=== PATIENT | male | born 1950 | race Caucasian/White ===

== ENCOUNTER 2019-05-31 12:58 | Inpatient (IN) | payer MEDICARE, SELFPAY ==
[2019-05-31] VITALS (12 sets, daily range): BP systolic 132–171; BP diastolic 60–116; PULSE 78–95; RESP 16–26; TEMP 36.5–36.8; O2SAT 92–100; BMI 48.8; BMI 51.1
--- NOTE | 2019-05-31 13:01 | RAD_ITS ---
STUDY: X-RAY CHEST REASON FOR EXAM: Male, 69 years old. SOB, SWOLLEN LEGS TECHNIQUE: Single AP portable view of the chest. COMPARISON: None. FINDINGS: There are hypoventilatory changes in the lung bases. No focal infiltrate is seen. The examination was obtained in lordotic position. There is no demonstrated pleural abnormality. There is borderline cardiomegaly. Normal mediastinum and savana. Normal visualized pulmonary arteries. Normal visualized aortic arch and descending thoracic aorta. Thoracic spine is obscured. Normal visualized ribs, clavicles, and shoulders. There is no demonstrated abnormality of the visualized soft tissue structures of the upper abdomen. RAD/Chest 1 View (Portable) IMPRESSION: Somewhat limited examination. No active pulmonary disease. Electronically Signed: Ezekiel Quick MD at 13:28 EDT Tel , Service support ,
--- NOTE | 2019-05-31 13:01 | EKG12_ITS ---
Test Reason : SOB Blood Pressure : / mmHG Vent. Rate : 079 BPM Atrial Rate : 079 BPM P-R Int : 172 ms QRS Dur : 080 ms QT Int : 424 ms P-R-T Axes : 092 -05 005 degrees QTc Int : 486 ms Sinus rhythm with Premature atrial complexes Low voltage QRS Prolonged QT Abnormal ECG Confirmed by BREANNA BROWN, MARCO A ([id number]), market editor LAKIA FORRESTER ([id number] on 06/01/2019 3:22:09 PM Referred By: MADAY Confirmed By:MARCO A CARLOS MD
[2019-05-31 13:31] LABS: Absolute Lymphocyte Count 1.13 X10^3/uL (0.83-4.51); Basophil# 0.01 X10^3/uL; Basophil% 0.2 % (0-1); Eosinophil# 0.15 X10^3/uL; Eosinophils% 3.1 % (0-5); Hematocrit 32.1 % (40-54); Lymphocyte # 1.13 X10^3/ul (4.0); Lymphocyte % 23.6 % (19-41); Mean Corp Hgb Conc 31.2 g/dL (32-36); Mean Corpuscular Hgb 32.2 pg (27.0-32.0); Mean Corpuscular Volume 103.2 fL (80-94); Mean Platelet Vol. 10.1 fl (6.2-12.0); Monocyte# 0.53 X10^3/uL; Monocyte% 11.1 % (0-10); NRBC Flagged by Analyzer 0 % (0-5); Neutrophil # 2.95 X10^3/uL (2.7-7.7); Neutrophil % 61.6 % (47-70); Platelet Count 173 K/mm3 (150-450); RBC Distribution Width CV 12.8 % (11.6-14.6); RBC Distribution Width SD 47.6 fl (35.1-43.9); Red Blood Count 3.11 M/mm3 (4.6-6.2); White Blood Count 4.8 K/mm3 (4.4-11.0)
[2019-05-31] MEDS: Ipratropium/Albuterol Sulfate 3 ML AMPUL.NEB INHALATION (13:43)
--- NOTE | 2019-05-31 13:46 | ED.DCSUM_ITS ---
History of Present Illness Chief Complaint: Shortness of Breath Informant: Patient Onset: Weeks Maximum Severity: Mild Narrative: Complains of diffuse whole body swelling scrotal swelling lower extremity swelling for weeks progressively worse, shortness of breath fatigue, indicates he has no past history he is not seen a physician for many years denies fever or cough no history of CO PE DVT liver kidney failure Past Medical History - Allergies and Home Meds Allergies/Adverse Reactions: Allergies Penicillins [PCN] Allergy (Verified 05/31/19 13:24) PASSED OUT Primary Care Physician: NOT,DEFINED [NON-STAFF] - Past Medical History: None Smoking Status: Current every day smoker Review of Systems General: Denies: Chills, Fever, Sweats Eyes: Denies: Visual changes - bilaterally, Diplopia ENT: Denies: Rhinorrhea, Sore throat Cardiovascular: Denies: Chest pain, Palpitations Respiratory: Reports: Dyspnea, Cough, Dyspnea on exertion Gastrointestinal: Denies: Abdominal pain, Nausea, Vomiting, Diarrhea, Melena, Hematochezia Genitourinary: Reports: - - Edema scrotal edema swelling. Denies: Dysuria, Hematuria, Frequency Musculoskeletal: Reports: Extremity Pain, -. Denies: Back pain Skin: Denies: Rash, Wounds Neurological: Denies: Headache, Weakness, Numbness Physical Exam Vital Signs/Narrative: Vital Signs Temp Pulse Resp BP Pulse Ox 05/31/19 13:43 79 18 05/31/19 13:29 88 22 H 151/76 H 92 05/31/19 13:01 98.1 F 94 26 H 153/116 H 94 General: Well nourished, Well developed, No Acute Distress Head: Normocephalic, Atraumatic Eyes: Perrl, EOMI ENT: Moist mucous membranes, No rhinorrhea Neck: Supple, Nontender Cardiovascular: Regular rate, Regular rhythm, No murmurs Respiratory: Chest nontender, Rales, Rhonchi, Wheezing Abdomen: Soft, Normal bowel sounds, - - He has a markedly distended nontender abdomen he has edema to the anterior abdominal wall the edema extends into the scrotum which is markedly swollen Back: Nontender, Normal Inspection Extremities: Tenderness, Edema, - - Chronic skin changes firm brawny edema bilaterally Skin: Rash Neurological: Alert, Oriented x3, Cranial nerves II-XII grossly intact, Normal Strength, Normal Sensation Psychological: Normal affect, Normal Mood Diagnostic/Tx/Re-eval - Medical Decision Making The patient's EKG shows a sinus rhythm 79 no acute injury, given all of the above and his history and complaints certainly differential is quite extensive screening labs Lasix The patient screening labs are generally unremarkable UA is pending the chest x- ray shows nothing acute troponin BNP negative, we are negotiate the patient the concept of straight catheter Asif catheter placement to obtain UA and to confirm no signs of urinary obstruction as he states he has been voiding normally Please note the Asif catheter was placed he has at least 400 cc and that is still slowly draining so there is an element of urinary retention draining Given all the above I have asked hospitalist team to see him for management admission Admit stable Final impression anasarca, CHF whole body edema, urinary retention, dyspnea ED Disposition - Plan for ED Patient: Diagnosis: Anasarca congestive heart failure Referrals: NOT,DEFINED [NON-STAFF] -
[2019-05-31 13:49] LABS: Anion Gap 5 (5-15); BUN 7 mg/dL (7-18); BUN/Creat Ratio 12.7 RATIO (10-20); Calcium,Total 8.6 mg/dL (8.5-10.1); Chloride 101 mmol/L (98-107); Creatinine, Serum 0.55 mg/dL (0.70-1.30); EST Glomerular Filtration Rate 157 mL/min (>60); Est Glom Filt Rate - Afr Amer 190 mL/min (>60); Estimated Creatinine Clearance 76.35 ml/min; Glucose 113 mg/dL (74-106); Potassium 4.5 mmol/L (3.5-5.1); Sodium Level 134 mmol/L (136-145)
[2019-05-31 13:57] LABS: International Normalized Ratio 1.1; Prothrombin Time (Protime)PT. 14.3 SECONDS (11.7-14.9)
[2019-05-31] MEDS: morphine 8 MG/ML Syringe 6 MG IV (13:57)
[2019-05-31] MEDS: Ondansetron ODT 4 MG Tablet PO (13:57)
[2019-05-31] MEDS: Furosemide 20 MG/2 ML VIAL IV (13:57)
[2019-05-31 14:06] LABS: AST(SGOT) 48 U/L (15-37); Alanine Aminotransfer ALT/SGPT 48 U/L (16-61); Alkaline Phosphatase 84 U/L (45-117); Bilirubin, Direct 0.28 mg/dL (0.00-0.30); Globulin 3.9 g/dL (2.2-4.2); Protein, Total 6.9 g/dL (6.4-8.2)
[2019-05-31 14:07] LABS: BNP,B-Type NATRIURETIC PEPTIDE 156.9 pg/mL (0-100)
[2019-05-31 14:39] LABS: Bacteria 0 SEEN /hpf (None Seen); Mucous, Urine 0 SEEN /hpf (<or=2+); Red Blood Cells-Urine 0 SEEN /hpf (0-5); Squamous Epithelial Cells - UA 0 SEEN /hpf (0-5)
[2019-05-31 14:50] LABS: Color, Urine Yellow (Yellow); Glucose, Dipstick Normal (Normal); Ketone-Dipstick Negative (Negative); Leukocyte Esterase-Dipstick Negative /ul (Negative); Nitrite-Dipstick Negative (Negative); Occult Blood-Urine Negative /ul (Negative); Protein-Dipstick Negative (Negative); Specific Gravity, Urine 1.015 (1.002-1.030); Urine Bilirubin Dipstick Negative (Negative); Urine Clarity Clear (Clear); Urine Urobilinogen Normal (Normal)
[2019-05-31 15:09] LABS: White Blood Cells 0-5 SEEN /hpf (0-5)
--- NOTE | 2019-05-31 15:32 | ECHOCS_ITS ---
Reason For Study: Anasarca Procedure This was a 2D Doppler, Color Flow transthoracic echocardiogram. The study was technically difficult. Contrast injection was performed. Patient scanned sitting up due to pain. Exam performed portable in patient room. Left Ventricle Normal LV size. Moderate concentric left ventricular hypertrophy. Left ventricular systolic function is normal. The estimated ejection fraction is 60 %. Stage 2 diastolic dysfunction. No regional wall motion abnormalities noted. Right Ventricle The right ventricle is not well visualized. Atria The left atrium is moderately enlarged. Mitral Valve Mitral valve not well visualized. Tricuspid Valve The tricuspid valve is not well visualized. Aortic Valve The aortic valve is not well visualized. Great Vessels Normal aortic root. The pulmonary artery is normal size. Normal inferior vena cava. Pericardium/Pleural No pericardial effusion. Medication Diluted definity 3ml given slow IV push to enhance endocardial definition. MMode/2D Measurements & Calculations LVIDd: 4.4 cm IVSd: 1.5 cm Ao root diam: 3.3 cm LVIDs: 3.0 cm LVPWd: 1.6 cm FS: 30.3 % LAV(MOD-sp4): 99.7 ml LA A4 area: 29.3 cm2 Time Measurements MV dec time: 0.20 sec Doppler Measurements & Calculations MV E max fred: 117.7 cm/sec Lat Peak E' Fred: 11.9 cm/sec Med Peak E' Fred: 8.7 cm/sec MV A max fred: 72.2 cm/sec E/E' lat: 9.9 E/E' med: 13.5 MV E/A: 1.6 MV V2 max: 124.2 cm/sec MV P1/2t max fred: 123.3 cm/sec Ao V2 max: 134.8 cm/sec MV max P.2 mmHg MV P1/2t: 114.7 msec Ao max P.3 mmHg MV V2 mean: 64.2 cm/sec MV dec slope: 314.8 cm/sec2 MV mean P.0 mmHg MVA(P1/2t): 1.9 cm2 MV V2 VTI: 39.9 cm LV V1 max: 95.3 cm/sec PA V2 max: 82.8 cm/sec TR max fred: 300.0 cm/sec LV V1 max P.6 mmHg TR max P.0 mmHg Interpretation Summary Normal LV size. Left ventricular systolic function is normal. The estimated ejection fraction is 60 %. Moderate concentric left ventricular hypertrophy. Stage 2 diastolic dysfunction. Contrast injection was performed. The study was technically limited. The study was technically difficult. Ordering Physician: Meka Elaine Referring Physician: Molly PCP Performed By: Kurt Sanz RCS
--- NOTE | 2019-05-31 15:40 | PCM.PN.HOSP ---
Vitals/I&O's: Vital Signs Temp Pulse Resp BP Pulse Ox 98.3 F 95 18 137/62 H 98 05/31/19 15:36 05/31/19 15:36 05/31/19 15:36 05/31/19 15:36 05/31/19 15:36 Oxygen Flow Rate (L/min) 2 Oxygen Delivery Method Nasal Cannula Weight: 158.757 kg Body Mass Index (BMI) 48.8 Laboratory Results 05/31/19 13:26: WBC 4.8, RBC 3.11 L, Hgb 10.0 L, Hct 32.1 L, MCV 103.2 H, MCH 32.2 H, MCHC 31.2 L, RDW Std Deviation 47.6 H, RDW Coeff of Radha 12.8, Plt Count 173, MPV 10.1, Immature Gran % (Auto) 0.400, Neut % (Auto) 61.6, Lymph % (Auto) 23.6, [place] % (Auto) 11.1 H, Eos % (Auto) 3.1, Baso % (Auto) 0.2, Absolute Neuts (auto) 3.0, Absolute Lymphs (auto) 1.13, Nucleated RBC % 0 05/31/19 13:26: Sodium 134 L, Potassium 4.5, Chloride 101, Carbon Dioxide 28.0, Anion Gap 5, BUN 7, Creatinine 0.55 L, Estim Creat Clear Calc 76.35, Est GFR (MDRD) Af Amer 190, Est GFR (MDRD) Non-Af 157, BUN/Creatinine Ratio 12.7, Glucose 113 H, Calcium 8.6, Troponin I < 0.015 05/31/19 13:26: B-Natriuretic Peptide 156.9 H 05/31/19 13:26: PT 14.3, INR 1.1 05/31/19 13:26: Total Bilirubin 0.60, Direct Bilirubin 0.28, AST 48 H, ALT 48, Alkaline Phosphatase 84, Total Protein 6.9, Albumin 3.0 L, Globulin 3.9 05/31/19 14:25: Urine Color Yellow, Urine Clarity Clear, Urine pH 6.0, Ur Specific [place] 1.015, Urine Protein Negative, Urine Glucose (UA) Normal, Urine Ketones Negative, Urine Occult Blood Negative, Urine Nitrite Negative, Urine Bilirubin Negative, Urine Urobilinogen Normal, Ur Leukocyte Esterase Negative, Urine RBC 0 SEEN, Urine WBC 0-5 SEEN, Ur Squamous Epith Cells 0 SEEN, Urine Bacteria 0 SEEN, Urine Mucus 0 SEEN Current Medications Acetaminophen (Tylenol) 650 mg PO Q6H PRN PRN PRN Reason: Pain Score 1-10/Temp > 100.7 F Aspirin (Ecotrin) 81 mg PO DAILY@0800 [facility] Dextrose (D50w Syringe) 0 gm IV X1 PRN; Protocol PRN Reason: Hypoglycemia Enoxaparin Sodium (Lovenox) 40 mg SC DAILY KANDY Glucagon () 1 mg IM .X1 PRN PRN Reason: Hypoglycemia Insulin Human Lispro (Humalog Kwikpen (Bkc)) 0 unit SC UD KANDY; Protocol Magnesium Hydroxide (Milk Of Magnesia) 30 ml PO DAILY PRN PRN PRN Reason: Constipation Melatonin (Melatonin) 3 mg PO QHS PRN PRN PRN Reason: INSOMNIA Metoprolol Tartrate (Lopressor (Beta Samantha)) 25 mg PO BID [facility] STROKE Vital Signs/Narrative: Vital Signs Temp Pulse Resp BP Pulse Ox 05/31/19 15:36 98.3 F 95 18 137/62 H 98 05/31/19 14:57 97.9 F 92 17 171/75 H 92 05/31/19 14:01 78 16 155/72 H 95 05/31/19 13:43 79 18 05/31/19 13:29 88 22 H 151/76 H 92 05/31/19 13:01 98.1 F 94 26 H 153/116 H 94 Medical Necessity - Tobacco Use Smoking Status: Current every day smoker Assessment/Plan Severe Anasarca -sCr is WNL -no protein in urine on UA -LFT only sig for slight AST elevation -coag WNL -Troponin WNL -Will check ECHO -BNP is elevated -Check TSH -Diuresis now with Lasix 40 mg BID -UO good with lasix give in the ED -may need lasix ggt -cardiac diet with 1500 cc fluid restriction -strict I&O -daily wgts -Could have Constrictive/Restrictive CM vs HFrEF vs HFpEF Acute Hypoxemic Respiratory Failure -Wean O2 as able -suspect related to volume overload -not O2 dependent at baseline Macrocytic Anemia -recheck CBC in am -check B12 and Folate Mild Hyponatremia -134 on admission -trend -suspect will get better with diuresis -if now proceed with w/u -appears volume overloaded Elevated BP -start BB 25 mg BID and titrate up as needed -Lasix 4 mg IVP BID -will trend MO -sig volume OL -recommend wgt loss -needs outpt PSG DVT Prophylaxis -Lovenox daily Code Status Full
--- NOTE | 2019-05-31 16:05 | HP.PCM_ITS ---
Problem List (1) Anasarca Status: Acute (2) Acute hypoxemic respiratory failure Status: Acute (3) Macrocytic anemia Status: Acute (4) Hyponatremia Status: Acute (5) Elevated BP without diagnosis of hypertension Status: Acute (6) Morbid (severe) obesity due to excess calories Status: Acute History of Present Illness Date of Admission: 05/31/19 Chief Complaint: Scrotal swelling Mr Levine is a 69 year old M who hasn't seen a doctor ever in his life that he can remember who presented to the ED on 05/30 with severe scrotal swelling. Pt reports that he has had swelling issues in his legs for awhile but with in the last few weeks he has had progressively worsening edema up to his mid abdomen but what really brought him in was the pain and swelling of his scrotum. He denies CP but does reports some SOB. He has been urinating without issues and denies any h/o liver disease. He admits to smoking fr abut 50 yrs and is now currently a 1 PPD smoker. He has no known PMH and take no medications at home. Past Medical History Allergies Penicillins [PCN] Allergy (Verified 05/31/19 13:24) PASSED OUT Home Medications: Ambulatory Orders Medication Instructions Recorded NK 05/31/19 Surgical History: total knee arthroplasty - L 2009 Psychiatric History: No pertinent psych hx Lives: Alone Smoking Status: Current every day smoker Tobacco Use: Cigarettes Alcohol: None Drugs: None Review of Systems Constitutional: Reports: Weight Change, Fatigue. Denies: Anorexia, Chills, Fever, Night Sweats, Malaise, Weakness Eyes: Denies: Blurred vision, Cataracts, Conjunctivae Inflammation, Double vision, Drainage, Eyelid Inflammation, Pain, Redness, Vision Change HEENT: Denies: Difficulty Hearing, Difficulty Swallowing, Dysphasia, Ear Pain, Eye Pain, Hard of Hearing, Head Aches, Hearing Changes, Nasal bleeding, Nasal Congestion, Post Nasal Drip, Sinus Congestion, Sinus Drainage, Sore Throat, Visual Changes Cardiovascular: Reports: Edema, Orthopnea, Paroxysmal Noc. Dyspnea. Denies: Chest Pain, Claudication, Chest Pressure, Chest Tightness, Heaviness, Light Head edness, Palpitations, Syncope Respiratory: Reports: Shortness of Breath, Shortness of breath at rest, Shortness of breath upon exertion. Denies: Cough, Hemoptysis, Pleuritic Pain, Sputum production, Wheezing Gastrointestinal: Denies: Abdominal Pain, Constipation, Diarrhea, Dyspepsia, Hematemesis, Hematochezia, Nausea, Melena, Vomiting Genitourinary: Denies: Dysuria, Frequency, Hematuria, Hesitancy, Incontinence, Nocturia, Retention, Urgency Musculoskeletal: Reports: Back Pain, Joint stiffness. Denies: Arm Pain Skin: Reports: Dryness, Pruritis, Skin Changes. Denies: Jaundice, Lesions, Rash, Wounds Neurological: Denies: Balance problems, Blurred vision, Double vision, Change in Speech, Slurred speech, Confusion, Difficulty swallowing, Focal weakness, Headaches, Incoordination, Numbness, Tingling, Tremor, Seizures Psychiatric: Denies: Anxiety, Depression, Homicidal Ideations, Suicidal Ideations Endocrine: Denies: Change in Body Habitus, Heat/ Cold Intolerance, Polydipsia, Polyuria Hematologic/ Lymphatic: Denies: Adenopathy, Anemia, Easy Bruising, Easy Bleeding, Petechiae, Purpura, Hx of blood clot, Hx of blood transfusion VTE Information - Inpt Only VTE Present on Admission: No VTE Mechan Device Prophylaxis: SCD's VTE Pharm Prophylaxis ordered?: Yes Patient Problems: Active and Suspected Problems Anasarca (Acute) Acute hypoxemic respiratory failure (Acute) Macrocytic anemia (Acute) Hyponatremia (Acute) Elevated BP without diagnosis of hypertension (Acute) Morbid (severe) obesity due to excess calories (Acute) - Physical Exam Vitals/I&O's: Vital Signs Temp Pulse Resp BP Pulse Ox 98.3 F 95 18 137/62 H 98 05/31/19 15:36 05/31/19 15:36 05/31/19 15:36 05/31/19 15:36 05/31/19 15:36 Oxygen Flow Rate (L/min) 2 Oxygen Delivery Method Nasal Cannula Weight: 161.7 kg Body Mass Index (BMI) 51.1 General: Alert, Oriented x3, Cooperative, No apparent distress, Well developed, Well nourished - WM lying in bed, nursing at bedside, pleasant, appears stated a ge HEENT: Atraumatic, PERRLA, EOMI, Normocephalic, EAC Clear Oral: Moist Mucosa, No Gingival or Mucosal Lesions/ Ulcerations, - - poor dentition, Mallampati 3 Neck: Supple, Negative Carotid Bruits, No Nodes, No Nuchal Rigidity, Trachea Midline, Thyroid Normal Size and Texture, JVD, Bilateral, - - +HJR Lungs: Diminished, Short of Breath - with exertion, Wheezes - scattered Cardiovascular: Regular rate, Regular Rhythm, Normal S1, Normal S2, No murmurs, No Ectopic Activity, - - distant heart tones 2/2 bdy habitius Abdomen: Bowel Sounds Present, Soft, Non Tender, Non-Distended, No Hepato- splenomegaly, Obese, No hernias noted Extremities: No clubbing, No cyanosis, Capillary Refill Less than 3 Seconds, Diminished Peripheral Pulses - 1+, Edema - severe anasarca to just above umbilicus Skin: No rashes, - - B LE skin breakdown Musculoskeletal: No Tenderness to Palpation of Joints or Extremities, No Muscle Wasting, Arthritic Changes Lymphatic: No Cervical, Supraclavicular, or Inguinal Adenopathy Neurological: Cranial nerves II-XII grossly intact, Deep Tendon Reflexes 2+/4 and Symmetrical, Neuro grossly intact, Motor Exam 5/5 strength throughout Psych/Mental Status: Normal Affect, Appropriate, Anxious, Alert and oriented to time, place, person, mood and affect Laboratory Results 05/31/19 13:26: WBC 4.8, RBC 3.11 L, Hgb 10.0 L, Hct 32.1 L, MCV 103.2 H, MCH 32.2 H, MCHC 31.2 L, RDW Std Deviation 47.6 H, RDW Coeff of Radha 12.8, Plt Count 173, MPV 10.1, Immature Gran % (Auto) 0.400, Neut % (Auto) 61.6, Lymph % (Auto) 23.6, [place] % (Auto) 11.1 H, Eos % (Auto) 3.1, Baso % (Auto) 0.2, Absolute Neuts (auto) 3.0, Absolute Lymphs (auto) 1.13, Nucleated RBC % 0 05/31/19 13:26: Sodium 134 L, Potassium 4.5, Chloride 101, Carbon Dioxide 28.0, Anion Gap 5, BUN 7, Creatinine 0.55 L, Estim Creat Clear Calc 76.35, Est GFR (MDRD) Af Amer 190, Est GFR (MDRD) Non-Af 157, BUN/Creatinine Ratio 12.7, Glucose 113 H, Calcium 8.6, Troponin I < 0.015 05/31/19 13:26: B-Natriuretic Peptide 156.9 H 05/31/19 13:26: PT 14.3, INR 1.1 05/31/19 13:26: Total Bilirubin 0.60, Direct Bilirubin 0.28, AST 48 H, ALT 48, Alkaline Phosphatase 84, Total Protein 6.9, Albumin 3.0 L, Globulin 3.9 05/31/19 14:25: Urine Color Yellow, Urine Clarity Clear, Urine pH 6.0, Ur Specific [place] 1.015, Urine Protein Negative, Urine Glucose (UA) Normal, Urine Ketones Negative, Urine Occult Blood Negative, Urine Nitrite Negative, Urine Bilirubin Negative, Urine Urobilinogen Normal, Ur Leukocyte Esterase Negative, Urine RBC 0 SEEN, Urine WBC 0-5 SEEN, Ur Squamous Epith Cells 0 SEEN, Urine Bacteria 0 SEEN, Urine Mucus 0 SEEN Current Medications Acetaminophen (Tylenol) 650 mg PO Q6H PRN PRN PRN Reason: Pain Score 1-10/Temp > 100.7 F Aspirin (Ecotrin) 81 mg PO DAILY@0800 [facility] Dextrose (D50w Syringe) 0 gm IV X1 PRN; Protocol PRN Reason: Hypoglycemia Enoxaparin Sodium (Lovenox) 40 mg SC DAILY KANDY Furosemide (Lasix) 40 mg IV BID@1000,1800 KANDY Glucagon () 1 mg IM .X1 PRN PRN Reason: Hypoglycemia Sodium Chloride () 250 mls @ 15 mls/hr IV .[id number] PRN PRN Reason: Saline Flush Sodium Chloride () 250 mls @ 15 mls/hr IV .[id number] PRN PRN Reason: Additional IVPB Infusion Insulin Human Lispro (Humalog Kwikpen (Bkc)) 0 unit SC UD KANDY; Protocol Magnesium Hydroxide (Milk Of Magnesia) 30 ml PO DAILY PRN PRN PRN Reason: Constipation Melatonin (Melatonin) 3 mg PO QHS PRN PRN PRN Reason: INSOMNIA Metoprolol Tartrate (Lopressor (Beta Samantha)) 25 mg PO BID KANDY Morphine Sulfate () 2 mg IV Q4H PRN PRN PRN Reason: Pain Score 1-5/10 Sodium Chloride () 10 - 40 ml IV UD PRN PRN Reason: SALINE FLUSH Assessment/Plan All Active Problems Anasarca (Acute) Acute hypoxemic respiratory failure (Acute) Macrocytic anemia (Acute) Hyponatremia (Acute) Elevated BP without diagnosis of hypertension (Acute) Morbid (severe) obesity due to excess calories (Acute) Severe Anasarca -sCr is WNL -no protein in urine on UA -LFT only sig for slight AST elevation -coag WNL -Troponin WNL -Will check ECHO -BNP is elevated -Check TSH -Diuresis now with Lasix 40 mg BID -UO good with lasix give in the ED -may need lasix ggt -cardiac diet with 1500 cc fluid restriction -strict I&O -daily wgts -Could have Constrictive/Restrictive CM vs HFrEF vs HFpEF Acute Hypoxemic Respiratory Failure -Wean O2 as able -suspect related to volume overload -not O2 dependent at baseline Macrocytic Anemia -recheck CBC in am -check B12 and Folate Mild Hyponatremia -134 on admission -trend -suspect will get better with diuresis -if now proceed with w/u -appears volume overloaded Elevated BP -start BB 25 mg BID and titrate up as needed -Lasix 4 mg IVP BID -will trend Tobacco abuse -defers nicotine patch at this time MO -sig volume OL -recommend wgt loss -needs outpt PSG DVT Prophylaxis -Lovenox daily Code Status Full Inpatient E&M: 17566 Init Hosp L3
[2019-05-31] MEDS: Furosemide 40 MG/4 ML Vial IV (17:24)
[2019-05-31 17:51] LABS: Bedside Glucose 114 mg/dL (70-110)
[2019-05-31] MEDS: Morphine 2 MG/ML Syringe IV ×2 (19:01→23:07)
[2019-05-31] MEDS: 0.9% Saline Lock 10 ML Syringe IV ×2 (19:01→23:07)
[2019-05-31] MEDS: Metoprolol Tartrate 25 MG Tablet PO (21:36)
[2019-05-31] MEDS: Mineral Oil/Petrolatum Cr 1.75oz Bottle 1 APPLIC TOPICAL (21:38)
[2019-05-31] MEDS: Acetaminophen 325 MG Tablet 650 MG PO (21:44)
[2019-05-31 21:45] LABS: Bedside Glucose 115 mg/dL (70-110)
[2019-06-01] VITALS (10 sets, daily range): BP systolic 119–142; BP diastolic 46–95; PULSE 63–86; RESP 18–20; TEMP 36.1–36.8; O2SAT 60–100
[2019-06-01] MEDS: Morphine 2 MG/ML Syringe IV (03:33)
[2019-06-01] MEDS: 0.9% Saline Lock 10 ML Syringe IV ×8 (03:36→22:16)
[2019-06-01] MEDS: Hydrocortisone 2.5% Crm 1 APPLIC TOPICAL (03:36)
[2019-06-01 05:49] LABS: Absolute Lymphocyte Count 1.26 X10^3/uL (0.83-4.51); Absolute Neutrophil Count 4.6 X10^3/uL (2.0-7.7); Basophil# 0.03 X10^3/uL; Basophil% 0.4 % (0-1); Eosinophil# 0.12 X10^3/uL; Eosinophils% 1.8 % (0-5); Hemoglobin 10.3 g/dL (13.0-16.5); Lymphocyte # 1.26 X10^3/ul (4.0); Lymphocyte % 18.4 % (19-41); Mean Corp Hgb Conc 31.2 g/dL (32-36); Mean Corpuscular Hgb 32.5 pg (27.0-32.0); Mean Corpuscular Volume 104.1 fL (80-94); Mean Platelet Vol. 10.3 fl (6.2-12.0); Monocyte# 0.76 X10^3/uL; Monocyte% 11.1 % (0-10); NRBC Flagged by Analyzer 0 % (0-5); Neutrophil # 4.63 X10^3/uL (2.7-7.7); Neutrophil % 67.9 % (47-70); Platelet Count 181 K/mm3 (150-450); RBC Distribution Width CV 12.6 % (11.6-14.6); RBC Distribution Width SD 48.5 fl (35.1-43.9); Red Blood Count 3.17 M/mm3 (4.6-6.2); White Blood Count 6.8 K/mm3 (4.4-11.0)
[2019-06-01 06:44] LABS: ALB/GLOB Ratio 0.8 RATIO (0.9-2.4); AST(SGOT) 38 U/L (15-37); Alanine Aminotransfer ALT/SGPT 46 U/L (16-61); Albumin, Serum 3.1 g/dL (3.2-5.0); Alkaline Phosphatase 80 U/L (45-117); Anion Gap 6 (5-15); BUN 10 mg/dL (7-18); BUN/Creat Ratio 19.5 RATIO (10-20); Calcium,Total 8.5 mg/dL (8.5-10.1); Chloride 96 mmol/L (98-107); Cholesterol 116 mg/dL (200); Creatinine, Serum 0.51 mg/dL (0.70-1.30); EST Glomerular Filtration Rate 171 mL/min (>60); Est Glom Filt Rate - Afr Amer 207 mL/min (>60); Estimated Creatinine Clearance 74.01 ml/min; Globulin 4.1 g/dL (2.2-4.2); Glucose 135 mg/dL (74-106); High Density Lipoprotein 54 mg/dL; Magnesium 2.1 mg/dL (1.6-2.6); Phosphorus 3.8 mg/dL (2.5-4.9); Potassium 4.2 mmol/L (3.5-5.1); Protein, Total 7.2 g/dL (6.4-8.2); Sodium Level 134 mmol/L (136-145); Thyroid Stim Hormone (TSH) 3.57 uIU/mL (0.358-3.74); Triglycerides 59 mg/dL; Very Low Density Lipoprotein 12 mg/dL (5-40)
[2019-06-01 07:01] LABS: Bedside Glucose 126 mg/dL (70-110)
[2019-06-01 07:18] LABS: Hemoglobin A1c 4.5 % (4.2-6.3)
--- NOTE | 2019-06-01 07:53 | CPS ---
PT PLACED ON 3 LPM FOR SATURATION OF 60% ON ROOM AIR. PT 87% ON 3LPM. O2 INCREASED TO 4 LPM. NURSE AWARE OF CHANGES.
[2019-06-01] MEDS: Morphine 4 MG/ML Syringe 3 MG IV ×3 (08:27→20:16)
[2019-06-01 08:33] LABS: Vitamin B12 514 pg/mL (211-911)
[2019-06-01] MEDS: Enoxaparin 40 MG/0.4 ML Syringe SC (08:45)
[2019-06-01] MEDS: Aspirin E.C. 81 MG Tablet PO (08:45)
[2019-06-01] MEDS: Metoprolol Tartrate 25 MG Tablet PO (08:45)
[2019-06-01] MEDS: Furosemide 40 MG/4 ML Vial IV ×3 (10:26→22:13)
[2019-06-01] MEDS: Acetaminophen 325 MG Tablet 650 MG PO ×2 (10:33→22:10)
--- NOTE | 2019-06-01 11:41 | PN_ITS ---
Patient Problems: Active and Suspected Problems Anasarca (Acute) Acute hypoxemic respiratory failure (Acute) Macrocytic anemia (Acute) Hyponatremia (Acute) Elevated BP without diagnosis of hypertension (Acute) Morbid (severe) obesity due to excess calories (Acute) Vitals/I&O's: Vital Signs Temp Pulse Resp BP Pulse Ox 97.4 F L 80 20 H 142/95 H 97 06/01/19 08:19 06/01/19 08:45 06/01/19 08:19 06/01/19 08:19 06/01/19 08:19 Oxygen Flow Rate (L/min) 4 Oxygen Delivery Method Nasal Cannula Weight: 161.7 kg Body Mass Index (BMI) 51.1 Intake and Output for Last 24 Hours 05/30/19 05/31/19 06/01/19 22:59 23:59 23:59 Intake Total 480 / 480 Output Total 2124 / 2124 Balance -1645 / -1645 Laboratory Results 05/31/19 13:26: WBC 4.8, RBC 3.11 L, Hgb 10.0 L, Hct 32.1 L, MCV 103.2 H, MCH 32.2 H, MCHC 31.2 L, RDW Std Deviation 47.6 H, RDW Coeff of Radha 12.8, Plt Count 173, MPV 10.1, Immature Gran % (Auto) 0.400, Neut % (Auto) 61.6, Lymph % (Auto) 23.6, Stanley % (Auto) 11.1 H, Eos % (Auto) 3.1, Baso % (Auto) 0.2, Absolute Neuts (auto) 3.0, Absolute Lymphs (auto) 1.13, Nucleated RBC % 0 05/31/19 13:26: Sodium 134 L, Potassium 4.5, Chloride 101, Carbon Dioxide 28.0, Anion Gap 5, BUN 7, Creatinine 0.55 L, Estim Creat Clear Calc 76.35, Est GFR (MDRD) Af Amer 190, Est GFR (MDRD) Non-Af 157, BUN/Creatinine Ratio 12.7, Glucose 113 H, Calcium 8.6, Troponin I < 0.015 05/31/19 13:26: B-Natriuretic Peptide 156.9 H 05/31/19 13:26: PT 14.3, INR 1.1 05/31/19 13:26: Total Bilirubin 0.60, Direct Bilirubin 0.28, AST 48 H, ALT 48, Alkaline Phosphatase 84, Total Protein 6.9, Albumin 3.0 L, Globulin 3.9 05/31/19 14:25: Urine Color Yellow, Urine Clarity Clear, Urine pH 6.0, Ur Specific [place] 1.015, Urine Protein Negative, Urine Glucose (UA) Normal, Urine Ketones Negative, Urine Occult Blood Negative, Urine Nitrite Negative, Urine Bilirubin Negative, Urine Urobilinogen Normal, Ur Leukocyte Esterase Negative, Urine RBC 0 SEEN, Urine WBC 0-5 SEEN, Ur Squamous Epith Cells 0 SEEN, Urine Bacteria 0 SEEN, Urine Mucus 0 SEEN 05/31/19 17:22: POC Glucose 114 H 05/31/19 21:34: POC Glucose 115 H 06/01/19 05:28: Sodium 134 L, Potassium 4.2, Chloride 96 L, Carbon Dioxide 32.0, Anion Gap 6, BUN 10, Creatinine 0.51 L, Estim Creat Clear Calc 74.01, Est GFR (MDRD) Af Amer 207, Est GFR (MDRD) Non-Af 171, BUN/Creatinine Ratio 19.5, Glucose 135 H, Calcium 8.5, Phosphorus 3.8, Magnesium 2.1, Total Bilirubin 0.90, AST 38 H, ALT 46, Alkaline Phosphatase 80, Total Protein 7.2, Albumin 3.1 L, Globulin 4.1, Albumin/Globulin Ratio 0.8 L, Triglycerides 59, Cholesterol 116, LDL Cholesterol 50, VLDL Cholesterol 12, HDL Cholesterol 54, Folate 8.30, TSH 3.57 06/01/19 05:28: WBC 6.8, RBC 3.17 L, Hgb 10.3 L, Hct 33.0 L, MCV 104.1 H, MCH 32.5 H, MCHC 31.2 L, RDW Std Deviation 48.5 H, RDW Coeff of Radha 12.6, Plt Count 181, MPV 10.3, Immature Gran % (Auto) 0.400, Neut % (Auto) 67.9, Lymph % (Auto) 18.4 L, Stanley % (Auto) 11.1 H, Eos % (Auto) 1.8, Baso % (Auto) 0.4, Absolute Neuts (auto) 4.6, Absolute Lymphs (auto) 1.26, Nucleated RBC % 0 06/01/19 05:28: Vitamin B12 514 06/01/19 05:28: Hemoglobin A1c 4.5 06/01/19 06:50: POC Glucose 126 H Current Medications Acetaminophen (Tylenol) 650 mg PO Q6H PRN PRN PRN Reason: Pain Score 1-10/Temp > 100.7 F Last Admin: 06/01/19 10:33 Dose: 650 mg Documented by: Aspirin (Ecotrin) 81 mg PO DAILY@0800 [facility] Last Admin: 06/01/19 08:45 Dose: 81 mg Documented by: Enoxaparin Sodium (Lovenox) 40 mg SC DAILY [facility] Last Admin: 06/01/19 08:45 Dose: 40 mg Documented by: Furosemide (Lasix) 40 mg IV BID@1000,1800 [facility] Last Admin: 06/01/19 10:26 Dose: 40 mg Documented by: Glucagon () 1 mg IM .X1 PRN PRN Reason: Hypoglycemia Hydrocortisone (Hytone) 1 applic TOPICAL TID PRN PRN; Protocol PRN Reason: ITCHING Last Admin: 06/01/19 03:36 Dose: 1 applicatio Documented by: Sodium Chloride () 250 mls @ 15 mls/hr IV .[id number] PRN PRN Reason: Saline Flush Sodium Chloride () 250 mls @ 15 mls/hr IV .[id number] PRN PRN Reason: Additional IVPB Infusion Dextrose (Dextrose 10%-Water) 250 mls @ 999 mls/hr IV .Q16M PRN; Protocol PRN Reason: HYPOGLYCEMIA Insulin Human Lispro (Humalog Kwikpen (Bkc)) 0 unit SC [facility]; Protocol Last Admin: 06/01/19 06:51 Dose: Not Given Documented by: Magnesium Hydroxide (Milk Of Magnesia) 30 ml PO DAILY PRN PRN PRN Reason: Constipation Melatonin (Melatonin) 3 mg PO QHS PRN PRN PRN Reason: INSOMNIA Metoprolol Tartrate (Lopressor (Beta Samantha)) 25 mg PO BID [facility] Last Admin: 06/01/19 08:45 Dose: 25 mg Documented by: Morphine Sulfate () 3 mg IV Q4H PRN PRN PRN Reason: Pain Score 1-10/10 Last Admin: 06/01/19 08:27 Dose: 3 mg Documented by: Multi-Ingredient Ointment (Aquaphor) 1 applic TOPICAL PRN PRN; Protocol PRN Reason: DRY SKIN Last Admin: 05/31/19 21:38 Dose: 1 applicatio Documented by: Sodium Chloride () 10 - 40 ml IV UD PRN PRN Reason: SALINE FLUSH Last Admin: 06/01/19 10:26 Dose: 10 ml Documented by: STROKE Vital Signs/Narrative: Vital Signs Temp Pulse Resp BP Pulse Ox 06/01/19 08:45 80 06/01/19 08:19 97.4 F L 80 20 H 142/95 H 97 Medical Necessity - Tobacco Use Smoking Status: Current every day smoker Tobacco Use: Cigarettes Assessment/Plan All Active Problems Anasarca (Acute) Acute hypoxemic respiratory failure (Acute) Macrocytic anemia (Acute) Hyponatremia (Acute) Elevated BP without diagnosis of hypertension (Acute) Morbid (severe) obesity due to excess calories (Acute)
--- NOTE | 2019-06-01 11:42 | PN_ITS ---
Patient Problems: Active and Suspected Problems Anasarca (Acute) Acute hypoxemic respiratory failure (Acute) Macrocytic anemia (Acute) Hyponatremia (Acute) Elevated BP without diagnosis of hypertension (Acute) Morbid (severe) obesity due to excess calories (Acute) Subjective: C/O continued pain, and the morphine not working. Nsg suspects that IV is bad. Daughter at bedside and gets pt to admit that he is a daily heavy drinker. Pt denies every having withdrawal but has never really quit except once when he was in rehab 30+ yrs ago. Denies any internal anxiety or tremor. Vitals/I&O's: Vital Signs Temp Pulse Resp BP Pulse Ox 97.4 F L 80 20 H 142/95 H 97 06/01/19 08:19 06/01/19 08:45 06/01/19 08:19 06/01/19 08:19 06/01/19 08:19 Oxygen Flow Rate (L/min) 4 Oxygen Delivery Method Nasal Cannula Weight: 161.7 kg Body Mass Index (BMI) 51.1 Intake and Output for Last 24 Hours 05/30/19 05/31/19 06/01/19 22:59 23:59 23:59 Intake Total 480 / 480 Output Total 2125 / 2125 Balance -1645 / -1645 General: Alert, Oriented x3, Cooperative, No apparent distress, Well developed, Well nourished, - - a bit argumentative but calms with talking to him HEENT: Atraumatic, PERRLA, EOMI, Normocephalic, EAC Clear Oral: Moist Mucosa, No Gingival or Mucosal Lesions/ Ulcerations, - - edetulous, Mallampati 4 Neck: Supple, Negative Carotid Bruits, No Nodes, No Nuchal Rigidity, Trachea Midline, Thyroid Normal Size and Texture, JVD, Bilateral, - - short thick neck, +HSR Lungs: No rhonchi, No wheeze, No rales, Diminished - diffusely Cardiovascular: Regular rate, Regular Rhythm, Normal S1, Normal S2, No murmurs, No Ectopic Activity, No rub noted, No Gallop, - - very distant heart tones 2/2 body habitus Abdomen: Bowel Sounds Present, Soft, Non Tender, Non-Distended, No Hepato- splenomegaly - difficult exam, Obese, No hernias noted Extremities: No clubbing, No cyanosis, Edema - severe pitting B LE, scrotum, abdomen to umbilicus--> abdomen is better, R UE edema almost resolved today Musculoskeletal: No Tenderness to Palpation of Joints or Extremities, No Muscle Wasting, Arthritic Changes Lymphatic: No Cervical, Supraclavicular, or Inguinal Adenopathy Neurological: Cranial nerves II-XII grossly intact, Deep Tendon Reflexes 2+/4 and Symmetrical, Neuro grossly intact, Motor Exam 5/5 strength throughout Psych/Mental Status: Agitated, - - A&O x 3 Laboratory Results 05/31/19 13:26: WBC 4.8, RBC 3.11 L, Hgb 10.0 L, Hct 32.1 L, MCV 103.2 H, MCH 32.2 H, MCHC 31.2 L, RDW Std Deviation 47.6 H, RDW Coeff of Radha 12.8, Plt Count 173, MPV 10.1, Immature Gran % (Auto) 0.400, Neut % (Auto) 61.6, Lymph % (Auto) 23.6, [place] % (Auto) 11.1 H, Eos % (Auto) 3.1, Baso % (Auto) 0.2, Absolute Neuts (auto) 3.0, Absolute Lymphs (auto) 1.13, Nucleated RBC % 0 05/31/19 13:26: Sodium 134 L, Potassium 4.5, Chloride 101, Carbon Dioxide 28.0, Anion Gap 5, BUN 7, Creatinine 0.55 L, Estim Creat Clear Calc 76.35, Est GFR (MDRD) Af Amer 190, Est GFR (MDRD) Non-Af 157, BUN/Creatinine Ratio 12.7, Glucose 113 H, Calcium 8.6, Troponin I < 0.015 05/31/19 13:26: B-Natriuretic Peptide 156.9 H 05/31/19 13:26: PT 14.3, INR 1.1 05/31/19 13:26: Total Bilirubin 0.60, Direct Bilirubin 0.28, AST 48 H, ALT 48, Alkaline Phosphatase 84, Total Protein 6.9, Albumin 3.0 L, Globulin 3.9 05/31/19 14:25: Urine Color Yellow, Urine Clarity Clear, Urine pH 6.0, Ur Specific [place] 1.015, Urine Protein Negative, Urine Glucose (UA) Normal, Urine Ketones Negative, Urine Occult Blood Negative, Urine Nitrite Negative, Urine Bilirubin Negative, Urine Urobilinogen Normal, Ur Leukocyte Esterase Negative, Urine RBC 0 SEEN, Urine WBC 0-5 SEEN, Ur Squamous Epith Cells 0 SEEN, Urine Bacteria 0 SEEN, Urine Mucus 0 SEEN 05/31/19 17:22: POC Glucose 114 H 05/31/19 21:34: POC Glucose 115 H 06/01/19 05:28: Sodium 134 L, Potassium 4.2, Chloride 96 L, Carbon Dioxide 32.0, Anion Gap 6, BUN 10, Creatinine 0.51 L, Estim Creat Clear Calc 74.01, Est GFR (MDRD) Af Amer 207, Est GFR (MDRD) Non-Af 171, BUN/Creatinine Ratio 19.5, Glucose 135 H, Calcium 8.5, Phosphorus 3.8, Magnesium 2.1, Total Bilirubin 0.90, AST 38 H, ALT 46, Alkaline Phosphatase 80, Total Protein 7.2, Albumin 3.1 L, Globulin 4.1, Albumin/Globulin Ratio 0.8 L, Triglycerides 59, Cholesterol 116, LDL Cholesterol 50, VLDL Cholesterol 12, HDL Cholesterol 54, Folate 8.30, TSH 3.57 06/01/19 05:28: WBC 6.8, RBC 3.17 L, Hgb 10.3 L, Hct 33.0 L, MCV 104.1 H, MCH 32.5 H, MCHC 31.2 L, RDW Std Deviation 48.5 H, RDW Coeff of Radha 12.6, Plt Count 181, MPV 10.3, Immature Gran % (Auto) 0.400, Neut % (Auto) 67.9, Lymph % (Auto) 18.4 L, [place] % (Auto) 11.1 H, Eos % (Auto) 1.8, Baso % (Auto) 0.4, Absolute Neuts (auto) 4.6, Absolute Lymphs (auto) 1.26, Nucleated RBC % 0 06/01/19 05:28: Vitamin B12 514 06/01/19 05:28: Hemoglobin A1c 4.5 06/01/19 06:50: POC Glucose 126 H Current Medications Acetaminophen (Tylenol) 650 mg PO Q6H PRN PRN PRN Reason: Pain Score 1-10/Temp > 100.7 F Last Admin: 06/01/19 10:33 Dose: 650 mg Documented by: Aspirin (Ecotrin) 81 mg PO DAILY@0800 [facility] Last Admin: 06/01/19 08:45 Dose: 81 mg Documented by: Enoxaparin Sodium (Lovenox) 40 mg SC DAILY [facility] Last Admin: 06/01/19 08:45 Dose: 40 mg Documented by: Furosemide (Lasix) 40 mg IV BID@1000,1800 [facility] Last Admin: 06/01/19 10:26 Dose: 40 mg Documented by: Glucagon () 1 mg IM .X1 PRN PRN Reason: Hypoglycemia Hydrocortisone (Hytone) 1 applic TOPICAL TID PRN PRN; Protocol PRN Reason: ITCHING Last Admin: 06/01/19 03:36 Dose: 1 applicatio Documented by: Sodium Chloride () 250 mls @ 15 mls/hr IV .[id number] PRN PRN Reason: Saline Flush Sodium Chloride () 250 mls @ 15 mls/hr IV .[id number] PRN PRN Reason: Additional IVPB Infusion Dextrose (Dextrose 10%-Water) 250 mls @ 999 mls/hr IV .Q16M PRN; Protocol PRN Reason: HYPOGLYCEMIA Insulin Human Lispro (Humalog Kwikpen (Bkc)) 0 unit SC [facility]; Protocol Last Admin: 06/01/19 06:51 Dose: Not Given Documented by: Magnesium Hydroxide (Milk Of Magnesia) 30 ml PO DAILY PRN PRN PRN Reason: Constipation Melatonin (Melatonin) 3 mg PO QHS PRN PRN PRN Reason: INSOMNIA Metoprolol Tartrate (Lopressor (Beta Samantha)) 25 mg PO BID [facility] Last Admin: 06/01/19 08:45 Dose: 25 mg Documented by: Morphine Sulfate () 3 mg IV Q4H PRN PRN PRN Reason: Pain Score 1-10/10 Last Admin: 06/01/19 08:27 Dose: 3 mg Documented by: Multi-Ingredient Ointment (Aquaphor) 1 applic TOPICAL PRN PRN; Protocol PRN Reason: DRY SKIN Last Admin: 05/31/19 21:38 Dose: 1 applicatio Documented by: Sodium Chloride () 10 - 40 ml IV UD PRN PRN Reason: SALINE FLUSH Last Admin: 06/01/19 10:26 Dose: 10 ml Documented by: STROKE Vital Signs/Narrative: Vital Signs Temp Pulse Resp BP Pulse Ox 06/01/19 08:45 80 06/01/19 08:19 97.4 F L 80 20 H 142/95 H 97 Medical Necessity - Tobacco Use Smoking Status: Current every day smoker Tobacco Use: Cigarettes Assessment/Plan All Active Problems Anasarca (Acute) Acute hypoxemic respiratory failure (Acute) Macrocytic anemia (Acute) Hyponatremia (Acute) Elevated BP without diagnosis of hypertension (Acute) Morbid (severe) obesity due to excess calories (Acute) Severe Anasarca -sCr is WNL -no protein in urine on UA -LFT only sig for slight AST elevation (is and has been a heavy drinker) -coag WNL -Troponin WNL -ECHO is pending -BNP is elevated -TSH WNL at 3.57 -Continue with diuresis increase Lasix to 40 mg 3x/day -has had a good response to bolus lasix thus far -may need lasix ggt if need to be more aggressive -cardiac diet with 1500 cc fluid restriction -strict I&O -daily wgts -Could have Constrictive/Restrictive CM vs HFrEF vs HFpEF -will consult cards if ECHO is abn Acute Hypoxemic Respiratory Failure -Wean O2 as able--> on 4 L at 97% -decrease to 3 L now -suspect related to volume overload -not O2 dependent at baseline -repeat am CXR EtOH Abuse -daily drinker for YEARS (47 at least) -never had withdrawal but never stopped out of a controlled setting -Start Phenobarb 60 TID -Thiamine 200 mg x 3 days -folate daily -MVI daily Macrocytic Anemia -CBC is stable -B12 and Folate are WNL -suspect related to EtOH consumption Mild Hyponatremia -134 on admission and same today -trend -suspect will get better with diuresis -still appears hypervolemic (-1645 since admission) Elevated BP -switch to Coreg 12.5 BID -Lasix 40 mg IVP TID today--> IV bad replace -will trend Tobacco abuse -defers nicotine patch at this time MO -sig volume OL -recommend wgt loss -needs outpt PSG if pt willing DVT Prophylaxis -Lovenox daily Code Status Full Inpatient E&M: 21850 Subs Hosp L3
[2019-06-01 12:55] LABS: Bedside Glucose 94 mg/dL (70-110)
--- NOTE | 2019-06-01 15:12 | CASEMGMT ---
RN CM Assessment Patient sleeping, easily aroused with verbal stimuli. Introduced role of RN CM to patient.? Patient is alert, oriented and able?to participate in RN CM Assessment. ?Care providers, pharmacy, and demographics verified. Presentation: Scrotal swelling Admit Dx: Anasarca Re-Admit: No Barriers/Issues: Does not have a PCP/see a provider. PCP: None, PCP list provided Specialists: None Preferred Pharmacy: [facility] Insurance: [facility] Rx Benefit:?No ?LNOK: Mother Brandi Levine LW/HPOA: States has both completed, aware not on file with [facility] and if brought in will place a copy on file. HPOA- brother Maximilian Levine Living Arrangements:? Lives with mother in a H, 2 steps to enter ADL?s: Independent with ambulation and ADLs Transportation: Patient drives DME: None HHC: None SNF: none Goal: Home amd does not think will have any needs. Denies any issues, concerns, needs or questions with DC planning at this time. Aware CM remains available should any emerging needs arise. DC PLAN: Home with no anticipated needs identified at this time. GRAHAM Church
--- NOTE | 2019-06-01 15:53 | CT_ITS ---
STUDY: CT ABDOMEN AND PELVIS WITHOUT CONTRAST REASON FOR EXAM: Male, 69 years old. EDEMA, BODY, SCROTUM SWELLING, SOB, FATIGUE RADIATION DOSAGE (If Supplied By Facility): CTDIvol = ( 32.52 ) mGy, DLP = ( 2617.04 ) mGycm TECHNIQUE: Transaxial images were obtained from the dome of the diaphragm to the symphysis pubis without oral contrast, and without intravenous contrast. Sagittal and coronal images were reconstructed. Individualized dose optimization techniques were used for this CT. COMPARISON: None. FINDINGS: There is lower lobe atelectasis. There is trace fluid or infiltrate tracking in the right minor fissure. There is mild cardiac enlargement or coronary calcifications. There is a visualized lymph node in the peridiaphragmatic fat measuring 1.0 cm per Liver is enlarged. Normal gallbladder and extrahepatic biliary system. The spleen measures 17.2 x 6 x 12 cm. Normal pancreas. Normal bilateral adrenal glands. Normal right kidney. Normal left kidney. Normal visualized stomach. Normal small intestine. There is a elongated decompressed appearance of the sigmoid colon. There is mild to moderate stool within the colon. The colon is likely affected by the large amount of intra-abdominal fat. There is a large amount of perinephric fat. The appendix is visualized and appears normal. There is diffuse atherosclerotic calcification of the abdominal aorta, without a demonstrated aneurysm. Is calcification of the take off of the bilateral renal arteries. Normal inferior vena cava. Normal retroperitoneum. There is a Asif catheter in the bladder which is decompressed. There are prostatic calcifications. There is visualization of bilateral hydroceles and significant scrotal edema. There is a fatty umbilical hernia that does not contain bowel. There is a small focus of gas in the left of midline superficial soft tissues suggesting recent injection. There is visualized significant bilateral lower extremity edema fairly symmetric with dense edema throughout the subcutaneous soft tissues. Postoperative changes in the right lower quadrant from probable hernia repair. There is a left-sided fatty inguinal hernia. There are multiple reactive appearing fatty filled groin lymph nodes. There is multilevel degenerative change in the thoracolumbar spine. There is loss of height at T8 of at least 50% which is chronic. CT/Abdomen/Pelvis without Cont IMPRESSION: Lower lobe atelectasis small focus of consolidation or fluid within the right minor fissure. Coronary artery disease. Hepatic enlargement. Splenomegaly. Intra-abdominal lipomatosis. Body wall edema significant lower extremity edema visualized scrotal edema bilateral hydroceles. Atherosclerotic disease of the aorta. Degenerative changes of the thoracolumbar spine. Electronically Signed: Yaz Wyatt MD at 16:50 EDT Tel , Service support ,
[2019-06-01] MEDS: Phenobarbital 32.4 MG Tablet 64.8 MG PO ×2 (17:00→22:03)
[2019-06-01 17:01] LABS: Bedside Glucose 94 mg/dL (70-110)
[2019-06-01] MEDS: Menthol/Lanolin/Calamine/Znox 113 GM Tube 1 APPLIC TOPICAL (20:19)
[2019-06-01] MEDS: Carvedilol 12.5 MG Tablet PO (22:11)
[2019-06-01 22:35] LABS: Bedside Glucose 103 mg/dL (70-110)
[2019-06-02] VITALS (12 sets, daily range): BP systolic 118–133; BP diastolic 44–66; PULSE 66–91; RESP 16–20; TEMP 36.2–37; O2SAT 94–98
[2019-06-02] MEDS: 0.9% Saline Lock 10 ML Syringe IV ×4 (00:23→11:24)
[2019-06-02] MEDS: Morphine 4 MG/ML Syringe 3 MG IV ×2 (00:24→11:24)
[2019-06-02] MEDS: MELATONIN 3 MG TABLET PO (00:27)
[2019-06-02] MEDS: Hydrocortisone 2.5% Crm 1 APPLIC TOPICAL (00:34)
--- NOTE | 2019-06-02 02:49 | NURSING ---
Patient is cursing at staff about fluid restriction, is refusing to follow the fluid restriction order, is upset that he is not given more pain medication and is refusing to wear telemetry at this time, he says they itch. He took tele leads off. Was educated about fluid restriction by this nurse and about telemetry by LINDA Emerson.
[2019-06-02] MEDS: Acetaminophen 325 MG Tablet 650 MG PO (05:14)
[2019-06-02] MEDS: Phenobarbital 32.4 MG Tablet 64.8 MG PO ×3 (05:14→22:03)
[2019-06-02] MEDS: Furosemide 40 MG/4 ML Vial IV (05:16)
--- NOTE | 2019-06-02 06:00 | RAD_ITS ---
STUDY: X-RAY CHEST REASON FOR EXAM: Male, 69 years old. sob -- edema TECHNIQUE: Every week portable chest were obtained. COMPARISON: Chest x-ray 05/31/2019. CT scan abdomen and pelvis 06/01/2019. FINDINGS: Lungs are underexpanded. There is increased density in the left lower lung field, consistent with a prominent left epicardial fat pad.. There is apparent mild thickening of the horizontal fissure, which may be due to pleural thickening or adjacent atelectasis.. There is no demonstrated focal pulmonary infiltrate. There is no demonstrated pleural effusion. Normal size heart. Normal mediastinum and savana. Normal visualized pulmonary arteries. There is atherosclerotic calcification of the aortic arch with tortuosity. There are diffuse degenerative changes of the visualized thoracic spine. Normal visualized ribs, clavicles, and shoulders. There is no demonstrated abnormality of the visualized soft tissue structures of the upper abdomen. RAD/Chest 1 View IMPRESSION: No evidence for acute cardiopulmonary pathology. Electronically Signed: Reuben Vines MD at 5:21 EDT , Service support ,
[2019-06-02 07:02] LABS: Anion Gap 3 (5-15); BUN 15 mg/dL (7-18); BUN/Creat Ratio 22.6 RATIO (10-20); Calcium,Total 8.8 mg/dL (8.5-10.1); Chloride 99 mmol/L (98-107); Creatinine, Serum 0.66 mg/dL (0.70-1.30); EST Glomerular Filtration Rate 127 mL/min (>60); Est Glom Filt Rate - Afr Amer 154 mL/min (>60); Estimated Creatinine Clearance 74.01 ml/min; Glucose 117 mg/dL (74-106); Potassium 4.1 mmol/L (3.5-5.1); Sodium Level 134 mmol/L (136-145)
--- NOTE | 2019-06-02 10:52 | PCM.PN.HOSP ---
Patient Problems: Active and Suspected Problems Anasarca (Acute) Acute hypoxemic respiratory failure (Acute) Macrocytic anemia (Acute) Hyponatremia (Acute) Elevated BP without diagnosis of hypertension (Acute) Morbid (severe) obesity due to excess calories (Acute) Subjective: Still having pain in his scrotum primarily. Breathing is stable. Denies and other issues other than pain in his scrotum. Vitals/I&O's: Vital Signs Temp Pulse Resp BP Pulse Ox 97.1 F L 66 20 H 133/47 H 98 06/02/19 05:30 06/02/19 07:40 06/02/19 05:30 06/02/19 05:30 06/02/19 07:56 Oxygen Flow Rate (L/min) 2 Oxygen Delivery Method Nasal Cannula Weight: 161.7 kg Body Mass Index (BMI) 51.1 Intake and Output for Last 24 Hours 05/31/19 06/01/19 06/02/19 23:59 23:59 23:59 Intake Total 1200 / 1540 780 / 780 Output Total 2825 / 3075 400 / 400 Balance -1625 / -1535 380 / 380 General: Alert, Oriented x3, Cooperative, No apparent distress, Well developed, Well nourished HEENT: Atraumatic, PERRLA, EOMI, Normocephalic, EAC Clear Oral: Moist Mucosa, No Gingival or Mucosal Lesions/ Ulcerations, - - edentulous Neck: Supple, No JVD, Negative Hepatojugular Reflux, No Nodes, No Nuchal Rigidity, Trachea Midline, Thyroid Normal Size and Texture Lungs: No rhonchi, No wheeze, No rales, Diminished, - - very distant 2/2 body habitus Cardiovascular: Regular rate, Regular Rhythm, Normal S1, Normal S2, No murmurs, No Ectopic Activity, No rub noted, No Gallop Abdomen: Bowel Sounds Present, Soft, Non Tender, Non-Distended, Guarding, No hernias noted, - - severe scrotal edema Extremities: No clubbing, No cyanosis, Edema - UE edema resolved, Peripheral Pulses Normal Skin: No rashes, No breakdown Musculoskeletal: No Tenderness to Palpation of Joints or Extremities, No Muscle Wasting Lymphatic: No Cervical, Supraclavicular, or Inguinal Adenopathy Neurological: Cranial nerves II-XII grossly intact, Deep Tendon Reflexes 2+/4 and Symmetrical, Neuro grossly intact, Motor Exam 5/5 strength throughout Psych/Mental Status: Normal Affect, Appropriate, Alert and oriented to time, place, person, mood and affect Laboratory Results 06/01/19 11:49: POC Glucose 94 06/01/19 16:55: POC Glucose 94 06/01/19 22:02: POC Glucose 103 06/02/19 05:54: Sodium 134 L, Potassium 4.1, Chloride 99, Carbon Dioxide 32.0, Anion Gap 3 L, BUN 15, Creatinine 0.66 L, Estim Creat Clear Calc 74.01, Est GFR (MDRD) Af Amer 154, Est GFR (MDRD) Non-Af 127, BUN/Creatinine Ratio 22.6 H, Glucose 117 H, Calcium 8.8, Magnesium 2.0 Current Medications Acetaminophen (Tylenol) 650 mg PO Q6H PRN PRN PRN Reason: Pain Score 1-10/Temp > 100.7 F Last Admin: 06/02/19 05:14 Dose: 650 mg Documented by: Aspirin (Ecotrin) 81 mg PO DAILY@0800 [facility] Last Admin: 06/01/19 08:45 Dose: 81 mg Documented by: Calamine/Phenol (Calmoseptine Ointment) 1 applic TOPICAL BID [facility]; Protocol Last Admin: 06/01/19 20:19 Dose: 1 applicatio Documented by: Carvedilol (Coreg) 12.5 mg PO BID [facility] Last Admin: 06/01/19 22:11 Dose: 12.5 mg Documented by: Enoxaparin Sodium (Lovenox) 40 mg SC DAILY [facility] Last Admin: 06/01/19 08:45 Dose: 40 mg Documented by: Folic Acid (Folic Acid) 1 mg PO DAILY@0800 [facility] Furosemide (Lasix) 40 mg IV Q8 [facility] Last Admin: 06/02/19 05:16 Dose: 40 mg Documented by: Glucagon () 1 mg IM .X1 PRN PRN Reason: Hypoglycemia Hydrocortisone (Hytone) 1 applic TOPICAL TID PRN PRN; Protocol PRN Reason: ITCHING Last Admin: 06/02/19 00:34 Dose: 1 applicatio Documented by: Sodium Chloride () 250 mls @ 15 mls/hr IV .[id number] PRN PRN Reason: Saline Flush Sodium Chloride () 250 mls @ 15 mls/hr IV .[id number] PRN PRN Reason: Additional IVPB Infusion Dextrose (Dextrose 10%-Water) 250 mls @ 999 mls/hr IV .Q16M PRN; Protocol PRN Reason: HYPOGLYCEMIA Insulin Human Lispro (Humalog Kwikpen (Bkc)) 0 unit SC ACHS [facility]; Protocol Last Admin: 06/02/19 06:10 Dose: Not Given Documented by: Magnesium Hydroxide (Milk Of Magnesia) 30 ml PO DAILY PRN PRN PRN Reason: Constipation Melatonin (Melatonin) 3 mg PO QHS PRN PRN PRN Reason: INSOMNIA Last Admin: 06/02/19 00:27 Dose: 3 mg Documented by: Morphine Sulfate () 3 mg IV Q4H PRN PRN PRN Reason: Pain Score 1-01/01 Last Admin: 06/02/19 00:24 Dose: 3 mg Documented by: Multi-Ingredient Ointment (Aquaphor) 1 applic TOPICAL PRN PRN; Protocol PRN Reason: DRY SKIN Last Admin: 05/31/19 21:38 Dose: 1 applicatio Documented by: Multivitamins/Minerals (Multivitamin With Minerals (Bkc)) [facility] Phenobarbital (Phenobarbital) 64.8 mg PO TID [facility] Last Admin: 06/02/19 05:14 Dose: 64.8 mg Documented by: Sodium Chloride () 10 - 40 ml IV UD PRN PRN Reason: SALINE FLUSH Last Admin: 06/02/19 05:22 Dose: 10 ml Documented by: Thiamine HCl (Vitamin B1) 200 mg PO DAILYCM [facility] Stop: 06/03/19 23:59 STROKE Vital Signs/Narrative: Vital Signs Pulse Pulse Ox 06/02/19 07:56 98 06/02/19 07:40 66 Medical Necessity - Tobacco Use Smoking Status: Current every day smoker Tobacco Use: Cigarettes Assessment/Plan All Active Problems Anasarca (Acute) Acute hypoxemic respiratory failure (Acute) Macrocytic anemia (Acute) Hyponatremia (Acute) Elevated BP without diagnosis of hypertension (Acute) Morbid (severe) obesity due to excess calories (Acute) Severe Anasarca -sCr is WNL -no protein in urine on UA -LFT only sig for slight AST elevation (is and has been a heavy drinker) -coag WNL -liver not cirrhotic on CT of abdomen in fact it was enlarged--> suspect this is related to passive congestion at this point with the amt of volume overload he has here -Troponin WNL -ECHO done and shows and EF of 60%, Mod concentric LVH, stage 2 diastolic dysfunction but study was limited 2/2 body habitus -TSH WNL at 3.57 -start lasix ggt today -sCr stable despite 40 TID IVP lasix -check LE dopplers and a VQ scan (edema is not acute and if there are PE causing RV failure it would be chronic disease-->WHO Group 3 and will r/o Chronic thromboembolic disease) -cardiac diet with 1500 cc fluid restriction -strict I&O -daily wgts -Consult cards--> suspect RV failure and Diastolic Failure with all other w/u neg to this point, will r/o CTD Acute Hypoxemic Respiratory Failure -Wean O2 as able--> on 2 L at 98% -may need home O2 -not O2 dependent at baseline -AM CXR as reviewed by me is clear with no changes EtOH Abuse -daily drinker for YEARS (47 at least) -never had withdrawal but never stopped out of a controlled setting -continue Phenobarb 60 TID--> wean tomorrow if doing ok -Thiamine 200 mg x 3 days -folate daily -MVI daily Macrocytic Anemia -CBC is stable -B12 and Folate are WNL -suspect related to EtOH consumption Mild Hyponatremia -134 and stable -trend -still appears hypervolemic (-2700 since admission) Elevated BP -continue Coreg 12.5 BID -trend Tobacco abuse -defers nicotine patch at this time MO -sig volume OL -recommend wgt loss -needs outpt PSG if pt willing DVT Prophylaxis -Lovenox daily Code Status Full Inpatient E&M: 83164 Subs Hosp L3
--- NOTE | 2019-06-02 11:05 | CON.PCM_ITS ---
<Pedro Parsons - Last Filed: 06/02/19 11:36> Reason for Consult Date of Consultation: 06/02/19 Reason for Consultation: anasarca History of Present Illness: The patient is a 69 year old M who presented to [facility] on 05/31/2019 for worsening SOB, edema, and right groin pain. He has not followed with a physician for some time. He is a current smoker with 2 packs/day for 50 years and recently 1 pack/day and drinks 10-12oz bottles of beer daily. He has been treated for HTN previously, but stopped after shelter. He denies any other known medical diagnosis. He states worsening symptoms for weeks. Most recently he developed worsening scrotal edema, bilateral lower extremity edema, and right groin pain. His lab work up revealed Hbg of 10.3, Cr. 0.66, Na: 134, K: 4.1, ALT: 46, AST: 38, Troponin: negative, and BNP: 156. He was admitted for further evaluation. He underwent echo that showed EF of 60%, stage II dysfunction, moderate LVH, and not well visualized RV or valves. His abdominal CT scan showed CAD/calcification, hepatic enlargement, and atherosclerotic aorta. His chest X-ray was negative for acute pathology. Cardiology was consulted for further input regarding right heart failure as contributory source of anasarca. Past Medical History Allergies/Adverse Reactions: Allergies Penicillins [PCN] Allergy (Verified 05/31/19 13:24) PASSED OUT Home Medications: Ambulatory Orders Medication Instructions Recorded NK 05/31/19 Surgical History: total knee arthroplasty - L 2009 Psychiatric History: No pertinent psych hx - *Family History Offspring History Items: Diabetes - brother, Heart Disease - mother Lives: Alone Smoking Status: Current every day smoker Tobacco Use: Cigarettes Alcohol: None Drugs: None Review of Systems - Review of Systems General: Denies: Fever, Fatigue, Malaise HEENT: Denies: Vision Change Cardiovascular: Reports: Shortness of Breath, Shortness of Breath with Exertion, Peripheral Edema. Denies: Chest Discomfort, Chest Discomfort at Rest, Chest Discomfort with Exertion, Chest Pressure, Chest Tightness, Chest Heaviness, Shortness of Breath at Rest, Orthopnea, PND, Palpitations, Lightheadedness, Dizziness, Near Syncope, Syncope Muscoloskeletal: Denies: Myalgias Neurological: Denies: Dizziness Subjectve: Patient seen and evaluated. He does not improvement in swelling since admission. He is unsure if his shortness of breath is unchanged as he has remained relatively inactive. He denies any ongoing chest pain. His main concern is his right groin discomfort. Objective: Vital Signs Temp Pulse Resp BP Pulse Ox 97.8 F 70 16 130/49 H 95 06/02/19 11:01 06/02/19 11:01 06/02/19 11:01 06/02/19 11:01 06/02/19 11:01 Oxygen Flow Rate (L/min) 2 Oxygen Delivery Method Nasal Cannula Weight: 356 lb 7.799 oz Body Mass Index (BMI) 51.1 Intake and Output for Last 24 Hours 05/31/19 06/01/19 06/02/19 23:59 23:59 23:59 Intake Total 1200 / 1540 780 / 780 Output Total 2825 / 3075 400 / 400 Balance -1625 / -1535 380 / 380 General: Healthy Appearing, Awake, Alert, Oriented x 3, Cooperative, No Acute Distress Oral: Moist Mucosa Neck: No JVD Lungs: Diminished Jonah Bases Cardiovascular: Regular Rhythm, Normal S1, Normal S2, No Murmurs Vascular: No Carotid Bruits Abdomen: Bowel Sounds Present, Soft Genitalia: Scrotal Edema Extremities: No Cyanosis, No Clubbing, - - Bilateral lower extremity hyperkeratosis Musculoskeletal: No Erythema, No Warmth, No Tenderness, No Muscle Wasting Skin: No Breakdown Lymphatic: No Lymph Node Enlargement Neurological: No Focal Motor or Sensory Deficit Psych/Mental Status: Appropriate 06/02/19 05:54: Sodium 134 L, Potassium 4.1, Chloride 99, Carbon Dioxide 32.0, Anion Gap 3 L, BUN 15, Creatinine 0.66 L, Est GFR (MDRD) Af Amer 154, Est GFR (MDRD) Non-Af 127, BUN/Creatinine Ratio 22.6 H, Glucose 117 H, Calcium 8.8, Magnesium 2.0 Rhythm: EKG: ECHO: 05/31/2019: Interpretation Summary Normal LV size. Left ventricular systolic function is normal. The estimated ejection fraction is 60 %. Moderate concentric left ventricular hypertrophy. Stage 2 diastolic dysfunction. Contrast injection was performed. The study was technically limited. The study was technically difficult. Stress Test: Cardiac Cath: PCI: CT Surgery: Holter monitor: EPS: PPM: CXR: Chest CT Scan: Assessment/Plan 1. Anasarca * Patient's echocardiogram revealed ejection of 60%, stage II diastolic dysfunction, moderate LVH, not well visualized right ventricle, mildly enlarged left atrium, and not well visualized valves. * His BNP was not overtly elevated. He will continue with diuretic therapy as outlined by primary team. This includes advancement to IV Lasix drip for continued diuresis. * His electrolytes and kidney function will need to be monitored closely. * Once medically improved, we can consider further right heart failure assessment with a right heart catheterization. 2. Right groin pain * He will undergo a right lower extremity ultrasound rule out DVT given risk factors of general inactivity and obesity. * He will undergo a VQ scan to rule out pulmonary embolism Patient's case was reviewed with Dr. Moreira, who will personally evaluate patient. Please see his dictation for further details and input. Thank you for allowing us to participate in the patients plan of care, if you have any questions please do not hesitate to call. This note was generated using a voice recognition system and there may be incorrect words, spelling or punctuation that were not noted when reviewing the office note prior to saving. <Lucio Moreira - Last Filed: 06/02/19 14:40> Reason for Consult History of Present Illness: The patient is a 69 year old M [] Objective: Vital Signs Temp Pulse Resp BP Pulse Ox 97.8 F 70 16 118/58 L 95 06/02/19 13:27 06/02/19 13:27 06/02/19 13:27 06/02/19 13:27 06/02/19 13:27 Oxygen Flow Rate (L/min) 2 Oxygen Delivery Method Nasal Cannula Weight: 356 lb 7.799 oz Body Mass Index (BMI) 51.1 Intake and Output for Last 24 Hours 05/31/19 06/01/19 06/02/19 23:59 23:59 23:59 Intake Total 1200 / 1540 1020 / 1020 Output Total 2825 / 3075 750 / 750 Balance -1625 / -1535 270 / 270 06/02/19 05:54: Sodium 134 L, Potassium 4.1, Chloride 99, Carbon Dioxide 32.0, Anion Gap 3 L, BUN 15, Creatinine 0.66 L, Est GFR (MDRD) Af Amer 154, Est GFR (MDRD) Non-Af 127, BUN/Creatinine Ratio 22.6 H, Glucose 117 H, Calcium 8.8, Magnesium 2.0 06/02/19 11:29: Sodium 135 L, Potassium 3.9, Chloride 98, Carbon Dioxide 36.0 H, Anion Gap 1 L, BUN 14, Creatinine 0.64 L, Est GFR (MDRD) Af Amer 159, Est GFR (MDRD) Non-Af 132, BUN/Creatinine Ratio 21.7 H, Glucose 110 H, Calcium 8.7 Rhythm: EKG: ECHO: Stress Test: Cardiac Cath: PCI: CT Surgery: Holter monitor: EPS: PPM: CXR: Chest CT Scan: Assessment/Plan Addendum: Date: 06-02-2019 The patient was independently evaluated and examined The patient was concerned of progressive shortness of breath/dyspnea/orthopnea as well as lower extremity peripheral pitting edema. He notes that his symptoms started maximally 3 months ago. He states he noted first edema in the lower feet/legs then gradually into the thighs then gradually into the hips and the lower abdomen. He also noted scrotal edema. He states over time he felt somewhat more short of breath and dyspneic and was having concerns of orthopnea. However he notes his main concern was right inguinal discomfort. He states that the real reason he presented to the hospital for further evaluation. He has denied any chest discomfort. There is been no history of palpitations or rapid rates. He is denied any near-syncope or syncope. He states he has not been evaluated by physician for at least 12 years. On examination he is unfortunately morbidly obese. His lungs demonstrate expiratory wheezing. His cardiovascular exam demonstrates a regular rhythm with normal S1 and S2-diminished heart tones without obvious murmurs rubs or gallops. His abdomen demonstrates findings in the lower abdomen of pitting edema. His lower extremities demonstrate pitting edema involving the thighs, legs, and pedal areas. His scrotum is also markedly edematous. His ECG demonstrated sinus rhythm with PACs with low voltage QRS and poor R wave progression. He has had a transthoracic echocardiogram performed. The results are as noted above. His overall LV systolic function was preserved. There was a comment of decreased diastolic compliance. His study was technically challenging with evaluating his anatomy/function with respect to his right ventricle. He has also had an abdominal/pelvic CT scan which commented upon coronary calcifications and atherosclerotic changes of the abdominal aorta. At the present time there is concern about his symptoms including his shortness of breath/dyspnea/orthopnea and his lower extremity peripheral pitting edema/findings compatible with anasarca. The etiology of his symptoms is unclear although there is a concern as to whether or not he has an underlying primary pulmonary disease process such as obstructive sleep apnea which could lead to pulmonary hypertension and cor pulmonale and right heart failure. At the present time he will continue to be followed. He will be monitored. He has been treated initially with pulse dose furosemide. He states it was working but then his diuresis has slowed. He will need continued medical management as deemed appropriate. This may include an attempted continuous IV infusion furosemide. The goal will be for continued diuresis. While he is being diuresed he can be evaluated for other etiologies of his symptoms and findings as deemed appropriate. Over time he may need further cardiovascular evaluation which could include diagnostic cardiac catheterization/right heart catheterization to evaluate anatomy/physiology, etc. The above was discussed and reviewed with patient and with Pedro Parsons CNP. This note was generated using a voice recognition system and there may be incorrect words, spelling or punctuation that were not noted when reviewing the office note prior to saving.
[2019-06-02] MEDS: Carvedilol 12.5 MG Tablet PO ×2 (11:06→22:03)
[2019-06-02] MEDS: Enoxaparin 40 MG/0.4 ML Syringe SC (11:06)
[2019-06-02] MEDS: Aspirin E.C. 81 MG Tablet PO (11:06)
[2019-06-02] MEDS: Multivitamins,Ther W-Minerals Tablet 1 TABLET PO (11:07)
[2019-06-02] MEDS: Menthol/Lanolin/Calamine/Znox 113 GM Tube 1 APPLIC TOPICAL (11:07)
[2019-06-02] MEDS: Folic Acid 1 MG Tablet PO (11:07)
[2019-06-02] MEDS: Thiamine Hydrochloride 100 MG Tablet 200 MG PO (11:07)
--- NOTE | 2019-06-02 11:28 | VDLE_ITS ---
Reason For Study: Swelling RIGHT LEFT CFV is compressible, spontaneous, phasic, CFV is compressible, spontaneous, phasic, competent and demonstrates normal competent, and demonstrates normal augmentation. augmentation. FV is compressible, spontaneous, phasic, FV is compressible, spontaneous, phasic, competent and demonstrates normal competent and demonstrates normal augmentation. augmentation. POP V is compressible, spontaneous, phasic, POP V is compressible, spontaneous, phasic, competent and demonstrates normal competent and demonstrates normal augmentation. augmentation. T/P Trunk is compressible. T/P Trunk is compressible. Calf veins not visualized due to pt not Calf veins not visualized due to pt not wanting wrappings taken off. wanting wrappings taken off. GSV not visualized. GSV not visualized. Procedure Exam performed portable in patient room. A preliminary report was called and/or faxed to [facility]. Interpretation Summary Deep veins of the lower extremities are bilaterally patent and compressible segmentally. There is no evidence of deep vein thrombosis on either side. Valvular competence appears intact within the proximal deep venous systems bilaterally. The deep calf veins of the lower extremities were not visualized on either side due to the presence of bandages. The great saphenous veins were not visualized on either side. Ordering Physician: Meka Elaine Performed By: Shasta Dietz RVT
--- NOTE | 2019-06-02 11:29 | NM_ITS ---
CLINICAL: 69-year-old male with reported history shortness of breath. VENTILATION-PERFUSION LUNG SCINTIGRAPHY COMPARISON: Plain film chest radiograph report 06/02/2019 FINDINGS: The patient was administered 50.0 mCi 99m Tc DTPA aerosol. The aerosol ventilation study demonstrates marked heterogeneous ventilation in the bilateral lung sibley without corresponding radiographic changes visualized on review of plain film chest x-ray dated 06/02/2019. Central clumping of the aerosol is identified in the bilateral hemithorax. Following the intravenous administration of 5.5 mCi of 99m Tc MAA, the pulmonary perfusion study reveals matching non-uniform perfusion in the right and left lungs correlating with the previously defined ventilation pattern. No moderate subsegmental or large segmental ventilation-perfusion mismatches are noted. There are regions of retained normal perfusion visualized. NM/Lung Scan Vent/Perf IMPRESSION: 1. VERY LOW PROBABILITY FOR PULMONARY EMBOLUS (<10%) 99m Tc DTPA aerosol ventilation / 99m Tc MAA pulmonary perfusion imaging examination, according to PIOPED II interpretive criteria with regard given to the presence of > 2 ventilation-perfusion matches without corresponding radiographic changes. (Sotsman et al, Radiology 246: 941, 2008 Soleón et al, J Nucl Med 49: 1741, 2008). 2. Central clumping of the aerosol may be secondary to obstructive airway mechanics and or clinical tachypnea. Electronically Signed: Maximilian Coronel DO at 13:36 EDT Tel , Service support ,
[2019-06-02 11:49] LABS: Anion Gap 1 (5-15); BUN 14 mg/dL (7-18); BUN/Creat Ratio 21.7 RATIO (10-20); Calcium,Total 8.7 mg/dL (8.5-10.1); Chloride 98 mmol/L (98-107); Creatinine, Serum 0.64 mg/dL (0.70-1.30); EST Glomerular Filtration Rate 132 mL/min (>60); Est Glom Filt Rate - Afr Amer 159 mL/min (>60); Estimated Creatinine Clearance 74.01 ml/min; Glucose 110 mg/dL (74-106); Potassium 3.9 mmol/L (3.5-5.1); Sodium Level 135 mmol/L (136-145)
--- NOTE | 2019-06-02 12:14 | CASEMGMT ---
Social Work Palliative Medicine screen completed on this date. No indication of need for Palliative services at this time. [place]
--- NOTE | 2019-06-02 13:11 | NURSING ---
Was asked to see patient for dry, edematous legs. patient c/o chronic itching. no open areas noted at this time. applied lotion to bilateral lower legs. wrapped legs with kerlix and applied CESAR wraps from the base of the toes to just below the knees. pt tolerated well. daughter present at bedside.
[2019-06-02] MEDS: Furosemide 500 MG in Empty Viaflex 50 mL 1 EACH CONT INF (13:37)
[2019-06-02] MEDS: oxyCODONE 5 MG Tablet 10 MG PO (23:24)
[2019-06-03] VITALS (13 sets, daily range): BP systolic 119–137; BP diastolic 44–77; PULSE 69–129; RESP 16–20; TEMP 36.6–36.8; O2SAT 95–98
[2019-06-03] MEDS: Acetaminophen 325 MG Tablet 650 MG PO (04:09)
[2019-06-03] MEDS: oxyCODONE 5 MG Tablet 10 MG PO ×3 (05:30→23:51)
[2019-06-03] MEDS: Phenobarbital 32.4 MG Tablet 64.8 MG PO (05:30)
[2019-06-03 06:24] LABS: Hematocrit 27.6 % (40-54); Hemoglobin 8.6 g/dL (13.0-16.5); Mean Corp Hgb Conc 31.2 g/dL (32-36); Mean Corpuscular Hgb 31.7 pg (27.0-32.0); Mean Corpuscular Volume 101.8 fL (80-94); Mean Platelet Vol. 9.9 fl (6.2-12.0); Platelet Count 138 K/mm3 (150-450); RBC Distribution Width CV 12.6 % (11.6-14.6); RBC Distribution Width SD 46.7 fl (35.1-43.9); Red Blood Count 2.71 M/mm3 (4.6-6.2); White Blood Count 4.6 K/mm3 (4.4-11.0)
[2019-06-03 06:45] LABS: Anion Gap 2 (5-15); BUN 15 mg/dL (7-18); Calcium,Total 8.3 mg/dL (8.5-10.1); Chloride 97 mmol/L (98-107); Creatinine, Serum 0.58 mg/dL (0.70-1.30); EST Glomerular Filtration Rate 149 mL/min (>60); Est Glom Filt Rate - Afr Amer 180 mL/min (>60); Estimated Creatinine Clearance 74.01 ml/min; Glucose 121 mg/dL (74-106); Magnesium 1.6 mg/dL (1.6-2.6); Potassium 3.2 mmol/L (3.5-5.1); Sodium Level 136 mmol/L (136-145)
[2019-06-03] MEDS: Furosemide 500 MG in Empty Viaflex 50 mL 1 EACH CONT INF (09:25)
--- NOTE | 2019-06-03 09:26 | PCM.PN.CARD ---
Subjectve: The patient is awake and alert. He states he may feel somewhat better. He believes his lower extremity edema may be somewhat less prominent. He believes his scrotal edema may be somewhat less prominent. Objective: Vital Signs Temp Pulse Resp BP Pulse Ox 97.8 F 86 16 133/57 H 97 06/03/19 09:24 06/03/19 09:24 06/03/19 09:24 06/03/19 09:24 06/03/19 09:24 Oxygen Flow Rate (L/min) 2 Oxygen Delivery Method Nasal Cannula Weight: 356 lb 7.799 oz Body Mass Index (BMI) 51.1 Intake and Output for Last 24 Hours 06/01/19 06/02/19 06/03/19 23:59 23:59 23:59 Intake Total 1200 / 1540 1710.37 / 1710.37 205.95 / 205.95 Output Total 2825 / 3075 2275 / 2275 725 / 725 Balance -1625 / -1535 -564.63 / -564.63 -519.05 / -519.05 General: Awake, Alert, Oriented x 3, Cooperative, Obese HEENT: Atraumatic, Normocephalic, PERRL, EOMI, Sclera Non Icteric Oral: Moist Mucosa Neck: Supple, Good ROM, No JVD Lungs: Diminished Jonah Bases Cardiovascular: Regular Rhythm, Normal S1, Normal S2 Abdomen: Bowel Sounds Present, Soft, Non Tender Genitalia: Scrotal Edema Extremities: Severe RLE Edema, Severe LLE Edema Psych/Mental Status: Appropriate 06/02/19 11:29: Sodium 135 L, Potassium 3.9, Chloride 98, Carbon Dioxide 36.0 H, Anion Gap 1 L, BUN 14, Creatinine 0.64 L, Est GFR (MDRD) Af Amer 159, Est GFR (MDRD) Non-Af 132, BUN/Creatinine Ratio 21.7 H, Glucose 110 H, Calcium 8.7 06/03/19 06:05: WBC 4.6, RBC 2.71 L, Hgb 8.6 L, Hct 27.6 L, MCV 101.8 H, MCH 31.7, MCHC 31.2 L, Plt Count 138 L, MPV 9.9 06/03/19 06:05: Sodium 136, Potassium 3.2 L, Chloride 97 L, Carbon Dioxide 37.0 H, Anion Gap 2 L, BUN 15, Creatinine 0.58 L, Est GFR (MDRD) Af Amer 180, Est GFR (MDRD) Non-Af 149, BUN/Creatinine Ratio 26.0 H, Glucose 121 H, Calcium 8.3 L, Magnesium 1.6 Rhythm: Sinus rhythm VQ scan: Reported as low probability Lower extremity noninvasive studies: Reported as negative for DVT Medical Necessity - Tobacco Use Smoking Status: Current every day smoker Tobacco Use: Cigarettes Assessment/Plan 1. Anasarca The patient is undergoing evaluation and care for potential cardiopulmonary relationship that could lead to his anasarca. There is concern he may have underlying pulmonary disease that could lead to pulmonary hypertension with cor pulmonale and right heart failure. At the present time he is undergone noninvasive evaluation. His transthoracic echocardiogram was noted. Unfortunately it could not comment on his RV or estimate his RV systolic pressure. His thromboembolic evaluation has been negative thus far. He is being treated for underlying pulmonary disease with the possibility of obstructive sleep apnea. He is also being treated for concerns of his anasarca with diuretic therapy. This includes continuous IV infusion furosemide. His dose may need to be adjusted to assist with his urinary output. 2. Anemia The patient's H&H has decreased. This will need to be followed and he will need to be watched for any obvious evidence of underlying hemorrhagic related issues warranting further evaluation care. 3. Electrolyte imbalance The patient's potassium and magnesium levels are low. This may be secondary to his diuresis. He will need electrolyte supplement as deemed appropriate. Over time, as the patient hopefully clinically improves, he may need to be considered for further evaluation in the cardiac catheterization laboratory as previously noted including a right heart catheterization to evaluate his hemodynamics, etc. This was discussed with the patient. At the present time he is not sure how he would want to proceed with any evaluation care above and beyond medical therapy and noninvasive evaluation. Comment: The patient's case has been discussed and reviewed with Dr. Elaine. This note was generated using a voice recognition system and there may be incorrect words, spelling or punctuation that were not noted when reviewing the office note prior to saving.
[2019-06-03] MEDS: Folic Acid 1 MG Tablet PO (09:33)
[2019-06-03] MEDS: Carvedilol 12.5 MG Tablet PO ×2 (09:33→21:36)
[2019-06-03] MEDS: Thiamine Hydrochloride 100 MG Tablet 200 MG PO (09:33)
[2019-06-03] MEDS: Multivitamins,Ther W-Minerals Tablet 1 TABLET PO (09:33)
[2019-06-03] MEDS: Menthol/Lanolin/Calamine/Znox 113 GM Tube 1 APPLIC TOPICAL (09:33)
[2019-06-03] MEDS: Aspirin E.C. 81 MG Tablet PO (09:33)
[2019-06-03] MEDS: Enoxaparin 40 MG/0.4 ML Syringe SC (09:34)
--- NOTE | 2019-06-03 09:42 | NURSING ---
pt refusing to be turned q 2 hours. Pt states he is able to reposition himself to where he is comfortable. This RN educated pt on the risk of developing bed sores. Pt states understanding.
--- NOTE | 2019-06-03 13:09 | EKG12_ITS ---
Test Reason : Blood Pressure : / mmHG Vent. Rate : 097 BPM Atrial Rate : 300 BPM P-R Int : 000 ms QRS Dur : 094 ms QT Int : 368 ms P-R-T Axes : 000 000 008 degrees QTc Int : 467 ms Atrial fibrillation with premature ventricular or aberrantly conducted complexes Low voltage QRS Nonspecific ST abnormality Abnormal ECG When compared with ECG of 31-MAY-2019 13:41, Atrial fibrillation has replaced Sinus rhythm Confirmed by AKHIL ADAMS ([id number]), slot editor VERO NATION ([id number]) on 06/04/2019 7:31:15 AM Referred By: CHECO Confirmed By:AKHIL ADAMS
--- NOTE | 2019-06-03 14:31 | PN_ITS ---
Patient Problems: Active and Suspected Problems Anasarca (Acute) Acute hypoxemic respiratory failure (Acute) Macrocytic anemia (Acute) Hyponatremia (Acute) Elevated BP without diagnosis of hypertension (Acute) Morbid (severe) obesity due to excess calories (Acute) Subjective: Pt states that he is noticing a difference in the swelling. Denies palpitations or fluttering in chest. Asking when he can go. Vitals/I&O's: Vital Signs Temp Pulse Resp BP Pulse Ox 98.0 F 99 18 119/71 96 06/03/19 13:07 06/03/19 13:07 06/03/19 13:07 06/03/19 13:07 06/03/19 13:07 Oxygen Flow Rate (L/min) 2 Oxygen Delivery Method Nasal Cannula Weight: 161.7 kg Body Mass Index (BMI) 51.1 Intake and Output for Last 24 Hours 06/01/19 06/02/19 06/03/19 23:59 23:59 23:59 Intake Total 1200 / 1540 1710.37 / 1710.37 720.21 / 720.21 Output Total 2825 / 3075 2275 / 2275 2225 / 2225 Balance -1625 / -1535 -564.63 / -564.63 -1504.79 / -1504.79 General: Alert, Oriented x3, Cooperative, No apparent distress, Well developed, Well nourished, - - sitting up in the chair, dozing off but awakens easily HEENT: Atraumatic, PERRLA, EOMI, Normocephalic, EAC Clear Oral: Moist Mucosa, No Gingival or Mucosal Lesions/ Ulcerations, - - poor dentition, Mallampati 4 Neck: Supple, Negative Carotid Bruits, Negative Hepatojugular Reflux, No Nodes, No Nuchal Rigidity, Trachea Midline, Thyroid Normal Size and Texture Lungs: No rhonchi, No wheeze, No rales, Diminished, - - exam limited 2/2 body habitus Cardiovascular: Regular Rhythm, Normal S1, Normal S2, No murmurs, No Ectopic Activity, No rub noted, No Gallop, - - irreg rate Abdomen: Bowel Sounds Present, Soft, Non Tender, Non-Distended, No Hepato-splenomegaly, Obese, No hernias noted Extremities: No clubbing, No cyanosis, Capillary Refill Less than 3 Seconds, Edema - slowly improving, - - B LE wrapped Skin: No rashes, No breakdown Musculoskeletal: No Tenderness to Palpation of Joints or Extremities Lymphatic: No Cervical, Supraclavicular, or Inguinal Adenopathy Neurological: Cranial nerves II-XII grossly intact, Deep Tendon Reflexes 2+/4 and Symmetrical, Neuro grossly intact, Motor Exam 5/5 strength throughout Psych/Mental Status: Normal Affect, Appropriate, Alert and oriented to time, place, person, mood and affect Laboratory Results 06/03/19 06:05: WBC 4.6, RBC 2.71 L, Hgb 8.6 L, Hct 27.6 L, MCV 101.8 H, MCH 31.7, MCHC 31.2 L, RDW Std Deviation 46.7 H, RDW Coeff of Radha 12.6, Plt Count 138 L, MPV 9.9 06/03/19 06:05: Sodium 136, Potassium 3.2 L, Chloride 97 L, Carbon Dioxide 37.0 H, Anion Gap 2 L, BUN 15, Creatinine 0.58 L, Estim Creat Clear Calc 74.01, Est GFR (MDRD) Af Amer 180, Est GFR (MDRD) Non-Af 149, BUN/Creatinine Ratio 26.0 H, Glucose 121 H, Calcium 8.3 L, Magnesium 1.6 Current Medications Acetaminophen (Tylenol) 650 mg PO Q6H PRN PRN PRN Reason: Pain Score 1-10/Temp > 100.7 F Last Admin: 06/03/19 04:09 Dose: 650 mg Documented by: Apixaban (Eliquis) 5 mg PO BID [facility] Aspirin (Ecotrin) 81 mg PO DAILY@0800 [facility] Last Admin: 06/03/19 09:33 Dose: 81 mg Documented by: Calamine/Phenol (Calmoseptine Ointment) 1 applic TOPICAL BID [facility]; Protocol Last Admin: 06/03/19 09:33 Dose: 1 applicatio Documented by: Carvedilol (Coreg) 12.5 mg PO BID [facility] Last Admin: 06/03/19 09:33 Dose: 12.5 mg Documented by: Enoxaparin Sodium (Lovenox) 40 mg SC DAILY [facility] Last Admin: 06/03/19 09:34 Dose: 40 mg Documented by: Folic Acid (Folic Acid) 1 mg PO DAILY@0800 [facility] Last Admin: 06/03/19 09:33 Dose: 1 mg Documented by: Glucagon () 1 mg IM .X1 PRN PRN Reason: Hypoglycemia Hydrocortisone (Hytone) 1 applic TOPICAL TID PRN PRN; Protocol PRN Reason: ITCHING Last Admin: 06/02/19 00:34 Dose: 1 applicatio Documented by: Sodium Chloride () 250 mls @ 15 mls/hr IV .[id number] PRN PRN Reason: Saline Flush Sodium Chloride () 250 mls @ 15 mls/hr IV .[id number] PRN PRN Reason: Additional IVPB Infusion Dextrose (Dextrose 10%-Water) 250 mls @ 999 mls/hr IV .Q16M PRN; Protocol PRN Reason: HYPOGLYCEMIA Furosemide 500 mg/ N/A 50 mls @ 2 mls/hr CONT INF .Q25H [facility] Last Infusion: 06/03/19 10:00 Dose: 20 mg/hr, 2 mls/hr Documented by: Lorazepam (Ativan) 1 mg PO Q4H PRN PRN PRN Reason: AGITATION Magnesium Hydroxide (Milk Of Magnesia) 30 ml PO DAILY PRN PRN PRN Reason: Constipation Melatonin (Melatonin) 3 mg PO QHS PRN PRN PRN Reason: INSOMNIA Last Admin: 06/02/19 00:27 Dose: 3 mg Documented by: Multi-Ingredient Ointment (Aquaphor) 1 applic TOPICAL PRN PRN; Protocol PRN Reason: DRY SKIN Last Admin: 05/31/19 21:38 Dose: 1 applicatio Documented by: Multivitamins/Minerals ([facility]ivitamin With Minerals ([facility])) [facility] Last Admin: 06/03/19 09:33 Dose: 1 tablet Documented by: Oxycodone HCl (Oxyir) 10 mg PO Q6H PRN PRN PRN Reason: Pain Score 6-10/10 Last Admin: 06/03/19 05:30 Dose: 10 mg Documented by: Sodium Chloride () 10 - 40 ml IV UD PRN PRN Reason: SALINE FLUSH Last Admin: 06/02/19 11:24 Dose: 10 ml Documented by: Sodium Chloride ([place] Nasal [place]) 2 spray NASAL TID PRN PRN PRN Reason: NASAL DRYNESS Thiamine HCl (Vitamin B1) [facility] Stop: 06/03/19 23:59 Last Admin: 06/03/19 09:33 Dose: 200 mg Documented by: STROKE Vital Signs/Narrative: Vital Signs Temp Pulse Resp BP Pulse Ox 06/03/19 13:07 98.0 F 99 18 119/71 96 Medical Necessity - Tobacco Use Smoking Status: Current every day smoker Tobacco Use: Cigarettes Assessment/Plan All Active Problems Anasarca (Acute) Acute hypoxemic respiratory failure (Acute) Macrocytic anemia (Acute) Hyponatremia (Acute) Elevated BP without diagnosis of hypertension (Acute) Morbid (severe) obesity due to excess calories (Acute) Severe Anasarca 2/2 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) -slowly improving -sCr is WNL -no protein in urine on UA -LFT only sig for slight AST elevation (is and has been a heavy drinker) -coag WNL -liver not cirrhotic on CT of abdomen in fact it was enlarged--> suspect this is related to passive congestion at this point with the amt of volume overload he has here -Troponin WNL -ECHO done and shows and EF of 60%, Mod concentric LVH, stage 2 diastolic dysfunction but study was limited 2/2 body habitus -TSH WNL at 3.57 -continue lasix ggt --> increase to 20 and -sCr stable -VQ low prob and LE dopplers are neg (edema is not acute and if there are PE causing RV failure it would be chronic disease-->WHO Group 3 and will r/o Chronic thromboembolic disease) -cardiac diet with 1500 cc fluid restriction -strict I&O -daily wgts -Cards following (possible RHC as outpt after d/c) New Onset Atrial Fibrillation -rate is controlled -start Eliquis 5 mg BID (will have to stop phenobarb 2/2 interaction) -pt asymptomatic Acute Hypoxemic Respiratory Failure -Wean O2 as able--> on 2 L at 98% -may need home O2 -not O2 dependent at baseline -AM CXR as reviewed by me is clear with no changes Hypokalemia -will give 40 mEq x 1 dose today -recheck in am -may need scheduled K if stays low on lasix ggt EtOH Abuse -daily drinker for YEARS (49 at least) -never had withdrawal but never stopped out of a controlled setting -stop phenobarb 2/2 Eliquis start and drug/drug interaction -prn Ativan -Thiamine 200 mg x 3 days -folate daily -MVI daily Macrocytic Anemia -CBC is stable -B12 and Folate are WNL -suspect related to EtOH consumption -down some without s/o bleeding--> recheck in am Mild Hyponatremia -resolved Elevated BP -continue Coreg 12.5 BID -trend Tobacco abuse -defers nicotine patch at this time MO -sig volume OL -recommend wgt loss -needs outpt PSG if pt willing DVT Prophylaxis -Lovenox daily Code Status Full Inpatient E&M: 39622 Subs Hosp L3
--- NOTE | 2019-06-03 15:30 | CASEMGMT ---
Addendum entered by Shasta Perry 06/04/19 11:03: Call to Shasta in [facility] regarding pt's insurance questions/concerns and she states that she will call pt on his room phone to try and answer questions at this time. Aruna MCKEON CM Original Note: Per RN, pt had some insurance questions and this RN CM attempted to speak with pt multiple times throughout the day but pt was either on phone or getting pt care. Will attempt again tomorrow or notify [facility]. Aruna MCKEON CM
[2019-06-03] MEDS: APIXABAN 5 MG TABLET PO (21:36)
[2019-06-04] VITALS (13 sets, daily range): BP systolic 105–136; BP diastolic 52–83; PULSE 95–115; RESP 16–20; TEMP 36.4–36.9; O2SAT 86–97
[2019-06-04] MEDS: Furosemide 500 MG in Empty Viaflex 50 mL 1 EACH CONT INF (05:34)
[2019-06-04 06:14] LABS: Hematocrit 31.1 % (40-54); Hemoglobin 9.5 g/dL (13.0-16.5); Mean Corp Hgb Conc 30.5 g/dL (32-36); Mean Corpuscular Hgb 31.1 pg (27.0-32.0); Mean Platelet Vol. 10.6 fl (6.2-12.0); Platelet Count 164 K/mm3 (150-450); RBC Distribution Width CV 12.6 % (11.6-14.6); RBC Distribution Width SD 47.6 fl (35.1-43.9); Red Blood Count 3.05 M/mm3 (4.6-6.2); White Blood Count 4.5 K/mm3 (4.4-11.0)
[2019-06-04 06:45] LABS: Anion Gap 5 (5-15); BUN 13 mg/dL (7-18); BUN/Creat Ratio 19.3 RATIO (10-20); Calcium,Total 8.4 mg/dL (8.5-10.1); Chloride 91 mmol/L (98-107); Creatinine, Serum 0.67 mg/dL (0.70-1.30); EST Glomerular Filtration Rate 125 mL/min (>60); Est Glom Filt Rate - Afr Amer 151 mL/min (>60); Estimated Creatinine Clearance 74.01 ml/min; Glucose 123 mg/dL (74-106); Magnesium 1.6 mg/dL (1.6-2.6); Potassium 2.8 mmol/L (3.5-5.1); Sodium Level 137 mmol/L (136-145)
[2019-06-04] MEDS: Carvedilol 12.5 MG Tablet PO ×2 (10:00→21:11)
[2019-06-04] MEDS: Menthol/Lanolin/Calamine/Znox 113 GM Tube 1 APPLIC TOPICAL (10:00)
[2019-06-04] MEDS: Multivitamins,Ther W-Minerals Tablet 1 TABLET PO (10:00)
[2019-06-04] MEDS: Folic Acid 1 MG Tablet PO (10:00)
[2019-06-04] MEDS: Aspirin E.C. 81 MG Tablet PO (10:00)
[2019-06-04] MEDS: APIXABAN 5 MG TABLET PO ×2 (10:01→21:12)
[2019-06-04] MEDS: oxyCODONE 5 MG Tablet 10 MG PO ×2 (10:07→19:17)
[2019-06-04] MEDS: Magnesium Hydroxide 30 ML UDC PO (11:52)
--- NOTE | 2019-06-04 14:22 | NURSING ---
In to reassess bilateral lower legs. pt states legs are feeling much better since being wrapped. less itchy per pt. tried to remove some of the calmoseptine from the legs. pt would benefit more from the aquaphor rather than calmoseptine which can be quite drying. will continue to monitor.
--- NOTE | 2019-06-04 16:16 | PCM.PROGNOTE ---
Patient Problems: Active and Suspected Problems Anasarca (Acute) Acute hypoxemic respiratory failure (Acute) Macrocytic anemia (Acute) Hyponatremia (Acute) Elevated BP without diagnosis of hypertension (Acute) Morbid (severe) obesity due to excess calories (Acute) Subjective: Patient seen and examined. Swelling improving however continues to have significant lower extremity swelling extending up to abdomen. Patient brings up financial concerns. Otherwise denies current complaints. - Physical Exam Vitals/I&O's: Vital Signs Temp Pulse Resp BP Pulse Ox 97.6 F L 96 20 H 119/52 L 96 06/04/19 15:00 06/04/19 15:00 06/04/19 15:00 06/04/19 15:00 06/04/19 15:00 Oxygen Flow Rate (L/min) 2 Oxygen Delivery Method Nasal Cannula Weight: 356 lb 7.799 oz Body Mass Index (BMI) 51.1 Intake and Output for Last 24 Hours 06/02/19 06/03/19 06/04/19 23:59 23:59 23:59 Intake Total 1710.37 / 1710.37 1500.21 / 1500.21 1149.13 / 1149.13 Output Total 2275 / 2275 4425 / 4425 2300 / 2300 Balance -564.63 / -564.63 -2924.79 / -2924.79 -1150.87 / -1150.87 General: Alert, Oriented x3, Cooperative HEENT: Atraumatic, PERRLA, EOMI, Normocephalic Neck: Supple, No JVD, Negative Carotid Bruits Lungs: Clear to auscultation, Diminished Cardiovascular: - - Atrial fibrillation, rate controlled Abdomen: Bowel Sounds Present, Soft, Non Tender, Non-Distended, Obese Extremities: No clubbing, No cyanosis, Edema - 3+ lower extremity edema extending to lower abdomen and scrotum. Skin: No rashes, No breakdown Musculoskeletal: No Tenderness to Palpation of Joints or Extremities Neurological: Cranial nerves II-XII grossly intact, Neuro grossly intact Psych/Mental Status: Normal Affect, Appropriate Laboratory Results 06/04/19 05:42: WBC 4.5, RBC 3.05 L, Hgb 9.5 L, Hct 31.1 L, MCV 102.0 H, MCH 31.1, MCHC 30.5 L, RDW Std Deviation 47.6 H, RDW Coeff of Radha 12.6, Plt Count 164, MPV 10.6 06/04/19 05:42: Sodium 137, Potassium 2.8 L, Chloride 91 L, Carbon Dioxide 41.0 H, Anion Gap 5, BUN 13, Creatinine 0.67 L, Estim Creat Clear Calc 74.01, Est GFR (MDRD) Af Amer 151, Est GFR (MDRD) Non-Af 125, BUN/Creatinine Ratio 19.3, Glucose 123 H, Calcium 8.4 L, Magnesium 1.6 Current Medications Acetaminophen (Tylenol) 650 mg PO Q6H PRN PRN PRN Reason: Pain Score 1-10/Temp > 100.7 F Last Admin: 06/03/19 04:09 Dose: 650 mg Documented by: Apixaban (Eliquis) 5 mg PO BID [facility] Last Admin: 06/04/19 10:01 Dose: 5 mg Documented by: Aspirin (Ecotrin) 81 mg PO DAILY@0800 [facility] Last Admin: 06/04/19 10:00 Dose: 81 mg Documented by: Calamine/Phenol (Calmoseptine Ointment) 1 applic TOPICAL BID [facility]; Protocol Last Admin: 06/04/19 10:00 Dose: 1 applicatio Documented by: Carvedilol (Coreg) 12.5 mg PO BID [facility] Last Admin: 06/04/19 10:00 Dose: 12.5 mg Documented by: Folic Acid (Folic Acid) 1 mg PO DAILY@0800 [facility] Last Admin: 06/04/19 10:00 Dose: 1 mg Documented by: Glucagon () 1 mg IM .X1 PRN PRN Reason: Hypoglycemia Hydrocortisone (Hytone) 1 applic TOPICAL TID PRN PRN; Protocol PRN Reason: ITCHING Last Admin: 06/02/19 00:34 Dose: 1 applicatio Documented by: Sodium Chloride () 250 mls @ 15 mls/hr IV .[id number] PRN PRN Reason: Saline Flush Sodium Chloride () 250 mls @ 15 mls/hr IV .[id number] PRN PRN Reason: Additional IVPB Infusion Dextrose (Dextrose 10%-Water) 250 mls @ 999 mls/hr IV .Q16M PRN; Protocol PRN Reason: HYPOGLYCEMIA Furosemide 500 mg/ N/A 50 mls @ 2 mls/hr CONT INF .Q25H [facility] Last Admin: 06/04/19 05:34 Dose: 20 mg/hr, 2 mls/hr Documented by: Lorazepam (Ativan) 1 mg PO Q4H PRN PRN PRN Reason: AGITATION Magnesium Hydroxide (Milk Of Magnesia) 30 ml PO DAILY PRN PRN PRN Reason: Constipation Last Admin: 06/04/19 11:52 Dose: 30 ml Documented by: Melatonin (Melatonin) 3 mg PO QHS PRN PRN PRN Reason: INSOMNIA Last Admin: 06/02/19 00:27 Dose: 3 mg Documented by: Multi-Ingredient Ointment (Aquaphor) 1 applic TOPICAL PRN PRN; Protocol PRN Reason: DRY SKIN Last Admin: 05/31/19 21:38 Dose: 1 applicatio Documented by: Multivitamins/Minerals (Multivitamin With Minerals (Bkc)) 1 tablet PO DAILYCM [facility] Last Admin: 06/04/19 10:00 Dose: 1 tablet Documented by: Oxycodone HCl (Oxyir) 10 mg PO Q6H PRN PRN PRN Reason: Pain Score 6-10/10 Last Admin: 06/04/19 10:07 Dose: 10 mg Documented by: Potassium Chloride (K-Dur) 40 meq PO BIDCM [facility] Sodium Chloride () 10 - 40 ml IV UD PRN PRN Reason: SALINE FLUSH Last Admin: 06/02/19 11:24 Dose: 10 ml Documented by: Sodium Chloride ([place] Nasal [place]) 2 spray NASAL TID PRN PRN PRN Reason: NASAL DRYNESS Medical Necessity - Tobacco Use Smoking Status: Current every day smoker Tobacco Use: Cigarettes Assessment/Plan All Active Problems Anasarca (Acute) Acute hypoxemic respiratory failure (Acute) Macrocytic anemia (Acute) Hyponatremia (Acute) Elevated BP without diagnosis of hypertension (Acute) Morbid (severe) obesity due to excess calories (Acute) 1. Anasarca-echocardiogram demonstrates EF 60%, stage II diastolic dysfunction. On Lasix drip. Slowly improving. Thromboembolic evaluation negative. Continue 1500 cc fluid restriction. Strict I&O. Daily weight. Cardiology following. Patient will need outpatient PSG for evaluation for JENNIFER. Cardiology following. 2. Acute hypoxic respiratory insufficiency-secondary to #1. Continue supplement oxygen to maintain O2 at or above 90%. Walking pulse ox prior to discharge. 3. New onset atrial fibrillation-rate controlled. Continue carvedilol, Eliquis. 4. Hypokalemia-replaced per protocol. Trend BMP. 5. Chronic alcohol dependence-reports 8-10 beers per day for the last 40+ years. CIWA protocol. Continue with thiamine, folate, multivitamin. 6. Chronic macrocytic anemia-stable. 7. Hypertension-stable, continue carvedilol. 8. Tobacco dependence-encourage cessation. Nicotine replacement patch if desired. 9. Morbid obesity-encouraged diet and lifestyle modifications. DVT prophylaxis-Lovenox subcu This patient was seen by ARIEL Moscoso under the supervision of Dr. Horn.
--- NOTE | 2019-06-04 17:43 | PCM.PN.CARD ---
Subjectve: At the present time the patient states he does feel somewhat better with respect to his concerns of lower extremity edema and scrotal edema. He is still concerned about remaining in the hospital and still not sure whether he would want to go through any other cardiovascular testing including testing such as diagnostic cardiac catheterization/right heart catheterization, etc. Objective: Vital Signs Temp Pulse Resp BP Pulse Ox 97.6 F L 96 20 H 119/52 L 96 06/04/19 15:00 06/04/19 15:00 06/04/19 15:00 06/04/19 15:00 06/04/19 15:00 Oxygen Flow Rate (L/min) 2 Oxygen Delivery Method Nasal Cannula Weight: 356 lb 7.799 oz Body Mass Index (BMI) 51.1 Intake and Output for Last 24 Hours 06/02/19 06/03/19 06/04/19 23:59 23:59 23:59 Intake Total 1710.37 / 1710.37 1500.21 / 1500.21 1149.13 / 1149.13 Output Total 2275 / 2275 4425 / 4425 2300 / 2300 Balance -564.63 / -564.63 -2924.79 / -2924.79 -1150.87 / -1150.87 General: Awake, Alert, Oriented x 3, Cooperative, Obese HEENT: Atraumatic, Normocephalic, PERRL, EOMI, Sclera Non Icteric Oral: Moist Mucosa Neck: Supple, Good ROM, No JVD Lungs: Diminished Jonah Bases Cardiovascular: Irregular Rhythm, Normal S1, Normal S2 Abdomen: Bowel Sounds Present, Soft Genitalia: Scrotal Edema Extremities: Severe RLE Edema, Severe LLE Edema Psych/Mental Status: Appropriate 06/04/19 05:42: WBC 4.5, RBC 3.05 L, Hgb 9.5 L, Hct 31.1 L, MCV 102.0 H, MCH 31.1, MCHC 30.5 L, Plt Count 164, MPV 10.6 06/04/19 05:42: Sodium 137, Potassium 2.8 L, Chloride 91 L, Carbon Dioxide 41.0 H, Anion Gap 5, BUN 13, Creatinine 0.67 L, Est GFR (MDRD) Af Amer 151, Est GFR (MDRD) Non-Af 125, BUN/Creatinine Ratio 19.3, Glucose 123 H, Calcium 8.4 L, Magnesium 1.6 Rhythm: Atrial fibrillation Medical Necessity - Tobacco Use Smoking Status: Current every day smoker Tobacco Use: Cigarettes Assessment/Plan 1. Anasarca The patient is undergoing evaluation and care for potential cardiopulmonary relationship that could lead to his anasarca. There is concern he may have underlying pulmonary disease that could lead to pulmonary hypertension with cor pulmonale and right heart failure. At the present time he is undergone noninvasive evaluation. His transthoracic echocardiogram was noted. Unfortunately it could not comment on his RV or estimate his RV systolic pressure. His thromboembolic evaluation has been negative thus far. He is being treated for underlying pulmonary disease with the possibility of obstructive sleep apnea. He is also being treated for concerns of his anasarca with diuretic therapy. This includes continuous IV infusion furosemide. His urine output has increased. Hopefully this will help with his anasarca. 2. Anemia The patient's H&H has decreased. This will need to be followed and he will need to be watched for any obvious evidence of underlying hemorrhagic related issues warranting further evaluation care. 3. Electrolyte imbalance The patient will still need to have his electrolytes followed and adjusted as needed. Over time, as the patient hopefully clinically improves, he may need to be considered for further evaluation in the cardiac catheterization laboratory as previously noted including a right heart catheterization to evaluate his hemodynamics, etc. This was discussed with the patient. At the present time he is not sure how he would want to proceed with any evaluation care above and beyond medical therapy and noninvasive evaluation. Comment: The patient's case has been discussed and reviewed with Dr. Horn. This note was generated using a voice recognition system and there may be incorrect words, spelling or punctuation that were not noted when reviewing the office note prior to saving.
--- NOTE | 2019-06-04 18:12 | NURSING ---
Fluid restriction education reinforced with patient, daughter and mother multiple times this shift. Mother gave patient oral fluids without asking nursing and currently patient's intake for today is 1775. Daughter and patient educated on fluid restriction again at this time and patient raised voice and said I will have one more gingerale before bed no matter what anyone says! Patient and daughter educated on affects of too much fluid but patient adamant he will have another gingerale. Will continue to monitor and educate.
[2019-06-04] MEDS: Docusate Sodium 100 MG Capsule 200 MG PO (21:11)
[2019-06-05] MEDS: oxyCODONE 5 MG Tablet 10 MG PO ×2 (01:43→09:32)
[2019-06-05 03:03] VITALS: PULSE 106
[2019-06-05 03:16] VITALS: BP 123/69; PULSE 97; RESP 14; TEMP 36.9; O2SAT 95
[2019-06-05 06:20] LABS: Hematocrit 31.1 % (40-54); Hemoglobin 9.7 g/dL (13.0-16.5); Mean Corp Hgb Conc 31.2 g/dL (32-36); Mean Corpuscular Hgb 31.6 pg (27.0-32.0); Mean Corpuscular Volume 101.3 fL (80-94); Mean Platelet Vol. 10.2 fl (6.2-12.0); Platelet Count 162 K/mm3 (150-450); RBC Distribution Width CV 12.6 % (11.6-14.6); RBC Distribution Width SD 46.8 fl (35.1-43.9); Red Blood Count 3.07 M/mm3 (4.6-6.2); White Blood Count 4.2 K/mm3 (4.4-11.0)
[2019-06-05] MEDS: Furosemide 500 MG in Empty Viaflex 50 mL 1 EACH CONT INF (06:21)
[2019-06-05 06:47] VITALS: PULSE 108
[2019-06-05 06:53] LABS: Anion Gap 2 (5-15); BUN 12 mg/dL (7-18); Calcium,Total 8.6 mg/dL (8.5-10.1); Chloride 91 mmol/L (98-107); Creatinine, Serum 0.67 mg/dL (0.70-1.30); EST Glomerular Filtration Rate 126 mL/min (>60); Est Glom Filt Rate - Afr Amer 153 mL/min (>60); Estimated Creatinine Clearance 74.01 ml/min; Glucose 144 mg/dL (74-106); Sodium Level 136 mmol/L (136-145)
[2019-06-05 08:05] VITALS: O2SAT 96
[2019-06-05 09:20] VITALS: BP 119/60; PULSE 94; RESP 18; TEMP 37.3; O2SAT 95
[2019-06-05] MEDS: APIXABAN 5 MG TABLET PO (09:27)
[2019-06-05] MEDS: Folic Acid 1 MG Tablet PO (09:27)
[2019-06-05] MEDS: Carvedilol 12.5 MG Tablet PO (09:27)
[2019-06-05] MEDS: Aspirin E.C. 81 MG Tablet PO (09:27)
[2019-06-05] MEDS: Multivitamins,Ther W-Minerals Tablet 1 TABLET PO (09:27)
[2019-06-05] MEDS: Menthol/Lanolin/Calamine/Znox 113 GM Tube 1 APPLIC TOPICAL (09:28)
[2019-06-05] MEDS: Docusate Sodium 100 MG Capsule 200 MG PO (09:28)
[2019-06-05] MEDS: Polyethylene Glycol 3350 17 GM PACKET PO (09:32)
--- NOTE | 2019-06-05 10:23 | PCM.PN.CARD ---
<Pedro Steele - Last Filed: 06/05/19 10:23> Subjectve: Patient seen and evaluated. His main concern this morning is fluid restriction. He denies any chest pain or shortness of breath. He is unsure, but believes that his generalized edema is improved. On physical assessment, this does appear to be improved since admission. He denies any lightness, dizziness, or presyncope. He continues to express frustrations regards to long-term hospitalization. Objective: Vital Signs Temp Pulse Resp BP Pulse Ox 99.2 F H 94 18 119/60 95 06/05/19 09:20 06/05/19 09:20 06/05/19 09:20 06/05/19 09:20 06/05/19 09:20 Oxygen Flow Rate (L/min) 1 Oxygen Delivery Method Nasal Cannula Weight: 356 lb 7.799 oz Body Mass Index (BMI) 51.1 Intake and Output for Last 24 Hours 06/03/19 06/04/19 06/05/19 23:59 23:59 23:59 Intake Total 1500.21 / 1500.21 2111.13 / 2111.13 327 / 327 Output Total 4425 / 4425 3900 / 3900 650 / 650 Balance -2924.79 / -2924.79 -1788.87 / -1788.87 -323 / -323 General: Healthy Appearing, Awake, Alert, Oriented x 3, Cooperative HEENT: Atraumatic Oral: Dry Mucosa Neck: No JVD Lungs: Diminished Jonah Bases Cardiovascular: Irregular Rhythm, Premature Ectopic Beats, Normal S1, Normal S2, No Murmurs Abdomen: Bowel Sounds Present, Soft, Non Tender Extremities: No Cyanosis, No Clubbing, Normal Capillary Refill, Bilateral Edema +3 Neurological: No Focal Motor or Sensory Deficit Psych/Mental Status: Appropriate, Normal Affect 06/05/19 05:58: WBC 4.2 L, RBC 3.07 L, Hgb 9.7 L, Hct 31.1 L, MCV 101.3 H, MCH 31.6, MCHC 31.2 L, Plt Count 162, MPV 10.2 06/05/19 05:58: Sodium 136, Potassium 3.0 L, Chloride 91 L, Carbon Dioxide 43.0 H, Anion Gap 2 L, BUN 12, Creatinine 0.67 L, Est GFR (MDRD) Af Amer 153, Est GFR (MDRD) Non-Af 126, BUN/Creatinine Ratio 18.0, Glucose 144 H, Calcium 8.6 Rhythm: EKG: ECHO: 05/31/2019 Interpretation Summary Normal LV size. Left ventricular systolic function is normal. The estimated ejection fraction is 60 %. Moderate concentric left ventricular hypertrophy. Stage 2 diastolic dysfunction. Contrast injection was performed. The study was technically limited. The study was technically difficult.Interpretation Summary Normal LV size. Left ventricular systolic function is normal. The estimated ejection fraction is 60 %. Moderate concentric left ventricular hypertrophy. Stage 2 diastolic dysfunction. Contrast injection was performed. The study was technically limited. The study was technically difficult. Stress Test: Cardiac Cath: PCI: CT Surgery: Holter monitor: EPS: PPM: CXR: Chest CT Scan: Medical Necessity - Tobacco Use Smoking Status: Current every day smoker Tobacco Use: Cigarettes Assessment/Plan 1. Anasarca The patient is undergoing evaluation and care for potential cardiopulmonary relationship that could lead to his anasarca. There is concern he may have underlying pulmonary disease that could lead to pulmonary hypertension with cor pulmonale and right heart failure. At the present time he is undergone noninvasive evaluation. His transthoracic echocardiogram was noted. Unfortunately it could not comment on his RV or estimate his RV systolic pressure. His thromboembolic evaluation has been negative thus far. He is being treated for underlying pulmonary disease with the possibility of obstructive sleep apnea. He is also being treated for concerns of his anasarca with diuretic therapy. This includes continuous IV infusion furosemide. His urine output has increased. Hopefully this will help with his anasarca. This appears slightly improved since admission. Ultimately, his IV diuretics can be transitioned to p.o. diuretics. Though metolazone may be a option on an outpatient basis, he may not be compliant with routine laboratory testing and may better benefit from least number of medications to ensure compliance. 2. Anemia His most recent hemoglobin was noted to be 9.7 and yesterday on 06/04/2019 was noted be 9.5. This will need to be followed and he will need to be watched for any obvious evidence of underlying hemorrhagic related issues warranting further evaluation care. 3. Electrolyte imbalance The patient will still need to have his electrolytes followed and adjusted as needed. He continues to have low potassium and this has been replaced IV and orally. 4. Paroxysmal atrial fibrillation Patient is currently on Aspirin and Eliquis therapy. His heart rate is well controlled with Coreg 12.5 mg p.o. twice daily. At this time, he will continue current medical therapy. In the long run, there may be an issue with compliance and financial concerns with Eliquis therapy. Over time, as the patient hopefully clinically improves, he may need to be considered for further evaluation in the cardiac catheterization laboratory as previously noted including a right heart catheterization to evaluate his hemodynamics, etc. This was discussed with the patient. At the present time he is not sure how he would want to proceed with any evaluation care above and beyond medical therapy and noninvasive evaluation. He may also benefit from social work to help assist with medication compliance and long-term follow-up. Patient's case was discussed and reviewed with Dr. Moreira, who will also personally evaluate patient. Please see his dictation for further input and details. Thank you for allowing us to participate in the patients plan of care, if you have any questions please do not hesitate to call. This note was generated using a voice recognition system and there may be incorrect words, spelling or punctuation that were not noted when reviewing the office note prior to saving. <Lucio Moreira - Last Filed: 06/05/19 17:05> Objective: Vital Signs Temp Pulse Resp BP Pulse Ox 99.2 F H 94 18 119/60 90 06/05/19 09:20 06/05/19 09:20 06/05/19 09:20 06/05/19 09:20 06/05/19 10:59 Oxygen Flow Rate (L/min) [ 0 AMBULATING on Room Air] Oxygen Flow Rate (L/min) [At 0 REST on Room Air] Oxygen Flow Rate (L/min) 1 Oxygen Delivery Method Nasal Cannula Weight: 356 lb 7.799 oz Body Mass Index (BMI) 51.1 Intake and Output for Last 24 Hours 06/03/19 06/04/19 06/05/19 23:59 23:59 23:59 Intake Total 1500.21 / 1500.21 2111.13 / 2111.13 819.47 / 819.47 Output Total 4425 / 4425 3900 / 3900 1250 / 1250 Balance -2924.79 / -2924.79 -1788.87 / -1788.87 -430.53 / -430.53 06/05/19 05:58: WBC 4.2 L, RBC 3.07 L, Hgb 9.7 L, Hct 31.1 L, MCV 101.3 H, MCH 31.6, MCHC 31.2 L, Plt Count 162, MPV 10.2 06/05/19 05:58: Sodium 136, Potassium 3.0 L, Chloride 91 L, Carbon Dioxide 43.0 H, Anion Gap 2 L, BUN 12, Creatinine 0.67 L, Est GFR (MDRD) Af Amer 153, Est GFR (MDRD) Non-Af 126, BUN/Creatinine Ratio 18.0, Glucose 144 H, Calcium 8.6 Rhythm: EKG: ECHO: Stress Test: Cardiac Cath: PCI: CT Surgery: Holter monitor: EPS: PPM: CXR: Chest CT Scan: Assessment/Plan Addendum: The patient was evaluated/examined. The patient continues with concerns of his shortness of breath and his lower extremity/scrotal edema. The patient notes he has made progress since being in the hospital with respect to his lower extremity/scrotal edema. The patient is still concerned about remaining in the hospital and did want to be discharged home for continued outpatient medical therapy and follow-up. The patient continues with evidence of diminished breath sounds. He does have an irregularly irregular rhythm with with a normal [id number] heart tones. He continues with lower extremity peripheral pitting edema/scrotal edema. At the present time the patient continues evaluation care of his underlying anasarca. He will continue diuretic therapy. He does request discharge home for continued outpatient follow-up. He should also be considered for outpatient primary care follow-up and an outpatient pulmonology consultation. Comment: The patient's case was discussed and reviewed with Dr. Horn and Pedro steele CNP. This note was generated using a voice recognition system and there may be incorrect words, spelling or punctuation that were not noted when reviewing the office note prior to saving.
[2019-06-05] MEDS: metOLazone 5 MG Tablet PO (10:39)
[2019-06-05 10:59] VITALS: O2SAT 90; O2SAT 92
--- NOTE | 2019-06-05 11:43 | DCINST_ITS ---
- Discharge Diagnoses Current Active Problems: Current Active and Chronic Problems Anasarca (Acute) Acute hypoxemic respiratory failure (Acute) Macrocytic anemia (Acute) Hyponatremia (Acute) Elevated BP without diagnosis of hypertension (Acute) Morbid (severe) obesity due to excess calories (Acute) You will use the following diet at home:: Cardiac Discharge Activity: Return to Normal Activity Call your doctor if you observe: Shortness of breath, Dizziness, Fainting spells, Chest pain Allergies/Adverse Reactions: Allergies Penicillins [PCN] Allergy (Verified 05/31/19 13:24) PASSED OUT Medications to take at Discharge Apixaban [Eliquis] 5 mg PO BID #60 tab 06/05/19 Carvedilol [Coreg (Beta Samantha)] 12.5 mg PO BID #60 tab 06/05/19 Potassium Chloride [K-Dur] 20 meq PO BID #60 tab 06/05/19 Torsemide 20 mg PO BID #60 tab 06/05/19 The following prescriptions were given: Carvedilol [Coreg (Beta Samantha)] 12.5 mg PO BID #60 tab Transmission Status: Pending to [facility] Apixaban [Eliquis] 5 mg PO BID #60 tab Transmission Status: Pending to [facility] Potassium Chloride [K-Dur] 20 meq PO BID #60 tab Transmission Status: Pending to [facility] Torsemide 20 mg PO BID #60 tab Transmission Status: Pending to [facility] Primary Care Physician: NOT,DEFINED [NON-STAFF] - Please follow up with your Primary Care Physician in: 1 week with PCP Test Results: Test results from this visit will be discussed in further detail at your follow- up appointment, if applicable. Please Follow Up With: Lucio Moreira MD When: 2 Weeks Proposed Discharge Date: 06/05/19
--- NOTE | 2019-06-05 11:47 | DS.PCM_ITS ---
Discharge Date and Diagnosis Date of Admission: 05/31/19 Date of Discharge: 06/05/19 - Primary Discharge Diagnosis Active and Suspected Problems 1. Anasarca 2. Acute hypoxic respiratory insufficiency-secondary to #1. 3. New onset atrial fibrillation 4. Hypokalemia 5. Chronic alcohol dependence 6. Chronic macrocytic anemia 7. Hypertension 8. Tobacco dependence 9. Morbid obesity Hospital Course and Treatment Imaging Results: Diagnostic Data Abdomen/Pelvis CT 06/01/19 15:53 IMPRESSION: Lower lobe atelectasis small focus of consolidation or fluid within the right minor fissure. Coronary artery disease. Hepatic enlargement. Splenomegaly. Intra-abdominal lipomatosis. Body wall edema significant lower extremity edema visualized scrotal edema bilateral hydroceles. Atherosclerotic disease of the aorta. Degenerative changes of the thoracolumbar spine. Electronically Signed: Yaz Wyatt MD at 16:50 EDT Tel , Service support , Chest X-Ray 06/02/19 06:00 IMPRESSION: No evidence for acute cardiopulmonary pathology. Electronically Signed: Reuben Vines MD at 5:21 EDT , Service support , Lung Scan-VQ NM 06/02/19 11:29 IMPRESSION: 1. VERY LOW PROBABILITY FOR PULMONARY EMBOLUS (<10%) 99m Tc DTPA aerosol ventilation / 99m Tc MAA pulmonary perfusion imaging examination, according to PIOPED II interpretive criteria with regard given to the presence of > 2 ventilation-perfusion matches without corresponding radiographic changes. (Sotsman et al, Radiology 246: 941, 2008 Soleón et al, J Nucl Med 49: 1741, 2008). 2. Central clumping of the aerosol may be secondary to obstructive airway mechanics and or clinical tachypnea. Electronically Signed: Maximilian Coronel DO at 13:36 EDT Tel , Service support , Consultations 06/01/19 11:27 Consult: Onc/Wound/pallet stone positioner Routine Comment: Reason for Consult:: ellie lower legs Comments:: dry, seeping, open, itching Dr. Moreira- Cardiology Operations: None Procedures: 2-D Echocardiogram Summary of Care Provided: The patient is a 69 year old M admitted 05/31/2019 due to scrotal swelling. 1. Anasarca-echocardiogram demonstrates EF 60%, stage II diastolic dysfunction. On Lasix drip during admission with significant diuresis. Thromboembolic evaluation negative. Continue [address] Moreira consulted during admission. Patient will need outpatient PSG for evaluation for JENNIFER. Torsemide 20 mg twice daily at discharge along with potassium s upplementation. Follow-up with cardiology in 2 weeks. Patient will need to establish with primary care and follow-up within 1 week as well. 2. Acute hypoxic respiratory insufficiency-secondary to #1. Resolved. Walking pulse ox completed prior to discharge and patient did not require further supplemental oxygen. 3. New onset atrial fibrillation-rate controlled. Continue carvedilol, Eliquis . 4. Hypokalemia-replaced per protocol. Continue potassium supplementation at discharge. 5. Chronic alcohol dependence-reports 8-10 beers per day for the last 40+ years. Encouraged cessation. No withdrawal symptoms during admission. 6. Chronic macrocytic anemia-stable. 7. Hypertension-stable, continue carvedilol. 8. Tobacco dependence-encourage cessation. 9. Morbid obesity-encouraged diet and lifestyle modifications. General: Alert, Oriented x3, Cooperative HEENT: Atraumatic, PERRLA, EOMI, Normocephalic Neck: Supple, No JVD, Negative Carotid Bruits Lungs: Clear to auscultation, Diminished Cardiovascular: - - Atrial fibrillation, rate controlled Abdomen: Bowel Sounds Present, Soft, Non Tender, Non-Distended, Obese Extremities: No clubbing, No cyanosis, Edema - 3+ lower extremity edema extending to lower abdomen and scrotum. Skin: No rashes, No breakdown Musculoskeletal: No Tenderness to Palpation of Joints or Extremities Neurological: Cranial nerves II-XII grossly intact, Neuro grossly intact Psych/Mental Status: Normal Affect, Appropriate Patient seen and examined prior to discharge. Physical assessment as noted above. Patient is stable for discharge with follow up recommendations as noted above. This patient was seen by ARIEL Moscoso under the supervision of Dr. Horn. - Physical Exam Vitals/I&O's: Vital Signs Temp Pulse Resp BP Pulse Ox 99.2 F H 94 18 119/60 90 06/05/19 09:20 06/05/19 09:20 06/05/19 09:20 06/05/19 09:20 06/05/19 10:59 Oxygen Flow Rate (L/min) [ 0 AMBULATING on Room Air] Oxygen Flow Rate (L/min) [At 0 REST on Room Air] Oxygen Flow Rate (L/min) 1 Oxygen Delivery Method Nasal Cannula Weight: 356 lb 7.799 oz Body Mass Index (BMI) 51.1 Intake and Output for Last 24 Hours 06/03/19 06/04/19 06/05/19 23:59 23:59 23:59 Intake Total 1500.21 / 1500.21 2111.13 / 2111.13 327 / 327 Output Total 4425 / 4425 3900 / 3900 650 / 650 Balance -2924.79 / -2924.79 -1788.87 / -1788.87 -323 / -323 Laboratory Results 06/05/19 05:58: WBC 4.2 L, RBC 3.07 L, Hgb 9.7 L, Hct 31.1 L, MCV 101.3 H, MCH 31.6, MCHC 31.2 L, RDW Std Deviation 46.8 H, RDW Coeff of Radha 12.6, Plt Count 162, MPV 10.2 06/05/19 05:58: Sodium 136, Potassium 3.0 L, Chloride 91 L, Carbon Dioxide 43.0 H, Anion Gap 2 L, BUN 12, Creatinine 0.67 L, Estim Creat Clear Calc 74.01, Est GFR (MDRD) Af Amer 153, Est GFR (MDRD) Non-Af 126, BUN/Creatinine Ratio 18.0, Glucose 144 H, Calcium 8.6 Current Medications Acetaminophen (Tylenol) 650 mg PO Q6H PRN PRN PRN Reason: Pain Score 1-10/Temp > 100.7 F Last Admin: 06/03/19 04:09 Dose: 650 mg Documented by: Apixaban (Eliquis) 5 mg PO BID [facility] Last Admin: 06/05/19 09:27 Dose: 5 mg Documented by: Aspirin (Ecotrin) 81 mg PO DAILY@0800 [facility] Last Admin: 06/05/19 09:27 Dose: 81 mg Documented by: Calamine/Phenol (Calmoseptine Ointment) 1 applic TOPICAL BID [facility]; Protocol Last Admin: 06/05/19 09:28 Dose: 1 applicatio Documented by: Carvedilol (Coreg) 12.5 mg PO BID [facility] Last Admin: 06/05/19 09:27 Dose: 12.5 mg Documented by: Docusate Sodium (Colace) 200 mg PO BID [facility] Last Admin: 06/05/19 09:28 Dose: 200 mg Documented by: Folic Acid (Folic Acid) 1 mg PO DAILY@0800 [facility] Last Admin: 06/05/19 09:27 Dose: 1 mg Documented by: Glucagon () 1 mg IM .X1 PRN PRN Reason: Hypoglycemia Hydrocortisone (Hytone) 1 applic TOPICAL TID PRN PRN; Protocol PRN Reason: ITCHING Last Admin: 06/02/19 00:34 Dose: 1 applicatio Documented by: Sodium Chloride () 250 mls @ 15 mls/hr IV .[id number] PRN PRN Reason: Saline Flush Sodium Chloride () 250 mls @ 15 mls/hr IV .[id number] PRN PRN Reason: Additional IVPB Infusion Dextrose (Dextrose 10%-Water) 250 mls @ 999 mls/hr IV .Q16M PRN; Protocol PRN Reason: HYPOGLYCEMIA Furosemide 500 mg/ N/A 50 mls @ 2 mls/hr CONT INF .Q25H [facility] Last Admin: 06/05/19 06:21 Dose: 20 mg/hr, 2 mls/hr Documented by: Lorazepam (Ativan) 1 mg PO Q4H PRN PRN PRN Reason: AGITATION Magnesium Hydroxide (Milk Of Magnesia) 30 ml PO DAILY PRN PRN PRN Reason: Constipation Last Admin: 06/04/19 11:52 Dose: 30 ml Documented by: Melatonin (Melatonin) 3 mg PO QHS PRN PRN PRN Reason: INSOMNIA Last Admin: 06/02/19 00:27 Dose: 3 mg Documented by: Multi-Ingredient Ointment (Aquaphor) 1 applic TOPICAL PRN PRN; Protocol PRN Reason: DRY SKIN Last Admin: 05/31/19 21:38 Dose: 1 applicatio Documented by: Multivitamins/Minerals ([facility]ivitamin With Minerals (Bkc)) [facility] Last Admin: 06/05/19 09:27 Dose: 1 tablet Documented by: Oxycodone HCl (Oxyir) 10 mg PO Q6H PRN PRN PRN Reason: Pain Score 6-10/10 Last Admin: 06/05/19 09:32 Dose: 10 mg Documented by: Polyethylene Glycol (Miralax) 17 gm PO DAILY [facility] Last Admin: 06/05/19 09:32 Dose: 17 gm Documented by: Potassium [facility] ([facility]) [facility] Last Admin: 06/05/19 09:27 Dose: 40 meq Documented by: Sodium Chloride () 10 - 40 ml IV UD PRN PRN Reason: SALINE FLUSH Last Admin: 06/02/19 11:24 Dose: 10 ml Documented by: Sodium Chloride ([place] Nasal Edel[place]) 2 spray NASAL TID PRN PRN PRN Reason: NASAL DRYNESS Discharge Diet: Low fat/ Low Cholesterol, 6 Cup Fluid Restriction, 2000 mg Sodium Diet Discharge Activity: Return to Normal Activity Call your doctor if you observe: Shortness of breath, Dizziness, Fainting spells, Chest pain Home Medications: Medications to take at Discharge Apixaban [Eliquis] 5 mg PO BID #60 tab 06/05/19 Carvedilol [Coreg (Beta Samantha)] 12.5 mg PO BID #60 tab 06/05/19 Potassium Chloride [K-Dur] 20 meq PO BID #60 tab 06/05/19 Torsemide 20 mg PO BID #60 tab 06/05/19 Following Prescrptions Were Given to Patient: Carvedilol [Coreg (Beta Samantha)] 12.5 mg PO BID #60 tab Transmission Status: Pending to [facility] Apixaban [Eliquis] 5 mg PO BID #60 tab Transmission Status: Pending to [facility] Potassium Chloride [K-Dur] 20 meq PO BID #60 tab Transmission Status: Pending to [facility] Torsemide 20 mg PO BID #60 tab [facility]: [facility] Primary Care Physician: NOT,DEFINED [NON-STAFF] - Please follow up with your Primary Care Physician in: 1 week with PCP Please Follow Up With: Lucio Moreira MD When: 2 Weeks Disposition: Home Minutes spent on discharge:: 35 Patient Condition:: Stable Medical Necessity - Tobacco Use Smoking Status: Current every day smoker Tobacco Use: Cigarettes Meaningful Use Info Meaningful Use Diagnoses (Choose all that apply): None applicable
--- NOTE | 2019-06-05 12:07 | CASEMGMT ---
Per Marybeth RN, pt does not qualify for home oxygen at this time. This RN CM to room to discuss discharge plan and pt states no concerns with going home at time of discharge. Pt states no need for any further therapy at this time. CCN referral made at this time and pt states 'we can figure that out later.' Pt voices no further questions/concerns/needs at this time. SStpalomo RN CM
--- NOTE | 2019-07-01 14:26 | CCN.REFER ---
Multiple phone calls to patient in the last two weeks with no returned calls. CCN will continue to reach out.
--- NOTE | 2019-07-15 11:48 | CCN.REFER ---
Patient declining CCN services.
--- NOTE | 2019-07-17 14:48 | ED.RN ---
Pt called related to a billing issue and proper insurance being billed. He had been encouraged by [facility] customer service to call billing company to change information. I encouraged him to do the same. He verbalized understanding.
== END 2019-06-05 12:50 | disposition home or self-care (01) | DRG 315 ==
LOC: ED 14:11 → PCU 18:26
PROVIDERS: Nurse Practitioner Family; Admitting Provider Internal Medicine; Emergency Provider Emergency Medicine; Visit Provider Internal Medicine
DX: I27.20 Pulmonary hypertension, unspecified (principal); E87.1 Hypo-osmolality and hyponatremia; Z68.43 Body mass index [BMI] 50.0-59.9, adult; R60.1 Generalized edema; I10 Essential (primary) hypertension; R09.02 Hypoxemia; R06.89 Other abnormalities of breathing; D53.9 Nutritional anemia, unspecified; E87.6 Hypokalemia; F10.20 Alcohol dependence, uncomplicated; I48.0 Paroxysmal atrial fibrillation; E66.01 Morbid (severe) obesity due to excess calories; F17.210 Nicotine dependence, cigarettes, uncomplicated
CPT/HCPCS: 36415; 51702; 71045; 74176; 78582; 80048; 80053; 80061; 80076; 81001; 82607; 82746; 82962; 83036; 83735; 83880; 84100; 84443; 84484; 85025; 85027; 85610; 93005; 93306; 93970; 94640; 97110; 97162; 97166; 97530; 97535; 97802; 99251; 99285; 99406; A9540; A9567; Q9957; A4216; C8929; G0463; J1940

== ENCOUNTER 2019-08-29 11:58 | Inpatient (IN) | payer MEDICARE, SELFPAY ==
[2019-05-31 15:36] VITALS: BMI 51.1
[2019-08-29] VITALS (27 sets, daily range): BP systolic 102–133; BP diastolic 47–104; PULSE 61–109; RESP 12–25; TEMP 35.5–36.1; O2SAT 86–100; BMI 43.6; BMI 43.4; BMI 43.7
--- NOTE | 2019-08-29 12:19 | ED.RN ---
PT STATES THAT HIS MOTHER LIVES WITH HIM, SHE IS 92YO.
--- NOTE | 2019-08-29 12:24 | EKG12_ITS ---
Test Reason : Blood Pressure : / mmHG Vent. Rate : 092 BPM Atrial Rate : 096 BPM P-R Int : 000 ms QRS Dur : 112 ms QT Int : 374 ms P-R-T Axes : 000 -08 140 degrees QTc Int : 462 ms Atrial fibrillation Low voltage QRS Cannot rule out Anterior infarct , age undetermined Abnormal ECG Confirmed by BREANNA BROWN, MARCO A ([id number]), photography editor GLADIS SUBRAMANIAN ([id number]) on 08/31/2019 1:19:04 PM Referred By: LILIANA Confirmed By:MARCO A CARLOS MD
[2019-08-29] MEDS: 0.9% Normal Saline 1,000 ML 150 ML IV (12:37)
[2019-08-29] MEDS: Ondansetron 4 MG/2 ML Vial IV (12:37)
[2019-08-29] MEDS: Morphine 4 MG/ML Syringe IV ×2 (12:37→13:47)
--- NOTE | 2019-08-29 12:43 | ED.VIS.GEN ---
History of Present Illness <Malika Mooney - Last Filed: 08/29/19 12:43> Informant: Patient, Director Regulatory Affairs Onset: Month(s) - 1 month Context: Gradual Onset Timing: Continuous - aching/burning Quality: aching and burning Location: both legs Current Severity: Severe Maximum Severity: Severe Worsened by: movement Relieved by: nothing Associated Symptoms: dyspnea on exertion Narrative: 69-year-old male presents by squad for wounds on both legs. He was admitted here in May has not followed up or seen a doctor since that time nearly 3 months and he is only been taking his torsemide and potassium, and none of his other medications. He has been sleeping in a recliner. Both Legs are weeping and oozing and foul-smelling. He has been short of breath with exertion and mostly has remained sedentary. He is not short of breath at rest. He has no fevers no cough no chest pain no vomiting or diarrhea. he has been eating and drinking only ice cream and chocolate. he does not really get up much to use the bathroom he mostly urinates on himself. Prior similar symptoms: Yes Recent Illness/Hospitalization: Yes <Eliseo Pena - Last Filed: 08/29/19 15:34> Chief Complaint: Wound Past Medical History Surgical History: total knee arthroplasty - L 2009 Smoking Status: Current every day smoker - Family History Offspring Family History: Reports: Diabetes - brother, Heart Disease - mother <Malika Mooney - Last Filed: 08/29/19 12:43> Prior records reviewed: Yes Past Medical History: - - HTN, Afib, CHF Surgical History: total knee arthroplasty Lives: With Family Alcohol: None Drugs: None <Eliseo Pena - Last Filed: 08/29/19 15:34> - Allergies and Home Meds Allergies/Adverse Reactions: Allergies Penicillins [PCN] Allergy (Verified 08/29/19 12:05) PASSED OUT Primary Care Physician: Care Physician,No Primary [NON-STAFF] - Review of Systems All systems negative except as indicated General: Reports: Malaise, Weight loss. Denies: Chills, Fever, Sweats Eyes: Denies: Visual changes - bilaterally, Diplopia ENT: Denies: Rhinorrhea, Sore throat Cardiovascular: Denies: Chest pain, Palpitations Respiratory: Reports: Dyspnea on exertion, Orthopnea, Paroxysmal nocturnal dyspnea. Denies: Dyspnea, Cough, Sputum Gastrointestinal: Denies: Abdominal pain, Nausea, Vomiting, Diarrhea, Melena, Hematochezia Genitourinary: Denies: Dysuria, Hematuria, Frequency Musculoskeletal: Reports: Swelling, Extremity Pain. Denies: Myalgias, Arthralgias, Neck pain, Back pain Skin: Reports: Wounds. Denies: Rash, Abscess, Abrasions Neurological: Denies: Headache, Weakness, Numbness <Eliseo Pena - Last Filed: 08/29/19 15:34> Physical Exam Vital Signs/Narrative: Vital Signs Temp Pulse Resp BP Pulse Ox 08/29/19 12:29 98 22 H 100 08/29/19 12:05 98 08/29/19 12:00 96 F L 91 23 H 133/74 H 86 <Malika Mooney - Last Filed: 08/29/19 12:43> Vital Signs/Narrative: Vital Signs Temp Pulse Resp BP Pulse Ox 08/29/19 12:29 98 22 H 100 08/29/19 12:05 98 08/29/19 12:00 96 F L 91 23 H 133/74 H 86 Inital Vital Signs reviewed: Yes General: Well nourished, Well developed, Obese, Unkempt, No Acute Distress Head: Normocephalic, Atraumatic Eyes: Perrl, EOMI ENT: Moist mucous membranes, No rhinorrhea Neck: Supple, Nontender Cardiovascular: Regular rate, Regular rhythm, No murmurs Respiratory: No distress, Chest nontender, Diminished, Decreased Air Movement Abdomen: Soft, Nontender, Nondistended, Normal bowel sounds Back: Nontender, Normal Inspection Extremities: - - Patient has bilateral leg swelling that is symmetrical with chronic venous stasis changes with ulcerations and wounds that are weeping and draining on both legs. Capillary refill of all 10 toes was within normal limits. DP and PT pulses were symmetrical and 2+. No lymphatic streaking above the knee on either leg. Skin: Normal color, No rash Neurological: Alert, Oriented x3, Cranial nerves II-XII grossly intact, Normal Strength, Normal Sensation Psychological: Normal affect, Normal Mood <Eliseo Pena - Last Filed: 08/29/19 15:34> Diagnostic/Tx/Re-eval - Medical Decision Making Patient seen with Eliseo agree with history and physical as above, the patient has obvious infection involving the left greater than right leg he is noncompliant with therapy he apparently does not get out of bed he has had no therapy since discharge in the hospital worsening leg wound he has no history of diabetes no history of peripheral vascular disease, on exam he is very heavyset head neck chest unremarkable the left lower leg is studded with extensive ulcerations drainage of fluid and odor there is no obvious crepitance he has edema throughout the lower extremities bilaterally his toes are symmetrically perfused there is no obvious signs of arterial insufficiency he indicates this is similar to what he had before he declines to describe ongoing home therapy that he complied with at this time he will undergo ED evaluation labs antibiotics and will asked admission service to see him for admission <Malika Mooney - Last Filed: 08/29/19 12:43> - Rhythm Strip Rhythm Strip: A-fib Rate: 91 Ectopy: None - EKG Initial EKG Interpretation: No Acute Injury Pattern, Atrial Fibrillation Prior: Unchanged - Medical Decision Making EKG shows atrial fibrillation. No acute ischemic changes are noted. Patient is stable on 2 L. Due to the extensive nature of the infections of both legs he was given vancomycin as well as Levaquin as he has a penicillin allergy. Patient has multiple significant lab abnormalities including a hemoglobin of 4.7, BUN of 100, creatinine of 5 and potassium 6.2. Lactate was negative. After multiple attempts nursing staff was unable to get a Asif catheter in place for the patient. His urethral meatus is very small, pediatric catheter was put through however would not pass all the way into his bladder and therefore we were unable to have a Asif catheter placed. A bladder scan was performed which showed less than 100 cc of urine. Patient does state that he has been urinating. Patient was given IV fluids, he was ordered blood transfusion. His blood pressure remained stable. His Hemoccult was positive for blood, however he did have brown stool on rectal exam. I spoke with the hospitalist who agreed to admit to the ICU however, requested to speak with Dr. Iverson of general surgery who I contacted. She stated she would only scope the patient if they are medically stable. - Critical Care Time Critical care time (excluding procedures): 30-74 minutes <Eliseo Pena - Last Filed: 08/29/19 15:34> ED Disposition <Malika Mooney - Last Filed: 08/29/19 12:43> <Eliseo Pena - Last Filed: 08/29/19 15:34> - Plan for ED Patient: Disposition: [facility] Diagnosis: ARF (acute renal failure), Acute anemia, GI bleed, Cellulitis of both lower extremities, Hyperkalemia, Afib Referrals: Care Physician,No Primary [NON-STAFF] -
--- NOTE | 2019-08-29 13:19 | ED.RN ---
attempted a 6 faroese mina, pt screamed when attempted to inflate balloon.
[2019-08-29] MEDS: levoFLOXacin IV 500 MG/100 ML BAG 100 MG IV (13:24)
--- NOTE | 2019-08-29 13:37 | EKG12_ITS ---
Test Reason : Blood Pressure : / mmHG Vent. Rate : 091 BPM Atrial Rate : 101 BPM P-R Int : 000 ms QRS Dur : 106 ms QT Int : 358 ms P-R-T Axes : 000 -02 147 degrees QTc Int : 440 ms Atrial fibrillation Low voltage QRS Cannot rule out Anterior infarct , age undetermined Abnormal ECG Confirmed by BREANNA BROWN, MARCO A ([id number]), editor magazine GLADIS SUBRAMANIAN ([id number]) on 08/31/2019 1:18:42 PM Referred By: LILIANA Confirmed By:MARCO A CARLOS MD
[2019-08-29 13:50] LABS: Absolute Lymphocyte Count 1.13 X10^3/uL (0.83-4.51); Basophil# 0.01 X10^3/uL; Basophil% 0.2 % (0-1); Eosinophil# 0.14 X10^3/uL; Eosinophils% 2.4 % (0-5); Hematocrit 16.9 % (40-54); Lymphocyte # 1.13 X10^3/ul (4.0); Lymphocyte % 19.2 % (19-41); Mean Corp Hgb Conc 27.8 g/dL (32-36); Mean Corpuscular Hgb 19.4 pg (27.0-32.0); Mean Corpuscular Volume 69.8 fL (80-94); Mean Platelet Vol. 10.8 fl (6.2-12.0); Monocyte# 0.55 X10^3/uL; Monocyte% 9.4 % (0-10); NRBC Flagged by Analyzer 1.7 % (0-5); Neutrophil # 3.98 X10^3/uL (2.7-7.7); Neutrophil % 67.6 % (47-70); POSITIVE COUNT YES; POSITIVE MORPHOLOGY YES; Platelet Count 194 K/mm3 (150-450); RBC Distribution Width CV 21.3 % (11.6-14.6); RBC Distribution Width SD 52.8 fl (35.1-43.9); Red Blood Count 2.42 M/mm3 (4.6-6.2); White Blood Count 5.9 K/mm3 (4.4-11.0)
--- NOTE | 2019-08-29 13:50 | ED.RN ---
unable to obtain urine sample.
[2019-08-29 14:00] LABS: Lactic Acid 1.4 mmol/L (0.4-1.9)
[2019-08-29 14:03] LABS: Differential Indicated SCAN CRITERIA MET; Hemoglobin 4.7 g/dL (13.0-16.5)
[2019-08-29 14:04] LABS: International Normalized Ratio 1.3; Prothrombin Time (Protime)PT. 15.6 SECONDS (11.7-14.9)
[2019-08-29 14:05] LABS: ALB/GLOB Ratio 0.7 RATIO (0.9-2.4); AST(SGOT) 21 U/L (15-37); Alanine Aminotransfer ALT/SGPT 25 U/L (16-61); Albumin, Serum 2.6 g/dL (3.2-5.0); Alkaline Phosphatase 109 U/L (45-117); Anion Gap 12 (5-15); BUN 95 mg/dL (7-18); Calcium,Total 8.5 mg/dL (8.5-10.1); Chloride 103 mmol/L (98-107); EST Glomerular Filtration Rate 12 mL/min (>60); Est Glom Filt Rate - Afr Amer 15 mL/min (>60); Globulin 3.9 g/dL (2.2-4.2); Glucose 111 mg/dL (74-106); Partial Thromboplast Time 42.8 Seconds (24.1-36.2); Potassium 6.2 mmol/L (3.5-5.1); Protein, Total 6.5 g/dL (6.4-8.2); Sodium Level 133 mmol/L (136-145)
--- NOTE | 2019-08-29 14:07 | ED.RN ---
pt has audible wheezes, provider aware.
[2019-08-29 14:17] LABS: Anisocytosis 2+; Differential Comment SCANNED; Hypochromasia 1+; Macrocytosis 1+; Microcytosis 1+
--- NOTE | 2019-08-29 14:43 | RAD_ITS ---
STUDY: X-RAY CHEST REASON FOR EXAM: Male, 69 years old. SOB SWELLING THE RT ARM AND HAND. BILAT OPEN WOUNDS AND PAIN X 3 WEEKS. PT STATES THAT THEY JUST OPENED UP AND STARTED OOZING TECHNIQUE: Single frontal view of the chest. COMPARISON: June 02, 2019 FINDINGS: There are low lung volumes. There is obscuration of the right cardiophrenic angle. There is persistent opacification of the right minor fissure. There is cardiomegaly. Normal mediastinum and savana. Normal visualized pulmonary arteries. There is atherosclerotic calcification of the aortic arch with tortuosity. Normal visualized thoracic spine. Normal visualized ribs, clavicles, and shoulders. There is no demonstrated abnormality of the visualized soft tissue structures of the upper abdomen. RAD/Chest 1 View (Portable) IMPRESSION: Obscuration of the right cardiophrenic angle may be secondary to pleural effusion and/or pleural thickening. Electronically Signed: Fernanad Good MD at 15:49 EDT Tel , Service support ,
[2019-08-29] MEDS: Ipratropium/Albuterol Sulfate 3 ML AMPUL.NEB INHALATION ×2 (15:19→19:08)
--- NOTE | 2019-08-29 16:57 | PCM.HP.STD ---
History of Present Illness Date of Admission: 08/29/19 The patient is a 69 year old M who presented to the ED today 2/2 B LE wounds. 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 He was started on Coreg and NOAC (which he has not been taking) and Bumex and Potassium supplementation (which he has been taking). Since his discharge on June 04 he did not ever f/u with a doctor. He has been sleeping in a recliner eating pretty much only ice cream and chocolate and drinking ira katie and iced tea. He has been urinating in the chair and gets up only when he has an occasional BM. He states that about 3 weeks after he was discharged his legs started weeping and the skin started to break down. He has been soaking 1 towel daily with the seeping from his legs. Over the weeks it has gotten progressively worse and more painful to the point that he could not stand it anymore and that is what brought him in today. He admits that his UO has decreased significantly over the last several weeks. He is no longer drinking EtOH but continues to smoke at least 2 ppd. Upon examination, his legs are markedly macerated and weeping with severe skin breakdown superficially. He is in atrial fibrillation with fluctuating rates but for the most part is < 100bpm. He is on 4 L nasal cannula with SpO2 of 100% at this time. His labs are remarkable for a Hgb of 4.7 (was 9.7 on d/c in May), his sCr is 5 with a BUN of 95 (was 0.67 and 12 in May) and his K is 6.2 (was 3.0 in May). His EKG was reviewed and c/w Atrial fibrillation but no changes c/w hyperkalemia at this timeHe states that he is in the process of changing his will and doesn't want his daughter contacted regarding his admission. Past Medical History Allergies Penicillins [PCN] Allergy (Verified 08/29/19 12:05) PASSED OUT Home Medications: Ambulatory Orders Medication Instructions Recorded Apixaban [Eliquis] 5 mg PO BID #60 tab 06/05/19 Potassium Chloride [K-Dur] 20 meq PO BID #60 tab 06/05/19 Torsemide 20 mg PO BID #60 tab 06/05/19 carvedilol 6.25 mg tablet 6.25 mg PO BID #60 tab 06/17/19 Surgical History: total knee arthroplasty Psychiatric History: No pertinent psych hx Lives: Alone Smoking Status: Current every day smoker Alcohol: None Drugs: None - *Family History Offspring History Items: Diabetes - brother, Heart Disease - mother Review of Systems Constitutional: Denies: Anorexia, Chills, Fever, Night Sweats, Malaise, Weakness, Weight Change, Fatigue Eyes: Denies: Blurred vision, Cataracts, Conjunctivae Inflammation, Double vision, Drainage, Eyelid Inflammation, Pain, Redness, Vision Change HEENT: Reports: Difficulty Hearing, Hard of Hearing. Denies: Difficulty Swallowing, Dysphasia, Ear Pain, Eye Pain, Head Aches, Hearing Changes, Nasal bleeding, Nasal Congestion, Post Nasal Drip, Sinus Congestion, Sinus Drainage, Sore Throat, Visual Changes Cardiovascular: Reports: Edema, Orthopnea. Denies: Chest Pain, Claudication, Chest Pressure, Chest Tightness, Heaviness, Light Headedness, Palpitations, Paroxysmal Noc. Dyspnea, Syncope Respiratory: Reports: Shortness of Breath, Shortness of breath at rest, Shortness of breath upon exertion, Wheezing. Denies: Cough, Hemoptysis, Pleuritic Pain, Sputum production Gastrointestinal: Denies: Abdominal Pain, Constipation, Diarrhea, Dyspepsia, Hematemesis, Hematochezia, Nausea, Melena, Vomiting Genitourinary: Reports: - - decrease UO. Denies: Dysuria, Frequency, Hematuria, Hesitancy, Incontinence, Nocturia, Retention, Urgency Musculoskeletal: Reports: Leg Pain. Denies: Arm Pain, Back Pain, Foot Pain, Hand Pain, Joint Pain, Joint stiffness, Joint swelling, Joint Tenderness, Muscle pain, Neck Pain, Shoulder Pain Skin: Reports: Lesions, Skin Changes, Wounds - B LE L>R. Denies: Dryness, Jaundice, Pruritis, Rash Neurological: Denies: Balance problems, Blurred vision, Double vision, Change in Speech, Slurred speech, Confusion, Difficulty swallowing, Focal weakness, Headaches, Incoordination, Numbness, Tingling, Tremor, Seizures Psychiatric: Denies: Anxiety, Depression Endocrine: Denies: Change in Body Habitus, Heat/ Cold Intolerance, Polydipsia, Polyuria Hematologic/ Lymphatic: Denies: Adenopathy, Anemia, Easy Bruising, Easy Bleeding, Petechiae, Purpura, Hx of blood clot, Hx of blood transfusion VTE Information - Inpt Only VTE Present on Admission: No VTE Mechan Device Prophylaxis: None VTE Pharm Prophylaxis ordered?: No Reason prophylaxis not ordered:: Treatment Not Indicated - pt with severe anemia/B LE wounds Patient Problems: Active and Suspected Problems ARF (acute renal failure) (Acute) Acute anemia (Acute) GI bleed (Acute) Cellulitis of both lower extremities (Acute) Hyperkalemia (Acute) Afib (Acute) - Physical Exam Vitals/I&O's: Vital Signs Temp Pulse Resp BP Pulse Ox 96.7 F L 101 H 16 102/80 100 08/29/19 16:05 08/29/19 16:05 08/29/19 16:05 08/29/19 16:05 08/29/19 16:05 Oxygen Flow Rate (L/min) 4 Oxygen Delivery Method Nasal Cannula Weight: 138 kg Body Mass Index (BMI) 43.6 Intake and Output for Last 24 Hours 08/27/19 08/28/19 08/29/19 23:59 23:59 23:59 Intake Total 1140 / 1140 Output Total 0 / 0 Balance 1140 / 1140 General: Alert, Oriented x3, Cooperative, Well developed, - - appears uncomfortable HEENT: Atraumatic, PERRLA, EOMI, Normocephalic, EAC Clear Oral: Moist Mucosa, No Gingival or Mucosal Lesions/ Ulcerations, - - poor dentition, mallampati 3-4 Neck: Supple, No JVD, Negative Carotid Bruits, Negative Hepatojugular Reflux, No Nodes, No Nuchal Rigidity, Trachea Midline, Thyroid Normal Size and Texture Lungs: No rhonchi, No rales, Wheezes - B and diffuse, - - no accesory mm use Cardiovascular: Normal S1, Normal S2, No murmurs, No Ectopic Activity, Irregular Rate, No rub noted, No Gallop, Tachycardic - mild and intermittent, - - irreg rhythm Abdomen: Bowel Sounds Present, Soft, Non Tender, Non-Distended, Obese Extremities: No clubbing, Capillary Refill Less than 3 Seconds, Cyanosis - B finger tips, Edema, Peripheral Pulses Normal Skin: No rashes, Ulcer/ Wound, - - B LE with severe maceration from knees to feet, toenails are markedly long, [place] on R foot Musculoskeletal: No Tenderness to Palpation of Joints or Extremities, No Muscle Wasting, Arthritic Changes Lymphatic: No Cervical, Supraclavicular, or Inguinal Adenopathy Neurological: Cranial nerves II-XII grossly intact, Deep Tendon Reflexes 2+/4 and Symmetrical, Neuro grossly intact - generalized weakness proximal > distal Psych/Mental Status: Normal Affect, Appropriate, Alert and oriented to time, place, person, mood and affect - very pleasant but appearent that pt is not feeling well Microbiology Past 72 Hours 08/29/19 14:43 Stool Stool Occult Blood (CHERYL) - Final Occult Blood Positive Laboratory Results 08/29/19 13:25: WBC 5.9, RBC 2.42 L, Hgb 4.7 L*, Hct 16.9 L, MCV 69.8 L, MCH 19.4 L, MCHC 27.8 L, RDW Std Deviation 52.8 H, RDW Coeff of Radha 21.3 H, Plt Count 194, MPV 10.8, Immature Gran % (Auto) 1.200 H, Neut % (Auto) 67.6, Lymph % (Auto) 19.2, Rock % (Auto) 9.4, Eos % (Auto) 2.4, Baso % (Auto) 0.2, Absolute Neuts (auto) 4.0, Absolute Lymphs (auto) 1.13, Nucleated RBC % 1.7, Differential Comment SCANNED, Diff Path Review May foll, Hypochromasia 1+, Anisocytosis 2+, Microcytosis 1+, Macrocytosis 1+ 08/29/19 13:25: PT 15.6 H, INR 1.3, APTT 42.8 H 08/29/19 13:25: Sodium 133 L, Potassium 6.2 H*, Chloride 103, Carbon Dioxide 18.0 L, Anion Gap 12, BUN 95 H, Creatinine 5.00 H, Estim Creat Clear Calc 14.80, Est GFR (MDRD) Af Amer 15 L, Est GFR (MDRD) Non-Af 12 L, BUN/Creatinine Ratio 19.0, Glucose 111 H, Calcium 8.5, Total Bilirubin 0.50, AST 21, ALT 25, Alkaline Phosphatase 109, Troponin I < 0.015, Total Protein 6.5, Albumin 2.6 L, Globulin 3.9, Albumin/Globulin Ratio 0.7 L 08/29/19 13:25: Lactic Acid 1.4 08/29/19 14:20: Blood Type O NEGATIVE, Antibody Screen NEGATIVE, Crossmatch See Detail Current Medications Sodium Chloride () 1,000 mls @ 150 mls/hr IV .[id number] [facility] Last Admin: 08/29/19 12:37 Dose: 150 mls/hr Documented by: Sodium Chloride () 10 - 40 ml IV UD PRN PRN Reason: SALINE FLUSH Assessment/Plan All Active Problems ARF (acute renal failure) (Acute) Acute anemia (Acute) GI bleed (Acute) Cellulitis of both lower extremities (Acute) Hyperkalemia (Acute) Afib (Acute) Anasarca (Acute) Acute hypoxemic respiratory failure (Acute) Macrocytic anemia (Acute) Hyponatremia (Acute) Elevated BP without diagnosis of hypertension (Acute) Morbid (severe) obesity due to excess calories (Acute) B LE Cellulitis/Wounds -wound and Blood cx done in ED -check PCT -start Meropenem 250 q 12 (renal dosing) -Vanc given in ED x 1 dose -check am level -will need at least 7-10 days of ABX but may be able to switch to oral -consult wound care -wet to dry dressings for now -Oxy 5-10 for pain with Dilaudid 0.5 q 2 hrs prn for breakthrough DIPTI suspect 2/2 severe over diuresis/ATN -Asif--> ED tried and unable to place -ICU to try and if unable will consult urology for placement -Check Retroperitoneal US -Check Urine Creat/Urea (pt on diuretics)/UA/Urine eosinophils -IVF--> NS at 100 cc/hr -q 6 hr BMP's -avoid nephrotoxins -check Mag and Phos in am -renal diet -no need for urgent or emergent HD -if not improving may need nephro consult Hyperkalemia -kayexalate x 1 -no EKG changes c/w hyperkalemia at this time -q 6 hr BMP--> if does not trend down may need to more aggressively treat with insulin/dextrose/aerosols/HCO3 -hold home K Severe Macrocytic Anemia -transfused 2 u in ED -Guaiac + on admission but no s/o active bleeding -q 6 hrs H&H -hold NOAC--> pt has NOT been taking at home -never had scopes -CLD for now in case of scopes -Per ED d/w Dr. Iverson will scope once medically stable -consult placed -coags relatively normal HFpEF with supected Cor Pulmonale -extensive w/u done in May re his anasarca -VQ low prob and LE dopplers are neg (edema is not acute and if there are PE causing RV failure it would be chronic disease-->WHO Group 3 and will r/o Chronic thromboembolic disease) -TSH WNL at 3.57 -ECHO done and shows and EF of 60%, Mod concentric LVH, stage 2 diastolic dysfunction but study was limited 2/2 body habitus -liver not cirrhotic on CT of abdomen -no protein in urine on UA at last admission -was d/c on Bumex 20 mg BID and K-->Hold -low Na Diet -treat JENNIFER PAF -currently in A-fib -start Coreg 6.125 BID (pt has not been taking at home) -hold NOAC(pt non-compliant) with hgb drop Acute Hypoxemic Respiratory Failure/COPD -Wean O2 as able--> on 4 L at 100% -may need home O2 -not O2 dependent at baseline -Mild blunting of R costophrenic angle but otherwise stable -prednisone 40 daily x 5 days than stop -Nebs scheduled and prn Hyperglycemia -suspect will increase with steroids -SSI AC -check A1c Hyponatremia -mild -suspect hypovolemic hyponatremia -trend R UE edema -check doppler -no noted facial edema MO -needs sig wgt reduction H/O HTN -continue Coreg for now H/O EtOH Abuse -pt state he has not drank since his last admission Tobacco Abuse -Nicotine patch 21mcg -recommend cessation Suspected JENNIFER -AutoPap Debility -will need placed at d/c and pt is aware -PT and OT to see DVT prophylaxis -hold chemical prophylaxis until hbg better--> start as soon as possible -unable to use mech 2/2 wounds Code status -Full -Pt DOES NOT want his daughter to know he is here or have any information, he states that he is currently changing his will and was to sign papers on Saturday. I did inform him that in the case of an emergency and if he is not able to make decisions regarding care that she is next of kin and legally his decision maker until other arrangements have been finalized Pt will be admitted to the ICU with an ICU consult. Inpatient E&M: 12992 Init Hosp L3
--- NOTE | 2019-08-29 16:58 | US_ITS ---
STUDY: RENAL ULTRASOUND - COMPLETE REASON FOR EXAM: Male, 69 years old. RENAL FAILURE TECHNIQUE: Ultrasound evaluation of the kidneys was performed with real-time and static alcazar-scale imaging. COMPARISON: None. FINDINGS: RIGHT KIDNEY: Normal location of the right kidney, which is normal in size. The right kidney measures 12.2 cm in length. There is a normal cortex of the right kidney. There is no right renal mass or cyst. There are no right renal calculi. There is no right hydronephrosis. DISTAL RIGHT URETER: There is no demonstrated right ureteral jet. LEFT KIDNEY: Normal location of the left kidney, which is normal in size. The left kidney measures 11.9 cm in length. There is a normal cortex of the left kidney. There is no left renal mass or cyst. There are no left renal calculi. There is no left hydronephrosis. DISTAL LEFT URETER: There is no demonstrated left ureteral jet. BLADDER: The distended urinary bladder has a volume of 183.0 ml. There is a normal wall thickness of the distended urinary bladder. There is no demonstrated mass within the urinary bladder. There are no demonstrated bladder calculi. US/Kidney and Bladder IMPRESSION: Within normal limits ultrasound of the kidneys and urinary bladder. Electronically Signed: Fernanda Good MD at 18:40 EDT Tel , Service support ,
--- NOTE | 2019-08-29 16:59 | CON.PCM_ITS ---
- Consult Date of Consult: 08/29/19 - Reason for Consult CC: leg sores, anemia HISTORY OF PRESENT ILLNESS: 69 y/o WM presents to [facility] ED with leg sores. Had previous admission to [facility] in May. He had a virtual appointment with Dr. Hernandez for follow up of his hospitalization in July, but was non compliant with recommendations - cardiac testing, blood testing, pulmonary evaluation, etc. 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 He has been sleeping in a recliner. Both Legs are weeping and oozing and foul- smelling. He has been short of breath with exertion and mostly has remained sedentary. He is not short of breath at rest. Denies fevers. Denies abdominal pain. Has had poor eating habits and poor personal grooming. PAST MEDICAL HISTORY ? Anasarca 05/31/2019 ? Atrial fibrillation (HCC) 05/31/2019 ? Chronic alcoholism ([facility]) 05/31/2019 ? Chronic anemia 05/31/2019 ? Compound fracture 1969 ? Left leg ? Essential hypertension 05/31/2019 ? Fracture of coccyx (HCC) 11/12/2003 ? Inguinal hernia 05/31/2004 ? Morbid obesity ([facility]) 05/31/2019 ? Osteomalacia 11/12/2003 ? Tobacco dependence 05/31/2019 PAST SURGICAL HISTORYExpand by Default ? LAP REPAIR INTIAL INGUINAL HERNIA Right 05/31/2004 ? PAST SURGICAL HISTORY OF Left 1969 ? Left leg compound fracture ? TONSILLECTOMY HX ? 1963 Current Outpatient Medications acetaminophen (TYLENOL) 325 mg tablet Take by mouth every 6 hours as needed. apixaban (ELIQUIS) 5 mg tab(s) Take 5 mg by mouth twice daily. aspirin, enteric coated (ASPIRIN, ENTERIC COATED) 81 mg EC tablet Take 81 mg by mouth once daily. Menthol-Zinc Oxide (CALMOSEPTINE) 0.44-20.6 % Apply 1 application to affected area. Apply 1 application topically twice daily. carvedilol (COREG) 12.5 mg tablet Take 12.5 mg by mouth twice daily with meals. docusate sodium (COLACE) 100 mg capsule Take 200 mg by mouth twice daily. folic acid 1 mg tablet Take 1 mg by mouth once daily. potassium chloride ER (K-DUR, KLOR-CON) 20 mEq tablet Take 20 mEq by mouth twice daily. torsemide (DEMADEX) 20 mg tablet Take 20 mg by mouth twice daily. ? Allergies - penicillins Review of Systems Constitutional: Positive for unexpected weight change. Negative for chills and fever. HENT: Negative for congestion and sore throat. Respiratory: Positive for shortness of breath. Negative for cough, chest tightness and wheezing. Cardiovascular: Denies abdominal pain. Positive for leg swelling. Negative for chest pain and palpitations. Gastrointestinal: Positive for abdominal distention. Negative for abdominal pain, blood in stool, nausea and vomiting. Genitourinary: Negative for difficulty urinating, penile swelling and scrotal swelling. Musculoskeletal: Positive for gait problem. Left leg fracture repair years ago, history of tailbone fracture Skin: Positive for wound. Physical examination: Vital signs Temp 96.9F HR 90 RR 22 BP 133/67 95% on 4 liters oxygen General WD/WN unkempt WM in no apparent distress, alert and oriented HEENT Normocephalic. EOM intact with sclera clear, wearing glasses and no icterus noted. Neck is supple . Trachea is midline. Poor dentition Lungs breath sounds with rhonchi and slight wheezing noted, respirations do not appear labored - patient does not seem SOB with talking Heart regular. Abdomen soft and benign and obese. Normal bowel sounds Extremities bilateral dependent swelling with numerous superficial skin ulcers c/w venous stasis ulcers. Genitourinary/Rectal deferred Skin see above, also with left index and third fingers with tobacco staining. Neurological non focal Psychological normal affect, patient is calm and appropriate IMPRESSION: severe anemia DISCUSSION/PLAN: I have discussed the above with the patient. Will plan for upper and lower endoscopy when patient is medically optimized. These procedures can be tentatively scheduled for Saturday - I will arrange this. I have explained the procedures to the patient. have counseled the patient as to the risks of the procedure, including but not limited to: infection, bleeding, injury to any blood vessels/nerves, scar tissue, injury to any intrabdominal organs, perforation of the GI tract, inability to complete the procedures, complications of anesthesia, postoperative pneumonia/cardiac problems/blood clots etc. the patient understands. He agrees to proceed I have answered all questions to the patient?s satisfaction and the patient has no further questions.
--- NOTE | 2019-08-29 17:44 | VDUE_ITS ---
Reason For Study: Swelling Right Proximal Right jugular vein is spontaneous, widely patent, phasic, with no intraluminal echogenicity noted. Right subclavian vein is spontaneous, widely patent, phasic, with no intraluminal echogenicity noted. Right Lower Arm Right radial vein is compressible. Right ulnar vein is compressible. Right Arm Right axillary vein is spontaneous, patent, phasic, competent, compressible and demonstrates augmentation. Right brachial vein is compressible. Right cephalic vein is compressible. Right basilic vein is compressible. Patient Safety Prelim to ICU. Interpretation Summary No evidence for acute deep venous thrombosis[right] upper extremity with patent and compressible cephalic and basilic veins. Ordering Physician: Meka Elaine Referring Physician: Avi Hernandez M.D. Performed By: Shasta Deitz RVT ?
[2019-08-29] MEDS: HYDROmorphone 0.5 MG/0.5 ML SYRINGE IV ×2 (18:15→21:45)
[2019-08-29 18:52] LABS: Thyroid Stim Hormone (TSH) 6.22 uIU/mL (0.358-3.74)
[2019-08-29 18:58] LABS: Hemoglobin A1c < 3.5 % (3.8-5.6)
[2019-08-29 19:05] LABS: Bacteria 0 SEEN /hpf (None Seen); Mucous, Urine 0 SEEN /hpf (<or=2+); Red Blood Cells-Urine 0 SEEN /hpf (0-5); Squamous Epithelial Cells - UA 0 SEEN /hpf (0-5)
[2019-08-29] MEDS: oxyCODONE 5 MG Tablet 10 MG PO (19:06)
[2019-08-29 19:07] LABS: Color, Urine Yellow (Yellow); Glucose, Dipstick 50 mg/dl (Normal); Ketone-Dipstick Negative (Negative); Leukocyte Esterase-Dipstick 500 /ul (Negative); Nitrite-Dipstick Negative (Negative); Occult Blood-Urine 250 /ul (Negative); Protein-Dipstick 100 mg/dl (Negative); Urine Clarity Cloudy (Clear); Urine Urobilinogen Normal (Normal)
[2019-08-29 19:08] LABS: Urine Bilirubin Dipstick 1 mg/dL (Negative)
--- NOTE | 2019-08-29 19:13 | CON.PCM_ITS ---
Problem List (1) Chronic ulcer of right leg with fat layer exposed Status: Chronic (2) Chronic ulcer of left leg with fat layer exposed Status: Chronic (3) Localized edema Status: Acute (4) Cellulitis of left lower limb Status: Acute (5) Cellulitis of right lower limb Status: Acute (6) Venous insufficiency Status: Acute (7) Peripheral vascular disease Status: Acute (8) Poor hygiene Status: Acute (9) Onychomycosis Status: Acute (10) Toe pain, right Status: Acute (11) Toe pain, left Status: Acute Reason for Consult Date of Consultation: 08/29/19 Reason for Consultation: Infected leg ulcers. Long thick toenails and calluses in which she cannot trim on his own History of Present Illness: The patient is a 69 year old M was seen bedside in the intensive care unit this evening for concern of bilateral lower extremity ulcers with infection. I was also asked to be in consultation for long and thick toenails and calluses in which she cannot trim on his own. He reports the ulcer onset was 3 to 4 weeks ago and he denies having previous history of lower extremity ulcers. He relates he was discharged from his last hospital admission and really has stayed in his chair the entire time. He denies any known trauma to the lower extremities or known increase in swelling. He does not report any home health or self-care. He was admitted for failure to care for self at home and anteriorization and is being worked up for acute kidney injury and other comorbidities at this time. He reports claudication type symptoms however it is noted he has not been ambulating on a regular basis. He does not report specific rest paresthesias to the lower extremities either. He is quite lethargic during the exam however is able to participate. Past Medical History Past Medical History (Chronic Problems): Chronic Problems Chronic ulcer of right leg with fat layer exposed (Chronic) Chronic ulcer of left leg with fat layer exposed (Chronic) Allergies Penicillins [PCN] Allergy (Verified 08/29/19 12:05) PASSED OUT Home Medications: Ambulatory Orders Medication Instructions Recorded Apixaban [Eliquis] 5 mg PO BID #60 tab 06/05/19 Potassium Chloride [K-Dur] 20 meq PO BID #60 tab 06/05/19 Torsemide 20 mg PO BID #60 tab 06/05/19 carvedilol 6.25 mg tablet 6.25 mg PO BID #60 tab 06/17/19 Surgical History: total knee arthroplasty Psychiatric History: No pertinent psych hx Lives: Alone Smoking Status: Current every day smoker Alcohol: None Drugs: None - *Family History Offspring History Items: Diabetes - brother, Heart Disease - mother Review of Systems Constitutional: Reports: Fatigue. Denies: Chills, Fever HEENT: Reports: Sore Throat Cardiovascular: Reports: Claudication, Edema, Orthopnea Respiratory: Reports: Cough, Shortness of Breath Gastrointestinal: Denies: Nausea, Vomiting Musculoskeletal: Reports: Leg Pain Skin: Reports: Skin Changes, Wounds, - - Long thick toenails and calluses Neurological: Reports: Balance problems. Denies: Headaches Hematologic/ Lymphatic: Denies: Easy Bruising Patient Problems: Active and Suspected Problems ARF (acute renal failure) (Acute) Acute anemia (Acute) GI bleed (Acute) Cellulitis of both lower extremities (Acute) Hyperkalemia (Acute) Afib (Acute) Localized edema (Acute) Cellulitis of left lower limb (Acute) Cellulitis of right lower limb (Acute) Venous insufficiency (Acute) Peripheral vascular disease (Acute) Poor hygiene (Acute) Onychomycosis (Acute) Toe pain, right (Acute) Toe pain, left (Acute) - Physical Exam Vitals/I&O's: Vital Signs Temp Pulse Resp BP Pulse Ox 96.8 F L 91 17 118/51 L 100 08/29/19 17:00 08/29/19 17:30 08/29/19 17:30 08/29/19 17:30 08/29/19 17:30 Oxygen Flow Rate (L/min) 4 Oxygen Delivery Method Nasal Cannula Weight: 138 kg Body Mass Index (BMI) 43.6 Intake and Output for Last 24 Hours 08/27/19 08/28/19 08/29/19 23:59 23:59 23:59 Intake Total 1140 / 1140 Output Total 0 / 0 Balance 1140 / 1140 General: Cooperative, Lethargic HEENT: Atraumatic Extremities: No cyanosis, Capillary Refill Less than 3 Seconds - All digits bilateral 1, 2, 3, 4, 5, No Calf Tenderness - Negative Marcella and Snyder signs bilateral. Compartments are soft to palpate bilateral lower extremities. Tenderness noted with ulcer manipulation bilateral legs, Diminished Peripheral Pulses - Nonpalpable PT and DP pulses bilateral, Edema - Bilateral lower extremities moderate with hyperpigmentation and some skin wrinkle forming noted Skin: Ulcer/ Wound - Circumferential left leg ulcer with granular and fibrous base measures approximately 25 cm x 20 cm ankle level by depth of 0.1 cm. The adjacent skin is hairless, atrophic, thin, and with hyperpigmentation, bilateral. The left leg ulcer cluster to the anterior mid leg measures 7 cm x 3 cm x 0.1 cm and is granular and some hemorrhagic tissue. There is no purulence, erythema, streaking, abscess palpation, fluctuance, bogginess, eschar, deep tissue exposure to bilateral lower extremities. There is an odor with leg maceration and poor hygiene bilateral (nursing staff reports improvement since these legs were cleaned and scrubbed), - - Toenails are elongated, thick, with subungual debris and tenderness to palpate bilateral 1, 2, 3, 4, 5. There is also callus to plantar medial hallux with no ulcer or infection noted upon debridement Musculoskeletal: Muscle Wasting, - - Active range of motion digits x10. Decreased load at first metatarsophalangeal joint range of motion bilateral consistent hallux limitus Neurological: Sensory exam intact to light touch and pain, - Psych/Mental Status: Normal Affect, Appropriate, - - Lethargic Microbiology Past 72 Hours 08/29/19 14:43 Stool Stool Occult Blood (CHERYL) - Final Occult Blood Positive Laboratory Results 08/29/19 13:25: WBC 5.9, RBC 2.42 L, Hgb 4.7 L*, Hct 16.9 L, MCV 69.8 L, MCH 19.4 L, MCHC 27.8 L, RDW Std Deviation 52.8 H, RDW Coeff of Radha 21.3 H, Plt Count 194, MPV 10.8, Immature Gran % (Auto) 1.200 H, Neut % (Auto) 67.6, Lymph % (Auto) 19.2, Mower % (Auto) 9.4, Eos % (Auto) 2.4, Baso % (Auto) 0.2, Absolute Neuts (auto) 4.0, Absolute Lymphs (auto) 1.13, Nucleated RBC % 1.7, Differential Comment SCANNED, Diff Path Review May foll, Hypochromasia 1+, Anisocytosis 2+, Microcytosis 1+, Macrocytosis 1+ 08/29/19 13:25: PT 15.6 H, INR 1.3, APTT 42.8 H 08/29/19 13:25: Sodium 133 L, Potassium 6.2 H*, Chloride 103, Carbon Dioxide 18.0 L, Anion Gap 12, BUN 95 H, Creatinine 5.00 H, Estim Creat Clear Calc 14.80, Est GFR (MDRD) Af Amer 15 L, Est GFR (MDRD) Non-Af 12 L, BUN/Creatinine Ratio 19.0, Glucose 111 H, Calcium 8.5, Total Bilirubin 0.50, AST 21, ALT 25, Alkaline Phosphatase 109, Troponin I < 0.015, Total Protein 6.5, Albumin 2.6 L, Globulin 3.9, Albumin/Globulin Ratio 0.7 L 08/29/19 13:25: Lactic Acid 1.4 08/29/19 13:25: TSH 6.22 H 08/29/19 13:25: Hemoglobin A1c < 3.5 L 08/29/19 14:20: Blood Type O NEGATIVE, Antibody Screen NEGATIVE, Crossmatch See Detail 08/29/19 18:55: Eos Smear Total Cells Pending 08/29/19 18:55: Urine Creatinine Pending 08/29/19 18:55: Urine Urea Nitrogen Pending 08/29/19 18:55: Urine Color Yellow, Urine Clarity Cloudy, Urine pH 5.0, Ur Specific [place] 1.020, Urine Protein 100 H, Urine Glucose (UA) 50 H, Urine Ketones Negative, Urine Occult Blood 250 H, Urine Nitrite Negative, Urine Bilirubin 1 H, Urine Urobilinogen Normal, Ur Leukocyte Esterase 500 H, Urine RBC Pending, Urine WBC Pending, Ur Squamous Epith Cells Pending, Urine Bacteria Pending, Urine Mucus Pending Current Medications Acetaminophen (Tylenol) 650 mg PO Q6H PRN PRN PRN Reason: Pain Score 1-10/Temp > 100.7 F Albuterol/Ipratropium (Duoneb) 3 ml INHALATION Q6H.RT KANDY Carvedilol (Coreg) 6.25 mg PO BID KANDY Dextrose (D50w Syringe) 0 gm IV X1 PRN; Protocol PRN Reason: Hypoglycemia Glucagon () 1 mg IM .X1 PRN PRN Reason: Hypoglycemia Hydromorphone HCl (Dilaudid Inj) 0.5 mg IV Q2H PRN PRN PRN Reason: Pain Score 6-10/10 Last Admin: 08/29/19 18:15 Dose: 0.5 mg Documented by: Pantoprazole Sodium 40 mg/ (Sodium Chloride) 110 mls @ 330 mls/hr IV Q12 KANDY Meropenem 250 mg/ Sodium (Chloride) 55 mls @ 100 mls/hr IV Q12 KANDY Sodium Chloride () 1,000 mls @ 100 mls/hr IV .Q10H KANDY Sodium Chloride () 250 mls @ 15 mls/hr IV .[id number] PRN PRN Reason: Saline Flush Sodium Chloride () 250 mls @ 15 mls/hr IV .[id number] PRN PRN Reason: Additional IVPB Infusion Insulin Human Lispro (Humalog Kwikpen (Bkc)) 0 unit SC TIDAC [facility]; Protocol Nicotine (Nicoderm Cq (Pbkc)) 21 mg TRANSDERM. DAILY [facility] Nystatin (Mycostatin Powder) 1 applic TOPICAL BID [facility]; Protocol Ondansetron HCl (Zofran) 4 mg IV Q8H PRN PRN PRN Reason: NAUSEA/VOMITING Oxycodone HCl (Oxyir) 5 mg PO Q6H PRN PRN PRN Reason: Pain Score 1-5/10 Oxycodone HCl (Oxyir) 10 mg PO Q6H PRN PRN PRN Reason: Pain Score 6-10/10 Last Admin: 08/29/19 19:06 Dose: 10 mg Documented by: Prednisone () 40 mg PO DAILY@0800 [facility] Stop: 09/03/19 17:41 Sodium Chloride () 10 - 40 ml IV UD PRN PRN Reason: SALINE FLUSH Assessment/Plan All Active Problems ARF (acute renal failure) (Acute) Acute anemia (Acute) GI bleed (Acute) Cellulitis of both lower extremities (Acute) Hyperkalemia (Acute) Afib (Acute) Localized edema (Acute) Cellulitis of left lower limb (Acute) Cellulitis of right lower limb (Acute) Venous insufficiency (Acute) Peripheral vascular disease (Acute) Poor hygiene (Acute) Onychomycosis (Acute) Toe pain, right (Acute) Toe pain, left (Acute) Anasarca (Acute) Acute hypoxemic respiratory failure (Acute) Macrocytic anemia (Acute) Hyponatremia (Acute) Elevated BP without diagnosis of hypertension (Acute) Morbid (severe) obesity due to excess calories (Acute) Bilateral leg ulcers with devitalized tissue Treated for lower extremity cellulitis with no deep infection suspected Poor hygiene onychomycosis Callus bilateral hallux secondary to hallux limitus foot condition Lower extremity edema Peripheral vascular disease Venous insufficiency suspected Other comorbidities: Atrial fibrillation, obesity, alcohol abuse, tobacco abuse, hypertension, anemia, likely obstructive sleep apnea, acute kidney injury, failure to care for self, non-routine ambulator I reviewed his case. His vital signs are reviewed. He is afebrile and his vital signs are stable. His white blood cell count was 5.9. His hemoglobin A1c was checked and this is less than 3.5. His blood culture results are pending. I was informed by nursing staff that he already had leg wound cultures pending and these were already obtained, therefore they were not obtained again during this consultation this evening. His legs have previously been cleaned by nursing staff and dressed with hydrogen peroxide and saline. Upon exam there is no surendra necrosis, abscess suspected, or purulence. They are very tender to touch and he is not able to undergo a sharp debridement today. It is appropriate to proceed with wet-to-dry dressing changes. I will recommend Dakin's solution during his next dressing change. Elevation of the bilateral limbs is also recommended. His pulses were nonpalpable and evidence of critical limb ischemia was not appreciated. I will recommend noninvasive vascular studies once he is stabilized and off of contact precautions. It is noted he is on IV antibiotics of meropenem and I recommend continuation. I do not recommend any lower extremity procedures or surgical interventions. A lot of his odor and devitalized tissue is likely from poor hygiene and lack of self-care. The dressings were reapplied. He also asked for help safely trimming his toenails today which he is unable to perform on his own. This was performed with a nail nipper to bilateral 1, 2, 3, 4, 5. This was performed to reduce length and thickness to reduced ulcer formation and pain. He tolerated this well. He elects proceed with palliative care only at this time and is not interested in further work-up. Bilateral hallux callus was also debrided with a 15 blade scalpel without incidence and he tolerated this well. He was reassured there are no ulcers or infections on the feet. Thank you for the consultation. His lower extremities appear stable overall at this time. I will follow him 1-2 times weekly while in house. At time of discharge, I recommend that he follows up at the wound healing center. Please not hesitate to call if you have any questions. Medical management per primary team and consultants is noted including a chart review. Gloria Green DPM, [facility] [phone]
[2019-08-29 19:18] LABS: White Blood Cells >100 SEEN /hpf (0-5)
[2019-08-29 19:27] LABS: Urea Nitrogen, Urine 314 mg/dL (NO RANGE EST.)
[2019-08-29] MEDS: Sodium Polystyrene Sulfonate 15 GM/60 ML UDC 30 GM PO (20:35)
[2019-08-29] MEDS: predniSONE 20 MG Tablet 40 MG PO (20:36)
[2019-08-29] MEDS: Lidocaine Jelly 2% 20 ML Syringe (URO-JET) 20 APPLIC TOPICAL (20:40)
[2019-08-29] MEDS: 0.9% Normal Saline 1,000 ML 100 ML IV (21:44)
--- NOTE | 2019-08-29 22:50 | CPS ---
Pt refuses to wear PAP at this time. RN notified
[2019-08-29 23:39] LABS: Hematocrit 20.7 % (40-54)
[2019-08-30] VITALS (39 sets, daily range): BP systolic 93–154; BP diastolic 43–106; PULSE 79–107; RESP 12–24; TEMP 35.7–36.3; O2SAT 90–100
[2019-08-30] MEDS: HYDROmorphone 1 MG/ML Syringe IV ×2 (00:02→09:30)
[2019-08-30 00:31] LABS: Vancomycin, Random Level 20.2 ug/mL (0.0-15.0)
[2019-08-30 00:41] LABS: Anion Gap 12 (5-15); BUN 93 mg/dL (7-18); BUN/Creat Ratio 19.3 RATIO (10-20); Calcium,Total 8.2 mg/dL (8.5-10.1); Chloride 104 mmol/L (98-107); Creatinine, Serum 4.82 mg/dL (0.70-1.30); EST Glomerular Filtration Rate 13 mL/min (>60); Est Glom Filt Rate - Afr Amer 16 mL/min (>60); Estimated Creatinine Clearance 15.36 ml/min; Glucose 115 mg/dL (74-106); Potassium 6.2 mmol/L (3.5-5.1); Sodium Level 133 mmol/L (136-145)
[2019-08-30 04:19] LABS: Absolute Lymphocyte Count 0.29 X10^3/uL (0.83-4.51); Absolute Neutrophil Count 9.2 X10^3/uL (2.0-7.7); Basophil# 0.01 X10^3/uL; Basophil% 0.1 % (0-1); Hematocrit 22.3 % (40-54); Hemoglobin 6.6 g/dL (13.0-16.5); Lymphocyte # 0.29 X10^3/ul (4.0); Lymphocyte % 2.9 % (19-41); Mean Corp Hgb Conc 29.6 g/dL (32-36); Mean Corpuscular Hgb 21.9 pg (27.0-32.0); Mean Corpuscular Volume 74.1 fL (80-94); Mean Platelet Vol. 10.6 fl (6.2-12.0); Monocyte# 0.49 X10^3/uL; Monocyte% 4.9 % (0-10); Neutrophil # 9.15 X10^3/uL (2.7-7.7); Neutrophil % 90.8 % (47-70); POSITIVE DIFFERENTIAL YES; POSITIVE MORPHOLOGY YES; Platelet Count 186 K/mm3 (150-450); RBC Distribution Width CV 21.3 % (11.6-14.6); RBC Distribution Width SD 56.4 fl (35.1-43.9); Red Blood Count 3.01 M/mm3 (4.6-6.2); White Blood Count 10.1 K/mm3 (4.4-11.0)
[2019-08-30 04:33] LABS: Differential Indicated SCAN CRITERIA MET
[2019-08-30 04:36] LABS: Anion Gap 12 (5-15); BUN 96 mg/dL (7-18); BUN/Creat Ratio 19.8 RATIO (10-20); Calcium,Total 8.2 mg/dL (8.5-10.1); Chloride 104 mmol/L (98-107); Creatinine, Serum 4.85 mg/dL (0.70-1.30); EST Glomerular Filtration Rate 13 mL/min (>60); Est Glom Filt Rate - Afr Amer 16 mL/min (>60); Estimated Creatinine Clearance 15.26 ml/min; Glucose 125 mg/dL (74-106); Potassium 6.5 mmol/L (3.5-5.1); Sodium Level 133 mmol/L (136-145); T4 Free Direct 0.83 ng/dL (0.76-1.46)
[2019-08-30 05:04] LABS: Procalcitonin 0.62 ng/mL (0.00-0.09)
[2019-08-30] MEDS: Furosemide 40 MG/4 ML Vial IV ×2 (05:11→15:59)
[2019-08-30] MEDS: Sodium Polystyrene Sulfonate 15 GM/60 ML UDC 30 GM PO ×2 (05:12→16:00)
[2019-08-30] MEDS: Dextrose 50%-Water 25 GM/50 ML DISP.SYRIN IV (05:12)
[2019-08-30] MEDS: Ipratropium/Albuterol Sulfate 3 ML AMPUL.NEB INHALATION ×3 (06:52→19:18)
[2019-08-30 06:57] LABS: Anisocytosis 2+; Hypochromasia 1+; Microcytosis 3+; Platelet Estimate ADEQUATE (ADEQ); Polychromasia RARE
[2019-08-30 08:01] LABS: Bedside Glucose 103 mg/dL (70-110)
[2019-08-30 08:27] LABS: Urine Sodium 17 mmol/L (Not Establ.)
[2019-08-30] MEDS: predniSONE 20 MG Tablet 40 MG PO (08:59)
[2019-08-30] MEDS: DAKIN'S SOL HALF STRENGTH (=0.25%) 1 APPLIC TOPICAL ×2 (09:02→21:28)
[2019-08-30] MEDS: Nystatin Powder 15gm Bottle 1 APPLIC TOPICAL ×2 (09:03→21:27)
[2019-08-30] MEDS: DiphenhydrAMINE 25 MG Capsule PO ×2 (09:13→21:34)
[2019-08-30] MEDS: 0.9% Normal Saline 1,000 ML 100 ML IV (09:14)
--- NOTE | 2019-08-30 10:39 | PN_ITS ---
Patient Problems: Active and Suspected Problems ARF (acute renal failure) (Acute) Acute anemia (Acute) GI bleed (Acute) Cellulitis of both lower extremities (Acute) Hyperkalemia (Acute) Afib (Acute) Localized edema (Acute) Cellulitis of left lower limb (Acute) Cellulitis of right lower limb (Acute) Venous insufficiency (Acute) Peripheral vascular disease (Acute) Poor hygiene (Acute) Onychomycosis (Acute) Toe pain, right (Acute) Toe pain, left (Acute) Subjective: Patient seen and examined. He was admitted with complaint of bilateral lower extremity wounds which were losing lots of fluid. Patient admitted to not taking care of himself very well for the past 3 months. He was also found to be hyperkalemic and anemic. Hemoglobin was 4.7. He has been transfused 3 units of blood. He has also received Kayexalate. Patient seen and examined. He is complaining of itching in his lower extremities. He denies any shortness of breath, cough or chest pain, palpitations, dizziness, nausea vomiting or diarrhea. Review of symptoms otherwise negative. He has remained hemodynamically stable. Potassium was 6.5 today. Creatinine is 4.85. Nephrology consulted. Hemoglobin is 6.6 this morning. Vitals/I&O's: Vital Signs Temp Pulse Resp BP Pulse Ox 96.8 F L 91 19 H 110/75 95 08/30/19 09:30 08/30/19 10:00 08/30/19 10:00 08/30/19 10:00 08/30/19 10:00 Oxygen Flow Rate (L/min) 2 Oxygen Delivery Method Room Air Weight: 306 lb 0.026 oz Body Mass Index (BMI) 43.4 Intake and Output for Last 24 Hours 08/28/19 08/29/19 08/30/19 23:59 23:59 23:59 Intake Total 2540 / 2540 1790.00 / 1790.00 Output Total 0 / 375 625 / 625 Balance 2540 / 2165 1165.00 / 1165.00 General: Alert, Oriented x3, Cooperative, No apparent distress HEENT: Atraumatic, PERRLA, EOMI, Normocephalic Oral: Dry Mucosa Neck: Supple, No JVD, Negative Carotid Bruits Lungs: Clear to auscultation, Normal air movement, No rhonchi, No wheeze Cardiovascular: Irregular Rate - Afib, rate controlled. Abdomen: Bowel Sounds Present, Soft, Non Tender, Non-Distended, No Hepato- splenomegaly Extremities: No clubbing, No cyanosis, Capillary Refill Less than 3 Seconds, Edema Skin: - - Skin on LEs severely macerated and ulcerated. oozing fluid and some pus. Musculoskeletal: No Tenderness to Palpation of Joints or Extremities Lymphatic: No Cervical, Supraclavicular, or Inguinal Adenopathy Neurological: Cranial nerves II-XII grossly intact, Neuro grossly intact, Motor Exam 5/5 strength throughout Psych/Mental Status: Normal Affect, Appropriate, Alert and oriented to time, place, person, mood and affect Microbiology Past 72 Hours 08/29/19 14:43 Stool Stool Occult Blood (CHERYL) - Final Occult Blood Positive Laboratory Results 08/29/19 13:25: WBC 5.9, RBC 2.42 L, Hgb 4.7 L*, Hct 16.9 L, MCV 69.8 L, MCH 19.4 L, MCHC 27.8 L, RDW Std Deviation 52.8 H, RDW Coeff of Radha 21.3 H, Plt Count 194, MPV 10.8, Immature Gran % (Auto) 1.200 H, Neut % (Auto) 67.6, Lymph % (Auto) 19.2, [place] % (Auto) 9.4, Eos % (Auto) 2.4, Baso % (Auto) 0.2, Absolute Neuts (auto) 4.0, Absolute Lymphs (auto) 1.13, Nucleated RBC % 1.7, Differential Comment SCANNED, Diff Path Review May foll, Hypochromasia 1+, Anisocytosis 2+, Microcytosis 1+, Macrocytosis 1+ 08/29/19 13:25: PT 15.6 H, INR 1.3, APTT 42.8 H 08/29/19 13:25: Sodium 133 L, Potassium 6.2 H*, Chloride 103, Carbon Dioxide 18.0 L, Anion Gap 12, BUN 95 H, Creatinine 5.00 H, Estim Creat Clear Calc 14.80, Est GFR (MDRD) Af Amer 15 L, Est GFR (MDRD) Non-Af 12 L, BUN/Creatinine Ratio 19.0, Glucose 111 H, Calcium 8.5, Total Bilirubin 0.50, AST 21, ALT 25, Alkaline Phosphatase 109, Troponin I < 0.015, Total Protein 6.5, Albumin 2.6 L, Globulin 3.9, Albumin/Globulin Ratio 0.7 L 08/29/19 13:25: Lactic Acid 1.4 08/29/19 13:25: TSH 6.22 H 08/29/19 13:25: Hemoglobin A1c < 3.5 L 08/29/19 14:20: Blood Type O NEGATIVE, Antibody Screen NEGATIVE, Crossmatch See Detail 08/29/19 14:20: Crossmatch See Detail 08/29/19 14:20: Crossmatch See Detail 08/29/19 18:55: Eos Smear Total Cells Pending 08/29/19 18:55: Urine Creatinine 141.00 08/29/19 18:55: Urine Urea Nitrogen 314 08/29/19 18:55: Urine Color Yellow, Urine Clarity Cloudy, Urine pH 5.0, Ur Specific [place] 1.020, Urine Protein 100 H, Urine Glucose (UA) 50 H, Urine Ketones Negative, Urine Occult Blood 250 H, Urine Nitrite Negative, Urine Bilirubin 1 H, Urine Urobilinogen Normal, Ur Leukocyte Esterase 500 H, Urine RBC 0 SEEN, Urine WBC >100 SEEN, Ur Squamous Epith Cells 0 SEEN, Urine Bacteria 0 SEEN, Urine Mucus 0 SEEN 08/29/19 18:55: Ur Random Sodium 17 08/29/19 23:25: Random Vancomycin 20.2 H 08/29/19 23:25: Hgb 6.0 L*, Hct 20.7 L 08/29/19 23:25: Sodium 133 L, Potassium 6.2 H*, Chloride 104, Carbon Dioxide 17.0 L, Anion Gap 12, BUN 93 H, Creatinine 4.82 H, Estim Creat Clear Calc 15.36, Est GFR (MDRD) Af Amer 16 L, Est GFR (MDRD) Non-Af 13 L, BUN/Creatinine Ratio 19.3, Glucose 115 H, Calcium 8.2 L 08/30/19 04:00: WBC 10.1, RBC 3.01 L, Hgb 6.6 L, Hct 22.3 L, MCV 74.1 L D, MCH 21.9 L, MCHC 29.6 L D, RDW Std Deviation 56.4 H, RDW Coeff of Radha 21.3 H, Plt Count 186, MPV 10.6, Immature Gran % (Auto) 1.300 H, Neut % (Auto) 90.8 H, Lymph % (Auto) 2.9 L, Karnes % (Auto) 4.9, Eos % (Auto) 0.0, Baso % (Auto) 0.1, Absolute Neuts (auto) 9.2 H, Absolute Lymphs (auto) 0.29 L, Nucleated RBC % 1.0, Platelet Estimate ADEQUATE, Polychromasia RARE, Hypochromasia 1+, Anisocytosis 2+, Microcytosis 3+ 08/30/19 04:00: Sodium 133 L, Potassium 6.5 H*, Chloride 104, Carbon Dioxide 17.0 L, Anion Gap 12, BUN 96 H, Creatinine 4.85 H, Estim Creat Clear Calc 15.26, Est GFR (MDRD) Af Amer 16 L, Est GFR (MDRD) Non-Af 13 L, BUN/Creatinine Ratio 19.8, Glucose 125 H, Calcium 8.2 L, Free T4 0.83 08/30/19 04:10: Procalcitonin 0.62 H 08/30/19 07:53: POC Glucose 103 Diagnostic Data Chest X-Ray 08/29/19 14:43 IMPRESSION: Obscuration of the right cardiophrenic angle may be secondary to pleural effusion and/or pleural thickening. Electronically Signed: Fernanda oGod MD at 15:49 EDT Tel , Service support , Renal Ultrasound 08/29/19 16:58 IMPRESSION: Within normal limits ultrasound of the kidneys and urinary bladder. Electronically Signed: Fernanda Good MD at 18:40 EDT Tel , Service support , Current Medications Acetaminophen (Tylenol) 650 mg PO Q6H PRN PRN PRN Reason: Pain Score 1-10/Temp > 100.7 F Albuterol/Ipratropium (Duoneb) 3 ml INHALATION Q6H.RT KANDY Last Admin: 08/30/19 06:52 Dose: 3 ml Documented by: Carvedilol (Coreg) 6.25 mg PO BID [facility] Last Admin: 08/30/19 09:01 Dose: Not Given Documented by: Dextrose (D50w Syringe) 0 gm IV X1 PRN; Protocol PRN Reason: Hypoglycemia Diphenhydramine HCl (Benadryl) 25 mg PO BID PRN PRN PRN Reason: ITCHING Last Admin: 08/30/19 09:13 Dose: 25 mg Documented by: Glucagon () 1 mg IM .X1 PRN PRN Reason: Hypoglycemia Hydromorphone HCl (Dilaudid Inj) 1 mg IV Q2H PRN PRN PRN Reason: Pain Score 6-10/10 Last Admin: 08/30/19 09:30 Dose: 1 mg Documented by: Pantoprazole Sodium 40 mg/ (Sodium Chloride) 110 mls @ 330 mls/hr IV Q12 [facility] Last Infusion: 08/30/19 10:10 Dose: Infused Documented by: Meropenem 250 mg/ Sodium (Chloride) 55 mls @ 100 mls/hr IV Q12 [facility] Last Infusion: 08/30/19 10:10 Dose: Infused Documented by: Sodium Chloride () 1,000 mls @ 100 mls/hr IV .Q10H [facility] Last Admin: 08/30/19 09:14 Dose: 100 mls/hr Documented by: Sodium Chloride () 250 mls @ 15 mls/hr IV .[id number] PRN PRN Reason: Saline Flush Sodium Chloride () 250 mls @ 15 mls/hr IV .[id number] PRN PRN Reason: Additional IVPB Infusion Insulin Human Lispro (Humalog Kwikpen (Bkc)) 0 unit SC TIDAC [facility]; Protocol Last Admin: 08/30/19 07:54 Dose: Not Given Documented by: Nicotine (Nicoderm Cq (Pbkc)) 21 mg TRANSDERM. DAILY [facility] Last Admin: 08/30/19 09:03 Dose: 21 mg Documented by: Nystatin (Mycostatin Powder) 1 applic TOPICAL BID [facility]; Protocol Last Admin: 08/30/19 09:03 Dose: 1 applicatio Documented by: Ondansetron HCl (Zofran) 4 mg IV Q8H PRN PRN PRN Reason: NAUSEA/VOMITING Oxycodone HCl (Oxyir) 5 mg PO Q6H PRN PRN PRN Reason: Pain Score 1-5/10 Oxycodone HCl (Oxyir) 10 mg PO Q6H PRN PRN PRN Reason: Pain Score 6-10/10 Last Admin: 08/29/19 19:06 Dose: 10 mg Documented by: Prednisone () 40 mg PO DAILY@0800 [facility] Stop: 09/03/19 17:41 Last Admin: 08/30/19 08:59 Dose: 40 mg Documented by: Sodium Chloride () 10 - 40 ml IV UD PRN PRN Reason: SALINE FLUSH Sodium Hypochlorite (Dakins Solution 0.25% (1/2 Strength)) 1 applic TOPICAL BID [facility]; Protocol Last Admin: 08/30/19 09:02 Dose: 1 applicatio Documented by: STROKE Vital Signs/Narrative: Vital Signs Temp Pulse Resp BP BP Pulse Ox 08/30/19 10:00 91 19 H 110/75 95 08/30/19 09:30 96.8 F L 83 20 H 93/72 96 08/30/19 09:00 88 19 H 93/72 98 08/30/19 08:00 96.8 F L 87 18 106/51 L 97 08/30/19 07:23 90 18 100 08/30/19 07:00 82 15 106/58 L 100 Medical Necessity - Tobacco Use Smoking Status: Current every day smoker Assessment/Plan All Active Problems ARF (acute renal failure) (Acute) Acute anemia (Acute) GI bleed (Acute) Cellulitis of both lower extremities (Acute) Hyperkalemia (Acute) Afib (Acute) Localized edema (Acute) Cellulitis of left lower limb (Acute) Cellulitis of right lower limb (Acute) Venous insufficiency (Acute) Peripheral vascular disease (Acute) Poor hygiene (Acute) Onychomycosis (Acute) Toe pain, right (Acute) Toe pain, left (Acute) Anasarca (Acute) Acute hypoxemic respiratory failure (Acute) Macrocytic anemia (Acute) Hyponatremia (Acute) Elevated BP without diagnosis of hypertension (Acute) Morbid (severe) obesity due to excess calories (Acute) 1. Bilateral LE cellulitis * Has severe maceration and ulceration of lower extremities. Patient has extreme self-neglect. * On IV vancomycin and meropenem. * Wound care consulted. * BBC is 10.1 today. * Duplex of LEs pending * 2. DIPTI * Creatinine is down to 4.85 today. Was around 5 on admission. * Nephrology consulted. Await recs. * Renal ultrasound showed normal kidneys and urinary bladder. * Will check urine electrolytes and check FeUrea * await nephrology rec's * continue hydration with IVF NS * 3. Hyperkalemia:. * Today is 6.5. Will give sodium kayexalate and trend Cr * patient hasnt yet had a bowel movement * Nephro discussed dialysis with him, and he refused. 4. Acute on chronic anemia. * Hemoglobin was 4.7 on admission. Baseline is around 9-10. * Has been transfused 3 units of packed red blood cells and hemoglobin today 6.6. Will transfuse 2 more units of packed red blood cells. * iron panel ordered. * For occult blood was positive on admission. * General surgery on board. 5. Heart failure with preserved ejection fraction * Not in exacerbation. Has known EF of 60% with moderate left ventricular concentric hypertrophy and stage II diastolic dysfunction. * Bumex currently on hold on account of DIPTI. * 6. Paroxysmal A. fib: * Currently rate controlled. * On Coreg 6.125 mg twice daily. * Had not been compliant with his Coreg or his Eliquis at home. * 7. Acute hypoxic respiratory insufficiency: * Was on 4 L on admission but is now down to 2 L. * Patient's lungs are clear. * titrate oxygen to maintain saturation above 90%. * Was thought to be possibly due to COPD but he does not have any wheezing and does not feel short of breath. This may likely due to severe anemia. * 8. Non-anion gap metabolic acidosis: Bicarb is down to 17. Anion gap is 12. This is likely due to DIPTI. 9. Hyperglycemia: rsolved. A1C was <3.5 10. Hypertension: Controlled. On Coreg 11. Debility due to severe anemia and LE wounds: PT/OT consult. Will need placement 12. History of alcohol abuse: States he is now been drinking since he was last admitted. Patient currently stable. Will monitor. DVT prophylaxis: * Currently not anticoagulated on account of severe anemia. * SCDs. * Inpatient E&M: [id number] [facility] L[facility]
[2019-08-30 11:08] LABS: Ferritin 23 ng/mL (26-388); Iron 329 ug/dL (65-175); Iron Binding Capacity,Total 378 ug/dL (250-450)
[2019-08-30 12:41] LABS: Bedside Glucose 137 mg/dL (70-110)
[2019-08-30 13:49] LABS: Anion Gap 11 (5-15); BUN 95 mg/dL (7-18); BUN/Creat Ratio 20.3 RATIO (10-20); Calcium,Total 8.3 mg/dL (8.5-10.1); Chloride 106 mmol/L (98-107); Creatinine, Serum 4.68 mg/dL (0.70-1.30); EST Glomerular Filtration Rate 13 mL/min (>60); Est Glom Filt Rate - Afr Amer 16 mL/min (>60); Estimated Creatinine Clearance 15.81 ml/min; Glucose 151 mg/dL (74-106); Potassium 6.5 mmol/L (3.5-5.1); Sodium Level 135 mmol/L (136-145)
[2019-08-30] MEDS: Senna/Docusate Sodium 1 Tablet 2 TABLET PO (14:01)
[2019-08-30 14:37] LABS: Hematocrit 27.3 % (40-54); Hemoglobin 8.2 g/dL (13.0-16.5)
--- NOTE | 2019-08-30 15:29 | CON.PCM_ITS ---
Consultation - Renal 08/30/19 PCP/ Referring MD: Requesting physician: Dr Curry Primary care physician: Dr. Avi Hernandez MD Reason for Consultation:: DIPTI, hyperkalemia - History of Present Illness History of Present Illness: The patient is a 69 year old obese, debilitated M presents by squad for wounds on both legs with weaping, itching for 3 weeks. He was admitted here in May for same reason and discharged on torsemide and potassium supplements. Venous US no DVT, VQ scan negative for PE in May 2019. He has been sedentary, unable to get out of his recliner since last hospitalization. He lives with his mom who has been feeding him and taking care of him. He has not followed up or seen a doctor since last hospitalization. His appointment with Dr. Hernandez was canceled due to COVID19. He is short of breath chronically then gets anxious easily when he can't breath with minimal exertion. He continues to smoke 2 ppd. He stopped his beer drinking about 2 months. ago. He denied fever, chills. Admits to nausea, poor appetite. He has no history of diabetes, hypertension, HI, stroke. Denies atrial fibrillation, DVT, PE. He has been taking motrin for general aches and pains. He noticed dark, black stools for past 2 weeks. Hgb was 6.0g on admit improved to 8.2g after 5 units prbc received. He denies abdominal pain. Potassium elevated at 6.2 to 6.5 despite kayexalate 30g x2 doses. Ordered 3rd dose of kayexalate today. Creatinine was 0.67 on 06/05/19. Creatinine on admit 5.0 to 4.85 to 4.68. Currently receiving NS at 150cc/hr. Urine sodium 17 Ucreatinine 141. BP low normal. NO recent iv contrast exposure. Renal US on 08/28 without hydronephrosis, normal size bilaterally. - Allergies Allergies: Allergies Penicillins [PCN] Allergy (Verified 08/29/19 12:05) PASSED OUT - Current Medications Current Medications: Current Medications Acetaminophen (Tylenol) 650 mg PO Q6H PRN PRN PRN Reason: Pain Score 1-10/Temp > 100.7 F Albuterol/Ipratropium (Duoneb) 3 ml INHALATION Q6H.RT KANDY Last Admin: 08/30/19 13:33 Dose: 3 ml Documented by: Bisacodyl (Dulcolax) 10 mg PO X1 ONE Stop: 08/30/19 15:24 Carvedilol (Coreg) 6.25 mg PO BID KANDY Last Admin: 08/30/19 09:01 Dose: Not Given Documented by: Dextrose (D50w Syringe) 0 gm IV X1 PRN; Protocol PRN Reason: Hypoglycemia Diphenhydramine HCl (Benadryl) 25 mg PO BID PRN PRN PRN Reason: ITCHING Last Admin: 08/30/19 09:13 Dose: 25 mg Documented by: Furosemide (Lasix) 40 mg IV X1 ONE Stop: 08/30/19 15:24 Glucagon () 1 mg IM .X1 PRN PRN Reason: Hypoglycemia Hydromorphone HCl (Dilaudid Inj) 1 mg IV Q2H PRN PRN PRN Reason: Pain Score 6-10/10 Last Admin: 08/30/19 09:30 Dose: 1 mg Documented by: Pantoprazole Sodium 40 mg/ (Sodium Chloride) 110 mls @ 330 mls/hr IV Q12 [facility] Last Infusion: 08/30/19 10:10 Dose: Infused Documented by: Meropenem 250 mg/ Sodium (Chloride) 55 mls @ 100 mls/hr IV Q12 KANDY Last Infusion: 08/30/19 10:10 Dose: Infused Documented by: Sodium Chloride () 250 mls @ 15 mls/hr IV .[id number] PRN PRN Reason: Saline Flush Sodium Chloride () 250 mls @ 15 mls/hr IV .[id number] PRN PRN Reason: Additional IVPB Infusion Sodium Bicarbonate 100 meq/ (Dextrose) 1,100 mls @ 100 mls/hr IV .Q11H [facility] Insulin Human Lispro (Humalog Kwikpen (Bkc)) 0 unit SC TIDAC KANDY; Protocol Last Admin: 08/30/19 12:47 Dose: Not Given Documented by: Nicotine (Nicoderm Cq (Pbkc)) 21 mg TRANSDERM. DAILY KANDY Last Admin: 08/30/19 09:03 Dose: 21 mg Documented by: Nystatin (Mycostatin Powder) 1 applic TOPICAL BID KANDY; Protocol Last Admin: 08/30/19 09:03 Dose: 1 applicatio Documented by: Ondansetron HCl (Zofran) 4 mg IV Q8H PRN PRN PRN Reason: NAUSEA/VOMITING Oxycodone HCl (Oxyir) 5 mg PO Q6H PRN PRN PRN Reason: Pain Score 1-5/10 Oxycodone HCl (Oxyir) 10 mg PO Q6H PRN PRN PRN Reason: Pain Score 6-10/10 Last Admin: 08/29/19 19:06 Dose: 10 mg Documented by: Prednisone () 40 mg PO DAILY@0800 [facility] Stop: 09/03/19 17:41 Last Admin: 08/30/19 08:59 Dose: 40 mg Documented by: Senna/Docusate Sodium (Senokot-S, Vanessa-Colace) 2 tablet PO DAILY PRN PRN PRN Reason: CONSTIPATION Last Admin: 08/30/19 14:01 Dose: 2 tablet Documented by: Sodium Chloride () 10 - 40 ml IV UD PRN PRN Reason: SALINE FLUSH Sodium Hypochlorite (Dakins Solution 0.25% (1/2 Strength)) 1 applic TOPICAL BID [facility]; Protocol Last Admin: 08/30/19 09:02 Dose: 1 applicatio Documented by: - Past Medical History Past Medical History (Chronic Problems): Chronic Problems Chronic ulcer of right leg with fat layer exposed (Chronic) Chronic ulcer of left leg with fat layer exposed (Chronic) - Past Surgical History Surgical History: total knee arthroplasty - Social History Smoking Status: Current every day smoker Alcohol: None Drugs: None - Family History Offspring History Items: Diabetes - brother, Heart Disease - mother Review of Systems Constitutional: Reports: Anorexia, Weakness, Fatigue. Denies: Chills, Fever HEENT: Denies: Head Aches Cardiovascular: Reports: Edema. Denies: Chest Pain, Palpitations, Syncope Respiratory: Reports: Shortness of Breath, Shortness of breath at rest, Shortness of breath upon exertion - chronic, Wheezing. Denies: Cough Gastrointestinal: Reports: Constipation, Nausea, Melena, Vomiting, - - thirsty. Denies: Abdominal Pain, Diarrhea Genitourinary: Denies: Dysuria Musculoskeletal: Reports: Leg Pain, - - leg swelling Skin: Reports: Wounds - BLE since last hospitalization in May2019 on torsemide and potassium Neurological: Reports: Balance problems, - - debilitated, in recliner all day forweeks, months Psychiatric: Reports: Anxiety Hematologic/ Lymphatic: Denies: Hx of blood clot Patient Problems: Active and Suspected Problems ARF (acute renal failure) (Acute) Acute anemia (Acute) GI bleed (Acute) Cellulitis of both lower extremities (Acute) Hyperkalemia (Acute) Afib (Acute) Localized edema (Acute) Cellulitis of left lower limb (Acute) Cellulitis of right lower limb (Acute) Venous insufficiency (Acute) Peripheral vascular disease (Acute) Poor hygiene (Acute) Onychomycosis (Acute) Toe pain, right (Acute) Toe pain, left (Acute) - Physical Exam Vitals/I&O's: Vital Signs Temp Pulse Resp BP Pulse Ox 97.0 F L 84 20 H 113/60 94 08/30/19 14:20 08/30/19 15:28 08/30/19 15:00 08/30/19 15:00 08/30/19 15:00 Oxygen Flow Rate (L/min) 2 Oxygen Delivery Method Room Air Weight: 138.8 kg Body Mass Index (BMI) 43.4 Intake and Output for Last 24 Hours 08/28/19 08/29/19 08/30/19 23:59 23:59 23:59 Intake Total 2540 / 2540 3366.67 / 3366.67 Output Total 0 / 375 875 / 875 Balance 2540 / 2165 2491.67 / 2491.67 General: Alert, Oriented x3, Cooperative, - - anxious, panic attack from dyspnea HEENT: - - dysconjugate gaze Oral: Dry Mucosa - furrowed tongue Neck: Supple, JVD, Bilateral Lungs: Diminished, Rhonchi Cardiovascular: Irregular Rate, No rub noted Abdomen: Bowel Sounds Present, Soft, Non Tender, Non-Distended, Obese Extremities: Edema - legs wrapped, tree trunk, induration of legs, - - redness of fingers Skin: Ulcer/ Wound - legs bilat Musculoskeletal: - - generalized weakness Neurological: - - tremor Psych/Mental Status: Anxious, Restless, Alert and oriented to time, place, person, mood and affect Microbiology Past 72 Hours 08/29/19 13:58 Wound - Leg Gram Stain - Final 08/29/19 13:58 Wound - Leg Wound Culture - Preliminary Mixed Gram Pos & Gram Neg Org 06/06/20 14:43 Stool Stool Occult Blood (CHERYL) - Final Occult Blood Positive Laboratory Results 08/29/19 13:25: TSH 6.22 H 08/29/19 13:25: Hemoglobin A1c < 3.5 L 08/29/19 14:20: Blood Type O NEGATIVE, Antibody Screen NEGATIVE, Crossmatch See Detail 08/29/19 14:20: Crossmatch See Detail 08/29/19 14:20: Crossmatch See Detail 08/29/19 14:20: Crossmatch See Detail 08/29/19 18:55: Eos Smear Total Cells Pending 08/29/19 18:55: Urine Creatinine 141.00 08/29/19 18:55: Urine Urea Nitrogen 314 08/29/19 18:55: Urine Color Yellow, Urine Clarity Cloudy, Urine pH 5.0, Ur Specific [place] 1.020, Urine Protein 100 H, Urine Glucose (UA) 50 H, Urine Ketones Negative, Urine Occult Blood 250 H, Urine Nitrite Negative, Urine Bilirubin 1 H, Urine Urobilinogen Normal, Ur Leukocyte Esterase 500 H, Urine RBC 0 SEEN, Urine WBC >100 SEEN, Ur Squamous Epith Cells 0 SEEN, Urine Bacteria 0 SEEN, Urine Mucus 0 SEEN 08/29/19 18:55: Ur Random Sodium 17 08/29/19 23:25: Random Vancomycin 20.2 H 08/29/19 23:25: Hgb 6.0 L*, Hct 20.7 L 08/29/19 23:25: Sodium 133 L, Potassium 6.2 H*, Chloride 104, Carbon Dioxide 17.0 L, Anion Gap 12, BUN 93 H, Creatinine 4.82 H, Estim Creat Clear Calc 15.36, Est GFR (MDRD) Af Amer 16 L, Est GFR (MDRD) Non-Af 13 L, BUN/Creatinine Ratio 19.3, Glucose 115 H, Calcium 8.2 L 08/30/19 04:00: WBC 10.1, RBC 3.01 L, Hgb 6.6 L, Hct 22.3 L, MCV 74.1 L D, MCH 21.9 L, MCHC 29.6 L D, RDW Std Deviation 56.4 H, RDW Coeff of Radha 21.3 H, Plt Count 186, MPV 10.6, Immature Gran % (Auto) 1.300 H, Neut % (Auto) 90.8 H, Lymph % (Auto) 2.9 L, Rogers % (Auto) 4.9, Eos % (Auto) 0.0, Baso % (Auto) 0.1, Absolute Neuts (auto) 9.2 H, Absolute Lymphs (auto) 0.29 L, Nucleated RBC % 1.0, Platelet Estimate ADEQUATE, Polychromasia RARE, Hypochromasia 1+, Anisocytosis 2+, Microcytosis 3+ 08/30/19 04:00: Sodium 133 L, Potassium 6.5 H*, Chloride 104, Carbon Dioxide 17.0 L, Anion Gap 12, BUN 96 H, Creatinine 4.85 H, Estim Creat Clear Calc 15.26, Est GFR (MDRD) Af Amer 16 L, Est GFR (MDRD) Non-Af 13 L, BUN/Creatinine Ratio 19.8, Glucose 125 H, Calcium 8.2 L, Free T4 0.83 08/30/19 04:10: Procalcitonin 0.62 H 08/30/19 04:10: Iron 329 H, TIBC 378, Iron Saturation 87.0 H, Ferritin 23 L 08/30/19 07:53: POC Glucose 103 08/30/19 12:15: POC Glucose 137 H 08/30/19 13:30: Sodium 135 L, Potassium 6.5 H*, Chloride 106, Carbon Dioxide 18.0 L, Anion Gap 11, BUN 95 H, Creatinine 4.68 H, Estim Creat Clear Calc 15.81, Est GFR (MDRD) Af Amer 16 L, Est GFR (MDRD) Non-Af 13 L, BUN/Creatinine Ratio 20.3 H, Glucose 151 H, Calcium 8.3 L 08/30/19 14:30: Hgb 8.2 L, Hct 27.3 L Clinical Impression(s) from Imaging Studies Chest X-Ray 08/29/19 14:43 IMPRESSION: Obscuration of the right cardiophrenic angle may be secondary to pleural effusion and/or pleural thickening. Electronically Signed: Fernanda Good MD at 15:49 EDT Tel , Service support , Renal Ultrasound 08/29/19 16:58 IMPRESSION: Within normal limits ultrasound of the kidneys and urinary bladder. Electronically Signed: Fernanda Good MD at 18:40 EDT Tel , Service support , Current Medications Acetaminophen (Tylenol) 650 mg PO Q6H PRN PRN PRN Reason: Pain Score 1-10/Temp > 100.7 F Albuterol/Ipratropium (Duoneb) 3 ml INHALATION Q6H.RT KANDY Last Admin: 08/30/19 13:33 Dose: 3 ml Documented by: Bisacodyl (Dulcolax) 10 mg PO X1 ONE Stop: 08/30/19 15:24 Carvedilol (Coreg) 6.25 mg PO BID KANDY Last Admin: 08/30/19 09:01 Dose: Not Given Documented by: Dextrose (D50w Syringe) 0 gm IV X1 PRN; Protocol PRN Reason: Hypoglycemia Diphenhydramine HCl (Benadryl) 25 mg PO BID PRN PRN PRN Reason: ITCHING Last Admin: 08/30/19 09:13 Dose: 25 mg Documented by: Furosemide (Lasix) 40 mg IV X1 ONE Stop: 08/30/19 15:24 Glucagon () 1 mg IM .X1 PRN PRN Reason: Hypoglycemia Hydromorphone HCl (Dilaudid Inj) 1 mg IV Q2H PRN PRN PRN Reason: Pain Score 6-10/10 Last Admin: 08/30/19 09:30 Dose: 1 mg Documented by: Pantoprazole Sodium 40 mg/ (Sodium Chloride) 110 mls @ 330 mls/hr IV Q12 [facility] Last Infusion: 08/30/19 10:10 Dose: Infused Documented by: Meropenem 250 mg/ Sodium (Chloride) 55 mls @ 100 mls/hr IV Q12 [facility] Last Infusion: 08/30/19 10:10 Dose: Infused Documented by: Sodium Chloride () 250 mls @ 15 mls/hr IV .[id number] PRN PRN Reason: Saline Flush Sodium Chloride () 250 mls @ 15 mls/hr IV .[id number] PRN PRN Reason: Additional IVPB Infusion Sodium Bicarbonate 100 meq/ (Dextrose) 1,100 mls @ 100 mls/hr IV .Q11H [facility] Insulin Human Lispro (Humalog Kwikpen (Bkc)) 0 unit SC TIDAC KANDY; Protocol Last Admin: 08/30/19 12:47 Dose: Not Given Documented by: Nicotine (Nicoderm Cq (Pbkc)) 21 mg TRANSDERM. DAILY [facility] Last Admin: 08/30/19 09:03 Dose: 21 mg Documented by: Nystatin (Mycostatin Powder) 1 applic TOPICAL BID KANDY; Protocol Last Admin: 08/30/19 09:03 Dose: 1 applicatio Documented by: Ondansetron HCl (Zofran) 4 mg IV Q8H PRN PRN PRN Reason: NAUSEA/VOMITING Oxycodone HCl (Oxyir) 5 mg PO Q6H PRN PRN PRN Reason: Pain Score 1-5/10 Oxycodone HCl (Oxyir) 10 mg PO Q6H PRN PRN PRN Reason: Pain Score 6-10/10 Last Admin: 08/29/19 19:06 Dose: 10 mg Documented by: Prednisone () 40 mg PO DAILY@0800 [facility] Stop: 09/03/19 17:41 Last Admin: 08/30/19 08:59 Dose: 40 mg Documented by: Senna/Docusate Sodium (Senokot-S, Vanessa-Colace) 2 tablet PO DAILY PRN PRN PRN Reason: CONSTIPATION Last Admin: 08/30/19 14:01 Dose: 2 tablet Documented by: Sodium Chloride () 10 - 40 ml IV UD PRN PRN Reason: SALINE FLUSH Sodium Hypochlorite (Dakins Solution 0.25% (1/2 Strength)) 1 applic TOPICAL BID [facility]; Protocol Last Admin: 08/30/19 09:02 Dose: 1 applicatio Documented by: Assessment/Plan All Active Problems ARF (acute renal failure) (Acute) Acute anemia (Acute) GI bleed (Acute) Cellulitis of both lower extremities (Acute) Hyperkalemia (Acute) Afib (Acute) Localized edema (Acute) Cellulitis of left lower limb (Acute) Cellulitis of right lower limb (Acute) Venous insufficiency (Acute) Peripheral vascular disease (Acute) Poor hygiene (Acute) Onychomycosis (Acute) Toe pain, right (Acute) Toe pain, left (Acute) Anasarca (Acute) Acute hypoxemic respiratory failure (Acute) Macrocytic anemia (Acute) Hyponatremia (Acute) Elevated BP without diagnosis of hypertension (Acute) Morbid (severe) obesity due to excess calories (Acute) 1. DIPTI baseline creatnine 0.67 on 06/05/19. Creatinine 5.0 on admit 08/29 improved to 4.68 with iv hydration, multiple blood transfusion. Urine sodium 17, Creatinine 141 FeNa <1% suggestive of prerenal event from diuretics, NSAIDS vs early ATN. Echo from 05/2019 showed LVEF 60% with moderate LA enlargement. Suspicious for pulmonary hypertension, JENNIFER. Check liver enzymes, hx alcohol abuse. Spoke with pt regarding hemodialysis with access placement if potassium cannot be controlled with medications and renal fxn, urine output is not improved. Patient wants to try medical management for now. He is reluctant to do dialysis. 2. GI bleed received 5u prbc hgb 6.0 to 8.2g. Hx motrin use, black stools at home 3. Hyperkalemia continue kayexalate. K 6.2 to 6.5 despite 2 doses of kayexalate due to renal failure, potassium supplements, GI bleed. 4. Metabolic acidosis, start bicarb drip 5. Acute cellulitis due to edema, renal dose iv antibx. Blood cx pending 6. Morbid obesity 7. Anasarca with BLE edema. Check for DVT. Last venous doppler negative for DVT, VQ scan negative for PE in May 2019. Check liver enzymes, urine protein, serum albumin. 8. Hx alcohol abuse 4-6 beers a day. last drink 2 months ago 9. COPD with tobacco use 2ppd up to admission. DW hospitalist and nursing staff.
[2019-08-30] MEDS: oxyCODONE 5 MG Tablet PO (15:58)
[2019-08-30] MEDS: Bisacodyl 5 MG Tablet 10 MG PO (15:59)
[2019-08-30] MEDS: 0.9% Saline Lock 10 ML Syringe IV ×2 (15:59→21:31)
[2019-08-30 17:16] LABS: Bedside Glucose 148 mg/dL (70-110)
[2019-08-30 19:05] LABS: Protein, Urine (Random) 143.9 mg/dL (<11.9)
[2019-08-30 20:07] LABS: Anion Gap 12 (5-15); BUN 95 mg/dL (7-18); BUN/Creat Ratio 21.2 RATIO (10-20); Calcium,Total 8.1 mg/dL (8.5-10.1); Chloride 103 mmol/L (98-107); Creatinine, Serum 4.49 mg/dL (0.70-1.30); EST Glomerular Filtration Rate 14 mL/min (>60); Est Glom Filt Rate - Afr Amer 17 mL/min (>60); Estimated Creatinine Clearance 16.48 ml/min; Glucose 156 mg/dL (74-106); Potassium 5.4 mmol/L (3.5-5.1); Sodium Level 133 mmol/L (136-145)
[2019-08-30] MEDS: Carvedilol 6.25 MG Tablet PO (21:27)
[2019-08-30] MEDS: Menthol/Lanolin/Calamine/Znox 113 GM Tube 1 APPLIC TOPICAL (21:28)
[2019-08-30] MEDS: oxyCODONE 5 MG Tablet 10 MG PO (22:02)
[2019-08-30 22:46] LABS: Bedside Glucose 153 mg/dL (70-110)
[2019-08-31] VITALS (16 sets, daily range): BP systolic 95–128; BP diastolic 58–79; PULSE 89–115; RESP 14–22; TEMP 35.7–36.6; O2SAT 90–100
[2019-08-31] MEDS: Ipratropium/Albuterol Sulfate 3 ML AMPUL.NEB INHALATION ×3 (01:25→19:00)
[2019-08-31 04:32] LABS: Absolute Lymphocyte Count 0.58 X10^3/uL (0.83-4.51); Absolute Neutrophil Count 7.1 X10^3/uL (2.0-7.7); Basophil# 0.01 X10^3/uL; Basophil% 0.1 % (0-1); Differential Indicated SCAN CRITERIA MET; Hematocrit 29.2 % (40-54); Hemoglobin 8.9 g/dL (13.0-16.5); Lymphocyte # 0.58 X10^3/ul (4.0); Mean Corp Hgb Conc 30.5 g/dL (32-36); Mean Corpuscular Hgb 23.3 pg (27.0-32.0); Mean Corpuscular Volume 76.4 fL (80-94); Mean Platelet Vol. 9.9 fl (6.2-12.0); Monocyte# 0.44 X10^3/uL; Monocyte% 5.3 % (0-10); Neutrophil # 7.08 X10^3/uL (2.7-7.7); Neutrophil % 85.9 % (47-70); POSITIVE DIFFERENTIAL YES; POSITIVE MORPHOLOGY YES; Platelet Count 139 K/mm3 (150-450); RBC Distribution Width CV 21.1 % (11.6-14.6); RBC Distribution Width SD 57.4 fl (35.1-43.9); Red Blood Count 3.82 M/mm3 (4.6-6.2); White Blood Count 8.3 K/mm3 (4.4-11.0)
[2019-08-31 04:50] LABS: Albumin, Serum 2.4 g/dL (3.2-5.0); BUN 94 mg/dL (7-18); BUN/Creat Ratio 21.8 RATIO (10-20); Calcium,Total 7.9 mg/dL (8.5-10.1); Chloride 101 mmol/L (98-107); Creatinine, Serum 4.32 mg/dL (0.70-1.30); EST Glomerular Filtration Rate 15 mL/min (>60); Est Glom Filt Rate - Afr Amer 18 mL/min (>60); Estimated Creatinine Clearance 17.13 ml/min; Glucose 151 mg/dL (74-106); Phosphorus 8.7 mg/dL (2.5-4.9); Potassium 5.1 mmol/L (3.5-5.1); Sodium Level 134 mmol/L (136-145)
[2019-08-31 04:55] LABS: Differential Comment SCANNED; Hypochromasia 1+
[2019-08-31] MEDS: Menthol/Lanolin/Calamine/Znox 113 GM Tube 1 APPLIC TOPICAL ×3 (05:12→22:23)
--- NOTE | 2019-08-31 07:32 | PN_ITS ---
Patient Problems: Active and Suspected Problems ARF (acute renal failure) (Acute) Acute anemia (Acute) GI bleed (Acute) Cellulitis of both lower extremities (Acute) Hyperkalemia (Acute) Afib (Acute) Localized edema (Acute) Cellulitis of left lower limb (Acute) Cellulitis of right lower limb (Acute) Venous insufficiency (Acute) Peripheral vascular disease (Acute) Poor hygiene (Acute) Onychomycosis (Acute) Toe pain, right (Acute) Toe pain, left (Acute) Reason for Visit: Follow-up on severe anemia/bilateral lower extremity cellulitis Subjective: Patient was seen and examined. Denied any new complaints. He is still has itchiness of the lower extremity. Both lower extremities have been wrapped in Harish wraps. Denied any fever or chills or shortness of breath or chest pain. Has had multiple bowel movements overnight. No overt bleeding seen. Objective: Physical exam: General: Alert, Oriented x3, Cooperative, No apparent distress HEENT: Atraumatic, PERRLA, EOMI, Normocephalic Oral: Dry Mucosa Neck: Supple, No JVD, Negative Carotid Bruits Lungs: Clear to auscultation, Normal air movement, No rhonchi, No wheeze Cardiovascular: Irregular Rate - Afib, rate controlled. Abdomen: Bowel Sounds Present, Soft, Non Tender, Non-Distended, No Hepato- splenomegaly Extremities:Edema +1-2, with evidence of wrinkling of skin Skin: - - see previous notes as lower extremities are HARISH-wrapped Musculoskeletal: No Tenderness to Palpation of Joints or Extremities Lymphatic: No Cervical, Supraclavicular, or Inguinal Adenopathy Neurological: Cranial nerves II-XII grossly intact, Neuro grossly intact, Motor Exam 5/5 strength throughout Psych/Mental Status: Normal Affect, Appropriate, Alert and oriented to time, place, person, mood and affect Vitals/I&O's: Vital Signs Temp Pulse Resp BP Pulse Ox 97.2 F L 92 15 97/72 100 08/31/19 02:00 08/31/19 03:04 08/31/19 02:00 08/31/19 02:00 08/31/19 02:00 Oxygen Flow Rate (L/min) 2 Oxygen Delivery Method Nasal Cannula Weight: 141.5 kg Body Mass Index (BMI) 43.4 Intake and Output for Last 24 Hours 0608/30/19 08/31/19 23:59 23:59 23:59 Intake Total 2540 / 2540 5879.25 / 5879.25 985 / 985 Output Total 0 / 375 1295 / 1295 225 / 225 Balance 2540 / 2165 4584.25 / 4584.25 760 / 760 Microbiology Past 72 Hours 08/30/19 17:15 Stool Stool Occult Blood (CHERYL) - Final Occult Blood Positive 08/29/19 13:58 Wound - Leg Gram Stain - Final 08/29/19 13:58 Wound - Leg Wound Culture - Preliminary Mixed Gram Pos & Gram Neg Org 08/29/19 14:43 Stool Stool Occult Blood (CHERYL) - Final Occult Blood Positive Laboratory Results 08/29/19 14:20: Crossmatch See Detail 08/29/19 14:20: Crossmatch See Detail 08/29/19 18:55: Ur Random Sodium 17 08/30/19 04:10: Iron 329 H, TIBC 378, Iron Saturation 87.0 H, Ferritin 23 L 08/30/19 07:53: POC Glucose 103 08/30/19 12:15: POC Glucose 137 H 08/30/19 13:30: Sodium 135 L, Potassium 6.5 H*, Chloride 106, Carbon Dioxide 18.0 L, Anion Gap 11, BUN 95 H, Creatinine 4.68 H, Estim Creat Clear Calc 15.81, Est GFR (MDRD) Af Amer 16 L, Est GFR (MDRD) Non-Af 13 L, BUN/Creatinine Ratio 20.3 H, Glucose 151 H, Calcium 8.3 L 08/30/19 14:30: Hgb 8.2 L, Hct 27.3 L 08/30/19 17:03: POC Glucose 148 H 08/30/19 18:15: Sodium Cancelled, Potassium Cancelled, Chloride Cancelled, Carbon Dioxide Cancelled, Anion Gap Cancelled, BUN Cancelled, Creatinine Cancelled, Estim Creat Clear Calc Cancelled, Est GFR (MDRD) Af Amer Cancelled, Est GFR (MDRD) Non-Af Cancelled, BUN/Creatinine Ratio Cancelled, Glucose Cancelled, Calcium Cancelled 08/30/19 18:55: U Random Total Protein 143.9 H 08/30/19 19:30: Sodium 133 L, Potassium 5.4 H, Chloride 103, Carbon Dioxide 18.0 L, Anion Gap 12, BUN 95 H, Creatinine 4.49 H, Estim Creat Clear Calc 16.48, Est GFR (MDRD) Af Amer 17 L, Est GFR (MDRD) Non-Af 14 L, BUN/Creatinine Ratio 21.2 H , Glucose 156 H, Calcium 8.1 L 08/30/19 21:37: POC Glucose 153 H 08/31/19 04:20: WBC 8.3, RBC 3.82 L, Hgb 8.9 L, Hct 29.2 L, MCV 76.4 L, MCH 23.3 L, MCHC 30.5 L, RDW Std Deviation 57.4 H, RDW Coeff of Radha 21.1 H, Plt Count 139 L, MPV 9.9, Immature Gran % (Auto) 1.700 H, Neut % (Auto) 85.9 H, Lymph % (Auto) 7.0 L, Y[place] % (Auto) 5.3, Eos % (Auto) 0.0, Baso % (Auto) 0.1, Absolute Neuts (auto) 7.1, Absolute Lymphs (auto) 0.58 L, Nucleated RBC % 1.0, Differential Comment SCANNED, Hypochromasia 1+ 08/31/19 04:20: Sodium 134 L, Potassium 5.1, Chloride 101, Carbon Dioxide 20.0 L , BUN 94 H, Creatinine 4.32 H, Estim Creat Clear Calc 17.13, Est GFR (MDRD) Af Amer 18 L, Est GFR (MDRD) Non-Af 15 L, BUN/Creatinine Ratio 21.8 H, Glucose 151 H, Calcium 7.9 L, Phosphorus 8.7 H, Albumin 2.4 L, Free T4 0.70 L Current Medications Acetaminophen (Tylenol) 650 mg PO Q6H PRN PRN PRN Reason: Pain Score 1-10/Temp > 100.7 F Albuterol/Ipratropium (Duoneb) 3 ml INHALATION Q6H.RT [facility] Last Admin: 08/31/19 07:07 Dose: 3 ml Documented by: Calamine/Phenol (Calmoseptine Ointment) 1 applic TOPICAL TID [facility]; Protocol Last Admin: 08/31/19 05:12 Dose: 1 applicatio Documented by: Carvedilol (Coreg) 6.25 mg PO BID [facility] Last Admin: 08/30/19 21:27 Dose: 6.25 mg Documented by: Dextrose (D50w Syringe) 0 gm IV X1 PRN; Protocol PRN Reason: Hypoglycemia Diphenhydramine HCl (Benadryl) 25 mg PO BID PRN PRN PRN Reason: ITCHING Last Admin: 08/30/19 21:34 Dose: 25 mg Documented by: Glucagon () 1 mg IM .X1 PRN PRN Reason: Hypoglycemia Hydromorphone HCl (Dilaudid Inj) 1 mg IV Q2H PRN PRN PRN Reason: Pain Score 6-10/10 Last Admin: 08/30/19 09:30 Dose: 1 mg Documented by: Pantoprazole Sodium 40 mg/ (Sodium Chloride) 110 mls @ 330 mls/hr IV Q12 [facility] Last Infusion: 08/30/19 21:42 Dose: Infused Documented by: Meropenem 250 mg/ Sodium (Chloride) 55 mls @ 100 mls/hr IV Q12 [facility] Last Infusion: 08/30/19 22:01 Dose: Infused Documented by: Sodium Chloride () 250 mls @ 15 mls/hr IV .[id number] PRN PRN Reason: Saline Flush Last Infusion: 08/30/19 22:45 Dose: 0 mls/hr Documented by: Sodium Chloride () 250 mls @ 15 mls/hr IV .[id number] PRN PRN Reason: Additional IVPB Infusion Sodium Bicarbonate 100 meq/ (Dextrose) 1,100 mls @ 100 mls/hr IV .Q11H [facility] Last Admin: 08/31/19 04:55 Dose: 100 mls/hr Documented by: Insulin Human Lispro (Humalog Kwikpen (Bkc)) 0 unit SC TIDAC [facility]; Protocol Last Admin: 08/30/19 17:09 Dose: Not Given Documented by: Nicotine (Nicoderm Cq (Pbkc)) 21 mg TRANSDERM. DAILY [facility] Last Admin: 08/30/19 09:03 Dose: 21 mg Documented by: Nystatin (Mycostatin Powder) 1 applic TOPICAL BID [facility]; Protocol Last Admin: 08/30/19 21:27 Dose: 1 applicatio Documented by: Ondansetron HCl (Zofran) 4 mg IV Q8H PRN PRN PRN Reason: NAUSEA/VOMITING Oxycodone HCl (Oxyir) 5 mg PO Q6H PRN PRN PRN Reason: Pain Score 1-5/10 Last Admin: 08/30/19 15:58 Dose: 5 mg Documented by: Oxycodone HCl (Oxyir) 10 mg PO Q6H PRN PRN PRN Reason: Pain Score 6-10/10 Last Admin: 08/30/19 22:02 Dose: 10 mg Documented by: Prednisone () 40 mg PO DAILY@0800 [facility] Stop: 09/03/19 17:41 Last Admin: 08/30/19 08:59 Dose: 40 mg Documented by: Senna/Docusate Sodium (Senokot-S, Vanessa-Colace) 2 tablet PO DAILY PRN PRN PRN Reason: CONSTIPATION Last Admin: 08/30/19 14:01 Dose: 2 tablet Documented by: Sodium Chloride () 10 - 40 ml IV UD PRN PRN Reason: SALINE FLUSH Last Admin: 08/30/19 21:31 Dose: 40 ml Documented by: Sodium Hypochlorite (Dakins Solution 0.25% (1/2 Strength)) 1 applic TOPICAL BID [facility]; Protocol Last Admin: 08/30/19 21:28 Dose: 1 applicatio Documented by: Medical Necessity - Tobacco Use Smoking Status: Current every day smoker Assessment/Plan All Active Problems ARF (acute renal failure) (Acute) Acute anemia (Acute) GI bleed (Acute) Cellulitis of both lower extremities (Acute) Hyperkalemia (Acute) Afib (Acute) Localized edema (Acute) Cellulitis of left lower limb (Acute) Cellulitis of right lower limb (Acute) Venous insufficiency (Acute) Peripheral vascular disease (Acute) Poor hygiene (Acute) Onychomycosis (Acute) Toe pain, right (Acute) Toe pain, left (Acute) Anasarca (Acute) Acute hypoxemic respiratory failure (Acute) Macrocytic anemia (Acute) Hyponatremia (Acute) Elevated BP without diagnosis of hypertension (Acute) Morbid (severe) obesity due to excess calories (Acute) 1. Acute severe anemia secondary to GI bleed, FOBT x2 is negative Admitting Hb is 4.7. Status post 7 units of packed RBC today. Hemoglobin today is 8.9 General surgery consulted, planning on EGD and colonoscopy Continue on IV PPI 2. DIPTI, prerenal, multifactorial, likely secondary to severe anemia/use of NSAIDs/Lasix Creatinine slightly improved to 4.32 from 5.0. Urine output is nonoliguric. Nephrology following On IV fluids, will repeat blood work in a.m. 3. Hyperkalemia, resolved, status post treatment with Kayexalate 4. Bilateral lower extremity cellulitis/chronic venous stasis ulcers/was seen by self-neglect No fevers, no leukocytosis. Continue on meropenem Wound RN following 5. Hypoxia likely secondary to atelectasis, now on 2L oxygen from 4L Will monitor for acute CHF with IVF, continue to wean off oxygen, breathing treatments PRN 6. Chronic diastolic CHF, EF of 60% with moderate LVH, not in acute exacerbation Will be careful with use of IV fluids for DIPTI Follow-up with daily weights 6. Paroxysmal atrial fibrillation, rate controlled, continue on Coreg Off Eliquis on account of GI bleed 7. Hypertension, controlled, continue on Coreg 8. DVT PPx- SCDs Inpatient E&M: 44795 Subs Hosp L2
[2019-08-31] MEDS: Nystatin Powder 15gm Bottle 1 APPLIC TOPICAL ×2 (10:33→22:23)
[2019-08-31] MEDS: predniSONE 20 MG Tablet 40 MG PO (10:34)
[2019-08-31] MEDS: Carvedilol 6.25 MG Tablet PO ×2 (10:34→22:33)
[2019-08-31] MEDS: oxyCODONE 5 MG Tablet PO (10:41)
[2019-08-31] MEDS: 0.9% Saline Lock 10 ML Syringe IV ×2 (10:41→22:33)
[2019-08-31] MEDS: Electrolyte Solution/Peg's 4000 ML 2000 ML PO ×2 (11:18→14:12)
--- NOTE | 2019-08-31 11:46 | DCINST_ITS ---
Weight Bearing Status: Weight bearing as tolerated Keep extremity elevated above heart level: Left Leg, Right Leg Call your doctor if your incision/area has: Continuous Slow Oozing, Sudden Increased Bleeding, Increased Pain/ Swelling, Increased Redness, Foul Smelling Discharge Call your doctor if you observe: Fever of 101 or Higher, Calf discomfort, Uncontrolled pain Cleanse incision/area with: Soap & Water, - - Do not soak Additional Dressing/Incision Instructions:: Change the dressing daily with Aquacel Ag and Adaptic if needed to avoid dressing adherence. Cover with 4x4 gauze, abdominal pads, Kerlix roll, and Harish wrap to bilateral lower extremities. Allergies/Adverse Reactions: Allergies Penicillins [PCN] Allergy (Verified 08/29/19 12:05) PASSED OUT Medications to take at Discharge Apixaban [Eliquis] 5 mg PO BID #60 tab 06/05/19 Potassium Chloride [K-Dur] 20 meq PO BID #60 tab 06/05/19 Torsemide 20 mg PO BID #60 tab 06/05/19 carvedilol 6.25 mg tablet 6.25 mg PO BID #60 tab 06/17/19 Primary Care Physician: Care Physician,No Primary [NON-STAFF] - Test Results: Test results from this visit will be discussed in further detail at your follow- up appointment, if applicable. Please Follow Up With: Clinic,Wound When: with any wound care provider w/in 1 week of discharge.
[2019-08-31 12:24] LABS: Pathologist Review Reviewed
[2019-08-31 12:26] LABS: Bedside Glucose 130 mg/dL (70-110)
--- NOTE | 2019-08-31 14:29 | PCM.PN.REN ---
Patient Problems: Active and Suspected Problems ARF (acute renal failure) (Acute) Acute anemia (Acute) GI bleed (Acute) Cellulitis of both lower extremities (Acute) Hyperkalemia (Acute) Afib (Acute) Localized edema (Acute) Cellulitis of left lower limb (Acute) Cellulitis of right lower limb (Acute) Venous insufficiency (Acute) Peripheral vascular disease (Acute) Poor hygiene (Acute) Onychomycosis (Acute) Toe pain, right (Acute) Toe pain, left (Acute) Subjective: transferred out of ICU. Hgb stable at 8.9g. Colon prep ordered. Potassium and creatinine improving. Leg wounds with pain - Physical Exam Vitals/I&O's: Vital Signs Temp Pulse Resp BP Pulse Ox 97.6 F L 110 H 18 111/59 L 98 08/31/19 10:30 08/31/19 10:30 08/31/19 10:30 08/31/19 10:30 08/31/19 10:30 Oxygen Flow Rate (L/min) 2 Oxygen Delivery Method Nasal Cannula Weight: 141.5 kg Body Mass Index (BMI) 43.4 Intake and Output for Last 24 Hours 08/29/19 08/30/19 08/31/19 23:59 23:59 23:59 Intake Total 2540 / 2540 5879.25 / 5879.25 2088.58 / 2088.58 Output Total 0 / 375 1295 / 1295 475 / 475 Balance 2540 / 2165 4584.25 / 4584.25 1613.58 / 1613.58 General: Alert, Oriented x3, Cooperative, No apparent distress Lungs: Clear to auscultation Cardiovascular: Irregular Rate Abdomen: Bowel Sounds Present, Soft, Non Tender, Obese Extremities: Edema Skin: Ulcer/ Wound - BLE Psych/Mental Status: Normal Affect, Appropriate Microbiology Past 72 Hours 08/29/19 13:58 Wound - Leg Gram Stain - Final 08/29/19 13:58 Wound - Leg Wound Culture - 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 Gram negative gila GPC Poss Enterococcus sp 08/30/19 17:15 Stool Stool Occult Blood (CHERYL) - Final Occult Blood Positive 08/29/19 14:43 Stool Stool Occult Blood (CHERYL) - Final Occult Blood Positive Laboratory Results 08/29/19 13:25: Diff Path Review Reviewed 08/29/19 14:20: Crossmatch See Detail 08/29/19 14:20: Crossmatch See Detail 08/30/19 14:30: Hgb 8.2 L, Hct 27.3 L 08/30/19 17:03: POC Glucose 148 H 08/30/19 18:15: Sodium Cancelled, Potassium Cancelled, Chloride Cancelled, Carbon Dioxide Cancelled, Anion Gap Cancelled, BUN Cancelled, Creatinine Cancelled, Estim Creat Clear Calc Cancelled, Est GFR (MDRD) Af Amer Cancelled, Est GFR (MDRD) Non-Af Cancelled, BUN/Creatinine Ratio Cancelled, Glucose Cancelled, Calcium Cancelled 08/30/19 18:55: U Random Total Protein 143.9 H 08/30/19 19:30: Sodium 133 L, Potassium 5.4 H, Chloride 103, Carbon Dioxide 18.0 L, Anion Gap 12, BUN 95 H, Creatinine 4.49 H, Estim Creat Clear Calc 16.48, Est GFR (MDRD) Af Amer 17 L, Est GFR (MDRD) Non-Af 14 L, BUN/Creatinine Ratio 21.2 H, Glucose 156 H, Calcium 8.1 L 08/30/19 21:37: POC Glucose 153 H 08/31/19 04:20: WBC 8.3, RBC 3.82 L, Hgb 8.9 L, Hct 29.2 L, MCV 76.4 L, MCH 23.3 L, MCHC 30.5 L, RDW Std Deviation 57.4 H, RDW Coeff of Radha 21.1 H, Plt Count 139 L, MPV 9.9, Immature Gran % (Auto) 1.700 H, Neut % (Auto) 85.9 H, Lymph % (Auto) 7.0 L, Merrick % (Auto) 5.3, Eos % (Auto) 0.0, Baso % (Auto) 0.1, Absolute Neuts (auto) 7.1, Absolute Lymphs (auto) 0.58 L, Nucleated RBC % 1.0, Differential Comment SCANNED, Hypochromasia 1+ 08/31/19 04:20: Sodium 134 L, Potassium 5.1, Chloride 101, Carbon Dioxide 20.0 L, BUN 94 H, Creatinine 4.32 H, Estim Creat Clear Calc 17.13, Est GFR (MDRD) Af Amer 18 L, Est GFR (MDRD) Non-Af 15 L, BUN/Creatinine Ratio 21.8 H, Glucose 151 H, Calcium 7.9 L, Phosphorus 8.7 H, Albumin 2.4 L, Free T4 0.70 L 08/31/19 11:24: POC Glucose 130 H Current Medications Acetaminophen (Tylenol) 650 mg PO Q6H PRN PRN PRN Reason: Pain Score 1-10/Temp > 100.7 F Albuterol/Ipratropium (Duoneb) 3 ml INHALATION Q6H.RT [facility] Last Admin: 08/31/19 13:15 Dose: Not Given Documented by: Calamine/Phenol (Calmoseptine Ointment) 1 applic TOPICAL TID [facility]; Protocol Last Admin: 08/31/19 14:12 Dose: 1 applicatio Documented by: Carvedilol (Coreg) 6.25 mg PO BID [facility] Last Admin: 08/31/19 10:34 Dose: 6.25 mg Documented by: Dextrose (D50w Syringe) 0 gm IV X1 PRN; Protocol PRN Reason: Hypoglycemia Diphenhydramine HCl (Benadryl) 25 mg PO BID PRN PRN PRN Reason: ITCHING Last Admin: 08/30/19 21:34 Dose: 25 mg Documented by: Glucagon () 1 mg IM .X1 PRN PRN Reason: Hypoglycemia Hydromorphone HCl (Dilaudid Inj) 1 mg IV Q2H PRN PRN PRN Reason: Pain Score 6-10/10 Last Admin: 08/30/19 09:30 Dose: 1 mg Documented by: Pantoprazole Sodium 40 mg/ (Sodium Chloride) 110 mls @ 330 mls/hr IV Q12 [facility] Last Infusion: 08/31/19 10:55 Dose: Infused Documented by: Meropenem 250 mg/ Sodium (Chloride) 55 mls @ 100 mls/hr IV Q12 [facility] Last Infusion: 08/31/19 11:49 Dose: Infused Documented by: Sodium Chloride () 250 mls @ 15 mls/hr IV .[id number] PRN PRN Reason: Saline Flush Last Infusion: 08/31/19 12:30 Dose: 0 mls/hr Documented by: Sodium Chloride () 250 mls @ 15 mls/hr IV .[id number] PRN PRN Reason: Additional IVPB Infusion Sodium Bicarbonate 100 meq/ (Dextrose) 1,100 mls @ 75 mls/hr IV .[id number] [facility] Last Infusion: 08/31/19 11:45 Dose: 75 mls/hr Documented by: Insulin Human Lispro (Humalog Kwikpen (Bkc)) 0 unit SC TIDAC [facility]; Protocol Last Admin: 08/31/19 11:24 Dose: Not Given Documented by: Nicotine (Nicoderm Cq (Pbkc)) 21 mg TRANSDERM. DAILY [facility] Last Admin: 08/31/19 10:33 Dose: 21 mg Documented by: Nutritional Formula (Artemio - Erick Flavor) [facility] Nystatin (Mycostatin Powder) 1 applic TOPICAL BID [facility]; Protocol Last Admin: 08/31/19 10:33 Dose: 1 applicatio Documented by: Ondansetron HCl (Zofran) 4 mg IV Q8H PRN PRN PRN Reason: NAUSEA/VOMITING Oxycodone HCl (Oxyir) 5 mg PO Q6H PRN PRN PRN Reason: Pain Score 1-5/10 Last Admin: 08/31/19 10:41 Dose: 5 mg Documented by: Oxycodone HCl (Oxyir) 10 mg PO Q6H PRN PRN PRN Reason: Pain Score 6-10/10 Last Admin: 08/30/19 22:02 Dose: 10 mg Documented by: Prednisone () 40 mg PO DAILY@0800 [facility] Stop: 09/03/19 17:41 Last Admin: 08/31/19 10:34 Dose: 40 mg Documented by: Senna/Docusate Sodium (Senokot-S, Vanessa-Colace) 2 tablet PO DAILY PRN PRN PRN Reason: CONSTIPATION Last Admin: 08/30/19 14:01 Dose: 2 tablet Documented by: Sodium Chloride () 10 - 40 ml IV UD PRN PRN Reason: SALINE FLUSH Last Admin: 08/31/19 10:41 Dose: 10 ml Documented by: Sodium Chloride/Electrolytes (Nulytely) 2,000 ml PO Q6H [facility] Stop: 08/31/19 15:11 Last Admin: 08/31/19 14:12 Dose: 2,000 ml Documented by: Sodium Hypochlorite (Dakins Solution 0.25% (1/2 Strength)) 1 applic TOPICAL BID [facility]; Protocol Last Admin: 08/31/19 13:46 Dose: Not Given Documented by: Medical Necessity - Tobacco Use Smoking Status: Current every day smoker Assessment/Plan All Active Problems ARF (acute renal failure) (Acute) Acute anemia (Acute) GI bleed (Acute) Cellulitis of both lower extremities (Acute) Hyperkalemia (Acute) Afib (Acute) Localized edema (Acute) Cellulitis of left lower limb (Acute) Cellulitis of right lower limb (Acute) Venous insufficiency (Acute) Peripheral vascular disease (Acute) Poor hygiene (Acute) Onychomycosis (Acute) Toe pain, right (Acute) Toe pain, left (Acute) Anasarca (Acute) Acute hypoxemic respiratory failure (Acute) Macrocytic anemia (Acute) Hyponatremia (Acute) Elevated BP without diagnosis of hypertension (Acute) Morbid (severe) obesity due to excess calories (Acute) 1. DIPTI baseline creatnine 0.67 on 06/05/19. Creatinine improved to 4.32 today. FeNa <1% Continue with iv fluids. No need for hemodialysis at this time. 2. GI bleed endoscopy by GS. hgb 8.9g. Hx motrin use, black stools at home 3. Hyperkalemia improved to 5.1 4. Metabolic acidosis, continue bicarb drip 5. Acute cellulitis due to edema, renal dose iv antibx. Blood cx no growth so far 6. Morbid obesity 7. Anasarca with BLE edema.UPCR 1g/g. serum albumin low at 2.4. 8. Hx alcohol abuse 4-6 beers a day. last drink 2 months ago 9. COPD with tobacco use 2ppd up to admission.
--- NOTE | 2019-08-31 14:46 | CASEMGMT ---
RN CM Assessment Note Diagnosis: BLE Cellulitis/Wounds, Intro role of CM to patient in room. Pt is awake, alert. Finished therapy session recently and wound care. Discussed dc needs re: pt having difficulty caring for self at home and worsening of physical condition and cellulitis. Pt agrees and willing to discuss SNF on dc as long as it is covered by [facility]. PT was updated on [facility] guidelines for 3 day medical necessity stay and 100% coverage for days 1-20. Pt is agreeable to speak with SW re: SNF placement on dc. PCP: Dr. Hernandez Specialists: Dr. Moreira, cardiology Insurance: [facility] AB Preferred Pharmacy: [facility] Prescription Benefit: yes LNOK: Mother, Brandi Levine Living Arrangements: Lives in one story home with 2-3 steps into home. Pt notes decline over last 3 months. Sleeps in high back chair. Tranportation: was driving in past DME: wheeled walker HHC:[facility] set up, but not started care. Call to [facility], they can accept pt. Updated that pt will likely need SNF on discharge SNF: none Patient DC Goals: Pt has agreed to SNF on dc. BRANDON Mcgovern updated DC Plan: SNF Tiffanie MASON RN ACM
--- NOTE | 2019-08-31 14:52 | CASEMGMT ---
It was mentioned that patient would benefit from placement in a jail facility for wound care and therapy. SW met with patient, introduced self and role at [facility]. SW gave him a list of nursing homes in [facility]. SW let him know he will pick a few places he would be willing to go to and SW will work on referrals. BRANDON told him SW will stop by tomorrow. Ashwini STUBBS
--- NOTE | 2019-08-31 15:25 | NURSING ---
wound photo: left lower leg
--- NOTE | 2019-08-31 15:27 | NURSING ---
wound photo: right lower leg
[2019-08-31] MEDS: oxyCODONE 5 MG Tablet 10 MG PO (16:43)
[2019-08-31 16:55] LABS: Bedside Glucose 143 mg/dL (70-110)
[2019-08-31 23:25] LABS: Bedside Glucose 155 mg/dL (70-110)
[2019-09-01] VITALS (19 sets, daily range): BP systolic 86–117; BP diastolic 52–80; PULSE 78–113; RESP 16–94; TEMP 36–36.7; O2SAT 95–99
[2019-09-01] MEDS: Ipratropium/Albuterol Sulfate 3 ML AMPUL.NEB INHALATION ×3 (00:47→19:10)
--- NOTE | 2019-09-01 03:57 | NURSING ---
Repeated attempts made by this RN to encourage pt to drink more bowel prep. pt states that he feels full and cannot drink anymore. pt took small sip of bowel prep at this attempt and refuses to drink more. Christopher MCKEON
[2019-09-01 05:44] LABS: Absolute Lymphocyte Count 0.52 X10^3/uL (0.83-4.51); Absolute Neutrophil Count 4.8 X10^3/uL (2.0-7.7); Basophil# 0.01 X10^3/uL; Basophil% 0.2 % (0-1); Hematocrit 28.9 % (40-54); Lymphocyte # 0.52 X10^3/ul (4.0); Lymphocyte % 9.2 % (19-41); Mean Corp Hgb Conc 31.1 g/dL (32-36); Mean Corpuscular Volume 77.1 fL (80-94); Mean Platelet Vol. 10.1 fl (6.2-12.0); Monocyte# 0.26 X10^3/uL; Monocyte% 4.6 % (0-10); NRBC Flagged by Analyzer 1.2 % (0-5); Neutrophil # 4.78 X10^3/uL (2.7-7.7); Neutrophil % 84.4 % (47-70); POSITIVE DIFFERENTIAL YES; POSITIVE MORPHOLOGY YES; Platelet Count 126 K/mm3 (150-450); RBC Distribution Width CV 21.7 % (11.6-14.6); RBC Distribution Width SD 59.4 fl (35.1-43.9); Red Blood Count 3.75 M/mm3 (4.6-6.2); White Blood Count 5.7 K/mm3 (4.4-11.0)
[2019-09-01 05:56] LABS: Differential Indicated SCAN CRITERIA MET
[2019-09-01 06:02] LABS: Albumin, Serum 2.5 g/dL (3.2-5.0); BUN 98 mg/dL (7-18); BUN/Creat Ratio 24.5 RATIO (10-20); Calcium,Total 7.8 mg/dL (8.5-10.1); Chloride 99 mmol/L (98-107); EST Glomerular Filtration Rate 16 mL/min (>60); Est Glom Filt Rate - Afr Amer 19 mL/min (>60); Glucose 146 mg/dL (74-106); Phosphorus 8.9 mg/dL (2.5-4.9); Potassium 3.8 mmol/L (3.5-5.1); Sodium Level 133 mmol/L (136-145)
[2019-09-01] MEDS: Menthol/Lanolin/Calamine/Znox 113 GM Tube 1 APPLIC TOPICAL ×3 (06:11→21:34)
[2019-09-01 06:33] LABS: Anisocytosis 2+; Hypochromasia 1+; Platelet Estimate SLT DEC (ADEQ); Polychromasia RARE
[2019-09-01 06:35] LABS: Crenated RBC 1+; Spherocyte RARE
--- NOTE | 2019-09-01 06:48 | NURSING ---
pt is refusing 0700 insulin. Christopher MCKEON
[2019-09-01 07:01] LABS: Bedside Glucose 151 mg/dL (70-110)
--- NOTE | 2019-09-01 07:41 | NURSING ---
This RN spoke with Dr Iverson regarding pt inability to drink bowel prep. Cancel scope today per Dr. Iverson. Christopher MCKEON
--- NOTE | 2019-09-01 07:44 | NURSING ---
Received call back from Dr. Iverson. We are to proceed with EGD as ordered, but cancel colonoscopy. Christopher MCKEON
--- NOTE | 2019-09-01 07:47 | ART_ITS ---
Reason For Study: ulcer Procedure A bilateral lower extremity continuous wave Doppler with analog waveform analysis,segmental pressures,and ankle brachial indexes without exercise. Left Segmental Pressures Left brachial= 86mmHg. Left posterior tibial artery = 58mmHg. Left dorsalis pedis artery = 94mmHg. Left digit = 26 mmHg. The left posterior tibial artery waveforms are monophasic. The left dorsalis pedis waveforms are biphasic. Right Segmental Pressures Right dorsalis pedis artery = 163mmHg. Right digit = 53 mmHg. The right dorsalis pedis waveforms are biphasic. The right posterior tibial artery waveforms are biphasic. AUTOMATIC PILOT MECHANIC is noncompressible. Indices The right ankle brachial index by the dorsalis pedis is 1.9. The right digital-brachial index is .62. AUTOMATIC PILOT MECHANIC is noncompressible. The left ankle brachial index by the posterior tibial artery is .67. The left ankle brachial index by the dorsalis pedis is 1.09. The left digital-brachial index is .3. Interpretation Summary Biphasic Doppler waveforms are noted at ankle level on the right. Monophasic and biphasic Doppler waveforms are noted at ankle level on the left. Pulse-volume recording waveveform amplitudes are diminished at digital level bilaterally, but satisfactory at calf and ankle levels bilaterally. The resting right ankle-brachial index is supra-normal. The resting left ankle-brachial index is normal. The right digital-brachial index is mildly diminished. The left digital-brachial index is severely diminished. There is evidence of arterial calcification at ankle level on the right. Arterial flow appears normal at ankle level bilaterally, though arterial calcification can artifactually elevate ankle- brachial indices, and the presence of occlusive disease may not be evident. In this regard, clinical correlation is advised. There appears to be mild impairment of arterial flow at digital level on the right. There appears to be severe impairment of arterial flow at digital level on the left. Ordering Physician: Juan Faith Performed By: ARABELLA, ZORAIDA RVT
--- NOTE | 2019-09-01 09:25 | CON.PCM_ITS ---
Reason for Consult Date of Consultation: 09/01/19 Reason for Consultation: venous insufficiency with painful ulcerations bilateral lower extremities. REFERRING PHYSICIAN: Dr. Perez. [employer]: Dr. Faith. History of Present Illness: The patient is a 69 year old M who was admitted for severe anemia and acute kidney injury with increased Creatinine and increased Potassium also has history of chronic venous insufficiency with painful ulcerations. He was recently transferred from the ICU. Wound cultures show Stenotrophomonas maltophilia, Enterococcus faecalis, Corynebacterium pseudodiphtheritic, and Raoultella planticola. He is on Meropenem. Adaptic dressings are being used along with compression. I was asked to evaluate these painful ulcerations bilateral lower legs for surgical options for treatment. Past Medical History Past Medical History (Chronic Problems): Chronic Problems Bilateral lower extremity edema (Chronic) Leg pain, left (Chronic) Leg pain, right (Chronic) Chronic venous insufficiency of lower extremity (Chronic) Chronic ulcer of right leg with fat layer exposed (Chronic) Chronic ulcer of left leg with fat layer exposed (Chronic) Allergies Penicillins [PCN] Allergy (Verified 08/29/19 12:05) PASSED OUT Home Medications: Ambulatory Orders Medication Instructions Recorded Apixaban [Eliquis] 5 mg PO BID #60 tab 06/05/19 Potassium Chloride [K-Dur] 20 meq PO BID #60 tab 06/05/19 Torsemide 20 mg PO BID #60 tab 06/05/19 carvedilol 6.25 mg tablet 6.25 mg PO BID #60 tab 06/17/19 Surgical History: total knee arthroplasty Psychiatric History: No pertinent psych hx Lives: Alone Smoking Status: Current every day smoker Alcohol: None Drugs: None - *Family History Offspring History Items: Diabetes - brother, Heart Disease - mother Review of Systems Comment: Constitutional: Denies: Anorexia, Chills, Fever, Night Sweats, Malaise, Weakness, Weight Change, Fatigue. Eyes: Denies: Blurred vision, Cataracts, Conjunctivae Inflammation, Double vision, Drainage, Eyelid Inflammation, Pain, Redness, Vision Change. HEENT: Reports: Difficulty Hearing, Hard of Hearing. Denies: Difficulty Swallowing, Dysphasia, Ear Pain, Eye Pain, Head Aches, Hearing Changes, Nasal bleeding, Nasal Congestion, Post Nasal Drip, Sinus Congestion, Sinus Drainage, Sore Throat, Visual Changes. Cardiovascular: Re ports: Edema, Orthopnea. Denies: Chest Pain, Claudication, Chest Pressure, Chest Tightness, Heaviness, Light Headedness, Palpitations, Paroxysmal Noc. Dyspnea, Syncope. Respiratory: Reports: Shortness of Breath, Shortness of breath at rest, Shortness of breath upon exertion, Wheezing. Denies: Cough, Hemoptysis, Pleuritic Pain, Sputum production. Gastrointestinal: Denies: Abdominal Pain, Constipation, Diarrhea, Dyspepsia, Hematemesis, Hematochezia, Nausea, Melena, Vomiting. Genitourinary: Reports: - - decrease UO. Denies: Dysuria, Frequency, Hematuria, Hesitancy, Incontinence, Nocturia, Retention, Urgency. Musculoskeletal: Reports: Leg Pain. Denies: Arm Pain, Back Pain, Foot Pain, Hand Pain, Joint Pain, Joint stiffness, Joint swelling, Joint Tenderness, Muscle pain, Neck Pain, Shoulder Pain. Skin: Reports: Lesions, Skin Changes, Wounds - B LE L>R. Denies: Dryness, Jaundice, Pruritis, Rash. Neurological: Denies: Balance problems, Blurred vision, Double vision, Change in Speech, Slurred speech, Confusion, Difficulty swallowing, Focal weakness, Headaches, Incoordination, Numbness, Tingling, Tremor, Seizures. Psychiatric: Denies: Anxiety, Depression. Endocrine: Denies: Change in Body Habitus, Heat/ Cold Intolerance, Polydipsia, Polyuria. Hematologic/ Lymphatic: Denies: Adenopathy, Anemia, Easy Bruising, Easy Bleeding, Petechiae, Purpura, Hx of blood clot, Hx of blood transfusion Patient Problems: Active and Suspected Problems ARF (acute renal failure) (Acute) Acute anemia (Acute) GI bleed (Acute) Cellulitis of both lower extremities (Acute) Hyperkalemia (Acute) Afib (Acute) Localized edema (Acute) Cellulitis of left lower limb (Acute) Cellulitis of right lower limb (Acute) Venous insufficiency (Acute) Peripheral vascular disease (Acute) Poor hygiene (Acute) Onychomycosis (Acute) Toe pain, right (Acute) Toe pain, left (Acute) - Physical Exam Vitals/I&O's: General: Alert, Oriented x3. HEENT: PERRLA, EOMI. Oral: Moist Mucosa. Neck: Supple, No cervical adenopathy. Lungs: No rhonchi, No rales. Cardiovascular: Irregular Rate, irreg rhythm. Abdomen: Soft, Non-Distended. Extremities: No clubbing, Some edema. Peripheral Pulses Normal Skin: No rashes, Ulcer/ Wound, - - B LE with severe maceration from knees to feet. Chronic venous ulcerations cluster on the right measures 30 x 12 cm ante riorly. Tender to palpation. Chronic venous ulcerations cluster on the left measures 30 x 24 cm anteriorly. christian to palpation. Lymphatic: No Cervical, Supraclavicular, or Inguinal Adenopathy Neurological: Cranial nerves II-XII grossly intact. Psych/Mental Status: Normal Affect, Appropriate. Vital Signs Temp Pulse Resp BP Pulse Ox 98.0 F 100 16 115/56 L 99 09/01/19 09:18 09/01/19 09:18 09/01/19 09:18 09/01/19 09:18 09/01/19 09:18 Oxygen Flow Rate (L/min) 2 Oxygen Delivery Method Room Air Weight: 322 lb 5.053 oz Body Mass Index (BMI) 43.4 Intake and Output for Last 24 Hours 08/30/19 08/31/19 09/01/19 23:59 23:59 23:59 Intake Total 5879.25 / 5879.25 4772.33 / 4772.33 1623.75 / 1623.75 Output Total 1295 / 1295 675 / 675 350 / 350 Balance 4584.25 / 4584.25 4097.33 / 4097.33 1273.75 / 1273.75 Microbiology Past 72 Hours 08/29/19 13:58 Wound - Leg Gram Stain - Final 08/29/19 13:58 Wound - Leg Wound Culture - Final Raoultella planticola Stenotrophomonas maltophilia Enterococcus faecalis Corynebact. pseudodiphtheritic 08/29/19 13:10 Blood Culture (Wb) - Anticubital Right Blood Culture - Preliminary No growth in 48 hours. 08/29/19 13:25 Blood Culture (Wb) - Left Forearm Blood Culture - Preliminary No growth in 48 hours. 08/30/19 17:15 Stool Stool Occult Blood (CHERYL) - Final Occult Blood Positive 08/29/19 14:43 Stool Stool Occult Blood (CHERYL) - Final Occult Blood Positive Laboratory Results 08/29/19 13:25: Diff Path Review Reviewed 08/31/19 11:24: POC Glucose 130 H 08/31/19 16:40: POC Glucose 143 H 08/31/19 21:57: POC Glucose 155 H 08/31/19 22:05: COVID-19 (LUISITO) Not Detected 09/01/19 05:25: Sodium 133 L, Potassium 3.8, Chloride 99, Carbon Dioxide 21.0, BUN 98 H, Creatinine 4.00 H, Estim Creat Clear Calc 18.50, Est GFR (MDRD) Af Amer 19 L, Est GFR (MDRD) Non-Af 16 L, BUN/Creatinine Ratio 24.5 H, Glucose 146 H, Calcium 7.8 L, Phosphorus 8.9 H, Albumin 2.5 L 09/01/19 05:25: WBC 5.7, RBC 3.75 L, Hgb 9.0 L, Hct 28.9 L, MCV 77.1 L, MCH 24.0 L, MCHC 31.1 L, RDW Std Deviation 59.4 H, RDW Coeff of Radha 21.7 H, Plt Count 126 L, MPV 10.1, Immature Gran % (Auto) 1.600 H, Neut % (Auto) 84.4 H, Lymph % (Auto) 9.2 L, Bibb % (Auto) 4.6, Eos % (Auto) 0.0, Baso % (Auto) 0.2, Absolute Neuts (auto) 4.8, Absolute Lymphs (auto) 0.52 L, Nucleated RBC % 1.2, Diff Path Review May foll, Platelet Estimate SLT DEC, Polychromasia RARE, Hypochromasia 1+, Anisocytosis 2+, Spherocytes RARE H, Crenated Cell 1+ 09/01/19 06:46: POC Glucose 151 H Current Medications Acetaminophen (Tylenol) 650 mg PO Q6H PRN PRN PRN Reason: Pain Score 1-10/Temp > 100.7 F Albuterol/Ipratropium (Duoneb) 3 ml INHALATION Q6H.RT [facility]Y Last Admin: 09/01/19 06:37 Dose: 3 ml Documented by: Calamine/Phenol (Calmoseptine Ointment) 1 applic TOPICAL TID [facility]; Protocol Last Admin: 09/01/19 06:11 Dose: 1 applicatio Documented by: Carvedilol (Coreg) 6.25 mg PO BID [facility] Last Admin: 08/31/19 22:33 Dose: 6.25 mg Documented by: Dextrose (D50w Syringe) 0 gm IV X1 PRN; Protocol PRN Reason: Hypoglycemia Diphenhydramine HCl (Benadryl) 25 mg PO BID PRN PRN PRN Reason: ITCHING Last Admin: 08/30/19 21:34 Dose: 25 mg Documented by: Glucagon () 1 mg IM .X1 PRN PRN Reason: Hypoglycemia Hydromorphone HCl (Dilaudid Inj) 1 mg IV Q2H PRN PRN PRN Reason: Pain Score 6-10/10 Last Admin: 08/30/19 09:30 Dose: 1 mg Documented by: Pantoprazole Sodium 40 mg/ (Sodium Chloride) 110 mls @ 330 mls/hr IV Q12 [facility] Last Admin: 09/01/19 09:15 Dose: 330 mls/hr Documented by: Meropenem 250 mg/ Sodium (Chloride) 55 mls @ 100 mls/hr IV Q12 [facility] Last Infusion: 08/31/19 23:00 Dose: Infused Documented by: Sodium Chloride () 250 mls @ 15 mls/hr IV .[id number] PRN PRN Reason: Saline Flush Last Infusion: 08/31/19 12:30 Dose: 0 mls/hr Documented by: Sodium Chloride () 250 mls @ 15 mls/hr IV .[id number] PRN PRN Reason: Additional IVPB Infusion Sodium Bicarbonate 100 meq/ (Dextrose) 1,100 mls @ 75 mls/hr IV .[id number] [facility] Last Admin: 09/01/19 06:43 Dose: 75 mls/hr Documented by: Insulin Human Lispro (Humalog Kwikpen (Bkc)) 0 unit SC TIDAC [facility]; Protocol Last Admin: 09/01/19 06:47 Dose: Not Given Documented by: Levothyroxine Sodium (Synthroid) 50 mcg PO DAILY@0600 [facility] Nicotine (Nicoderm Cq (Pbkc)) 21 mg TRANSDERM. DAILY [facility] Last Admin: 08/31/19 10:33 Dose: 21 mg Documented by: Nutritional Formula (Artemio - [place] Flavor) 1 packet PO BIDCM [facility] Last Admin: 08/31/19 17:00 Dose: Not Given Documented by: Nystatin (Mycostatin Powder) 1 applic TOPICAL BID [facility]; Protocol Last Admin: 08/31/19 22:23 Dose: 1 applicatio Documented by: Ondansetron HCl (Zofran) 4 mg IV Q8H PRN PRN PRN Reason: NAUSEA/VOMITING Oxycodone HCl (Oxyir) 5 mg PO Q6H PRN PRN PRN Reason: Pain Score 1-5/10 Last Admin: 08/31/19 10:41 Dose: 5 mg Documented by: Oxycodone HCl (Oxyir) 10 mg PO Q6H PRN PRN PRN Reason: Pain Score 6-10/10 Last Admin: 08/31/19 16:43 Dose: 10 mg Documented by: Prednisone () 40 mg PO DAILY@0800 [facility] Stop: 09/03/19 17:41 Last Admin: 08/31/19 10:34 Dose: 40 mg Documented by: Senna/Docusate Sodium (Senokot-S, Vanessa-Colace) 2 tablet PO DAILY PRN PRN PRN Reason: CONSTIPATION Last Admin: 08/30/19 14:01 Dose: 2 tablet Documented by: Sodium Chloride () 10 - 40 ml IV UD PRN PRN Reason: SALINE FLUSH Last Admin: 08/31/19 22:33 Dose: 20 ml Documented by: Sodium Hypochlorite (Dakins Solution 0.25% (1/2 Strength)) 1 applic TOPICAL BID [facility]; Protocol Last Admin: 08/31/19 22:11 Dose: Not Given Documented by: Assessment/Plan All Active Problems ARF (acute renal failure) (Acute) Acute anemia (Acute) GI bleed (Acute) Cellulitis of both lower extremities (Acute) Hyperkalemia (Acute) Afib (Acute) Localized edema (Acute) Cellulitis of left lower limb (Acute) Cellulitis of right lower limb (Acute) Venous insufficiency (Acute) Peripheral vascular disease (Acute) Poor hygiene (Acute) Onychomycosis (Acute) Toe pain, right (Acute) Toe pain, left (Acute) Anasarca (Acute) Acute hypoxemic respiratory failure (Acute) Macrocytic anemia (Acute) Hyponatremia (Acute) Elevated BP without diagnosis of hypertension (Acute) Morbid (severe) obesity due to excess calories (Acute) 1. Chronic venous insufficiency with ulcerations bilateral legs. 2. Cellulitis bilateral legs. 3. Bilateral leg pain. 4. Bilateral leg edema. 5. Obesity. Continue wound care with Adaptic followed by compression wrap. Continue IV Meropenem for Enterococcus faecalis, Stenotrophomonas maltophilia, Corynebacterium pseudodiphtheritic, and Raoultella planticola. These painful ulcerations are chronic and he can followup at [facility] after discharge. However it will be difficult to debride these ulcerations secondary to the pain. His best bet is to proceed with operative intervention with surgical preparation bilateral legs with incision and drainage and excisional debridement infected ulcers. Wounds will be large and postoperative care can begin with the VAC. If he develops a plateau in the healing process, can proceed with delayed closure with skin grafting. Will wait until he is more stable medically as he is currently being evaluated for his severe anemia and is being treated for his acute kidney injury. Patient was informed of the risks and complications of the procedure including a lternatives to surgery. These were discussed with the patient personally. Patient voices understanding and wishes to proceed. Inpatient E&M: 56098 Init Hosp L2 - ICD-10 - I87.2, L97.912, L97.922, L03.115, L03.116, M79.604, M79.605, R60.0, E66.01
--- NOTE | 2019-09-01 10:04 | PN.RENAL_ITS ---
Patient Problems: Active and Suspected Problems ARF (acute renal failure) (Acute) Acute anemia (Acute) GI bleed (Acute) Cellulitis of both lower extremities (Acute) Hyperkalemia (Acute) Afib (Acute) Localized edema (Acute) Cellulitis of left lower limb (Acute) Cellulitis of right lower limb (Acute) Venous insufficiency (Acute) Peripheral vascular disease (Acute) Poor hygiene (Acute) Onychomycosis (Acute) Toe pain, right (Acute) Toe pain, left (Acute) Subjective: complains of bloating, incontinent of stools. Creatinine and potassium improving - Physical Exam Vitals/I&O's: Vital Signs Temp Pulse Resp BP Pulse Ox 98.0 F 100 16 115/56 L 99 09/01/19 09:18 09/01/19 09:18 09/01/19 09:18 09/01/19 09:18 09/01/19 09:18 Oxygen Flow Rate (L/min) 2 Oxygen Delivery Method Room Air Weight: 146.2 kg Body Mass Index (BMI) 43.4 Intake and Output for Last 24 Hours 08/30/19 08/31/19 09/01/19 23:59 23:59 23:59 Intake Total 5879.25 / 5879.25 4772.33 / 4772.33 1733.75 / 1733.75 Output Total 1295 / 1295 675 / 675 350 / 350 Balance 4584.25 / 4584.25 4097.33 / 4097.33 1383.75 / 1383.75 General: Alert, Confused - disoriented to time Lungs: Clear to auscultation Cardiovascular: Regular rate Abdomen: Bowel Sounds Present, Soft, Non Tender, Distended, Obese Extremities: Edema - chronic Musculoskeletal: No Muscle Wasting, - - generalized weakness chronic Psych/Mental Status: Normal Affect Microbiology Past 72 Hours 08/29/19 13:58 Wound - Leg Gram Stain - Final 08/29/19 13:58 Wound - Leg Wound Culture - Final Raoultella planticola Stenotrophomonas maltophilia Enterococcus faecalis Corynebact. pseudodiphtheritic 08/29/19 13:10 Blood Culture (Wb) - Anticubital Right Blood Culture - Preliminary No growth in 48 hours. 08/29/19 13:25 Blood Culture (Wb) - Left Forearm Blood Culture - Preliminary No growth in 48 hours. 08/30/19 17:15 Stool Stool Occult Blood (CHERYL) - Final Occult Blood Positive 08/29/19 14:43 Stool Stool Occult Blood (CHERYL) - Final Occult Blood Positive Laboratory Results 08/29/19 13:25: Diff Path Review Reviewed 08/31/19 11:24: POC Glucose 130 H 08/31/19 16:40: POC Glucose 143 H 08/31/19 21:57: POC Glucose 155 H 08/31/19 22:05: COVID-19 (LUISITO) Not Detected 09/01/19 05:25: Sodium 133 L, Potassium 3.8, Chloride 99, Carbon Dioxide 21.0, BUN 98 H, Creatinine 4.00 H, Estim Creat Clear Calc 18.50, Est GFR (MDRD) Af Amer 19 L, Est GFR (MDRD) Non-Af 16 L, BUN/Creatinine Ratio 24.5 H, Glucose 146 H, Calcium 7.8 L, Phosphorus 8.9 H, Albumin 2.5 L 09/01/19 05:25: WBC 5.7, RBC 3.75 L, Hgb 9.0 L, Hct 28.9 L, MCV 77.1 L, MCH 24.0 L, MCHC 31.1 L, RDW Std Deviation 59.4 H, RDW Coeff of Radha 21.7 H, Plt Count 126 L, MPV 10.1, Immature Gran % (Auto) 1.600 H, Neut % (Auto) 84.4 H, Lymph % (Auto) 9.2 L, [place] % (Auto) 4.6, Eos % (Auto) 0.0, Baso % (Auto) 0.2, Absolute Neuts (auto) 4.8, Absolute Lymphs (auto) 0.52 L, Nucleated RBC % 1.2, Diff Path Review May foll, Platelet Estimate SLT DEC, Polychromasia RARE, Hypochromasia 1+, Anisocytosis 2+, Spherocytes RARE H, Crenated Cell 1+ 09/01/19 06:46: POC Glucose 151 H Current Medications Acetaminophen (Tylenol) 650 mg PO Q6H PRN PRN PRN Reason: Pain Score 1-10/Temp > 100.7 F Albuterol/Ipratropium (Duoneb) 3 ml INHALATION Q6H.RT [facility] Last Admin: 09/01/19 06:37 Dose: 3 ml Documented by: Calamine/Phenol (Calmoseptine Ointment) 1 applic TOPICAL TID [facility]; Protocol Last Admin: 09/01/19 06:11 Dose: 1 applicatio Documented by: Carvedilol (Coreg) 6.25 mg PO BID [facility] Last Admin: 08/31/19 22:33 Dose: 6.25 mg Documented by: Dextrose (D50w Syringe) 0 gm IV X1 PRN; Protocol PRN Reason: Hypoglycemia Diphenhydramine HCl (Benadryl) 25 mg PO BID PRN PRN PRN Reason: ITCHING Last Admin: 08/30/19 21:34 Dose: 25 mg Documented by: Glucagon () 1 mg IM .X1 PRN PRN Reason: Hypoglycemia Hydromorphone HCl (Dilaudid Inj) 1 mg IV Q2H PRN PRN PRN Reason: Pain Score 6-10/10 Last Admin: 08/30/19 09:30 Dose: 1 mg Documented by: Pantoprazole Sodium 40 mg/ (Sodium Chloride) 110 mls @ 330 mls/hr IV Q12 [facility] Last Infusion: 09/01/19 09:35 Dose: Infused Documented by: Meropenem 250 mg/ Sodium (Chloride) 55 mls @ 100 mls/hr IV Q12 [facility] Last Infusion: 08/31/19 23:00 Dose: Infused Documented by: Sodium Chloride () 250 mls @ 15 mls/hr IV .[id number] PRN PRN Reason: Saline Flush Last Infusion: 08/31/19 12:30 Dose: 0 mls/hr Documented by: Sodium Chloride () 250 mls @ 15 mls/hr IV .[id number] PRN PRN Reason: Additional IVPB Infusion Sodium Bicarbonate 100 meq/ (Dextrose) 1,100 mls @ 75 mls/hr IV .[id number] [facility] Last Admin: 09/01/19 06:43 Dose: 75 mls/hr Documented by: Insulin Human Lispro (Humalog Kwikpen (Bkc)) 0 unit SC TIDAC [facility]; Protocol Last Admin: 09/01/19 06:47 Dose: Not Given Documented by: Levothyroxine Sodium (Synthroid) 50 mcg PO DAILY@0600 [facility] Nicotine (Nicoderm Cq (Pbkc)) 21 mg TRANSDERM. DAILY [facility] Last Admin: 08/31/19 10:33 Dose: 21 mg Documented by: Nutritional Formula (Artemio - [place] Flavor) [facility] Last Admin: 09/01/19 10:00 Dose: Not Given Documented by: Nystatin (Mycostatin Powder) 1 applic TOPICAL BID [facility]; Protocol Last Admin: 08/31/19 22:23 Dose: 1 applicatio Documented by: Ondansetron HCl (Zofran) 4 mg IV Q8H PRN PRN PRN Reason: NAUSEA/VOMITING Oxycodone HCl (Oxyir) 5 mg PO Q6H PRN PRN PRN Reason: Pain Score 1-510 Last Admin: 08/31/19 10:41 Dose: 5 mg Documented by: Oxycodone HCl (Oxyir) 10 mg PO Q6H PRN PRN PRN Reason: Pain Score 6-10/10 Last Admin: 08/31/19 16:43 Dose: 10 mg Documented by: Prednisone () 40 mg PO DAILY@0800 [facility] Stop: 09/03/19 17:41 Last Admin: 08/31/19 10:34 Dose: 40 mg Documented by: Senna/Docusate Sodium (Senokot-S, Vanessa-Colace) 2 tablet PO DAILY PRN PRN PRN Reason: CONSTIPATION Last Admin: 08/30/19 14:01 Dose: 2 tablet Documented by: Sodium Chloride () 10 - 40 ml IV UD PRN PRN Reason: SALINE FLUSH Last Admin: 08/31/19 22:33 Dose: 20 ml Documented by: Sodium Hypochlorite (Dakins Solution 0.25% (1/2 Strength)) 1 applic TOPICAL BID [facility]; Protocol Last Admin: 08/31/19 22:11 Dose: Not Given Documented by: Medical Necessity - Tobacco Use Smoking Status: Current every day smoker Assessment/Plan All Active Problems ARF (acute renal failure) (Acute) Acute anemia (Acute) GI bleed (Acute) Cellulitis of both lower extremities (Acute) Hyperkalemia (Acute) Afib (Acute) Localized edema (Acute) Cellulitis of left lower limb (Acute) Cellulitis of right lower limb (Acute) Venous insufficiency (Acute) Peripheral vascular disease (Acute) Poor hygiene (Acute) Onychomycosis (Acute) Toe pain, right (Acute) Toe pain, left (Acute) Anasarca (Acute) Acute hypoxemic respiratory failure (Acute) Macrocytic anemia (Acute) Hyponatremia (Acute) Elevated BP without diagnosis of hypertension (Acute) Morbid (severe) obesity due to excess calories (Acute) 1. DIPTI baseline creatnine 0.67 on 06/05/19. Creatinine improved to 4.0 today. FeNa <1% Continue with iv fluids. No need for hemodialysis at this time. 2. GI bleed endoscopy by GS. hgb 9g. Hx motrin use, black stools at home 3. Hyperkalemia improved 4. Metabolic acidosis, continue bicarb drip 5. Acute cellulitis due to edema, renal dose iv antibx. Blood cx no growth so far 6. Morbid obesity 7. Anasarca with BLE edema.UPCR 1g/g. serum albumin low at 2.4. 8. Hx alcohol abuse 4-6 beers a day. last drink 2 months ago 9. COPD with tobacco use 2ppd up to admission.
--- NOTE | 2019-09-01 10:45 | PCM.PN.HOSP ---
Patient Problems: Active and Suspected Problems ARF (acute renal failure) (Acute) Acute anemia (Acute) GI bleed (Acute) Cellulitis of both lower extremities (Acute) Hyperkalemia (Acute) Afib (Acute) Localized edema (Acute) Cellulitis of left lower limb (Acute) Cellulitis of right lower limb (Acute) Venous insufficiency (Acute) Peripheral vascular disease (Acute) Poor hygiene (Acute) Onychomycosis (Acute) Toe pain, right (Acute) Toe pain, left (Acute) Reason for Visit: Follow-up on severe anemia/bilateral lower extremity cellulitis Subjective: Patient was seen and examined. Denied any new complaints. He was unable to successfully complete a bowel preparation for colonoscopy. Will be going for EGD today. Objective: Physical exam: General: Alert, Oriented x3, Cooperative, No apparent distress HEENT: Atraumatic, PERRLA, EOMI, Normocephalic Oral: Dry Mucosa Neck: Supple, No JVD, Negative Carotid Bruits Lungs: Clear to auscultation, Normal air movement, No rhonchi, No wheeze Cardiovascular: Irregular Rate - Afib, rate controlled. Abdomen: Bowel Sounds Present, Soft, Non Tender, Non-Distended, No Hepato-splenomegaly Extremities:Edema +1-2, with evidence of wrinkling of skin Skin: - - see previous notes as lower extremities are CESAR-wrapped Musculoskeletal: No Tenderness to Palpation of Joints or Extremities Lymphatic: No Cervical, Supraclavicular, or Inguinal Adenopathy Neurological: Cranial nerves II-XII grossly intact, Neuro grossly intact, Motor Exam 5/5 strength throughout Psych/Mental Status: Normal Affect, Appropriate, Alert and oriented to time, place, person, mood and affect Vitals/I&O's: Vital Signs Temp Pulse Resp BP Pulse Ox 98.0 F 100 16 115/56 L 99 09/01/19 09:18 09/01/19 09:18 09/01/19 09:18 09/01/19 09:18 09/01/19 09:18 Oxygen Flow Rate (L/min) 2 Oxygen Delivery Method Nasal Cannula Weight: 146.2 kg Body Mass Index (BMI) 43.4 Intake and Output for Last 24 Hours 08/30/19 08/31/19 09/01/19 23:59 23:59 23:59 Intake Total 5879.25 / 5879.25 4772.33 / 4772.33 1733.75 / 1733.75 Output Total 1295 / 1295 675 / 675 350 / 350 Balance 4584.25 / 4584.25 4097.33 / 4097.33 1383.75 / 1383.75 Microbiology Past 72 Hours 08/29/19 13:58 Wound - Leg Gram Stain - Final 08/29/19 13:58 Wound - Leg Wound Culture - Final Raoultella planticola Stenotrophomonas maltophilia Enterococcus faecalis Corynebact. pseudodiphtheritic 08/29/19 13:10 Blood Culture (Wb) - Anticubital Right Blood Culture - Preliminary No growth in 48 hours. 08/29/19 13:25 Blood Culture (Wb) - Left Forearm Blood Culture - Preliminary No growth in 48 hours. 08/30/19 17:15 Stool Stool Occult Blood (CHERYL) - Final Occult Blood Positive 08/29/19 14:43 Stool Stool Occult Blood (CHERYL) - Final Occult Blood Positive Laboratory Results 08/29/19 13:25: Diff Path Review Reviewed 08/31/19 11:24: POC Glucose 130 H 08/31/19 16:40: POC Glucose 143 H 08/31/19 21:57: POC Glucose 155 H 08/31/19 22:05: COVID-19 (LUISITO) Not Detected 09/01/19 05:25: Sodium 133 L, Potassium 3.8, Chloride 99, Carbon Dioxide 21.0, BUN 98 H, Creatinine 4.00 H, Estim Creat Clear Calc 18.50, Est GFR (MDRD) Af Amer 19 L, Est GFR (MDRD) Non-Af 16 L, BUN/Creatinine Ratio 24.5 H, Glucose 146 H, Calcium 7.8 L, Phosphorus 8.9 H, Albumin 2.5 L 09/01/19 05:25: WBC 5.7, RBC 3.75 L, Hgb 9.0 L, Hct 28.9 L, MCV 77.1 L, MCH 24.0 L, MCHC 31.1 L, RDW Std Deviation 59.4 H, RDW Coeff of Radha 21.7 H, Plt Count 126 L, MPV 10.1, Immature Gran % (Auto) 1.600 H, Neut % (Auto) 84.4 H, Lymph % (Auto) 9.2 L, Ritchie % (Auto) 4.6, Eos % (Auto) 0.0, Baso % (Auto) 0.2, Absolute Neuts (auto) 4.8, Absolute Lymphs (auto) 0.52 L, Nucleated RBC % 1.2, Diff Path Review May foll, Platelet Estimate SLT DEC, Polychromasia RARE, Hypochromasia 1+, Anisocytosis 2+, Spherocytes RARE H, Crenated Cell 1+ 09/01/19 06:46: POC Glucose 151 H Current Medications Acetaminophen (Tylenol) 650 mg PO Q6H PRN PRN PRN Reason: Pain Score 1-10/Temp > 100.7 F Albuterol/Ipratropium (Duoneb) 3 ml INHALATION Q6H.RT [facility] Last Admin: 09/01/19 06:37 Dose: 3 ml Documented by: Calamine/Phenol (Calmoseptine Ointment) 1 applic TOPICAL TID [facility]; Protocol Last Admin: 09/01/19 06:11 Dose: 1 applicatio Documented by: Carvedilol (Coreg) 6.25 mg PO BID [facility] Last Admin: 08/31/19 22:33 Dose: 6.25 mg Documented by: Dextrose (D50w Syringe) 0 gm IV X1 PRN; Protocol PRN Reason: Hypoglycemia Diphenhydramine HCl (Benadryl) 25 mg PO BID PRN PRN PRN Reason: ITCHING Last Admin: 08/30/19 21:34 Dose: 25 mg Documented by: Glucagon () 1 mg IM .X1 PRN PRN Reason: Hypoglycemia Hydromorphone HCl (Dilaudid Inj) 1 mg IV Q2H PRN PRN PRN Reason: Pain Score 6-10/10 Last Admin: 08/30/19 09:30 Dose: 1 mg Documented by: Pantoprazole Sodium 40 mg/ (Sodium Chloride) 110 mls @ 330 mls/hr IV Q12 [facility] Last Infusion: 09/01/19 09:35 Dose: Infused Documented by: Meropenem 250 mg/ Sodium (Chloride) 55 mls @ 100 mls/hr IV Q12 [facility] Last Admin: 09/01/19 10:10 Dose: 100 mls/hr Documented by: Sodium Chloride () 250 mls @ 15 mls/hr IV .[id number] PRN PRN Reason: Saline Flush Last Infusion: 08/31/19 12:30 Dose: 0 mls/hr Documented by: Sodium Chloride () 250 mls @ 15 mls/hr IV .[id number] PRN PRN Reason: Additional IVPB Infusion Sodium Bicarbonate 100 meq/ (Dextrose) 1,100 mls @ 75 mls/hr IV .[id number] [facility] Last Admin: 09/01/19 06:43 Dose: 75 mls/hr Documented by: Insulin Human Lispro (Humalog Kwikpen (Bkc)) 0 unit SC TIDAC [facility]; Protocol Last Admin: 09/01/19 06:47 Dose: Not Given Documented by: Levothyroxine Sodium (Synthroid) 50 mcg PO DAILY@0600 [facility] Nicotine (Nicoderm Cq (Pbkc)) 21 mg TRANSDERM. DAILY [facility] Last Admin: 09/01/19 10:09 Dose: 21 mg Documented by: Nutritional Formula (Artemio - [place] Flavor) [facility] Last Admin: 09/01/19 10:00 Dose: Not Given Documented by: Nystatin (Mycostatin Powder) 1 applic TOPICAL BID [facility]; Protocol Last Admin: 08/31/19 22:23 Dose: 1 applicatio Documented by: Ondansetron HCl (Zofran) 4 mg IV Q8H PRN PRN PRN Reason: NAUSEA/VOMITING Oxycodone HCl (Oxyir) 5 mg PO Q6H PRN PRN PRN Reason: Pain Score 1-5/10 Last Admin: 08/31/19 10:41 Dose: 5 mg Documented by: Oxycodone HCl (Oxyir) 10 mg PO Q6H PRN PRN PRN Reason: Pain Score 6-10/10 Last Admin: 08/31/19 16:43 Dose: 10 mg Documented by: Prednisone () 40 mg PO DAILY@0800 [facility] Stop: 09/03/19 17:41 Last Admin: 08/31/19 10:34 Dose: 40 mg Documented by: Senna/Docusate Sodium (Senokot-S, Vanessa-Colace) 2 tablet PO DAILY PRN PRN PRN Reason: CONSTIPATION Last Admin: 08/30/19 14:01 Dose: 2 tablet Documented by: Sodium Chloride () 10 - 40 ml IV UD PRN PRN Reason: SALINE FLUSH Last Admin: 06/08/20 22:33 Dose: 20 ml Documented by: Sodium Hypochlorite (Dakins Solution 0.25% (1/2 Strength)) 1 applic TOPICAL BID [facility]; Protocol Last Admin: 08/31/19 22:11 Dose: Not Given Documented by: STROKE Vital Signs/Narrative: Vital Signs Temp Pulse Resp BP Pulse Ox 09/01/19 09:18 98.0 F 100 16 115/56 L 99 09/01/19 07:26 108 H Medical Necessity - Tobacco Use Smoking Status: Current every day smoker Assessment/Plan All Active Problems ARF (acute renal failure) (Acute) Acute anemia (Acute) GI bleed (Acute) Cellulitis of both lower extremities (Acute) Hyperkalemia (Acute) Afib (Acute) Localized edema (Acute) Cellulitis of left lower limb (Acute) Cellulitis of right lower limb (Acute) Venous insufficiency (Acute) Peripheral vascular disease (Acute) Poor hygiene (Acute) Onychomycosis (Acute) Toe pain, right (Acute) Toe pain, left (Acute) Anasarca (Acute) Acute hypoxemic respiratory failure (Acute) Macrocytic anemia (Acute) Hyponatremia (Acute) Elevated BP without diagnosis of hypertension (Acute) Morbid (severe) obesity due to excess calories (Acute) 1. Acute severe anemia secondary to Acute GI bleed, FOBT x2 is negative Admitting Hb is 4.7. Status post 7 units of packed RBC today. Hemoglobin today is 9.0 General surgery consulted, planning on EGD today. Patient did not complete bowel prep for colonoscopy Will plan on colonoscopy on . Will keep on liquid diet. Continue on IV PPI 2. DIPTI, prerenal, multifactorial, likely secondary to severe anemia/use of NSAIDs/Lasix Creatinine slightly improved from 4.32 to 4.00 Urine output is nonoliguric. Nephrology following On IV fluids, will repeat blood work in a.m. 3. Hyperkalemia, resolved, status post treatment with Kayexalate 4. Hypothyroidism, will start on levothyroxine 50mg po daily 5. Bilateral lower extremity cellulitis/chronic venous stasis ulcers/worsened by self-neglect No fevers, no leukocytosis. Continue on meropenem Wound RN following 6. Hypoxia likely secondary to atelectasis, now on 2L oxygen from 4L Will monitor for acute CHF with IVF, continue to wean off oxygen, breathing treatments PRN 7. Chronic diastolic CHF, EF of 60% with moderate LVH, not in acute exacerbation Will be careful with use of IV fluids for DIPTI Follow-up with daily weights 8. Paroxysmal atrial fibrillation, rate controlled, continue on Coreg Off Eliquis on account of GI bleed 9. Hypertension, controlled, continue on Coreg 10. DVT PPx- SCDs Inpatient E&M: 11163 Subs Hosp L2
[2019-09-01] MEDS: Nystatin Powder 15gm Bottle 1 APPLIC TOPICAL ×2 (11:05→21:35)
[2019-09-01] MEDS: HYDROmorphone 1 MG/ML Syringe IV (11:11)
[2019-09-01] MEDS: 0.9% Saline Lock 10 ML Syringe IV (11:12)
[2019-09-01 11:25] LABS: Bedside Glucose 126 mg/dL (70-110)
[2019-09-01 11:26] LABS: Pathologist Review Reviewed
--- NOTE | 2019-09-01 11:48 | NURSING ---
pt being transported to EGD procedure by MAI Martínez
[2019-09-01] MEDS: Lactated Ringers 1,000 ML 75 ML IV (12:03)
--- NOTE | 2019-09-01 12:30 | IMM_PTH ---
PATIENT: ANGELA WHITE LOC: ICU U#:[id number] AGE/SX: 69/M ROOM: ICU07 RE08/29/[address]: Dr. Glenny Vidal MD : 1950 BED: 1 DIS: 09/04/2019 SPEC #: [id number] RECD: 09/02/19 09:39 STATUS: NGUYEN REQ #: [id number] CHICHI: 09/01/19 12:[address]: Jazmin Iverson DEPT: IMMUNOHISTOCHEMISTRY RECD BY: Stephanie Clay ENTERED: 09/02/19 09:39 SP TYPE: IMMUNO OTHR DR: MD Dr. Nancy Vergara DO Dr. Jeanna Fascione, DPM Dr. James A Slaby, MD Dr. Kathryn Lee, DO Dr. Victor Velasquez, MD Tissues: Stomach, NOS Procedures: H Pylori (initial) PHYSICIAN & INSTITUTION [facility] [id number] SPECIMEN INFORMATION: Tissue Source: Antrum biopsy Clinical Info: Anemia, GI bleed Specimen Number: [id number] CPT code: 91861 METHODOLOGY: Deparaffinized sections of prefer/formalin-fixed tissue or PAP/DQ stained slides are incubated with monoclonal/polyclonal antibodies/oligonucleotide probes. Localization is made via biotin free immunoperoxidase method. Appropriate controls are performed and reacted as expected. Results on target cell population are indicated in the following table: RESULTS: ANTIBODY / CLONE RESULT H Pylori (polyclonal) negative These tests were developed and their performance characteristics determined by [facility]. They may not have been cleared or approved by the U.S. Food and Drug Administration. The FDA has determined that such clearance or approval is not necessary. INTERPRETATION: Antrum, biopsy: Negative for Helicobacter pylori organisms. SJ:marylin 09/03/19
--- NOTE | 2019-09-01 12:30 | EGD_PTH ---
PATIENT: ANGELA WHITE LOC: [facility] U#:[id number] AGE/SX: 69/M ROOM: ICU07 RE08/29/[address]: Dr. Glenny Vidal MD : 1950 BED: 1 DIS: 09/04/2019 SPEC #: [id number] RECD: 09/01/19 13:48 STATUS: NGUYEN REQ #: [id number] CHICHI: 09/01/19 12:[address]: Jazmin Iverson DEPT: SURGICAL PATHOLOGY RECD BY: Saida Casanova ENTERED: 09/01/19 14:04 SP TYPE: EGD BIOPSY OT DR: MD Dr. Nancy Vergraa DO Dr. Jeanna Fascione, DPM MD Dr. Meka Kohli DO Dr. Victor Velasquez, MD Tissues: Gastric mucous membrane Procedures: Surgery Specimen Level IV HEADER OPERATION: EGD (MAC) PRE-OP DIAGNOSIS: Anemia, GI bleed TISSUE SUBMITTED: Antrum biopsy for histo and H. pylori MICROSCOPIC DIAGNOSIS Antrum, biopsy: Mild gastritis. See microscopic description and comment. MADAY:marylin 09/03/19 COMMENT The results of immunohistochemistry for Helicobacter pylori will be reported separately ([id number]). MICROSCOPIC DESCRIPTION Slides are reviewed. The specimen shows fragments of gastric mucosa with chronic inflammatory cell infiltrates in the lamina propria consisting of lymphocytes and plasma cells, consistent with mild chronic gastritis. GROSS DESCRIPTION Received in fixative is one container labeled with the patient's name and designated antrum biopsy. The specimen consists of multiple irregular fragments of light gtz soft tissue that in aggregate measure 1 x 0.3 x 0.1 cm. The specimen is totally submitted in one cassette. / MADAY:marylin 09/02/19 TC:3 CPT: 12723
--- NOTE | 2019-09-01 12:33 | OP.EGD_ITS ---
Patient Name: Agustin Levine Procedure Date: 09/01/2019 12:08 PM Date of : 1950 Age: 69 Procedure: Upper GI endoscopy Indications: Iron deficiency anemia secondary to chronic blood loss Providers: Jazmin Iverson MD Medicines: See the Anesthesia note for documentation of the administered medications Patient Profile: Refer to note in patient chart for documentation of history and physical. Complications: No immediate complications. Procedure: Pre-Anesthesia Assessment: - see anesthesia note After obtaining informed consent, the endoscope was passed under direct vision. Throughout the procedure, the patient's blood pressure, pulse, and oxygen saturations were monitored continuously. The gastroscope was introduced through the mouth, and advanced to the second part of duodenum. The upper GI endoscopy was accomplished without difficulty. The patient tolerated the procedure well. Scope In: 12:16:53 PM Scope Out: 12:24:24 PM Total Procedure Duration Time 0 hours 7 minutes 31 seconds Findings: The first portion of the duodenum and second portion of the duodenum were normal. One non-bleeding cratered gastric ulcer with no stigmata of bleeding was found in the gastric antrum. The lesion was 1 mm in largest dimension. Biopsies were taken with a cold forceps for histology. Estimated blood loss was minimal. Diffuse mildly erythematous mucosa without bleeding was found in the entire examined stomach. A small hiatal hernia was present. Impression: - Normal first portion of the duodenum and second portion of the duodenum. - Non-bleeding gastric ulcer with no stigmata of bleeding. Biopsied. - Erythematous mucosa in the stomach. - Small hiatal hernia. Recommendation: - [facility] to [facility] for [facility] care. - Resume regular diet. - Continue present medications. - Await pathology results. - My office will telephone with pathology results in 1-2 weeks Procedure Code(s): --- Professional --- 26108, Esophagogastroduodenoscopy, flexible, transoral; with biopsy, single or multiple Diagnosis Code(s): --- Professional --- K25.9, Gastric ulcer, unspecified as acute or chronic, without hemorrhage or perforation K31.89, Other diseases of stomach and duodenum K44.9, Diaphragmatic hernia without obstruction or gangrene D50.0, Iron deficiency anemia secondary to blood loss (chronic) CPT copyright 2017 [employer]. All rights reserved. The codes documented in this report are preliminary and upon metal reed tuner review may be revised to meet current compliance requirements. MD Jazmin Juárez MD 09/01/2019 12:32:36 PM This report has been signed electronically. Number of Addenda: 0 Note Initiated On: 09/01/2019 12:08 PM
--- NOTE | 2019-09-01 12:33 | OP.CCLET_ITS ---
09/01/2019 Avi Hernandez [address] [place] [address] Re : Upper GI endoscopy procedure for Agustin Levine Dear Dr. Hernandez This procedure was performed on Sunday, September 01, 2019. My impressions and recommendations are as follows: Impressions : - Normal first portion of the duodenum and second portion of the duodenum. - Non-bleeding gastric ulcer with no stigmata of bleeding. Biopsied. - Erythematous mucosa in the stomach. - Small hiatal hernia. Recommendations : - Return patient to [facility] for ongoing care. - Resume regular diet. - Continue present medications. - Await pathology results. - My office will telephone with pathology results in 1-2 weeks My findings are described in the full procedure note, which is enclosed. If I can be of further assistance, please feel free to contact me at Doctor phone number(s): , Work: . Sincerely, MD Jazmin Juárez MD 09/01/2019 12:32:36 PM This report has been signed electronically.
--- NOTE | 2019-09-01 12:33 | PCM.PN.BLA ---
Progress Note upper endoscopy findings - healed gastric ulcer - no bleeding noted, biopsies taken Patient is non compliant with colon cleansing preparation If hospitalist wish to pursue colonoscopy, can reschedule for , and keep on clear liquid diet Otherwise, if does not want to pursue colonoscopy, can be on regular diet and discharge as per internal medicine STROKE Vital Signs/Narrative: Vital Signs Temp Pulse Resp BP Pulse Ox 09/01/19 10:51 98 09/01/19 09:18 98.0 F 100 16 115/56 L 99
[2019-09-01] MEDS: Carvedilol 6.25 MG Tablet PO ×2 (13:26→21:35)
[2019-09-01] MEDS: predniSONE 20 MG Tablet 40 MG PO (13:28)
--- NOTE | 2019-09-01 13:29 | CASEMGMT ---
Addendum entered by Ashwini Watson 09/01/19 14:44: Received call from [facility] and TCU can accept patient. Ashwini STUBBS Original Note: BRANDON met with patient, introduced self and role at [facility]. SW reminded him SW spoke with him briefly yesterday about nursing homes. RN spoke up and said she spoke with patient earlier and his mom and they would like TCU. Patient confirmed this is where he wants to go. SW told him BRANDON will work on this. BRANDON called [facility] in TCU and left her a voice mail with referral. Ashwini STUBBS
--- NOTE | 2019-09-01 15:28 | NURSING ---
pt's mother updated on POC
[2019-09-01 16:16] LABS: Bedside Glucose 184 mg/dL (70-110)
[2019-09-01] MEDS: Insulin Lispro 100 UNIT/ML INSULN.PEN SC (16:30)
[2019-09-01] MEDS: Levothyroxine 50 MCG Tablet PO (16:31)
[2019-09-01 23:15] LABS: Bedside Glucose 171 mg/dL (70-110)
[2019-09-02] VITALS (12 sets, daily range): BP systolic 95–110; BP diastolic 53–69; PULSE 77–114; RESP 18–20; TEMP 36.1–36.4; O2SAT 96–98
[2019-09-02] MEDS: Ipratropium/Albuterol Sulfate 3 ML AMPUL.NEB INHALATION ×2 (01:17→07:15)
[2019-09-02] MEDS: Menthol/Lanolin/Calamine/Znox 113 GM Tube 1 APPLIC TOPICAL ×3 (05:29→21:44)
[2019-09-02] MEDS: Levothyroxine 50 MCG Tablet PO (05:29)
[2019-09-02 05:33] LABS: Eosinophil Ct. Urine No Eosinophils Seen % (.)
[2019-09-02 05:35] LABS: Absolute Lymphocyte Count 0.43 X10^3/uL (0.83-4.51); Absolute Neutrophil Count 3.9 X10^3/uL (2.0-7.7); Basophil# 0.01 X10^3/uL; Basophil% 0.2 % (0-1); Eosinophil# 0.01 X10^3/uL; Eosinophils% 0.2 % (0-5); Hematocrit 29.8 % (40-54); Hemoglobin 8.9 g/dL (13.0-16.5); Lymphocyte # 0.43 X10^3/ul (4.0); Lymphocyte % 9.2 % (19-41); Mean Corp Hgb Conc 29.9 g/dL (32-36); Mean Corpuscular Hgb 22.9 pg (27.0-32.0); Mean Corpuscular Volume 76.6 fL (80-94); Mean Platelet Vol. 10.4 fl (6.2-12.0); Monocyte# 0.17 X10^3/uL; Monocyte% 3.6 % (0-10); NRBC Flagged by Analyzer 1.9 % (0-5); Neutrophil # 3.88 X10^3/uL (2.7-7.7); Neutrophil % 83.4 % (47-70); POSITIVE DIFFERENTIAL YES; POSITIVE MORPHOLOGY YES; Platelet Count 110 K/mm3 (150-450); RBC Distribution Width CV 22.3 % (11.6-14.6); RBC Distribution Width SD 59.7 fl (35.1-43.9); Red Blood Count 3.89 M/mm3 (4.6-6.2); White Blood Count 4.7 K/mm3 (4.4-11.0)
[2019-09-02 05:36] LABS: Differential Indicated SCAN CRITERIA MET
[2019-09-02 05:40] LABS: Albumin, Serum 2.5 g/dL (3.2-5.0); BUN 99 mg/dL (7-18); BUN/Creat Ratio 24.8 RATIO (10-20); Calcium,Total 7.9 mg/dL (8.5-10.1); Chloride 96 mmol/L (98-107); Creatinine, Serum 3.99 mg/dL (0.70-1.30); EST Glomerular Filtration Rate 16 mL/min (>60); Est Glom Filt Rate - Afr Amer 19 mL/min (>60); Estimated Creatinine Clearance 18.55 ml/min; Glucose 154 mg/dL (74-106); Phosphorus 8.9 mg/dL (2.5-4.9); Potassium 3.5 mmol/L (3.5-5.1); Sodium Level 133 mmol/L (136-145)
[2019-09-02 05:52] LABS: Differential Comment SCANNED; Hypochromasia 1+
[2019-09-02 06:55] LABS: Bedside Glucose 154 mg/dL (70-110)
--- NOTE | 2019-09-02 08:57 | PCM.PN.REN ---
Patient Problems: Active and Suspected Problems ARF (acute renal failure) (Acute) Acute anemia (Acute) GI bleed (Acute) Cellulitis of both lower extremities (Acute) Hyperkalemia (Acute) Afib (Acute) Localized edema (Acute) Cellulitis of left lower limb (Acute) Cellulitis of right lower limb (Acute) Venous insufficiency (Acute) Peripheral vascular disease (Acute) Poor hygiene (Acute) Onychomycosis (Acute) Toe pain, right (Acute) Toe pain, left (Acute) Subjective: somnolent but arrousable, didnt sleep well last night due to all the interruptions with pt care. - Physical Exam Vitals/I&O's: Vital Signs Temp Pulse Resp BP Pulse Ox 96.9 F L 81 18 99/53 L 96 09/02/19 03:55 09/02/19 07:10 09/02/19 07:10 09/02/19 03:55 09/02/19 08:15 Oxygen Flow Rate (L/min) 2 Oxygen Delivery Method Nasal Cannula Weight: 148.6 kg Body Mass Index (BMI) 43.4 Intake and Output for Last 24 Hours 08/31/19 09/01/19 09/02/19 23:59 23:59 23:59 Intake Total 4772.33 / 4772.33 4029.75 / 4029.75 Output Total 675 / 675 1300 / 1300 100 / 100 Balance 4097.33 / 4097.33 2729.75 / 2729.75 -100 / -100 General: Lethargic Lungs: Clear to auscultation Cardiovascular: Irregular Rate Abdomen: Bowel Sounds Present, Soft, Non Tender, Non-Distended, Obese Extremities: - - legs wrapped Skin: Ulcer/ Wound - BLE Musculoskeletal: - - gen weakness Microbiology Past 72 Hours 08/29/19 13:58 Wound - Leg Gram Stain - Final 08/29/19 13:58 Wound - Leg Wound Culture - Final Raoultella planticola Stenotrophomonas maltophilia Enterococcus faecalis Corynebact. pseudodiphtheritic 08/29/19 13:10 Blood Culture (Wb) - Anticubital Right Blood Culture - Preliminary No growth in 48 hours. 08/29/19 13:25 Blood Culture (Wb) - Left Forearm Blood Culture - Preliminary No growth in 48 hours. 08/30/19 17:15 Stool Stool Occult Blood (CHERYL) - Final Occult Blood Positive Laboratory Results 08/29/19 18:55: Eos Smear Total Cells No Eosinophils Seen 09/01/19 05:25: Diff Path Review Reviewed 09/01/19 11:20: POC Glucose 126 H 09/01/19 16:11: POC Glucose 184 H 09/01/19 21:47: POC Glucose 171 H 09/02/19 05:00: Sodium 133 L, Potassium 3.5, Chloride 96 L, Carbon Dioxide 23.0, BUN 99 H, Creatinine 3.99 H, Estim Creat Clear Calc 18.55, Est GFR (MDRD) Af Amer 19 L, Est GFR (MDRD) Non-Af 16 L, BUN/Creatinine Ratio 24.8 H, Glucose 154 H, Calcium 7.9 L, Phosphorus 8.9 H, Albumin 2.5 L 09/02/19 05:00: WBC 4.7, RBC 3.89 L, Hgb 8.9 L, Hct 29.8 L, MCV 76.6 L, MCH 22.9 L, MCHC 29.9 L, RDW Std Deviation 59.7 H, RDW Coeff of Radha 22.3 H, Plt Count 110 L, MPV 10.4, Immature Gran % (Auto) 3.400 H, Neut % (Auto) 83.4 H, Lymph % (Auto) 9.2 L, [place] % (Auto) 3.6, Eos % (Auto) 0.2, Baso % (Auto) 0.2, Absolute Neuts (auto) 3.9, Absolute Lymphs (auto) 0.43 L, Nucleated RBC % 1.9, Differential Comment SCANNED, Hypochromasia 1+ 09/02/19 06:44: POC Glucose 154 H Current Medications Acetaminophen (Tylenol) 650 mg PO Q6H PRN PRN PRN Reason: Pain Score 1-10/Temp > 100.7 F Albuterol/Ipratropium (Duoneb) 3 ml INHALATION Q6H.RT [facility] Last Admin: 09/02/19 07:15 Dose: 3 ml Documented by: Calamine/Phenol (Calmoseptine Ointment) 1 applic TOPICAL TID [facility]; Protocol Last Admin: 09/02/19 05:29 Dose: 1 applicatio Documented by: Carvedilol (Coreg) 6.25 mg PO BID [facility] Last Admin: 09/01/19 21:35 Dose: 6.25 mg Documented by: Dextrose (D50w Syringe) 0 gm IV X1 PRN; Protocol PRN Reason: Hypoglycemia Diphenhydramine HCl (Benadryl) 25 mg PO BID PRN PRN PRN Reason: ITCHING Last Admin: 08/30/19 21:34 Dose: 25 mg Documented by: Glucagon () 1 mg IM .X1 PRN PRN Reason: Hypoglycemia Pantoprazole Sodium 40 mg/ (Sodium Chloride) 110 mls @ 330 mls/hr IV Q12 [facility] Last Infusion: 09/01/19 21:58 Dose: Infused Documented by: Meropenem 250 mg/ Sodium (Chloride) 55 mls @ 100 mls/hr IV Q12 [facility] Last Infusion: 09/01/19 22:48 Dose: Infused Documented by: Sodium Chloride () 250 mls @ 15 mls/hr IV .[id number] PRN PRN Reason: Saline Flush Last Infusion: 09/01/19 23:37 Dose: 0 mls/hr Documented by: Sodium Chloride () 250 mls @ 15 mls/hr IV .[id number] PRN PRN Reason: Additional IVPB Infusion Sodium Bicarbonate 100 meq/ (Dextrose) 1,100 mls @ 75 mls/hr IV .[id number] [facility] Last Admin: 09/01/19 23:38 Dose: 75 mls/hr Documented by: Lactated Ringer's () 1,000 mls @ 75 mls/hr IV .[id number] [facility] Last Admin: 09/02/19 00:44 Dose: Not Given Documented by: Insulin Human Lispro (Humalog Kwikpen (Bkc)) 0 unit SC TIDAC [facility]; Protocol Last Admin: 09/02/19 06:47 Dose: Not Given Documented by: Levothyroxine Sodium (Synthroid) 50 mcg PO DAILY@0600 [facility] Last Admin: 09/02/19 05:29 Dose: 50 mcg Documented by: Nicotine (Nicoderm Cq (Pbkc)) 21 mg TRANSDERM. DAILY [facility] Last Admin: 09/01/19 10:09 Dose: 21 mg Documented by: Nutritional Formula (Artemio - Fajardo Flavor) 1 packet PO BIDCM [facility] Last Admin: 09/01/19 16:24 Dose: Not Given Documented by: Nystatin (Mycostatin Powder) 1 applic TOPICAL BID [facility]; Protocol Last Admin: 09/01/19 21:35 Dose: 1 applicatio Documented by: Ondansetron HCl (Zofran) 4 mg IV Q8H PRN PRN PRN Reason: NAUSEA/VOMITING Oxycodone HCl (Oxyir) 5 mg PO Q6H PRN PRN PRN Reason: Pain Score 1-5/10 Last Admin: 08/31/19 10:41 Dose: 5 mg Documented by: Oxycodone HCl (Oxyir) 10 mg PO Q6H PRN PRN PRN Reason: Pain Score 6-10/10 Last Admin: 08/31/19 16:43 Dose: 10 mg Documented by: Prednisone () 40 mg PO DAILY@0800 [facility] Stop: 09/03/19 17:41 Last Admin: 09/01/19 13:28 Dose: 40 mg Documented by: Senna/Docusate Sodium (Senokot-S, Vanessa-Colace) 2 tablet PO DAILY PRN PRN PRN Reason: CONSTIPATION Last Admin: 08/30/19 14:01 Dose: 2 tablet Documented by: Sodium Chloride () 10 - 40 ml IV UD PRN PRN Reason: SALINE FLUSH Last Admin: 09/01/19 11:12 Dose: 10 ml Documented by: Medical Necessity - Tobacco Use Smoking Status: Current every day smoker Assessment/Plan All Active Problems ARF (acute renal failure) (Acute) Acute anemia (Acute) GI bleed (Acute) Cellulitis of both lower extremities (Acute) Hyperkalemia (Acute) Afib (Acute) Localized edema (Acute) Cellulitis of left lower limb (Acute) Cellulitis of right lower limb (Acute) Venous insufficiency (Acute) Peripheral vascular disease (Acute) Poor hygiene (Acute) Onychomycosis (Acute) Toe pain, right (Acute) Toe pain, left (Acute) Anasarca (Acute) Acute hypoxemic respiratory failure (Acute) Macrocytic anemia (Acute) Hyponatremia (Acute) Elevated BP without diagnosis of hypertension (Acute) Morbid (severe) obesity due to excess calories (Acute) 1. IDPTI baseline creatinine 0.67 on 06/05/19. Creatinine 4.0 today. FeNa <1% Continue with iv fluids. 2. GI bleed s/p EGD yesterday. 3. Hyperkalemia improved 4. Metabolic acidosis, continue bicarb drip 5. Acute cellulitis due to edema, renal dose iv antibx. Blood cx no growth so far 6. Morbid obesity
[2019-09-02] MEDS: Magnesium Citrate 300 ML PO (10:17)
[2019-09-02] MEDS: Nystatin Powder 15gm Bottle 1 APPLIC TOPICAL ×2 (10:18→21:44)
[2019-09-02] MEDS: Carvedilol 6.25 MG Tablet PO ×2 (10:26→21:44)
[2019-09-02] MEDS: predniSONE 20 MG Tablet 40 MG PO (10:26)
[2019-09-02] MEDS: Insulin Lispro 100 UNIT/ML INSULN.PEN SC ×2 (11:30→16:26)
[2019-09-02 11:41] LABS: Bedside Glucose 161 mg/dL (70-110)
--- NOTE | 2019-09-02 11:58 | NURSING ---
Updated ptaient's mother, Brandi, on POC
[2019-09-02] MEDS: oxyCODONE 5 MG Tablet 10 MG PO (12:57)
[2019-09-02 17:00] LABS: Bedside Glucose 228 mg/dL (70-110)
--- NOTE | 2019-09-02 17:23 | NURSING ---
Spoke with Jo Ann, of pt brother, on POC
[2019-09-02] MEDS: 0.9% Normal Saline 1,000 ML 125 ML IV (17:59)
--- NOTE | 2019-09-02 18:25 | PN_ITS ---
Patient Problems: Active and Suspected Problems ARF (acute renal failure) (Acute) Acute anemia (Acute) GI bleed (Acute) Cellulitis of both lower extremities (Acute) Hyperkalemia (Acute) Afib (Acute) Localized edema (Acute) Cellulitis of left lower limb (Acute) Cellulitis of right lower limb (Acute) Venous insufficiency (Acute) Peripheral vascular disease (Acute) Poor hygiene (Acute) Onychomycosis (Acute) Toe pain, right (Acute) Toe pain, left (Acute) Reason for Visit: Follow-up on severe anemia/bilateral lower extremity cellulitis Subjective: Patient was seen and examined. He has diarrhea with bowel preparation. Waiting for colonoscopy tomorrow morning. Objective: Physical exam: General: Alert, Oriented x3, Cooperative, No apparent distress HEENT: Atraumatic, PERRLA, EOMI, Normocephalic Oral: Dry Mucosa Neck: Supple, No JVD, Negative Carotid Bruits Lungs: Clear to auscultation, Normal air movement, No rhonchi, No wheeze Cardiovascular: Irregular Rate - Afib, rate controlled. Abdomen: Bowel Sounds Present, Soft, Non Tender, Non-Distended, No Hepato- splenomegaly Extremities:Edema +1-2, with evidence of wrinkling of skin Skin: - - see previous notes as lower extremities are CESAR-wrapped Musculoskeletal: No Tenderness to Palpation of Joints or Extremities Lymphatic: No Cervical, Supraclavicular, or Inguinal Adenopathy Neurological: Cranial nerves II-XII grossly intact, Neuro grossly intact, Motor Exam 5/5 strength throughout Psych/Mental Status: Normal Affect, Appropriate, Alert and oriented to time, place, person, mood and affect Vitals/I&O's: Vital Signs Temp Pulse Resp BP Pulse Ox 96.9 F L 87 18 100/56 L 96 09/02/19 15:55 09/02/19 15:55 09/02/19 15:55 09/02/19 15:55 09/02/19 15:55 Oxygen Flow Rate (L/min) 2 Oxygen Delivery Method Nasal Cannula Weight: 148.6 kg Body Mass Index (BMI) 43.4 Intake and Output for Last 24 Hours 08/31/19 09/01/19 09/02/19 23:59 23:59 23:59 Intake Total 4772.33 / 4772.33 4029.75 / 4029.75 2092.50 / 2092.50 Output Total 675 / 675 1300 / 1300 200 / 200 Balance 4097.33 / 4097.33 2729.75 / 2729.75 1892.50 / 1892.50 Microbiology Past 72 Hours 08/29/19 13:58 Wound - Leg Gram Stain - Final 08/29/19 13:58 Wound - Leg Wound Culture - Final Raoultella planticola Stenotrophomonas maltophilia Enterococcus faecalis Corynebact. pseudodiphtheritic 08/29/19 13:10 Blood Culture (Wb) - Anticubital Right Blood Culture - Preliminary No growth in 48 hours. 08/29/19 13:25 Blood Culture (Wb) - Left Forearm Blood Culture - Preliminary No growth in 48 hours. 08/30/19 17:15 Stool Stool Occult Blood (CHERYL) - Final Occult Blood Positive Laboratory Results 08/29/19 18:55: Eos Smear Total Cells No Eosinophils Seen 09/01/19 21:47: POC Glucose 171 H 09/02/19 05:00: Sodium 133 L, Potassium 3.5, Chloride 96 L, Carbon Dioxide 23.0, BUN 99 H, Creatinine 3.99 H, Estim Creat Clear Calc 18.55, Est GFR (MDRD) Af Amer 19 L, Est GFR (MDRD) Non-Af 16 L, BUN/Creatinine Ratio 24.8 H, Glucose 154 H, Calcium 7.9 L, Phosphorus 8.9 H, Albumin 2.5 L 09/02/19 05:00: WBC 4.7, RBC 3.89 L, Hgb 8.9 L, Hct 29.8 L, MCV 76.6 L, MCH 22.9 L, MCHC 29.9 L, RDW Std Deviation 59.7 H, RDW Coeff of Radha 22.3 H, Plt Count 110 L, MPV 10.4, Immature Gran % (Auto) 3.400 H, Neut % (Auto) 83.4 H, Lymph % (Auto) 9.2 L, [place] % (Auto) 3.6, Eos % (Auto) 0.2, Baso % (Auto) 0.2, Absolute Neuts (auto) 3.9, Absolute Lymphs (auto) 0.43 L, Nucleated RBC % 1.9, Differential Comment SCANNED, Hypochromasia 1+ 09/02/19 06:44: POC Glucose 154 H 06/10/20 11:28: POC Glucose 161 H 09/02/19 16:25: POC Glucose 228 H Current Medications Acetaminophen (Tylenol) 650 mg PO Q6H PRN PRN PRN Reason: Pain Score 1-10/Temp > 100.7 F Albuterol/Ipratropium (Duoneb) 3 ml INHALATION Q6H.RT [facility] Last Admin: 09/02/19 13:10 Dose: Not Given Documented by: Calamine/Phenol (Calmoseptine Ointment) 1 applic TOPICAL TID [facility]; Protocol Last Admin: 09/02/19 14:02 Dose: 1 applicatio Documented by: Carvedilol (Coreg) 6.25 mg PO BID [facility] Last Admin: 09/02/19 10:26 Dose: 6.25 mg Documented by: Dextrose (D50w Syringe) 0 gm IV X1 PRN; Protocol PRN Reason: Hypoglycemia Diphenhydramine HCl (Benadryl) 25 mg PO BID PRN PRN PRN Reason: ITCHING Last Admin: 08/30/19 21:34 Dose: 25 mg Documented by: Glucagon () 1 mg IM .X1 PRN PRN Reason: Hypoglycemia Pantoprazole Sodium 40 mg/ (Sodium Chloride) 110 mls @ 330 mls/hr IV Q12 [facility] Last Infusion: 09/02/19 11:56 Dose: Infused Documented by: Meropenem 250 mg/ Sodium (Chloride) 55 mls @ 100 mls/hr IV Q12 [facility] Last Infusion: 09/02/19 11:23 Dose: Infused Documented by: Sodium Chloride () 250 mls @ 15 mls/hr IV .[id number] PRN PRN Reason: Saline Flush Last Infusion: 09/01/19 23:37 Dose: 0 mls/hr Documented by: Sodium Chloride () 250 mls @ 15 mls/hr IV .[id number] PRN PRN Reason: Additional IVPB Infusion Sodium Chloride () 1,000 mls @ 125 mls/hr IV .Q8H [facility] Last Admin: 09/02/19 17:59 Dose: 125 mls/hr Documented by: Insulin Human Lispro (Humalog Kwikpen (Bkc)) 0 unit SC TIDAC [facility]; Protocol Last Admin: 09/02/19 16:26 Dose: 2 units Documented by: Levothyroxine Sodium (Synthroid) 50 mcg PO DAILY@0600 [facility] Last Admin: 09/02/19 05:29 Dose: 50 mcg Documented by: Nicotine (Nicoderm Cq (Pbkc)) 21 mg TRANSDERM. DAILY [facility] Last Admin: 09/02/19 10:18 Dose: 21 mg Documented by: Nutritional Formula (Artemio - Desha Flavor) [facility] Last Admin: 09/02/19 16:24 Dose: Not Given Documented by: Nystatin (Mycostatin Powder) 1 applic TOPICAL BID [facility]; Protocol Last Admin: 09/02/19 10:18 Dose: 1 applicatio Documented by: Ondansetron HCl (Zofran) 4 mg IV Q8H PRN PRN PRN Reason: NAUSEA/VOMITING Oxycodone HCl (Oxyir) 5 mg PO Q6H PRN PRN PRN Reason: Pain Score 1-5/10 Last Admin: 08/31/19 10:41 Dose: 5 mg Documented by: Oxycodone HCl (Oxyir) 10 mg PO Q6H PRN PRN PRN Reason: Pain Score 6-10/10 Last Admin: 09/02/19 12:57 Dose: 10 mg Documented by: Prednisone () 40 mg PO DAILY@0800 [facility] Stop: 09/03/19 17:41 Last Admin: 09/02/19 10:26 Dose: 40 mg Documented by: Senna/Docusate Sodium (Senokot-S, Vanessa-Colace) 2 tablet PO DAILY PRN PRN PRN Reason: CONSTIPATION Last Admin: 08/30/19 14:01 Dose: 2 tablet Documented by: Sodium Chloride () 10 - 40 ml IV UD PRN PRN Reason: SALINE FLUSH Last Admin: 09/01/19 11:12 Dose: 10 ml Documented by: STROKE Vital Signs/Narrative: Vital Signs Temp Pulse Resp BP Pulse Ox 09/02/19 15:55 96.9 F L 87 18 100/56 L 96 09/02/19 15:05 89 Medical Necessity - Tobacco Use Smoking Status: Current every day smoker Assessment/Plan All Active Problems ARF (acute renal failure) (Acute) Acute anemia (Acute) GI bleed (Acute) Cellulitis of both lower extremities (Acute) Hyperkalemia (Acute) Afib (Acute) Localized edema (Acute) Cellulitis of left lower limb (Acute) Cellulitis of right lower limb (Acute) Venous insufficiency (Acute) Peripheral vascular disease (Acute) Poor hygiene (Acute) Onychomycosis (Acute) Toe pain, right (Acute) Toe pain, left (Acute) Anasarca (Acute) Acute hypoxemic respiratory failure (Acute) Macrocytic anemia (Acute) Hyponatremia (Acute) Elevated BP without diagnosis of hypertension (Acute) Morbid (severe) obesity due to excess calories (Acute) 1. Acute severe anemia secondary to Acute GI bleed, FOBT x2 is negative Admitting Hb is 4.7. Status post 7 units of packed RBC today. Hemoglobin today is 8.9 General surgery consulted, planning on EGD today. Patient did not complete bowel prep for colonoscopy Will plan on colonoscopy on . Will keep on liquid diet. Continue on IV PPI 2. DIPTI, prerenal, multifactorial, likely secondary to severe anemia/use of NSAIDs/Lasix Creatinine slightly improved from 4.32 to 3.99 Urine output is nonoliguric. Nephrology following On IV fluids, will repeat blood work in a.m. 3. Hyperkalemia, resolved, status post treatment with Kayexalate 4. Hypothyroidism, on levothyroxine 50mg po daily 5. Bilateral lower extremity cellulitis/chronic venous stasis ulcers/worsened by self-neglect No fevers, no leukocytosis. Continue on meropenem Wound RN following 6. Hypoxia likely secondary to atelectasis, now on 2L oxygen from 4L Will monitor for acute CHF with IVF, continue to wean off oxygen, breathing treatments PRN 7. Chronic diastolic CHF, EF of 60% with moderate LVH, not in acute exacerbation Will be careful with use of IV fluids for DIPTI Follow-up with daily weights 8. Paroxysmal atrial fibrillation, rate controlled, continue on Coreg Off Eliquis on account of GI bleed 9. Hypertension, controlled, continue on Coreg 10. DVT PPx- SCDs Inpatient E&M: 90068 Subs Hosp L2
--- NOTE | 2019-09-02 23:47 | RAD_ITS ---
STUDY: X-RAY CHEST REASON FOR EXAM: Male, 69 years old. SOB TECHNIQUE: PA and lateral COMPARISON: August 29, 2019 FINDINGS: Heart is enlarged. There are bilateral perihilar and lower lobe infiltrates which have increased since prior study. There are increased bilateral pleural effusions. There is NO pneumothorax. Normal visualized thoracic spine. Normal visualized ribs, clavicles, and shoulders. There is no demonstrated abnormality of the visualized soft tissue structures of the upper abdomen. RAD/Chest 1 View (Portable) IMPRESSION: Heart is enlarged. There are bilateral perihilar and lower lobe infiltrates which have increased since prior study. There are increased bilateral pleural effusions. There is NO pneumothorax. Electronically Signed: Lucas Zamora MD at 0:21 EDT , Service support ,
[2019-09-03] VITALS (37 sets, daily range): BP systolic 67–123; BP diastolic 28–102; PULSE 78–114; RESP 13–24; TEMP 31.9–35.8; O2SAT 91–100
--- NOTE | 2019-09-03 00:35 | PCM.PN.BLA ---
Progress Note Nurse reports patient with increasing shortness of breath. Chest x-ray showed worsening bilateral infiltrates and pleural effusion. Stop normal saline at this time. Give Lasix 40 mg IVP x1. STROKE Vital Signs/Narrative: Vital Signs Temp Pulse Resp BP Pulse Ox 09/02/19 21:44 97.6 F L 82 18 95/69 96
[2019-09-03] MEDS: Furosemide 40 MG/4 ML Vial IV (00:56)
[2019-09-03] MEDS: Levothyroxine 50 MCG Tablet PO (05:27)
[2019-09-03] MEDS: Menthol/Lanolin/Calamine/Znox 113 GM Tube 1 APPLIC TOPICAL ×3 (05:28→21:42)
--- NOTE | 2019-09-03 06:44 | PCM.PN.BLA ---
Progress Note Noted that patient is hypothermic and warm blanketing has been placed on patient. Blood culture ordered. Later notified that SBP is within 60s to 70s. Will give normal saline 1000ml bolus. Will examine patient at bed side STROKE Vital Signs/Narrative: Vital Signs Temp Pulse Resp BP BP Pulse Ox 09/03/19 06:24 86 20 H 77/36 L 95 09/03/19 05:45 90.1 F L 83 22 H 92/51 L 100
[2019-09-03 06:56] LABS: Absolute Lymphocyte Count 0.48 X10^3/uL (0.83-4.51); Absolute Neutrophil Count 3.8 X10^3/uL (2.0-7.7); Albumin, Serum 2.4 g/dL (3.2-5.0); BUN 99 mg/dL (7-18); BUN/Creat Ratio 23.7 RATIO (10-20); Basophil# 0.01 X10^3/uL; Basophil% 0.2 % (0-1); Calcium,Total 7.7 mg/dL (8.5-10.1); Chloride 96 mmol/L (98-107); Creatinine, Serum 4.17 mg/dL (0.70-1.30); EST Glomerular Filtration Rate 15 mL/min (>60); Est Glom Filt Rate - Afr Amer 18 mL/min (>60); Estimated Creatinine Clearance 17.75 ml/min; Glucose 138 mg/dL (74-106); Hematocrit 31.4 % (40-54); Hemoglobin 9.4 g/dL (13.0-16.5); Lymphocyte # 0.48 X10^3/ul (4.0); Lymphocyte % 10.3 % (19-41); Mean Corp Hgb Conc 29.9 g/dL (32-36); Mean Corpuscular Hgb 23.2 pg (27.0-32.0); Mean Corpuscular Volume 77.3 fL (80-94); Mean Platelet Vol. 11.1 fl (6.2-12.0); Monocyte# 0.17 X10^3/uL; Monocyte% 3.7 % (0-10); NRBC Flagged by Analyzer 2.2 % (0-5); Neutrophil # 3.76 X10^3/uL (2.7-7.7); Neutrophil % 80.9 % (47-70); POSITIVE COUNT YES; POSITIVE DIFFERENTIAL YES; POSITIVE MORPHOLOGY YES; Phosphorus 8.5 mg/dL (2.5-4.9); Platelet Count 85 K/mm3 (150-450); Potassium 4.3 mmol/L (3.5-5.1); RBC Distribution Width CV 22.6 % (11.6-14.6); RBC Distribution Width SD 60.5 fl (35.1-43.9); Red Blood Count 4.06 M/mm3 (4.6-6.2); Sodium Level 132 mmol/L (136-145); White Blood Count 4.7 K/mm3 (4.4-11.0)
[2019-09-03 06:58] LABS: Differential Indicated SCAN CRITERIA MET
[2019-09-03] MEDS: 0.9% Normal Saline 1,000 ML 999 ML IV (07:00)
[2019-09-03 07:16] LABS: Differential Comment SCANNED; Hypochromasia RARE; Microcytosis RARE; Target Cells RARE
--- NOTE | 2019-09-03 07:24 | PCM.PN.BLA ---
Progress Note Notified that patient systolic blood pressure remains in 70s. Patient was assessed at the bedside. Overall an axillary temperature unable to register. Rectal temperature less than 92 Fahrenheit. Patient is alert and oriented and with baseline mental retardation. Lung sounds wheezing. Heart sounds S1-S2 present. Generalized anasarca with weeping of fluids from the body. Bilateral legs wrapped. Impression: Severe sepsis On meropenem. We will add vancomycin. Lactated Ringer ordered. CBC in a.m. resulted. Discussed with oncoming physician. STROKE Vital Signs/Narrative: Vital Signs Temp Pulse Resp BP BP Pulse Ox 09/03/19 07:01 78/58 L 09/03/19 06:41 99 84/42 L 94 09/03/19 06:37 78 67/28 L 95 09/03/19 06:24 86 20 H 77/36 L 95 09/03/19 05:45 90.1 F L 83 22 H 92/51 L 100
--- NOTE | 2019-09-03 07:42 | NURSING ---
AFTER SEVERAL ATTEMPTS W/MULTIPLE TEMPERATURES, THIS RN TOOK A RECTAL TEMP @ 0545. TEMP WAS 90.17. DR TRONCOSO INITIALLY ADVISED OF PT'S LOW TEMP AND ALL OTHER VS WERE STABLE. BLOOD CULTURES X2 ORDERED. AT 0624 PT'S BP STARTED TO DROP AND DR TRONCOSO WAS AGAIN NOTIFIED. ORDERS PLACED FOR 1L NS. AT 0700 DR TRONCOSO WAS IN TO SEE PT AND ORDERED LACTIC ACID AND STATED HE WOULD DIXCUSS THE PT'S CASE W/DR BUCIO.
[2019-09-03] MEDS: Ipratropium/Albuterol Sulfate 3 ML AMPUL.NEB INHALATION ×3 (07:49→19:10)
[2019-09-03 07:51] LABS: Bedside Glucose 140 mg/dL (70-110)
--- NOTE | 2019-09-03 08:00 | NURSING ---
notified dr lundy of patient's VS after fluid bolus, orders to transfer patient to ICU. Dr lundy in room to evaluate and assess patient.
[2019-09-03 08:12] LABS: Lactic Acid 0.9 mmol/L (0.4-1.9)
--- NOTE | 2019-09-03 08:37 | PN_ITS ---
Patient Problems: Active and Suspected Problems ARF (acute renal failure) (Acute) Acute anemia (Acute) GI bleed (Acute) Cellulitis of both lower extremities (Acute) Hyperkalemia (Acute) Afib (Acute) Localized edema (Acute) Cellulitis of left lower limb (Acute) Cellulitis of right lower limb (Acute) Venous insufficiency (Acute) Peripheral vascular disease (Acute) Poor hygiene (Acute) Onychomycosis (Acute) Toe pain, right (Acute) Toe pain, left (Acute) Reason for Visit: Follow-up on severe anemia/bilateral lower extremity cellulitis Subjective: Patient was seen and examined. He had uneventful night with increased shortness of breath. Chest x-ray was consistent with fluid overload. Patient received Lasix 40 mg IV x1. He subsequently became hypothermic and hypotensive. He got 1 L fluid bolus. Blood pressure check in the PCU showed systolic of 75. Patient was transferred to ICU. Blood pressure was 114/89. He still remained hypothermic. A core temperature Asif was going to be inserted. Infectious disease consulted. Objective: Physical exam: General: Alert, Oriented x3, Cooperative, No apparent distress, slightly lethargic HEENT: Atraumatic, PERRLA, EOMI, Normocephalic Oral: Dry Mucosa Neck: Supple, No JVD, Negative Carotid Bruits Lungs: Clear to auscultation, Normal air movement, No rhonchi, No wheeze Cardiovascular: Irregular Rate - Afib, rate controlled. Abdomen: Bowel Sounds Present, Soft, Non Tender, Non-Distended, No Hepato- splenomegaly Extremities:Edema +1-2, with evidence of wrinkling of skin Skin: - - see previous notes as lower extremities are CESAR-wrapped, serous fluid oozing from skin Musculoskeletal: No Tenderness to Palpation of Joints or Extremities Lymphatic: No Cervical, Supraclavicular, or Inguinal Adenopathy Neurological: Cranial nerves II-XII grossly intact, Neuro grossly intact, Motor Exam 5/5 strength throughout Psych/Mental Status: Normal Affect, Appropriate, Alert and oriented to time, place, person, mood and affect Vitals/I&O's: Vital Signs Temp Pulse Resp BP Pulse Ox 91.7 F L 87 24 H 74/40 L 94 09/03/19 08:00 09/03/19 08:00 09/03/19 08:00 09/03/19 08:00 09/03/19 08:00 Oxygen Flow Rate (L/min) 2 Oxygen Delivery Method Nasal Cannula Weight: 148.6 kg Body Mass Index (BMI) 43.4 Intake and Output for Last 24 Hours 09/01/19 09/02/19 09/03/19 23:59 23:59 23:59 Intake Total 4029.75 / 4029.75 2257.50 / 2257.50 1925 / 1925 Output Total 1300 / 1300 200 / 250 100 / 100 Balance 2729.75 / 2729.75 2057.50 / 2007.50 1825 / 1825 Microbiology Past 72 Hours 08/29/19 13:58 Wound - Leg Gram Stain - Final 08/29/19 13:58 Wound - Leg Wound Culture - Final Raoultella planticola Stenotrophomonas maltophilia Enterococcus faecalis Corynebact. pseudodiphtheritic 08/29/19 13:10 Blood Culture (Wb) - Anticubital Right Blood Culture - Preliminary No growth in 48 hours. 08/29/19 13:25 Blood Culture (Wb) - Left Forearm Blood Culture - Preliminary No growth in 48 hours. Laboratory Results 09/02/19 11:28: POC Glucose 161 H 09/02/19 16:25: POC Glucose 228 H 09/03/19 05:42: Sodium 132 L, Potassium 4.3, Chloride 96 L, Carbon Dioxide 23.0, BUN 99 H, Creatinine 4.17 H, Estim Creat Clear Calc 17.75, Est GFR (MDRD) Af Amer 18 L, Est GFR (MDRD) Non-Af 15 L, BUN/Creatinine Ratio 23.7 H, Glucose 138 H, Calcium 7.7 L, Phosphorus 8.5 H, Albumin 2.4 L 09/03/19 05:42: WBC 4.7, RBC 4.06 L, Hgb 9.4 L, Hct 31.4 L, MCV 77.3 L, MCH 23.2 L, MCHC 29.9 L, RDW Std Deviation 60.5 H, RDW Coeff of Radha 22.6 H, Plt Count 85 L, MPV 11.1, Immature Gran % (Auto) 4.900 H, Neut % (Auto) 80.9 H, Lymph % (Auto) 10.3 L, [place] % (Auto) 3.7, Eos % (Auto) 0.0, Baso % (Auto) 0.2, Absolute Neuts (auto) 3.8, Absolute Lymphs (auto) 0.48 L, Nucleated RBC % 2.2, Diffe rential Comment SCANNED, Hypochromasia RARE, Microcytosis RARE, Target Cells RARE 09/03/19 06:43: POC Glucose 140 H 09/03/19 07:20: Lactic Acid 0.9 09/03/19 08:28: Troponin I Pending 09/03/19 08:28: Ammonia Pending Current Medications Acetaminophen (Tylenol) 650 mg PO Q6H PRN PRN PRN Reason: Pain Score 1-10/Temp > 100.7 F Albuterol/Ipratropium (Duoneb) 3 ml INHALATION Q6H.RT [facility] Last Admin: 09/03/19 07:49 Dose: 3 ml Documented by: Calamine/Phenol (Calmoseptine Ointment) 1 applic TOPICAL TID [facility]; Protocol Last Admin: 09/03/19 05:28 Dose: 1 applicatio Documented by: Dextrose (D50w Syringe) 0 gm IV X1 PRN; Protocol PRN Reason: Hypoglycemia Diphenhydramine HCl (Benadryl) 25 mg PO BID PRN PRN PRN Reason: ITCHING Last Admin: 08/30/19 21:34 Dose: 25 mg Documented by: Glucagon () 1 mg IM .X1 PRN PRN Reason: Hypoglycemia Pantoprazole Sodium 40 mg/ (Sodium Chloride) 110 mls @ 330 mls/hr IV Q12 [facility] Last Infusion: 09/02/19 22:04 Dose: Infused Documented by: Meropenem 250 mg/ Sodium (Chloride) 55 mls @ 100 mls/hr IV Q12 [facility] Last Infusion: 09/02/19 22:30 Dose: Infused Documented by: Sodium Chloride () 250 mls @ 15 mls/hr IV .[id number] PRN PRN Reason: Saline Flush Last Infusion: 09/01/19 23:37 Dose: 0 mls/hr Documented by: Sodium Chloride () 250 mls @ 15 mls/hr IV .[id number] PRN PRN Reason: Additional IVPB Infusion Insulin Human Lispro (Humalog Kwikpen (Bkc)) 0 unit SC TIDAC [facility]; Protocol Last Admin: 09/03/19 07:48 Dose: Not Given Documented by: Levothyroxine Sodium (Synthroid) 50 mcg PO DAILY@0600 [facility] Last Admin: 09/03/19 05:27 Dose: 50 mcg Documented by: Nicotine (Nicoderm Cq (Pbkc)) 21 mg TRANSDERM. DAILY [facility] Last Admin: 09/02/19 10:18 Dose: 21 mg Documented by: Nutritional Formula (Artemio - [place] Flavor) [facility] Last Admin: 09/02/19 16:24 Dose: Not Given Documented by: Nystatin (Mycostatin Powder) 1 applic TOPICAL BID [facility]; Protocol Last Admin: 09/02/19 21:44 Dose: 1 applicatio Documented by: Ondansetron HCl (Zofran) 4 mg IV Q8H PRN PRN PRN Reason: NAUSEA/VOMITING Oxycodone HCl (Oxyir) 5 mg PO Q6H PRN PRN PRN Reason: Pain Score 1-510 Last Admin: 08/31/19 10:41 Dose: 5 mg Documented by: Oxycodone HCl (Oxyir) 10 mg PO Q6H PRN PRN PRN Reason: Pain Score 6-10/10 Last Admin: 09/02/19 12:57 Dose: 10 mg Documented by: Prednisone () 40 mg PO DAILY@0800 [facility] Stop: 09/03/19 17:41 Last Admin: 09/02/19 10:26 Dose: 40 mg Documented by: Senna/Docusate Sodium (Senokot-S, Vanessa-Colace) 2 tablet PO DAILY PRN PRN PRN Reason: CONSTIPATION Last Admin: 08/30/19 14:01 Dose: 2 tablet Documented by: Sodium Chloride () 10 - 40 ml IV UD PRN PRN Reason: SALINE FLUSH Last Admin: 09/01/19 11:12 Dose: 10 ml Documented by: STROKE Vital Signs/Narrative: Vital Signs Temp Pulse Resp BP BP Pulse Ox 09/03/19 08:00 91.7 F L 87 24 H 74/40 L 94 09/03/19 07:49 87 16 96 09/03/19 07:05 90.4 F L 09/03/19 07:01 78/58 L 09/03/19 06:41 99 84/42 L 94 09/03/19 06:37 78 67/28 L 95 09/03/19 06:24 86 20 H 77/36 L 95 09/03/19 05:45 90.1 F L 83 22 H 92/51 L 100 Medical Necessity - Tobacco Use Smoking Status: Current every day smoker Assessment/Plan All Active Problems ARF (acute renal failure) (Acute) Acute anemia (Acute) GI bleed (Acute) Cellulitis of both lower extremities (Acute) Hyperkalemia (Acute) Afib (Acute) Localized edema (Acute) Cellulitis of left lower limb (Acute) Cellulitis of right lower limb (Acute) Venous insufficiency (Acute) Peripheral vascular disease (Acute) Poor hygiene (Acute) Onychomycosis (Acute) Toe pain, right (Acute) Toe pain, left (Acute) Anasarca (Acute) Acute hypoxemic respiratory failure (Acute) Macrocytic anemia (Acute) Hyponatremia (Acute) Elevated BP without diagnosis of hypertension (Acute) Morbid (severe) obesity due to excess calories (Acute) 1. Severe sepsis secondary to pneumonia Patient is on IV meropenem, IV vancomycin added Remains hypothermic Infectious disease consulted 2. Acute severe anemia secondary to Acute GI bleed, stable FOBT x2 is negative. Admitting Hb is 4.7. Status post 7 units of packed RBC t rufina. Hemoglobin today is 8.9 Colonoscopy canceled, continue on IV PPI 3. DIPTI, prerenal, multifactorial, worsening Likely secondary to severe anemia/use of NSAIDs/Lasix Creatinine worsening, now 4.17 Urine output is oliguric. Nephrology following 4. Hyperkalemia, resolved, status post treatment with Kayexalate 5. Hypothyroidism, on levothyroxine 50mg po daily 6. Bilateral lower extremity cellulitis/chronic venous stasis ulcers/worsened by self-neglect No fevers, no leukocytosis. Continue on meropenem and vancomycin Wound RN following 7. Hypoxia likely secondary to atelectasis, now on 2L oxygen from 4L Will monitor for acute CHF with IVF, continue to wean off oxygen, breathing treatments PRN 8. Chronic diastolic CHF, EF of 60% with moderate LVH, not in acute exacerbation Will repeat 2D-ECHO, follow-up with daily weights 9. Paroxysmal atrial fibrillation, rate controlled, continue on Coreg Off Eliquis on account of GI bleed 10. Hypertension, controlled, continue on Coreg 11. DVT PPx- SCDs Inpatient E&M: [id number] [facility] L3
--- NOTE | 2019-09-03 08:39 | PN_ITS ---
Patient Problems: Active and Suspected Problems ARF (acute renal failure) (Acute) Acute anemia (Acute) GI bleed (Acute) Cellulitis of both lower extremities (Acute) Hyperkalemia (Acute) Afib (Acute) Localized edema (Acute) Cellulitis of left lower limb (Acute) Cellulitis of right lower limb (Acute) Venous insufficiency (Acute) Peripheral vascular disease (Acute) Poor hygiene (Acute) Onychomycosis (Acute) Toe pain, right (Acute) Toe pain, left (Acute) - Physical Exam Vitals/I&O's: Vital Signs Temp Pulse Resp BP Pulse Ox 91.7 F L 87 24 H 74/40 L 94 09/03/19 08:00 09/03/19 08:00 09/03/19 08:00 09/03/19 08:00 09/03/19 08:00 Oxygen Flow Rate (L/min) 2 Oxygen Delivery Method Nasal Cannula Weight: 148.6 kg Body Mass Index (BMI) 43.4 Intake and Output for Last 24 Hours 09/01/19 09/02/19 09/03/19 23:59 23:59 23:59 Intake Total 4029.75 / 4029.75 2257.50 / 2257.50 1925 / 1925 Output Total 1300 / 1300 200 / 250 100 / 100 Balance 2729.75 / 2729.75 2056.50 / 2006.50 1825 / 1825 Microbiology Past 72 Hours 08/29/19 13:58 Wound - Leg Gram Stain - Final 08/29/19 13:58 Wound - Leg Wound Culture - Final Raoultella planticola Stenotrophomonas maltophilia Enterococcus faecalis Corynebact. pseudodiphtheritic 08/29/19 13:10 Blood Culture (Wb) - Anticubital Right Blood Culture - Preliminary No growth in 48 hours. 08/29/19 13:25 Blood Culture (Wb) - Left Forearm Blood Culture - Preliminary No growth in 48 hours. Laboratory Results 09/02/19 11:28: POC Glucose 161 H 09/02/19 16:25: POC Glucose 228 H 09/03/19 05:42: Sodium 132 L, Potassium 4.3, Chloride 96 L, Carbon Dioxide 23.0, BUN 99 H, Creatinine 4.17 H, Estim Creat Clear Calc 17.75, Est GFR (MDRD) Af Amer 18 L, Est GFR (MDRD) Non-Af 15 L, BUN/Creatinine Ratio 23.7 H, Glucose 138 H, Calcium 7.7 L, Phosphorus 8.5 H, Albumin 2.4 L 09/03/19 05:42: WBC 4.7, RBC 4.06 L, Hgb 9.4 L, Hct 31.4 L, MCV 77.3 L, MCH 23.2 L, MCHC 29.9 L, RDW Std Deviation 60.5 H, RDW Coeff of Radha 22.6 H, Plt Count 85 L, MPV 11.1, Immature Gran % (Auto) 4.900 H, Neut % (Auto) 80.9 H, Lymph % (Auto) 10.3 L, [place] % (Auto) 3.7, Eos % (Auto) 0.0, Baso % (Auto) 0.2, Absolute Neuts (auto) 3.8, Absolute Lymphs (auto) 0.48 L, Nucleated RBC % 2.2, Differential Comment SCANNED, Hypochromasia RARE, Microcytosis RARE, Target C ells RARE 09/03/19 06:43: POC Glucose 140 H 09/03/19 07:20: Lactic Acid 0.9 09/03/19 08:28: Troponin I Pending 09/03/19 08:28: Ammonia Pending Current Medications Acetaminophen (Tylenol) 650 mg PO Q6H PRN PRN PRN Reason: Pain Score 1-10/Temp > 100.7 F Albuterol/Ipratropium (Duoneb) 3 ml INHALATION Q6H.RT [facility] Last Admin: 09/03/19 07:49 Dose: 3 ml Documented by: Calamine/Phenol (Calmoseptine Ointment) 1 applic TOPICAL TID [facility]; Protocol Last Admin: 09/03/19 05:28 Dose: 1 applicatio Documented by: Dextrose (D50w Syringe) 0 gm IV X1 PRN; Protocol PRN Reason: Hypoglycemia Diphenhydramine HCl (Benadryl) 25 mg PO BID PRN PRN PRN Reason: ITCHING Last Admin: 08/30/19 21:34 Dose: 25 mg Documented by: Glucagon () 1 mg IM .X1 PRN PRN Reason: Hypoglycemia Pantoprazole Sodium 40 mg/ (Sodium Chloride) 110 mls @ 330 mls/hr IV Q12 [facility] Last Infusion: 09/02/19 22:04 Dose: Infused Documented by: Meropenem 250 mg/ Sodium (Chloride) 55 mls @ 100 mls/hr IV Q12 [facility] Last Infusion: 09/02/19 22:30 Dose: Infused Documented by: Sodium Chloride () 250 mls @ 15 mls/hr IV .[id number] PRN PRN Reason: Saline Flush Last Infusion: 09/01/19 23:37 Dose: 0 mls/hr Documented by: Sodium Chloride () 250 mls @ 15 mls/hr IV .[id number] PRN PRN Reason: Additional IVPB Infusion Insulin Human Lispro (Humalog Kwikpen (Bkc)) 0 unit SC TIDAC [facility]; Protocol Last Admin: 09/03/19 07:48 Dose: Not Given Documented by: Levothyroxine Sodium (Synthroid) 50 mcg PO DAILY@0600 [facility] Last Admin: 09/03/19 05:27 Dose: 50 mcg Documented by: Nicotine (Nicoderm Cq (Pbkc)) 21 mg TRANSDERM. DAILY [facility] Last Admin: 09/02/19 10:18 Dose: 21 mg Documented by: Nutritional Formula (Artemio - [place] Flavor) 1 packet PO BIDCM [facility] Last Admin: 09/02/19 16:24 Dose: Not Given Documented by: Nystatin (Mycostatin Powder) 1 applic TOPICAL BID [facility]; Protocol Last Admin: 09/02/19 21:44 Dose: 1 applicatio Documented by: Ondansetron HCl (Zofran) 4 mg IV Q8H PRN PRN PRN Reason: NAUSEA/VOMITING Oxycodone HCl (Oxyir) 5 mg PO Q6H PRN PRN PRN Reason: Pain Score 1-5/10 Last Admin: 08/31/19 10:41 Dose: 5 mg Documented by: Oxycodone HCl (Oxyir) 10 mg PO Q6H PRN PRN PRN Reason: Pain Score 6-10/10 Last Admin: 09/02/19 12:57 Dose: 10 mg Documented by: Prednisone () 40 mg PO DAILY@0800 [facility] Stop: 09/03/19 17:41 Last Admin: 09/02/19 10:26 Dose: 40 mg Documented by: Senna/Docusate Sodium (Senokot-S, Vanessa-Colace) 2 tablet PO DAILY PRN PRN PRN Reason: CONSTIPATION Last Admin: 08/30/19 14:01 Dose: 2 tablet Documented by: Sodium Chloride () 10 - 40 ml IV UD PRN PRN Reason: SALINE FLUSH Last Admin: 09/01/19 11:12 Dose: 10 ml Documented by: Medical Necessity - Tobacco Use Smoking Status: Current every day smoker Assessment/Plan All Active Problems ARF (acute renal failure) (Acute) Acute anemia (Acute) GI bleed (Acute) Cellulitis of both lower extremities (Acute) Hyperkalemia (Acute) Afib (Acute) Localized edema (Acute) Cellulitis of left lower limb (Acute) Cellulitis of right lower limb (Acute) Venous insufficiency (Acute) Peripheral vascular disease (Acute) Poor hygiene (Acute) Onychomycosis (Acute) Toe pain, right (Acute) Toe pain, left (Acute) Anasarca (Acute) Acute hypoxemic respiratory failure (Acute) Macrocytic anemia (Acute) Hyponatremia (Acute) Elevated BP without diagnosis of hypertension (Acute) Morbid (severe) obesity due to excess calories (Acute) Bilateral leg ulcers with devitalized tissue Treated for lower extremity cellulitis with no deep infection suspected Poor hygiene onychomycosis Callus bilateral hallux secondary to hallux limitus foot condition Lower extremity edema Peripheral vascular disease Venous insufficiency suspected Other comorbidities: Atrial fibrillation, obesity, alcohol abuse, tobacco abuse, hypertension, anemia, likely obstructive sleep apnea, acute kidney injury, failure to care for self, non-routine ambulator This is to clarify that regarding leg ulcerations it is noted Dr. Faith has been consulted and following at this time, which was confirmed. Since Dr. Faith is following and considering surgical debridement, podiatry will sign off at this time. Please reconsult podiatry as needed. Thank you for allowing us to participate in patient's care.
--- NOTE | 2019-09-03 08:53 | PN.RENAL_ITS ---
Patient Problems: Active and Suspected Problems ARF (acute renal failure) (Acute) Acute anemia (Acute) GI bleed (Acute) Cellulitis of both lower extremities (Acute) Hyperkalemia (Acute) Afib (Acute) Localized edema (Acute) Cellulitis of left lower limb (Acute) Cellulitis of right lower limb (Acute) Venous insufficiency (Acute) Peripheral vascular disease (Acute) Poor hygiene (Acute) Onychomycosis (Acute) Toe pain, right (Acute) Toe pain, left (Acute) Subjective: transfer to ICU for hypotension, hypothermia. Urine output poor with iv lasix given for shortness of breath. IV fluids discontinued, then given fluid bolus for hypotension. Pt oxygenation stable at 100% on 2L NC. No respiratory depression. Awake, responsive, oriented to place, disoriented to year, same as yesterday. - Physical Exam Vitals/I&O's: Vital Signs Temp Pulse Resp BP Pulse Ox 91.7 F L 87 24 H 74/40 L 94 09/03/19 08:00 09/03/19 08:00 09/03/19 08:00 09/03/19 08:00 09/03/19 08:00 Oxygen Flow Rate (L/min) 2 Oxygen Delivery Method Nasal Cannula Weight: 148.6 kg Body Mass Index (BMI) 43.4 Intake and Output for Last 24 Hours 09/01/19 09/02/19 09/03/19 23:59 23:59 23:59 Intake Total 4029.75 / 4029.75 2257.50 / 2257.50 1925 / 1925 Output Total 1300 / 1300 200 / 250 100 / 100 Balance 2729.75 / 2729.75 2056.50 / 2006.50 1825 / 1825 General: Alert, Cooperative, No apparent distress Oral: Dry Mucosa Neck: Supple Lungs: Clear to auscultation Cardiovascular: Irregular Rate Abdomen: Bowel Sounds Present, Soft, Non Tender, Obese Extremities: Edema - mild, chronic Musculoskeletal: No Muscle Wasting, - - gen weakness, chronic, debilitated Neurological: Cranial nerves II-XII grossly intact Psych/Mental Status: Normal Affect, Appropriate Microbiology Past 72 Hours 08/29/19 13:58 Wound - Leg Gram Stain - Final 08/29/19 13:58 Wound - Leg Wound Culture - Final Raoultella planticola Stenotrophomonas maltophilia Enterococcus faecalis Corynebact. pseudodiphtheritic 08/29/19 13:10 Blood Culture (Wb) - Anticubital Right Blood Culture - Preliminary No growth in 48 hours. 08/29/19 13:25 Blood Culture (Wb) - Left Forearm Blood Culture - Preliminary No growth in 48 hours. Laboratory Results 09/02/19 11:28: POC Glucose 161 H 09/02/19 16:25: POC Glucose 228 H 09/03/19 05:42: Sodium 132 L, Potassium 4.3, Chloride 96 L, Carbon Dioxide 23.0, BUN 99 H, Creatinine 4.17 H, Estim Creat Clear Calc 17.75, Est GFR (MDRD) Af Amer 18 L, Est GFR (MDRD) Non-Af 15 L, BUN/Creatinine Ratio 23.7 H, Glucose 138 H, Calcium 7.7 L, Phosphorus 8.5 H, Albumin 2.4 L 09/03/19 05:42: WBC 4.7, RBC 4.06 L, Hgb 9.4 L, Hct 31.4 L, MCV 77.3 L, MCH 23.2 L, MCHC 29.9 L, RDW Std Deviation 60.5 H, RDW Coeff of Radha 22.6 H, Plt Count 85 L, MPV 11.1, Immature Gran % (Auto) 4.900 H, Neut % (Auto) 80.9 H, Lymph % (Auto) 10.3 L, [place] % (Auto) 3.7, Eos % (Auto) 0.0, Baso % (Auto) 0.2, Absolute Neuts (auto) 3.8, Absolute Lymphs (auto) 0.48 L, Nucleated RBC % 2.2, Differential Comment SCANNED, Hypochromasia RARE, Microcytosis RARE, Target Cells RARE 09/03/19 06:43: POC Glucose 140 H 09/03/19 07:20: Lactic Acid 0.9 09/03/19 08:28: Troponin I Pending 09/03/19 08:28: Ammonia Pending Current Medications Acetaminophen (Tylenol) 650 mg PO Q6H PRN PRN PRN Reason: Pain Score 1-10/Temp > 100.7 F Albuterol/Ipratropium (Duoneb) 3 ml INHALATION Q6H.RT [facility] Last Admin: 09/03/19 07:49 Dose: 3 ml Documented by: Calamine/Phenol (Calmoseptine Ointment) 1 applic TOPICAL TID [facility]; Protocol Last Admin: 09/03/19 05:28 Dose: 1 applicatio Documented by: Dextrose (D50w Syringe) 0 gm IV X1 PRN; Protocol PRN Reason: Hypoglycemia Diphenhydramine HCl (Benadryl) 25 mg PO BID PRN PRN PRN Reason: ITCHING Last Admin: 08/30/19 21:34 Dose: 25 mg Documented by: Glucagon () 1 mg IM .X1 PRN PRN Reason: Hypoglycemia Pantoprazole Sodium 40 mg/ (Sodium Chloride) 110 mls @ 330 mls/hr IV Q12 [facility] Last Infusion: 09/02/19 22:04 Dose: Infused Documented by: Meropenem 250 mg/ Sodium (Chloride) 55 mls @ 100 mls/hr IV Q12 [facility] Last Infusion: 09/02/19 22:30 Dose: Infused Documented by: Sodium Chloride () 250 mls @ 15 mls/hr IV .[id number] PRN PRN Reason: Saline Flush Last Infusion: 09/01/19 23:37 Dose: 0 mls/hr Documented by: Sodium Chloride () 250 mls @ 15 mls/hr IV .[id number] PRN PRN Reason: Additional IVPB Infusion Insulin Human Lispro (Humalog Kwikpen (Bkc)) 0 unit SC TIDAC [facility]; Protocol Last Admin: 09/03/19 07:48 Dose: Not Given Documented by: Levothyroxine Sodium (Synthroid) 50 mcg PO DAILY@0600 [facility] Last Admin: 09/03/19 05:27 Dose: 50 mcg Documented by: Nicotine (Nicoderm Cq (Pbkc)) 21 mg TRANSDERM. DAILY [facility] Last Admin: 09/02/19 10:18 Dose: 21 mg Documented by: Nutritional Formula (Artemio - [place] Flavor) 1 packet PO BIDCM [facility] Last Admin: 09/02/19 16:24 Dose: Not Given Documented by: Nystatin (Mycostatin Powder) 1 applic TOPICAL BID [facility]; Protocol Last Admin: 09/02/19 21:44 Dose: 1 applicatio Documented by: Ondansetron HCl (Zofran) 4 mg IV Q8H PRN PRN PRN Reason: NAUSEA/VOMITING Oxycodone HCl (Oxyir) 5 mg PO Q6H PRN PRN PRN Reason: Pain Score 1-5/10 Last Admin: 08/31/19 10:41 Dose: 5 mg Documented by: Oxycodone HCl (Oxyir) 10 mg PO Q6H PRN PRN PRN Reason: Pain Score 6-10/10 Last Admin: 09/02/19 12:57 Dose: 10 mg Documented by: Prednisone () 40 mg PO DAILY@0800 [facility] Stop: 09/03/19 17:41 Last Admin: 09/02/19 10:26 Dose: 40 mg Documented by: Senna/Docusate Sodium (Senokot-S, Vanessa-Colace) 2 tablet PO DAILY PRN PRN PRN Reason: CONSTIPATION Last Admin: 08/30/19 14:01 Dose: 2 tablet Documented by: Sodium Chloride () 10 - 40 ml IV UD PRN PRN Reason: SALINE FLUSH Last Admin: 09/01/19 11:12 Dose: 10 ml Documented by: Medical Necessity - Tobacco Use Smoking Status: Current every day smoker Assessment/Plan All Active Problems ARF (acute renal failure) (Acute) Acute anemia (Acute) GI bleed (Acute) Cellulitis of both lower extremities (Acute) Hyperkalemia (Acute) Afib (Acute) Localized edema (Acute) Cellulitis of left lower limb (Acute) Cellulitis of right lower limb (Acute) Venous insufficiency (Acute) Peripheral vascular disease (Acute) Poor hygiene (Acute) Onychomycosis (Acute) Toe pain, right (Acute) Toe pain, left (Acute) Anasarca (Acute) Acute hypoxemic respiratory failure (Acute) Macrocytic anemia (Acute) Hyponatremia (Acute) Elevated BP without diagnosis of hypertension (Acute) Morbid (severe) obesity due to excess calories (Acute) 1. DIPTI baseline creatinine 0.67 on 06/05/19. Creatinine 4.2 today. FeNa <1% Continue with iv fluids. Poor urine output. Recheck urine sodium 2. GI bleed s/p EGD hgb stable 3. Hyperkalemia resolved, hyperphosphatemia start binders 4. Metabolic acidosis resolved 5. Acute cellulitis due to edema, renal dose iv antibx. Blood cx no growth so far 6. Morbid obesity 7. Hypotension, hypothermia. no leukocytosis. Transfer to ICU. LActic acid normal 8. Chronic debilitation. DW nursing staff, hospitalist
--- NOTE | 2019-09-03 09:15 | NURSING ---
Jena frazier placed on pt for low temperature.
--- NOTE | 2019-09-03 09:57 | CASEMGMT ---
Social Work Note Pt transferred to ICU from PCU. Ashwini NICHOLE updated this worker that plan is TCU once medically cleared. Plan: TCU once medically cleared Shasta Busch [employer], [employer]
[2019-09-03] MEDS: Nystatin Powder 15gm Bottle 1 APPLIC TOPICAL ×2 (10:19→21:42)
[2019-09-03] MEDS: predniSONE 20 MG Tablet 40 MG PO (10:22)
--- NOTE | 2019-09-03 11:06 | RAD_ITS ---
STUDY: X-RAY - LEFT TIBIA AND FIBULA REASON FOR EXAM: Male, 69 years old. SWELLING AND INFECTION TECHNIQUE: AP and lateral view(s) of the tibia and fibula were obtained. COMPARISON: None. FINDINGS: Deformity of the proximal tibial metaphysis in keeping with old injury. Healed proximal fibular fracture. The patient is status post total knee replacement. Soft tissue swelling. RAD/Tibia & Fibula 2 Views IMPRESSION: Deformity of the proximal fibula and tibia in keeping with old fracture. No acute abnormality is seen. Diffuse soft tissue swelling Electronically Signed: Kj Padilla, at 14:07 EDT , Service support ,
--- NOTE | 2019-09-03 11:08 | CON.PCM_ITS ---
Problem List (1) Cellulitis of both lower extremities Status: Acute Reason for Consult: hypotension Consulted by: Dr. Vidal History of Present Illness: The patient is a 69 year old M with h/o CHF, presented to ED with several weeks of worsening BLE edema, weakness, not feeling well. Reports dark tarry stool. Found to have DIPTI, hgb less than 5, BLE inflammation and edema. Admitted on meropenem after single dose of vanc. Seen by neph, gen surg, podiatry, plastic surgery. EGD done. Cr not improving. This AM, hypothermic to 91F, hypotensive to 74/40, transferred to icu. Vanc being restarted. Had some dyspnea, now improved. No headache, no muscle aches, no cough. Reports loss of sense of taste past few days. Lives with his mother, has not been leaving the house at all, no sick contacts. Covid neg here. Full ROS performed and neg except as noted above. - Medical History Past Medical History (Chronic Problems): Chronic Problems Bilateral lower extremity edema (Chronic) Leg pain, left (Chronic) Leg pain, right (Chronic) Chronic venous insufficiency of lower extremity (Chronic) Chronic ulcer of right leg with fat layer exposed (Chronic) Chronic ulcer of left leg with fat layer exposed (Chronic) Allergies/Adverse Reactions: Allergies Penicillins [PCN] Allergy (Verified 08/29/19 12:05) PASSED OUT Home Medications: Ambulatory Orders Medication Instructions Recorded Apixaban [Eliquis] 5 mg PO BID #60 tab 06/05/19 Potassium Chloride [K-Dur] 20 meq PO BID #60 tab 06/05/19 Torsemide 20 mg PO BID #60 tab 06/05/19 carvedilol 6.25 mg tablet 6.25 mg PO BID #60 tab 06/17/19 - Social History Tobacco Use: cigarettes Vital Signs Temp Pulse Resp BP Pulse Ox 91.7 F L 92 24 H 74/40 L 94 09/03/19 08:00 09/03/19 09:20 09/03/19 08:00 09/03/19 08:00 09/03/19 08:00 Oxygen Flow Rate (L/min) 2 Oxygen Delivery Method Nasal Cannula Weight: 152.2 kg Body Mass Index (BMI) 43.4 Microbiology Past 72 Hours 08/29/19 13:58 Gram Stain - Final Wound - Leg Wound Culture - Final Raoultella planticola Stenotrophomonas maltophilia Enterococcus faecalis Corynebact. pseudodiphtheritic 08/29/19 13:10 Blood Culture - Preliminary Blood Culture (Wb) - Anticubital Right No growth in 48 hours. 08/29/19 13:25 Blood Culture - Preliminary Blood Culture (Wb) - Left Forearm No growth in 48 hours. Laboratory Tests Past 24 Hrs 09/03/19 09/03/19 09/03/19 05:42 05:42 07:20 WBC 4.7 RBC 4.06 L Hgb 9.4 L Hct 31.4 L MCV 77.3 L MCH 23.2 L MCHC 29.9 L RDW Std Deviation 60.5 H RDW Coeff of Radha 22.6 H Plt Count 85 L MPV 11.1 Immature Gran % (Auto) 4.900 H Neut % (Auto) 80.9 H Lymph % (Auto) 10.3 L Rosebud % (Auto) 3.7 Eos % (Auto) 0.0 Baso % (Auto) 0.2 Absolute Neuts (auto) 3.8 Absolute Lymphs (auto) 0.48 L Nucleated RBC % 2.2 Differential Comment SCANNED Hypochromasia RARE Microcytosis RARE Target Cells RARE Sodium 132 L Potassium 4.3 Chloride 96 L Carbon Dioxide 23.0 BUN 99 H Creatinine 4.17 H Estim Creat Clear Calc 17.75 Est GFR (MDRD) Af Amer 18 L Est GFR (MDRD) Non-Af 15 L BUN/Creatinine Ratio 23.7 H Glucose 138 H Lactic Acid 0.9 Calcium 7.7 L Phosphorus 8.5 H Ammonia Troponin I Albumin 2.4 L 09/03/19 09/03/19 08:28 08:28 WBC RBC Hgb Hct MCV MCH MCHC RDW Std Deviation RDW Coeff of Radha Plt Count MPV Immature Gran % (Auto) Neut % (Auto) Lymph % (Auto) Rosebud % (Auto) Eos % (Auto) Baso % (Auto) Absolute Neuts (auto) Absolute Lymphs (auto) Nucleated RBC % Differential Comment Hypochromasia Microcytosis Target Cells Sodium Potassium Chloride Carbon Dioxide BUN Creatinine Estim Creat Clear Calc Est GFR (MDRD) Af Amer Est GFR (MDRD) Non-Af BUN/Creatinine Ratio Glucose Lactic Acid Calcium Phosphorus Ammonia 45.0 H Troponin I < 0.015 Albumin - Other Studies Radiology: [] reviewed Other Studies: [] Route of nutrition/ use of supplements: [] Nutritional Intake: [] IV Site: [] Asif Catheter: [] - Physical Exam General: Alert, Cooperative, No apparent distress HEENT: Atraumatic, PERRLA, EOMI Neck: Supple, No Nodes Lungs: Clear to auscultation, Normal air movement Cardiovascular: Tachycardic Abdomen: Soft, Non Tender, Non-Distended, Obese Extremities: Edema Skin: - - LLE worse than R with edema, cool, shallow purulent ulcers IV Site: Peripheral, without redness Musculoskeletal: - - L ankle moderate tenderness, diffuse swelling Neurological: Cranial nerves II-XII grossly intact - Assessment/Plan Antibiotics: [] Assessment/Plan: [] Active and Suspected Problems ARF (acute renal failure) (Acute) Acute anemia (Acute) GI bleed (Acute) Cellulitis of both lower extremities (Acute) Hyperkalemia (Acute) Afib (Acute) Localized edema (Acute) Cellulitis of left lower limb (Acute) Cellulitis of right lower limb (Acute) Venous insufficiency (Acute) Peripheral vascular disease (Acute) Poor hygiene (Acute) Onychomycosis (Acute) Toe pain, right (Acute) Toe pain, left (Acute) severe sepsis with DIPTI, GI bleed, and afib - suspect source is infected LLE wounds with concern for deeper infection given amount of ankle pain and severity of illness. Now with hypothermia and hypotension, moved to icu. Has been on meropenem. Wound cx with raoultella, corynebacteria, enterococcus, and stenotrophomonas. Agree with restarting vanc, would check random level now. Will add levaquin to cover the steno. Bcx repeated. Echo ordered. Will order xrays of LLE, but after that I think he will need CT or MRI. Does have some loss of taste, but covid neg and has been isolating at home. Overall low suspic ion for covid at this time. Will follow, thank you, d/w pharmacy and Dr. Vidal.
[2019-09-03] MEDS: Insulin Lispro 100 UNIT/ML INSULN.PEN SC ×2 (11:15→16:01)
[2019-09-03 11:26] LABS: Bedside Glucose 151 mg/dL (70-110)
--- NOTE | 2019-09-03 12:05 | RAD_ITS ---
STUDY: X-RAY - LEFT ANKLE REASON FOR EXAM: Male, 69 years old. SWELLING AND INFECTION TECHNIQUE: AP and lateral view(s) of the ankle. COMPARISON: None. FINDINGS: Normal visualized distal tibia and fibula. Normal medial and lateral malleoli. Degenerative changes of the tibiotalar joint. Normal visualized talus and calcaneus. The visualized subtalar, talonavicular, calcaneocuboid and tarsal articulations are normal. Soft tissue swelling. RAD/Ankle 2 Views IMPRESSION: Degenerative changes of the distal tibial talar joint with diffuse soft tissue swelling. Electronically Signed: Kj Padilla, at 14:06 EDT , Service support ,
[2019-09-03 12:12] LABS: Vancomycin, Random Level 9.9 ug/mL (0.0-15.0)
--- NOTE | 2019-09-03 12:17 | NURSING ---
wound photo: right lower leg
--- NOTE | 2019-09-03 12:17 | NURSING ---
wound photo: right lateral lower leg
--- NOTE | 2019-09-03 12:18 | NURSING ---
wound photo: left lower leg
--- NOTE | 2019-09-03 12:19 | NURSING ---
wound photo: left medial lower leg
[2019-09-03] MEDS: levoFLOXacin IV 750 MG/150 ML BAG 100 MG IV (12:26)
[2019-09-03] MEDS: SEVELAMER CARBONATE 800 MG TABLET 2400 MG PO (12:26)
[2019-09-03 13:03] LABS: Urine Sodium 10 mmol/L (Not Establ.)
--- NOTE | 2019-09-03 14:12 | CHAPLAIN ---
Type of Pastoral Visit _x__ Initial Visit ___ Follow-up Visit ___ On-call Visit ___ General Patient Visit ___ Spiritual Assessment ___ Family Conference ___ Bereavement ___ Rapid Response ___ Code Blue ___ Other (describe below) Pastoral Care Referral From ___ Patient ___ Family _x__ Nurse ___ Physician ___ M[employer] ___ Chemical Librarian ___ Other (describe below) Sacrament/Intervention _x__ Active listening ___ Anointing ___ Latter-Day ___ Bereavement ___ Communion ___ Rosa Isela exploration ___ ___ Life review _x__ Prayer ___ Reconciliation ___ Sacrament of Sick _x__ Supportive presence ___ Wedding ___ Other (describe below) Pastoral Comments
--- NOTE | 2019-09-03 14:22 | PCM.CON.CC ---
Problem List (1) Bilateral lower extremity edema Status: Chronic (2) Leg pain, left Status: Chronic (3) Leg pain, right Status: Chronic (4) Chronic venous insufficiency of lower extremity Status: Chronic (5) ARF (acute renal failure) Status: Acute (6) Acute anemia Status: Acute (7) GI bleed Status: Acute (8) Cellulitis of both lower extremities Status: Acute (9) Hyperkalemia Status: Acute (10) Afib Status: Acute (11) Chronic ulcer of right leg with fat layer exposed Status: Chronic (12) Chronic ulcer of left leg with fat layer exposed Status: Chronic (13) Localized edema Status: Acute (14) Cellulitis of left lower limb Status: Acute (15) Cellulitis of right lower limb Status: Acute (16) Venous insufficiency Status: Acute (17) Peripheral vascular disease Status: Acute (18) Poor hygiene Status: Acute (19) Onychomycosis Status: Acute (20) Toe pain, right Status: Acute (21) Toe pain, left Status: Acute (22) Anasarca Status: Acute (23) Macrocytic anemia Status: Acute (24) Hyponatremia Status: Acute (25) Elevated BP without diagnosis of hypertension Status: Acute (26) Morbid (severe) obesity due to excess calories Status: Acute Reason for Consult Date of Consultation: 09/03/19 Reason for Consultation: Hypotension and hypothermia History of Present Illness: The patient is a 69 year old M, with past medical history listed below, who presented to [facility] on 08/29/2019 secondary to gradual onset of bilateral leg pain. Patient was admitted at [facility] in May, but is not followed up with a doctor since that time. Patient reportedly had only been taken his torsemide and potassium. Patient reportedly had oozing of foul-smelling liquid and weeping from bilateral lower extremities. Patient has been short of breath, but admitted that he did not have to move very far. Patient not reported any fevers, cough, chest pain, vomiting or diarrhea at that time. Patient reportedly only eats ice cream and chocolate at baseline. Patient does tend to be incontinent frequently. In the ER, patient was suspected in having bilateral lower extremity edema with associated cellulitis. Extensive ulcerations and drainage were noted bilateral lower extremities without crepitus. Patient's labs showed a hemoglobin of 4.7 with a BUN of 100 and a creatinine of 5. Potassium was elevated at 6.2. Patient was given IV fluids, transfused with blood and admitted to the hospital. Patient was in the ICU. During hospital course, patient was seen by Dr. Iverson and had an EGD. This was suggestive of healing gastric ulcers. Patient continued to receive aggressive fluid resuscitation for renal failure. Patient reportedly had significant weeping throughout from his skin, but was on meropenem. Overnight, patient was noted to become hypothermic and hypotensive. Patient was receiving fluid boluses and Lasix therapy intermittently. Patient failed to respond to fluid bolus, so was transferred to the intensive care unit and I was asked to see the patient. Repeat laboratory work-up did not show any significant drop in hemoglobin. Renal function was relatively unremarkable. Patient has been on steroids for several days as a burst. Patient is not able to provide much additional history at this time. Patient states he is very nervous and needs to talk with my mom. Patient reportedly does have a learning disability at baseline and has been hollering out while on the floors. Patient is able to say that his dyspnea has improved since coming to the intensive care unit. Patient did have a negative COVID test previous to his transfer to the intensive care unit. Past Medical History Past Medical History (Chronic Problems): Chronic Problems Bilateral lower extremity edema (Chronic) Leg pain, left (Chronic) Leg pain, right (Chronic) Chronic venous insufficiency of lower extremity (Chronic) Chronic ulcer of right leg with fat layer exposed (Chronic) Chronic ulcer of left leg with fat layer exposed (Chronic) Allergies Penicillins [PCN] Allergy (Verified 08/29/19 12:05) PASSED OUT Home Medications: Ambulatory Orders Medication Instructions Recorded Apixaban [Eliquis] 5 mg PO BID #60 tab 06/05/19 Potassium Chloride [K-Dur] 20 meq PO BID #60 tab 06/05/19 Torsemide 20 mg PO BID #60 tab 06/05/19 carvedilol 6.25 mg tablet 6.25 mg PO BID #60 tab 06/17/19 Surgical History: total knee arthroplasty Psychiatric History: No pertinent psych hx Lives: Alone Smoking Status: Current every day smoker Alcohol: None Drugs: None - *Family History Offspring History Items: Diabetes - brother, Heart Disease - mother Review of Systems Unable to obtain accurate/complete ROS d/t: Mental status. See HPI Patient Problems: Active and Suspected Problems ARF (acute renal failure) (Acute) Acute anemia (Acute) GI bleed (Acute) Cellulitis of both lower extremities (Acute) Hyperkalemia (Acute) Afib (Acute) Localized edema (Acute) Cellulitis of left lower limb (Acute) Cellulitis of right lower limb (Acute) Venous insufficiency (Acute) Peripheral vascular disease (Acute) Poor hygiene (Acute) Onychomycosis (Acute) Toe pain, right (Acute) Toe pain, left (Acute) Objective: All imaging was personally reviewed. Chest x-ray overnight shows CHF with fluid in the fissure noted. Biopsies from the stomach show mild gastritis and H. pylori is negative. Multiple extremity x-rays show significant subcutaneous edema. - Physical Exam Vitals/I&O's: Vital Signs Temp Pulse Resp BP Pulse Ox 35.3 C L 90 14 101/74 94 09/03/19 14:00 09/03/19 14:00 09/03/19 14:00 09/03/19 14:00 09/03/19 14:00 Oxygen Flow Rate (L/min) 2 Oxygen Delivery Method Nasal Cannula Weight: 152.2 kg Body Mass Index (BMI) 43.4 Intake and Output for Last 24 Hours 09/01/19 09/02/19 09/03/19 23:59 23:59 23:59 Intake Total 4029.75 / 4029.75 2257.50 / 2257.50 2210 / 2210 Output Total 1300 / 1300 200 / 250 145 / 145 Balance 2729.75 / 2729.75 7.50 / 2006.50 2064 / 2064 General: Alert, Cooperative, Confused, Disoriented, - - Ruminating on mother during my evaluation. Morbidly obese. Weeping from most areas of skin HEENT: Atraumatic, PERRLA, EOMI, Normocephalic, - - Scleral injection without icterus Oral: Moist Mucosa, No Gingival or Mucosal Lesions/ Ulcerations Neck: Supple, No Nodes, Trachea Midline Lungs: No rhonchi, No wheeze, No rales, Diminished Cardiovascular: Normal S1, Normal S2, No murmurs, Irregular Rate, No rub noted, No Gallop Abdomen: Bowel Sounds Present, Soft, Non Tender, Non-Distended, Obese Extremities: No clubbing, Cyanosis - Toes, Edema - 3-4+ lower extremities with weeping Skin: - - Significant ulcerations noted bilateral lower extremities. The straps currently in place. Musculoskeletal: Tenderness - Palpation of lower extremities Lymphatic: No Cervical, Supraclavicular, or Inguinal Adenopathy Neurological: Cranial nerves II-XII grossly intact, Neuro grossly intact - Nonfocal exam, but patient is not very cooperative Psych/Mental Status: Impulsive, Restless Microbiology Past 72 Hours 08/29/19 13:58 Wound - Leg Gram Stain - Final 08/29/19 13:58 Wound - Leg Wound Culture - Final Raoultella planticola Stenotrophomonas maltophilia Enterococcus faecalis Corynebact. pseudodiphtheritic 08/29/19 13:10 Blood Culture (Wb) - Anticubital Right Blood Culture - Preliminary No growth in 48 hours. 08/29/19 13:25 Blood Culture (Wb) - Left Forearm Blood Culture - Preliminary No growth in 48 hours. Laboratory Results 09/02/19 16:25: POC Glucose 228 H 09/03/19 05:42: Sodium 132 L, Potassium 4.3, Chloride 96 L, Carbon Dioxide 23.0, BUN 99 H, Creatinine 4.17 H, Estim Creat Clear Calc 17.75, Est GFR (MDRD) Af Amer 18 L, Est GFR (MDRD) Non-Af 15 L, BUN/Creatinine Ratio 23.7 H, Glucose 138 H, Calcium 7.7 L, Phosphorus 8.5 H, Albumin 2.4 L 09/03/19 05:42: WBC 4.7, RBC 4.06 L, Hgb 9.4 L, Hct 31.4 L, MCV 77.3 L, MCH 23.2 L, MCHC 29.9 L, RDW Std Deviation 60.5 H, RDW Coeff of Radha 22.6 H, Plt Count 85 L, MPV 11.1, Immature Gran % (Auto) 4.900 H, Neut % (Auto) 80.9 H, Lymph % (Auto) 10.3 L, Pine % (Auto) 3.7, Eos % (Auto) 0.0, Baso % (Auto) 0.2, Absolute Neuts (auto) 3.8, Absolute Lymphs (auto) 0.48 L, Nucleated RBC % 2.2, Differential Comment SCANNED, Hypochromasia RARE, Microcytosis RARE, Target Cells RARE 09/03/19 06:43: POC Glucose 140 H 09/03/19 07:20: Lactic Acid 0.9 09/03/19 08:28: Troponin I < 0.015 09/03/19 08:28: Ammonia 45.0 H 09/03/19 11:13: POC Glucose 151 H 09/03/19 11:30: Troponin I < 0.015 09/03/19 11:30: Random Vancomycin 9.9 09/03/19 12:40: Ur Random Sodium 10 09/03/19 12:40: Urine Creatinine 159.00 Current Medications Acetaminophen (Tylenol) 650 mg PO Q6H PRN PRN PRN Reason: Pain Score 1-10/Temp > 100.7 F Albuterol/Ipratropium (Duoneb) 3 ml INHALATION Q6H.RT KANDY Last Admin: 09/03/19 13:29 Dose: 3 ml Documented by: Calamine/Phenol (Calmoseptine Ointment) 1 applic TOPICAL TID KANDY; Protocol Last Admin: 09/03/19 14:05 Dose: 1 applicatio Documented by: Dextrose (D50w Syringe) 0 gm IV X1 PRN; Protocol PRN Reason: Hypoglycemia Glucagon () 1 mg IM .X1 PRN PRN Reason: Hypoglycemia Pantoprazole Sodium 40 mg/ (Sodium Chloride) 110 mls @ 330 mls/hr IV Q12 KANDY Last Infusion: 09/03/19 10:56 Dose: Infused Documented by: Meropenem 250 mg/ Sodium (Chloride) 55 mls @ 100 mls/hr IV Q12 KANDY Last Infusion: 09/03/19 11:29 Dose: Infused Documented by: Sodium Chloride () 250 mls @ 15 mls/hr IV .[id number] PRN PRN Reason: Saline Flush Last Infusion: 09/01/19 23:37 Dose: 0 mls/hr Documented by: Sodium Chloride () 250 mls @ 15 mls/hr IV .[id number] PRN PRN Reason: Additional IVPB Infusion Vancomycin IV Pharmacy to Dose (1 ea/ Sodium Chloride) 500 mls @ 250 mls/hr IV X1 PRN; Protocol PRN Reason: Rx to Dose Vancomycin HCl 1,250 mg/ (Sodium Chloride) 275 mls @ 167 mls/hr IV X1 ONE Stop: 09/03/19 15:38 Last Admin: 09/03/19 14:05 Dose: 167 mls/hr Documented by: Sodium Chloride () 500 mls @ 50 mls/hr IV .Q10H [facility] Insulin Human Lispro (Humalog Kwikpen (Bkc)) 0 unit SC TIDAC [facility]; Protocol Last Admin: 09/03/19 11:15 Dose: 1 units Documented by: Levofloxacin (Levaquin Tablet) 500 mg PO Q48@0600 [facility] Levothyroxine Sodium (Synthroid) 50 mcg PO DAILY@0600 [facility] Last Admin: 09/03/19 05:27 Dose: 50 mcg Documented by: Nicotine (Nicoderm Cq (Pbkc)) 21 mg TRANSDERM. DAILY [facility] Last Admin: 09/03/19 10:18 Dose: 21 mg Documented by: Nutritional Formula (Artemio - [place] Flavor) [facility] Last Admin: 09/03/19 10:22 Dose: 1 packet Documented by: Nystatin (Mycostatin Powder) 1 applic TOPICAL BID [facility]; Protocol Last Admin: 09/03/19 10:19 Dose: 1 applicatio Documented by: Ondansetron HCl (Zofran) 4 mg IV Q8H PRN PRN PRN Reason: NAUSEA/VOMITING Oxycodone HCl (Oxyir) 5 mg PO Q6H PRN PRN PRN Reason: Pain Score 1-5/10 Last Admin: 08/31/19 10:41 Dose: 5 mg Documented by: Prednisone () 40 mg PO DAILY@0800 [facility] Stop: 09/03/19 17:41 Last Admin: 09/03/19 10:22 Dose: 40 mg Documented by: Senna/Docusate Sodium (Senokot-S, Vanessa-Colace) 2 tablet PO DAILY PRN PRN PRN Reason: CONSTIPATION Last Admin: 08/30/19 14:01 Dose: 2 tablet Documented by: Sevelamer Carbonate (Renvela) 2,400 mg PO TIDCM [facility] Last Admin: 09/03/19 12:26 Dose: 2,400 mg Documented by: Sodium Chloride () 10 - 40 ml IV UD PRN PRN Reason: SALINE FLUSH Last Admin: 09/01/19 11:12 Dose: 10 ml Documented by: Clinical Impression(s) from Imaging Studies Chest X-Ray 09/02/19 23:47 IMPRESSION: Heart is enlarged. There are bilateral perihilar and lower lobe infiltrates which have increased since prior study. There are increased bilateral pleural effusions. There is NO pneumothorax. Electronically Signed: Lucas Zamora MD at 0:21 EDT , Service support , Tibia/Fibula X-Ray 09/03/19 11:06 IMPRESSION: Deformity of the proximal fibula and tibia in keeping with old fracture. No acute abnormality is seen. Diffuse soft tissue swelling Electronically Signed: Kj Padilla, at 14:07 EDT , Service support , Ankle X-Ray 09/03/19 12:05 IMPRESSION: Degenerative changes of the distal tibial talar joint with diffuse soft tissue swelling. Electronically Signed: Kj Padilla, at 14:06 EDT , Service support , Assessment/Plan Active and Suspected Problems ARF (acute renal failure) (Acute) Acute anemia (Acute) GI bleed (Acute) Cellulitis of both lower extremities (Acute) Hyperkalemia (Acute) Afib (Acute) Localized edema (Acute) Cellulitis of left lower limb (Acute) Cellulitis of right lower limb (Acute) Venous insufficiency (Acute) Peripheral vascular disease (Acute) Poor hygiene (Acute) Onychomycosis (Acute) Toe pain, right (Acute) Toe pain, left (Acute) RECOMMENDATIONS: 1. Passive warming 2. Agree with infectious disease recommendations 3. Agree with echocardiogram 4. Obtain endocrine work-up 5. Initiate pressors if necessary IMPRESSIONS: 1. Hypotension/hypothermia Unclear etiology. Sepsis would be a concern given hypothermia, but this would be unlikely given patient has been on meropenem for several days for lower extremities. Agree with infectious disease recommendations. Patient does not have focal neurologic findings. Patient has been receiving significant fluid resuscitation in the setting of low oncotic pressure, but this would not account for acute onset of hypothermia and hypotension. Patient has been getting prednisone therapy, so cortisol levels will be falsely elevated. Some concern for possible hypoadrenalism versus hypopituitary versus hypothyroidism. Will obtain endocrine work-up. Can initiate pressor therapy if necessary. Glucose levels have been appropriate. Discontinue antihypertensives. Another possible etiology for hypothermia would be conductive losses secondary to weeping of the skin and loss of appropriate barrier of lower extremities. 2. Severe sepsis secondary to lower extremity cellulitis Patient is being seen by infectious disease. Patient was on meropenem when initial hypotension and hypothermia was noted. Agree with infectious disease. Can initiate patient on low-dose peripheral pressors for now if necessary. 3. Acute kidney injury Patient is receiving aggressive fluid resuscitation with little improvement in renal function. Clinical suspicion for prerenal etiology secondary to low oncotic pressure with delivery to the kidneys. Nephrology is following. Patient would likely be a poor candidate for long-term hemodialysis given history of noncompliance, current debility and cognitive functioning. 4. Acute hypoxic respiratory insufficiency secondary to probable acute on chronic diastolic CHF/paroxysmal A. fib Chest x-ray is suggestive of congestive heart failure with fluid in the fissure and developing infiltrates with pleural effusions. Patient likely requires hemodialysis from a respiratory standpoint. Caution with additional fluids. Repeat echo has been ordered. 5. Recent acute blood loss anemia/thrombocytopenia Patient with healing gastric ulcers that may have been the etiology of low hemoglobin on presentation. H. pylori has not been noted. Unclear etiology of thrombocytopenia. Patient may have a consumptive process. 6. History of noncompliance/morbid obesity/learning disability Complicates care, management, recovery and prognosis. Hospitalist to have a meeting with family to discuss CODE STATUS. Inpatient E&M: 73790 Init Hosp L3
[2019-09-03] MEDS: 0.9% Normal Saline 1,000 ML 150 ML IV ×2 (16:01→22:00)
[2019-09-03 16:10] LABS: Bedside Glucose 159 mg/dL (70-110)
--- NOTE | 2019-09-03 18:00 | CASEMGMT ---
Social Work ICU Reason for intervention: Health care decision making questions. Order of Decision making (without advanced directives on file) 1. Adult children - Daughter Yamilex Zhu, is the only child whose whereabouts are known. [phone]; [address] [facility]. 2. Parent - Brandi Levine, 3. Sibling - Maximilian Levine, (alternate number, ) Summary of interventions: Collaboration with WINDOWS VMWARE ADMINISTRATOR Shasta Busch regarding update on the family meeting today that occurred today, patient's current status in treatment, and new knowledge after meeting that patient has a daughter who is not listed on patient's demographic data. Conferred with Petrona MCKEON on update from the meeting that occurred with patient. Patient's mother Brandi and brother Maximilian were also present. Decision made for patient to become DNRCC-A, and patient reportedly deferred decision making to family. Patient reportedly alert and oriented but at times does not answer questions. RN reports the [id number] conveyed that patient does have a daughter Yamilex. RN also reports the daughter is allegedly bringing a Health Care power of contracts attorney to the hospital. Called number listed for patient's mother. No answer and message indicated this number was for patient himself. Called patient's brother Maximilian at [phone]. Patient's [id number] Jo Ann answered. Confirmed that patient does have a daughter Yamilex Zhu and provided number. Reports there is a son Aaron, who is reportedly estranged from the family. Jo Ann voiced not sure why Charitee was not mentioned earlier in the stay, as Yamilex would likely appreciate being able to see or have contact with patient. Inquired whether Jo Ann is aware of any medical power of contracts attorney paperwork. Jo Ann reports belief there is but deferred to Maximilian, who is at work this evening, as [phone]. Called Maximilian at [phone], but voicemail is full. Unable to leave a message. Called Yamilex, who confirms who her father is and date of fo patient, as well as being notified by family fo patient's hospitalizations. Daughter reports there is a son Aaron who has reportedly been estranged for 15 years. Yamilex is unsure how to reach Aaron. Yamilex described dynamics in relationship with patient and patient's 91 year old mother, whom the patient has always lived with. Dinora reports patient does have a long history of alcohol dependence issues, but reportedly quiet drinking in May after being hospitalized at [facility]. Yamilex reports was the one to pick patient up and take patient home. Yamilex reports she may be the executor of patient's will. Educated Yamilex the hospital is looking for health care advanced directives and to get said documents on file, if they exist. Yomairagerosiris portillo will call the contracts attorney's office ([facility]) to find out. Yamilex asks who is the decision maker if there is not power of contracts attorney. Educated that [place]'s decision making algorithm would go to the adult children first. Met with patient in room and introduced to social work role. Patient alert, but would not answer questions about orientation. Patient intermittently looked directly at this medical writer and at other times stared ahead moaning and repeating too many people. When asked if there were a lot of people in today to talk, the patient stated yes. Patient stated yes to having a power of contracts attorney, but when asked if patient could tell this medical writer where the documents are the patient started to groan again and say hold me, hold me as well as too many people. Patient voiced that just trying to catch my breath. Patient able to say yes to having a daughter Yamilex, and looked this medical writer in the eye when answering this question. Educated patient that without any advanced directive documentation, the staff would be calling Yomairavirginie for help with decision making, should help with decision making be needed. Patient reported okay. Let patient know that social work remains available to assist. Updated nursing staff. Plan: Social work to follow. Will try the brother Maximilian again tomorrow to see if Maximilian happens to have the medical power of contracts attorney paperwork as this medical writer noted in a prior hospital visit that Maximilian was identified as the power of contracts attorney for health care. -YANIRA Santillan, WINDOWS VMWARE ADMINISTRATOR
[2019-09-03 22:00] LABS: Bedside Glucose 146 mg/dL (70-110)
--- NOTE | 2019-09-03 22:56 | NURSING ---
patient is refusing to wear the warming blanket, he keeps ripping the blanket off and throwing it on the floor, despite this nurses best efforts to keep the patient informed as to why the blanket was important he was still refusing to wear it and told me this is not what he wants.
[2019-09-04] VITALS (20 sets, daily range): BP systolic 89–128; BP diastolic 52–107; PULSE 81–106; RESP 12–23; TEMP 33.3–35.9; O2SAT 92–100
[2019-09-04] MEDS: Ipratropium/Albuterol Sulfate 3 ML AMPUL.NEB INHALATION ×2 (00:15→06:37)
[2019-09-04] MEDS: 0.9% Normal Saline 1,000 ML 150 ML IV ×2 (04:37→12:54)
[2019-09-04] MEDS: Menthol/Lanolin/Calamine/Znox 113 GM Tube 1 APPLIC TOPICAL ×2 (05:33→12:56)
[2019-09-04 06:22] LABS: Vancomycin, Random Level 17.9 ug/mL (0.0-15.0)
--- NOTE | 2019-09-04 07:05 | PN_ITS ---
Patient Problems: Active and Suspected Problems ARF (acute renal failure) (Acute) Acute anemia (Acute) GI bleed (Acute) Cellulitis of both lower extremities (Acute) Hyperkalemia (Acute) Afib (Acute) Localized edema (Acute) Cellulitis of left lower limb (Acute) Cellulitis of right lower limb (Acute) Venous insufficiency (Acute) Peripheral vascular disease (Acute) Poor hygiene (Acute) Onychomycosis (Acute) Toe pain, right (Acute) Toe pain, left (Acute) Reason for Visit: Follow-up on severe anemia/bilateral lower extremity cellulitis/Acute CHF Subjective: Patient was seen and examined. Remains hypothermic. Says he feels scared. Oliguric. IVF running at 150cc/hr. Family to decide on Hospice. Objective: Physical exam: General: Alert, Oriented x3, Cooperative, No apparent distress, slightly lethargic HEENT: Atraumatic, PERRLA, EOMI, Normocephalic Oral: Dry Mucosa Neck: Supple, No JVD, Negative Carotid Bruits Lungs: Clear to auscultation, Normal air movement, No rhonchi, No wheeze Cardiovascular: Irregular Rate - Afib, rate controlled. Abdomen: Bowel Sounds Present, Soft, Non Tender, Non-Distended, No Hepato-splenomegaly Extremities:Edema +1-2, with evidence of wrinkling of skin Skin: - - see previous notes as lower extremities are CESAR-wrapped, serous fluid oozing from skin Musculoskeletal: No Tenderness to Palpation of Joints or Extremities Lymphatic: No Cervical, Supraclavicular, or Inguinal Adenopathy Neurological: Cranial nerves II-XII grossly intact, Neuro grossly intact, Motor Exam 5/5 strength throughout Psych/Mental Status: Normal Affect, Appropriate, Alert and oriented to time, place, person, mood and affect Vitals/I&O's: Vital Signs Temp Pulse Resp BP Pulse Ox 95.9 F L 102 H 18 100/61 95 09/04/19 04:00 09/04/19 06:00 09/04/19 06:00 09/04/19 06:09/04/19 06:00 Oxygen Flow Rate (L/min) 4 Oxygen Delivery Method Nasal Cannula Weight: 153.1 kg Body Mass Index (BMI) 43.4 Intake and Output for Last 24 Hours 09/02/19 09/03/19 09/04/19 23:59 23:59 23:59 Intake Total 2257.50 / 2257.50 3935.5 / 3935.5 1425.5 / 1425.5 Output Total 200 / 250 305 / 305 100 / 100 Balance 2056.50 / 2006.50 3630.5 / 3630.5 1325.5 / 1325.5 Lungs: Clear to auscultation, Normal air movement Cardiovascular: Regular rate, No murmurs Abdomen: Bowel Sounds Present, Soft, Non Tender Extremities: No edema, Capillary Refill Less than 3 Seconds Skin: No rashes, No breakdown Musculoskeletal: No Tenderness to Palpation of Joints or Extremities Neurological: Cranial nerves II-XII grossly intact Psych/Mental Status: Normal Affect, Appropriate Microbiology Past 72 Hours 08/29/19 13:10 Blood Culture (Wb) - Anticubital Right Blood Culture - Final No growth in 5 days. 08/29/19 13:25 Blood Culture (Wb) - Left Forearm Blood Culture - Final No growth in 5 days. 08/29/19 13:58 Wound - Leg Gram Stain - Final 08/29/19 13:58 Wound - Leg Wound Culture - Final Raoultella planticola Stenotrophomonas maltophilia Enterococcus faecalis Corynebact. pseudodiphtheritic Laboratory Results 09/03/19 05:42: Differential Comment SCANNED, Hypochromasia RARE, Microcytosis RARE, Target Cells RARE 09/03/19 06:43: POC Glucose 140 H 09/03/19 07:20: Lactic Acid 0.9 09/03/19 08:28: Troponin I < 0.015 09/03/19 08:28: Ammonia 45.0 H 09/03/19 11:13: POC Glucose 151 H 09/03/19 11:30: Troponin I < 0.015 09/03/19 11:30: Random Vancomycin 9.9 09/03/19 12:40: Ur Random Sodium 10 09/03/19 12:40: Urine Creatinine 159.00 09/03/19 16:00: POC Glucose 159 H 09/03/19 21:58: POC Glucose 146 H 09/04/19 05:20: Random Vancomycin 17.9 H 09/04/19 05:40: Sodium Pending, Potassium Pending, Chloride Pending, Carbon Dioxide Pending, BUN Pending, Creatinine Pending, Est GFR (MDRD) Af Amer Pending, Est GFR (MDRD) Non-Af Pending, BUN/Creatinine Ratio Pending, Glucose Pending, Calcium Pending, Phosphorus Pending, Albumin Pending, TSH Pending, Free T4 Pending, FSH Pending, Luteinizing Hormone Pending Current Medications Acetaminophen (Tylenol) 650 mg PO Q6H PRN PRN PRN Reason: Pain Score 1-10/Temp > 100.7 F Albuterol/Ipratropium (Duoneb) 3 ml INHALATION Q6H.RT [facility] Last Admin: 09/04/19 06:37 Dose: 3 ml Documented by: Calamine/Phenol (Calmoseptine Ointment) 1 applic TOPICAL TID [facility]; Protocol Last Admin: 09/04/19 05:33 Dose: 1 applicatio Documented by: Dextrose (D50w Syringe) 0 gm IV X1 PRN; Protocol PRN Reason: Hypoglycemia Glucagon () 1 mg IM .X1 PRN PRN Reason: Hypoglycemia Pantoprazole Sodium 40 mg/ (Sodium Chloride) 110 mls @ 330 mls/hr IV Q12 [facility] Last Infusion: 09/03/19 21:28 Dose: Infused Documented by: Meropenem 250 mg/ Sodium (Chloride) 55 mls @ 100 mls/hr IV Q12 [facility] Last Infusion: 09/03/19 22:09 Dose: Infused Documented by: Sodium Chloride () 250 mls @ 15 mls/hr IV .[id number] PRN PRN Reason: Saline Flush Last Infusion: 09/04/19 03:31 Dose: Infused Documented by: Sodium Chloride () 250 mls @ 15 mls/hr IV .[id number] PRN PRN Reason: Additional IVPB Infusion Vancomycin IV Pharmacy to Dose (1 ea/ Sodium Chloride) 500 mls @ 250 mls/hr IV X1 PRN; Protocol PRN Reason: Rx to Dose Sodium Chloride () 1,000 mls @ 150 mls/hr IV .Q6H40M [facility] Last Infusion: 09/04/19 05:48 Dose: 150 mls/hr Documented by: Vancomycin HCl 2,000 mg/ (Sodium Chloride) 540 mls @ 250 mls/hr IV X1 ONE Stop: 09/04/19 16:09 Insulin Human Lispro (Humalog Kwsalome (Bkc)) 0 unit SC TIDAC [facility]; Protocol Last Admin: 09/03/19 16:01 Dose: 1 units Documented by: Levofloxacin (Levaquin Tablet) 500 mg PO Q48@0600 [facility] Levothyroxine Sodium (Synthroid) 50 mcg PO DAILY@0600 [facility] Last Admin: 09/04/19 05:48 Dose: Not Given Documented by: Nicotine (Nicoderm Cq (Pbkc)) 21 mg TRANSDERM. DAILY [facility] Last Admin: 09/03/19 10:18 Dose: 21 mg Documented by: Nutritional Formula (Artemio - [place] Flavor) 1 packet PO BIDCM [facility] Last Admin: 09/03/19 17:10 Dose: Not Given Documented by: Nystatin (Mycostatin Powder) 1 applic TOPICAL BID [facility]; Protocol Last Admin: 09/03/19 21:42 Dose: 1 applicatio Documented by: Ondansetron HCl (Zofran) 4 mg IV Q8H PRN PRN PRN Reason: NAUSEA/VOMITING Oxycodone HCl (Oxyir) 5 mg PO Q6H PRN PRN PRN Reason: Pain Score 1-5/10 Last Admin: 08/31/19 10:41 Dose: 5 mg Documented by: Senna/Docusate Sodium (Senokot-S, Vanessa-Colace) 2 tablet PO DAILY PRN PRN PRN Reason: CONSTIPATION Last Admin: 08/30/19 14:01 Dose: 2 tablet Documented by: Sevelamer Carbonate (Renvela) 2,400 mg PO TIDCM [facility] Last Admin: 09/03/19 17:11 Dose: Not Given Documented by: Sodium Chloride () 10 - 40 ml IV UD PRN PRN Reason: SALINE FLUSH Last Admin: 09/01/19 11:12 Dose: 10 ml Documented by: STROKE Vital Signs/Narrative: Vital Signs Temp Pulse Resp BP Pulse Ox 09/04/19 06:00 102 H 18 100/61 95 09/04/19 05:00 100 20 H 124/77 H 93 09/04/19 04:00 95.9 F L 93 19 H 128/107 H 95 09/04/19 03:10 81 Medical Necessity - Tobacco Use Smoking Status: Current every day smoker Assessment/Plan All Active Problems ARF (acute renal failure) (Acute) Acute anemia (Acute) GI bleed (Acute) Cellulitis of both lower extremities (Acute) Hyperkalemia (Acute) Afib (Acute) Localized edema (Acute) Cellulitis of left lower limb (Acute) Cellulitis of right lower limb (Acute) Venous insufficiency (Acute) Peripheral vascular disease (Acute) Poor hygiene (Acute) Onychomycosis (Acute) Toe pain, right (Acute) Toe pain, left (Acute) Anasarca (Acute) Acute hypoxemic respiratory failure (Acute) Macrocytic anemia (Acute) Hyponatremia (Acute) Elevated BP without diagnosis of hypertension (Acute) Morbid (severe) obesity due to excess calories (Acute) 1. Severe sepsis secondary to pneumonia, remains hypothermic On IV meropenem, vancomycin and Levaquin, will continue same Infectious disease consulted 2. Acute severe anemia secondary to Acute GI bleed, stable hb FOBT x2 is negative. Admitting Hb is 4.7. Status post 7 units of packed RBC today. EGD on 09/01/19 showed nonbleeding gastric ulcer, erythematous mucosa of the stomach Colonoscopy canceled, continue on IV PPI 3. DIPTI, prerenal, multifactorial, worsening Likely secondary to severe anemia/use of NSAIDs/Lasix Creatinine worsening, now 4.15 Urine output is oliguric. On IVF, Nephrology following 4. Hyperkalemia, resolved, status post treatment with Kayexalate 5. Hypothyroidism, on increased dose - levothyroxine 100mcg po daily 6. Bilateral lower extremity cellulitis/chronic venous stasis ulcers/worsened by self-neglect No fevers, no leukocytosis. Continue on IV antibiotics Wound RN following 7. Hypoxia likely secondary to atelectasis, on 2L oxygen Will monitor for acute CHF with IVF, continue to wean off oxygen, breathing treatments PRN 8. Chronic diastolic CHF, EF of 60% with moderate LVH, not in acute exacerbation Repeat 2D-ECHO shows EF 65%, follow-up with daily weights 9. Paroxysmal atrial fibrillation, rate controlled, continue on Coreg Off Eliquis on account of GI bleed 10. Hypertension, controlled, off Coreg 11. DVT PPx- SCDs Inpatient E&M: [id number] [facility] L3
[2019-09-04 07:56] LABS: Albumin, Serum 2.4 g/dL (3.2-5.0); BUN 102 mg/dL (7-18); BUN/Creat Ratio 24.6 RATIO (10-20); Calcium,Total 7.5 mg/dL (8.5-10.1); Chloride 99 mmol/L (98-107); Creatinine, Serum 4.15 mg/dL (0.70-1.30); EST Glomerular Filtration Rate 15 mL/min (>60); Est Glom Filt Rate - Afr Amer 19 mL/min (>60); Estimated Creatinine Clearance 17.83 ml/min; Follicle Stimulating Hormone 0.6 mIU/mL; Glucose 138 mg/dL (74-106); Luteinizing Hormone 0.2 mIU/mL; Phosphorus 8.7 mg/dL (2.5-4.9); Potassium 4.2 mmol/L (3.5-5.1); Sodium Level 134 mmol/L (136-145); T4 Free Direct 0.54 ng/dL (0.76-1.46); Thyroid Stim Hormone (TSH) 4.32 uIU/mL (0.358-3.74)
[2019-09-04 08:06] LABS: Bedside Glucose 146 mg/dL (70-110)
--- NOTE | 2019-09-04 09:20 | CASEMGMT ---
Social Work ICU Reason for intervention: Follow up on health care decision making issues. Order of Decision making (without advanced directives on file), and if patient is unable to make decisions for self: 1. Adult children - Daughter Yamilex Zhu, is the only child whose whereabouts are known. [phone]; [address] [facility]. 2. Parent - Brandi Levine, 3. Sibling - Maximilian Levine, (alternate number, ) Summary of interventions: Called patient's brother Maximilian. Maximilian reports to be the executor of patient's will. Educated Maximilian that the will is a separate issue between the family, but that hospital is interested in the medical advanced directives if any. Educated Maximilian to decision making tree for [place], and that without advanced directives this decision making tree will be followed, unless documentarian can be provided stating patient's wishes otherwise. Maximilian reported that will call the district attorney's office to see if such documents exist. Provided this instructional writer's name and number to call if Maximilian gets any updates. Update and handoff report to DALLAS Gilbert covering for ICU this date. Plan: Social work remains available as needed. Family has been made aware of need to bring in advanced directives for medical decision making if can be found. -YANIRA Santillan, REGIONAL CLINICAL DIRECTOR
--- NOTE | 2019-09-04 09:49 | PCM.PN.ID ---
Patient Problems: Active and Suspected Problems ARF (acute renal failure) (Acute) Acute anemia (Acute) GI bleed (Acute) Cellulitis of both lower extremities (Acute) Hyperkalemia (Acute) Afib (Acute) Localized edema (Acute) Cellulitis of left lower limb (Acute) Cellulitis of right lower limb (Acute) Venous insufficiency (Acute) Peripheral vascular disease (Acute) Poor hygiene (Acute) Onychomycosis (Acute) Toe pain, right (Acute) Toe pain, left (Acute) Subjective: Feeling ok but says he's scared. Now DNRCCA. No dyspnea, denies fever. - Physical Exam Vitals/I&O's: Vital Signs Temp Pulse Resp BP Pulse Ox 92.8 F L 88 17 113/69 95 09/04/19 08:00 09/04/19 08:00 09/04/19 08:00 09/04/19 08:00 09/04/19 08:00 Oxygen Flow Rate (L/min) 2 Oxygen Delivery Method Nasal Cannula Weight: 153.1 kg Body Mass Index (BMI) 43.4 Intake and Output for Last 24 Hours 09/02/19 09/03/19 09/04/19 23:59 23:59 23:59 Intake Total 2257.50 / 2257.50 3935.5 / 3935.5 1425.5 / 1425.5 Output Total 200 / 250 305 / 305 100 / 100 Balance 50 / 50 3630.5 / 3630.5 1325.5 / 1325.5 General: Alert, Cooperative, No apparent distress Lungs: Clear to auscultation, Normal air movement Cardiovascular: Irregular Rate Abdomen: Soft, Non Tender, Non-Distended Extremities: Edema Skin: Ulcer/ Wound - BLE wrapped Microbiology Past 72 Hours 08/29/19 13:10 Blood Culture (Wb) - Anticubital Right Blood Culture - Final No growth in 5 days. 08/29/19 13:25 Blood Culture (Wb) - Left Forearm Blood Culture - Final No growth in 5 days. 08/29/19 13:58 Wound - Leg Gram Stain - Final 08/29/19 13:58 Wound - Leg Wound Culture - Final Raoultella planticola Stenotrophomonas maltophilia Enterococcus faecalis Corynebact. pseudodiphtheritic Laboratory Results 08/29/19 14:20: Crossmatch See Detail 09/03/19 11:13: POC Glucose 151 H 09/03/19 11:30: Troponin I < 0.015 09/03/19 11:30: Random Vancomycin 9.9 09/03/19 12:40: Ur Random Sodium 10 09/03/19 12:40: Urine Creatinine 159.00 09/03/19 16:00: POC Glucose 159 H 09/03/19 21:58: POC Glucose 146 H 09/04/19 05:20: Random Vancomycin 17.9 H 09/04/19 05:40: Sodium 134 L, Potassium 4.2, Chloride 99, Carbon Dioxide 23.0, BUN 102 H*, Creatinine 4.15 H, Estim Creat Clear Calc 17.83, Est GFR (MDRD) Af Amer 19 L, Est GFR (MDRD) Non-Af 15 L, BUN/Creatinine Ratio 24.6 H, Glucose 138 H, Calcium 7.5 L, Phosphorus 8.7 H, Albumin 2.4 L, TSH 4.32 H, Free T4 0.54 L, FSH 0.6, Luteinizing Hormone 0.2 09/04/19 08:02: POC Glucose 146 H Current Medications Acetaminophen (Tylenol) 650 mg PO Q6H PRN PRN PRN Reason: Pain Score 1-10/Temp > 100.7 F Albuterol/Ipratropium (Duoneb) 3 ml INHALATION Q6H.RT [facility] Last Admin: 09/04/19 06:37 Dose: 3 ml Documented by: Calamine/Phenol (Calmoseptine Ointment) 1 applic TOPICAL TID [facility]; Protocol Last Admin: 09/04/19 05:33 Dose: 1 applicatio Documented by: Dextrose (D50w Syringe) 0 gm IV X1 PRN; Protocol PRN Reason: Hypoglycemia Glucagon () 1 mg IM .X1 PRN PRN Reason: Hypoglycemia Pantoprazole Sodium 40 mg/ (Sodium Chloride) 110 mls @ 330 mls/hr IV Q12 [facility] Last Infusion: 09/03/19 21:28 Dose: Infused Documented by: Meropenem 250 mg/ Sodium (Chloride) 55 mls @ 100 mls/hr IV Q12 [facility] Last Infusion: 09/03/19 22:09 Dose: Infused Documented by: Sodium Chloride () 250 mls @ 15 mls/hr IV .[id number] PRN PRN Reason: Saline Flush Last Infusion: 09/04/19 03:31 Dose: Infused Documented by: Sodium Chloride () 250 mls @ 15 mls/hr IV .[id number] PRN PRN Reason: Additional IVPB Infusion Vancomycin IV Pharmacy to Dose (1 ea/ Sodium Chloride) 500 mls @ 250 mls/hr IV X1 PRN; Protocol PRN Reason: Rx to Dose Sodium Chloride () 1,000 mls @ 150 mls/hr IV .Q6H40M [facility] Last Infusion: 09/04/19 05:48 Dose: 150 mls/hr Documented by: Vancomycin HCl 2,000 mg/ (Sodium Chloride) 540 mls @ 250 mls/hr IV X1 ONE Stop: 09/04/19 16:09 Insulin Human Lispro (Humalog Kwikpen (Bkc)) 0 unit SC TIDAC [facility]; Protocol Last Admin: 09/04/19 08:04 Dose: Not Given Documented by: Levofloxacin (Levaquin Tablet) 500 mg PO Q48@0600 [facility] Levothyroxine Sodium (Synthroid) 50 mcg PO DAILY@0600 [facility] Last Admin: 09/04/19 05:48 Dose: Not Given Documented by: Nicotine (Nicoderm Cq (Pbkc)) 21 mg TRANSDERM. DAILY [facility] Last Admin: 09/03/19 10:18 Dose: 21 mg Documented by: Nutritional Formula (Artemio - [place] Flavor) 1 packet PO BIDCM [facility] Last Admin: 09/04/19 09:28 Dose: Not Given Documented by: Nystatin (Mycostatin Powder) 1 applic TOPICAL BID [facility]; Protocol Last Admin: 09/03/19 21:42 Dose: 1 applicatio Documented by: Ondansetron HCl (Zofran) 4 mg IV Q8H PRN PRN PRN Reason: NAUSEA/VOMITING Oxycodone HCl (Oxyir) 5 mg PO Q6H PRN PRN PRN Reason: Pain Score 1-5/10 Last Admin: 08/31/19 10:41 Dose: 5 mg Documented by: Senna/Docusate Sodium (Senokot-S, Vanessa-Colace) 2 tablet PO DAILY PRN PRN PRN Reason: CONSTIPATION Last Admin: 08/30/19 14:01 Dose: 2 tablet Documented by: Sevelamer Carbonate (Renvela) 2,400 mg PO TIDCM [facility] Last Admin: 09/04/19 09:28 Dose: Not Given Documented by: Sodium Chloride () 10 - 40 ml IV UD PRN PRN Reason: SALINE FLUSH Last Admin: 09/01/19 11:12 Dose: 10 ml Documented by: Medical Necessity - Tobacco Use Smoking Status: Current every day smoker Route of nutrition/ use of supplements: [] Nutritional Intake: [] IV Site: [] Asif Catheter: [] - Assessment/Plan Antibiotics: [] Assessment/Plan: [] Active and Suspected Problems ARF (acute renal failure) (Acute) Acute anemia (Acute) GI bleed (Acute) Cellulitis of both lower extremities (Acute) Hyperkalemia (Acute) Afib (Acute) Localized edema (Acute) Cellulitis of left lower limb (Acute) Cellulitis of right lower limb (Acute) Venous insufficiency (Acute) Peripheral vascular disease (Acute) Poor hygiene (Acute) Onychomycosis (Acute) Toe pain, right (Acute) Toe pain, left (Acute) severe sepsis with DIPTI, GI bleed, and afib - suspect source is infected LLE wounds with concern for deeper infection given amount of ankle pain and severity of illness. Now with hypothermia and hypotension, moved to icu. Has been on meropenem. Wound cx with raoultella, corynebacteria, enterococcus, and stenotrophomonas. 09/02 added vanc for coryne coverage and levaquin for steno coverage. BP improved, but still hypothermic. Will get CT of legs. Family meeting yesterday, now DNRCCA. Will follow, d/w Dr. Vidal.
--- NOTE | 2019-09-04 10:11 | PCM.PN.INT ---
Subjective: Patient did okay overnight. Patient continues to be relatively hypothermic, but has been refusing warming measures or turning. Patient has been stable on 4 L nasal cannula. Blood pressure is improved today. Patient's daughter has been contacted about goals of therapy. General: Alert, Cooperative - Intermittently, Confused, Disoriented, - - Morbidly obese. Continues to weep through the skin. HEENT: Atraumatic, PERRLA, EOMI, Normocephalic, - - No scleral icterus or injection noted Oral: Moist Mucosa, No Gingival or Mucosal Lesions/ Ulcerations Neck: Supple, No JVD, No Nodes, Trachea Midline Lungs: No rhonchi, No wheeze, No rales, Diminished Cardiovascular: Normal S1, Normal S2, No murmurs, Irregular Rate, No rub noted, No Gallop Abdomen: Bowel Sounds Present, Soft, Non Tender, Non-Distended, Obese Extremities: No cyanosis, Edema Skin: - - No change from previous Musculoskeletal: No Tenderness to Palpation of Joints or Extremities Lymphatic: No Cervical, Supraclavicular, or Inguinal Adenopathy Neurological: Cranial nerves II-XII grossly intact, Neuro grossly intact, Motor Exam 5/5 strength throughout Psych/Mental Status: Impulsive, Restless Vital Signs Temp Pulse Resp BP Pulse Ox 33.8 C L 88 17 113/69 95 09/04/19 08:00 09/04/19 08:00 09/04/19 08:00 09/04/19 08:00 09/04/19 08:00 Oxygen Flow Rate (L/min) 2 Oxygen Delivery Method Nasal Cannula Weight: 153.1 kg Body Mass Index (BMI) 43.4 Intake and Output for Last 24 Hours 09/02/19 09/03/19 09/04/19 23:59 23:59 23:59 Intake Total 2257.50 / 2257.50 3935.5 / 3935.5 1425.5 / 1425.5 Output Total 200 / 250 305 / 305 100 / 100 Balance 2056.50 / 2006.50 3630.5 / 3630.5 1325.5 / 1325.5 Labs (Last 48 Hours) 08/29/19 09/02/19 09/02/19 14:20 11:28 16:25 WBC RBC Hgb Hct MCV MCH MCHC RDW Std Deviation RDW Coeff of Radha Plt Count MPV Immature Gran % (Auto) Neut % (Auto) Lymph % (Auto) [place] % (Auto) Eos % (Auto) Baso % (Auto) Absolute Neuts (auto) Absolute Lymphs (auto) Nucleated RBC % Differential Comment Hypochromasia Microcytosis Target Cells Sodium Potassium Chloride Carbon Dioxide BUN Creatinine Estim Creat Clear Calc Est GFR (MDRD) Af Amer Est GFR (MDRD) Non-Af BUN/Creatinine Ratio Glucose Lactic Acid Calcium Phosphorus Ammonia Troponin I Albumin TSH Free T4 FSH Luteinizing Hormone Ur Random Sodium Urine Creatinine Random Vancomycin POC Glucose 161 H 228 H Crossmatch See Detail 09/03/19 09/03/19 09/03/19 05:42 05:42 06:43 WBC 4.7 RBC 4.06 L Hgb 9.4 L Hct 31.4 L MCV 77.3 L MCH 23.2 L MCHC 29.9 L RDW Std Deviation 60.5 H RDW Coeff of Radha 22.6 H Plt Count 85 L MPV 11.1 Immature Gran % (Auto) 4.900 H Neut % (Auto) 80.9 H Lymph % (Auto) 10.3 L [place] % (Auto) 3.7 Eos % (Auto) 0.0 Baso % (Auto) 0.2 Absolute Neuts (auto) 3.8 Absolute Lymphs (auto) 0.48 L Nucleated RBC % 2.2 Differential Comment SCANNED Hypochromasia RARE Microcytosis RARE Target Cells RARE Sodium 132 L Potassium 4.3 Chloride 96 L Carbon Dioxide 23.0 BUN 99 H Creatinine 4.17 H Estim Creat Clear Calc 17.75 Est GFR (MDRD) Af Amer 18 L Est GFR (MDRD) Non-Af 15 L BUN/Creatinine Ratio 23.7 H Glucose 138 H Lactic Acid Calcium 7.7 L Phosphorus 8.5 H Ammonia Troponin I Albumin 2.4 L TSH Free T4 FSH Luteinizing Hormone Ur Random Sodium Urine Creatinine Random Vancomycin POC Glucose 140 H Crossmatch 09/03/19 09/03/19 09/03/19 07:20 08:28 08:28 WBC RBC Hgb Hct MCV MCH MCHC RDW Std Deviation RDW Coeff of Radha Plt Count MPV Immature Gran % (Auto) Neut % (Auto) Lymph % (Auto) [place] % (Auto) Eos % (Auto) Baso % (Auto) Absolute Neuts (auto) Absolute Lymphs (auto) Nucleated RBC % Differential Comment Hypochromasia Microcytosis Target Cells Sodium Potassium Chloride Carbon Dioxide BUN Creatinine Estim Creat Clear Calc Est GFR (MDRD) Af Amer Est GFR (MDRD) Non-Af BUN/Creatinine Ratio Glucose Lactic Acid 0.9 Calcium Phosphorus Ammonia 45.0 H Troponin I < 0.015 Albumin TSH Free T4 FSH Luteinizing Hormone Ur Random Sodium Urine Creatinine Random Vancomycin POC Glucose Crossmatch 09/03/19 09/03/19 09/03/19 11:13 11:30 11:30 WBC RBC Hgb Hct MCV MCH MCHC RDW Std Deviation RDW Coeff of Radha Plt Count MPV Immature Gran % (Auto) Neut % (Auto) Lymph % (Auto) [place] % (Auto) Eos % (Auto) Baso % (Auto) Absolute Neuts (auto) Absolute Lymphs (auto) Nucleated RBC % Differential Comment Hypochromasia Microcytosis Target Cells Sodium Potassium Chloride Carbon Dioxide BUN Creatinine Estim Creat Clear Calc Est GFR (MDRD) Af Amer Est GFR (MDRD) Non-Af BUN/Creatinine Ratio Glucose Lactic Acid Calcium Phosphorus Ammonia Troponin I < 0.015 Albumin TSH Free T4 FSH Luteinizing Hormone Ur Random Sodium Urine Creatinine Random Vancomycin 9.9 POC Glucose 151 H Crossmatch 09/03/19 09/03/19 09/03/19 12:40 12:40 16:00 WBC RBC Hgb Hct MCV MCH MCHC RDW Std Deviation RDW Coeff of Radha Plt Count MPV Immature Gran % (Auto) Neut % (Auto) Lymph % (Auto) [place] % (Auto) Eos % (Auto) Baso % (Auto) Absolute Neuts (auto) Absolute Lymphs (auto) Nucleated RBC % Differential Comment Hypochromasia Microcytosis Target Cells Sodium Potassium Chloride Carbon Dioxide BUN Creatinine Estim Creat Clear Calc Est GFR (MDRD) Af Amer Est GFR (MDRD) Non-Af BUN/Creatinine Ratio Glucose Lactic Acid Calcium Phosphorus Ammonia Troponin I Albumin TSH Free T4 FSH Luteinizing Hormone Ur Random Sodium 10 Urine Creatinine 159.00 Random Vancomycin POC Glucose 159 H Crossmatch 09/03/19 09/04/19 09/04/19 21:58 05:20 05:40 WBC RBC Hgb Hct MCV MCH MCHC RDW Std Deviation RDW Coeff of Radha Plt Count MPV Immature Gran % (Auto) Neut % (Auto) Lymph % (Auto) [place] % (Auto) Eos % (Auto) Baso % (Auto) Absolute Neuts (auto) Absolute Lymphs (auto) Nucleated RBC % Differential Comment Hypochromasia Microcytosis Target Cells Sodium 134 L Potassium 4.2 Chloride 99 Carbon Dioxide 23.0 BUN 102 H* Creatinine 4.15 H Estim Creat Clear Calc 17.83 Est GFR (MDRD) Af Amer 19 L Est GFR (MDRD) Non-Af 15 L BUN/Creatinine Ratio 24.6 H Glucose 138 H Lactic Acid Calcium 7.5 L Phosphorus 8.7 H Ammonia Troponin I Albumin 2.4 L TSH 4.32 H Free T4 0.54 L FSH 0.6 Luteinizing Hormone 0.2 Ur Random Sodium Urine Creatinine Random Vancomycin 17.9 H POC Glucose 146 H Crossmatch 09/04/19 08:02 WBC RBC Hgb Hct MCV MCH MCHC RDW Std Deviation RDW Coeff of Radha Plt Count MPV Immature Gran % (Auto) Neut % (Auto) Lymph % (Auto) [place] % (Auto) Eos % (Auto) Baso % (Auto) Absolute Neuts (auto) Absolute Lymphs (auto) Nucleated RBC % Differential Comment Hypochromasia Microcytosis Target Cells Sodium Potassium Chloride Carbon Dioxide BUN Creatinine Estim Creat Clear Calc Est GFR (MDRD) Af Amer Est GFR (MDRD) Non-Af BUN/Creatinine Ratio Glucose Lactic Acid Calcium Phosphorus Ammonia Troponin I Albumin TSH Free T4 FSH Luteinizing Hormone Ur Random Sodium Urine Creatinine Random Vancomycin POC Glucose 146 H Crossmatch Microbiology 08/29/19 13:10 Blood Culture (Wb) - Anticubital Right Blood Culture - Final No growth in 5 days. 08/29/19 13:25 Blood Culture (Wb) - Left Forearm Blood Culture - Final No growth in 5 days. Clinical Impression(s) from Imaging Studies Tibia/Fibula X-Ray 09/03/19 11:06 IMPRESSION: Deformity of the proximal fibula and tibia in keeping with old fracture. No acute abnormality is seen. Diffuse soft tissue swelling Electronically Signed: Kj Padilla, at 14:07 EDT , Service support , Ankle X-Ray 09/03/19 12:05 IMPRESSION: Degenerative changes of the distal tibial talar joint with diffuse soft tissue swelling. Electronically Signed: Kj Padilla, at 14:06 EDT , Service support , Medical Necessity - Tobacco Use Smoking Status: Current every day smoker Assessment/Plan All Active Problems ARF (acute renal failure) (Acute) Acute anemia (Acute) GI bleed (Acute) Cellulitis of both lower extremities (Acute) Hyperkalemia (Acute) Afib (Acute) Localized edema (Acute) Cellulitis of left lower limb (Acute) Cellulitis of right lower limb (Acute) Venous insufficiency (Acute) Peripheral vascular disease (Acute) Poor hygiene (Acute) Onychomycosis (Acute) Toe pain, right (Acute) Toe pain, left (Acute) Anasarca (Acute) Acute hypoxemic respiratory failure (Acute) Macrocytic anemia (Acute) Hyponatremia (Acute) Elevated BP without diagnosis of hypertension (Acute) Morbid (severe) obesity due to excess calories (Acute) RECOMMENDATIONS: 1. Passive warming if patient agreeable 2. Agree with infectious disease recommendations 3. Increase Synthroid 4. Wean oxygen as tolerated 5. Await family decision on goals of therapy IMPRESSIONS: 1. Hypotension/hypothermia Unclear etiology. Sepsis would be a concern given hypothermia, but this would be unlikely given patient has been on meropenem for several days for lower extremities. Agree with infectious disease recommendations. Patient does not have focal neurologic findings. Patient has been receiving significant fluid resuscitation in the setting of low oncotic pressure, but this would not account for acute onset of hypothermia and hypotension. Patient has been getting prednisone therapy, so cortisol levels will be falsely elevated. Some concern for possible hypoadrenalism versus hypopituitary versus hypothyroidism. Patient does have elevated TSH with low T4. Will increase levothyroxine. Glucose levels have been appropriate. Discontinue antihypertensives. Another possible etiology for hypothermia would be conductive losses secondary to weeping of the skin and loss of appropriate barrier of lower extremities. 2. Severe sepsis secondary to lower extremity cellulitis Patient is being seen by infectious disease. Patient was on meropenem when initial hypotension and hypothermia was noted. Agree with infectious disease. Can initiate patient on low-dose peripheral pressors for now if necessary. 3. Acute kidney injury Stable. Uremia may be adding to some confusion and calling out. Patient is receiving aggressive fluid resuscitation with little improvement in renal function. Clinical suspicion for prerenal etiology secondary to low oncotic pressure with delivery to the kidneys. Nephrology is following. Patient would likely be a poor candidate for long-term hemodialysis given history of noncompliance, current debility and cognitive functioning. 4. Acute hypoxic respiratory insufficiency secondary to probable acute on chronic diastolic CHF/paroxysmal A. fib Chest x-ray is suggestive of congestive heart failure with fluid in the fissure and developing infiltrates with pleural effusions. Patient likely requires hemodialysis from a respiratory standpoint. Caution with additional fluids. Repeat echo has been ordered. 5. Recent acute blood loss anemia/thrombocytopenia Patient with healing gastric ulcers that may have been the etiology of low hemoglobin on presentation. H. pylori has not been noted. Unclear etiology of thrombocytopenia. Patient may have a consumptive process. 6. History of noncompliance/morbid obesity/learning disability Complicates care, management, recovery and prognosis. Hospitalist to have a meeting with family to discuss CODE STATUS. Inpatient E&M: 77117 Subs Hosp L2
[2019-09-04] MEDS: Nystatin Powder 15gm Bottle 1 APPLIC TOPICAL (10:16)
[2019-09-04 11:11] LABS: Bedside Glucose 149 mg/dL (70-110)
--- NOTE | 2019-09-04 13:35 | PN.RENAL_ITS ---
Patient Problems: Active and Suspected Problems ARF (acute renal failure) (Acute) Acute anemia (Acute) GI bleed (Acute) Cellulitis of both lower extremities (Acute) Hyperkalemia (Acute) Afib (Acute) Localized edema (Acute) Cellulitis of left lower limb (Acute) Cellulitis of right lower limb (Acute) Venous insufficiency (Acute) Peripheral vascular disease (Acute) Poor hygiene (Acute) Onychomycosis (Acute) Toe pain, right (Acute) Toe pain, left (Acute) - Physical Exam Vitals/I&O's: Vital Signs Temp Pulse Resp BP Pulse Ox 92.0 F L 97 18 102/83 H 98 09/04/19 12:00 09/04/19 12:11 09/04/19 12:00 09/04/19 12:00 09/04/19 12:00 Oxygen Flow Rate (L/min) 2 Oxygen Delivery Method Nasal Cannula Weight: 153.1 kg Body Mass Index (BMI) 43.4 Intake and Output for Last 24 Hours 09/02/19 09/03/19 09/04/19 23:59 23:59 23:59 Intake Total 2257.50 / 2257.50 3935.5 / 3935.5 2413.0 / 2413.0 Output Total 200 / 250 305 / 305 150 / 150 Balance 50 / 50 3630.5 / 3630.5 2263.0 / 2263.0 General: Alert, Oriented x3, - - moaning nonstop, in pain all over Oral: Dry Mucosa Neck: Supple Lungs: Clear to auscultation Cardiovascular: Irregular Rate Abdomen: Bowel Sounds Present, Soft, Distended, Obese Extremities: Edema - anasarca Skin: Ulcer/ Wound Musculoskeletal: - - chronically debilitated Neurological: - - no tremor Psych/Mental Status: Agitated, Restless, Alert and oriented to time, place, person, mood and affect Microbiology Past 72 Hours 08/29/19 13:10 Blood Culture (Wb) - Anticubital Right Blood Culture - Final No growth in 5 days. 08/29/19 13:25 Blood Culture (Wb) - Left Forearm Blood Culture - Final No growth in 5 days. 08/29/19 13:58 Wound - Leg Gram Stain - Final 08/29/19 13:58 Wound - Leg Wound Culture - Final Raoultella planticola Stenotrophomonas maltophilia Enterococcus faecalis Corynebact. pseudodiphtheritic Laboratory Results 08/29/19 14:20: Crossmatch See Detail 09/03/19 16:00: POC Glucose 159 H 09/03/19 21:58: POC Glucose 146 H 09/04/19 05:20: Random Vancomycin 17.9 H 09/04/19 05:40: Sodium 134 L, Potassium 4.2, Chloride 99, Carbon Dioxide 23.0, BUN 102 H*, Creatinine 4.15 H, Estim Creat Clear Calc 17.83, Est GFR (MDRD) Af Amer 19 L, Est GFR (MDRD) Non-Af 15 L, BUN/Creatinine Ratio 24.6 H, Glucose 138 H, Calcium 7.5 L, Phosphorus 8.7 H, Albumin 2.4 L, TSH 4.32 H, Free T4 0.54 L, FSH 0.6, Luteinizing Hormone 0.2 09/04/19 08:02: POC Glucose 146 H 09/04/19 11:02: POC Glucose 149 H Current Medications Acetaminophen (Tylenol) 650 mg PO Q6H PRN PRN PRN Reason: Pain Score 1-10/Temp > 100.7 F Albuterol/Ipratropium (Duoneb) 3 ml INHALATION Q6H.RT KANDY Last Admin: 09/04/19 06:37 Dose: 3 ml Documented by: Calamine/Phenol (Calmoseptine Ointment) 1 applic TOPICAL TID KANDY; Protocol Last Admin: 09/04/19 12:56 Dose: 1 applicatio Documented by: Dextrose (D50w Syringe) 0 gm IV X1 PRN; Protocol PRN Reason: Hypoglycemia Glucagon () 1 mg IM .X1 PRN PRN Reason: Hypoglycemia Pantoprazole Sodium 40 mg/ (Sodium Chloride) 110 mls @ 330 mls/hr IV Q12 KANDY Last Infusion: 09/04/19 10:58 Dose: Infused Documented by: Meropenem 250 mg/ Sodium (Chloride) 55 mls @ 100 mls/hr IV Q12 KANDY Last Infusion: 09/04/19 10:58 Dose: Infused Documented by: Sodium Chloride () 250 mls @ 15 mls/hr IV .[id number] PRN PRN Reason: Saline Flush Last Infusion: 09/04/19 03:31 Dose: Infused Documented by: Sodium Chloride () 250 mls @ 15 mls/hr IV .[id number] PRN PRN Reason: Additional IVPB Infusion Vancomycin IV Pharmacy to Dose (1 ea/ Sodium Chloride) 500 mls @ 250 mls/hr IV X1 PRN; Protocol PRN Reason: Rx to Dose Sodium Chloride () 1,000 mls @ 150 mls/hr IV .[id number] [facility] Last Admin: 09/04/19 12:54 Dose: 150 mls/hr Documented by: Vancomycin HCl 2,000 mg/ (Sodium Chloride) 540 mls @ 250 mls/hr IV X1 ONE Stop: 09/04/19 16:09 Last Admin: 09/04/19 12:58 Dose: 250 mls/hr Documented by: Furosemide 500 mg/ N/A 50 mls @ 1 mls/hr CONT INF .Q50H [facility] Insulin Human Lispro (Humalog Kwikpen (Bkc)) 0 unit SC TIDAC [facility]; Protocol Last Admin: 09/04/19 11:19 Dose: Not Given Documented by: Levofloxacin (Levaquin Tablet) 500 mg PO Q48@0600 [facility] Levothyroxine Sodium (Synthroid) 100 mcg PO DAILY@0600 [facility] Nicotine (Nicoderm Cq (Pbkc)) 21 mg TRANSDERM. DAILY [facility] Last Admin: 09/04/19 10:16 Dose: 21 mg Documented by: Nutritional Formula (Artemio - [place] Flavor) 1 packet PO BIDCM [facility] Last Admin: 09/04/19 09:28 Dose: Not Given Documented by: Nystatin (Mycostatin Powder) 1 applic TOPICAL BID [facility]; Protocol Last Admin: 09/04/19 10:16 Dose: 1 applicatio Documented by: Ondansetron HCl (Zofran) 4 mg IV Q8H PRN PRN PRN Reason: NAUSEA/VOMITING Oxycodone HCl (Oxyir) 5 mg PO Q6H PRN PRN PRN Reason: Pain Score 1-5/10 Last Admin: 08/31/19 10:41 Dose: 5 mg Documented by: Senna/Docusate Sodium (Senokot-S, Vanessa-Colace) 2 tablet PO DAILY PRN PRN PRN Reason: CONSTIPATION Last Admin: 08/30/19 14:01 Dose: 2 tablet Documented by: Sevelamer Carbonate (Renvela) 2,400 mg PO TIDCM KANDY Last Admin: 09/04/19 11:19 Dose: Not Given Documented by: Sodium Chloride () 10 - 40 ml IV UD PRN PRN Reason: SALINE FLUSH Last Admin: 09/01/19 11:12 Dose: 10 ml Documented by: Medical Necessity - Tobacco Use Smoking Status: Current every day smoker Assessment/Plan All Active Problems ARF (acute renal failure) (Acute) Acute anemia (Acute) GI bleed (Acute) Cellulitis of both lower extremities (Acute) Hyperkalemia (Acute) Afib (Acute) Localized edema (Acute) Cellulitis of left lower limb (Acute) Cellulitis of right lower limb (Acute) Venous insufficiency (Acute) Peripheral vascular disease (Acute) Poor hygiene (Acute) Onychomycosis (Acute) Toe pain, right (Acute) Toe pain, left (Acute) Anasarca (Acute) Acute hypoxemic respiratory failure (Acute) Macrocytic anemia (Acute) Hyponatremia (Acute) Elevated BP without diagnosis of hypertension (Acute) Morbid (severe) obesity due to excess calories (Acute) 1. DIPTI baseline creatinine 0.67 on 06/05/19. Creatinine unchanged despite iv fluids. Cr 4.1 today. FeNa <1% urine sodium 10 Continue with iv fluids. Poor urine output. Will add lasix drip. spoke with pt brother Maximilian regarding dialysis, hospice. Pt DNR [facility]. Pt in chronic pain, he does not want a dialysis catheter placed or be moved due to pain. Pt brother agreed to hospice consult but will not make decision to hospice until discuss with family 2. GI bleed s/p EGD hgb stable 3. Hyperkalemia resolved, hyperphosphatemia start binders 4. Metabolic acidosis resolved 5. Acute cellulitis due to edema, renal dose iv antibx. Blood cx no growth so far 6. Morbid obesity 7. Hypotension, Transferred to ICU. LActic acid normal 8. Chronic debilitation. poor prognosis overall DW nursing staff, hospitalist
[2019-09-04] MEDS: Furosemide 500 MG in Empty Viaflex 50 mL 1 EACH CONT INF (13:55)
--- NOTE | 2019-09-04 14:49 | DCINST_ITS ---
- Discharge Diagnoses Current Active Problems: Current Active and Chronic Problems ARF (acute renal failure) (Acute) Acute anemia (Acute) GI bleed (Acute) Cellulitis of both lower extremities (Acute) Hyperkalemia (Acute) Afib (Acute) Chronic ulcer of right leg with fat layer exposed (Chronic) Chronic ulcer of left leg with fat layer exposed (Chronic) Localized edema (Acute) Cellulitis of left lower limb (Acute) Cellulitis of right lower limb (Acute) Venous insufficiency (Acute) Peripheral vascular disease (Acute) Poor hygiene (Acute) Onychomycosis (Acute) Toe pain, right (Acute) Toe pain, left (Acute) Reason(s) for Visit for Discharge Instructions: Edema You will use the following diet at home:: No restrictions Your food should be the consistency of: Regular Your liquids should be the consistency of: Regular/Thin Discharge Activity: Return to Normal Activity Weight Bearing Status: Weight bearing as tolerated Keep extremity elevated above heart level: Left Leg, Right Leg Call your doctor if your incision/area has: Continuous Slow Oozing, Sudden Increased Bleeding, Increased Pain/ Swelling, Increased Redness, Foul Smelling Discharge Call your doctor if you observe: Fever of 101 or Higher, Calf discomfort, Uncontrolled pain Cleanse incision/area with: Soap & Water, - - Do not soak Additional Dressing/Incision Instructions:: Change the dressing daily with Aquacel Ag and Adaptic if needed to avoid dressing adherence. Cover with 4x4 gauze, abdominal pads, Kerlix roll, and Harish wrap to bilateral lower extremities. Allergies/Adverse Reactions: Allergies Penicillins [PCN] Allergy (Verified 08/29/19 12:05) PASSED OUT Medications to take at Discharge Apixaban [Eliquis] 5 mg PO BID #60 tab 06/05/19 Potassium Chloride [K-Dur] 20 meq PO BID #60 tab 06/05/19 Torsemide 20 mg PO BID #60 tab 06/05/19 carvedilol 6.25 mg tablet 6.25 mg PO BID #60 tab 06/17/19 Primary Care Physician: Care Physician,No Primary [NON-STAFF] - Test Results: Test results from this visit will be discussed in further detail at your follow- up appointment, if applicable. Please Follow Up With: Clinic,Wound When: with any wound care provider w/in 1 week of discharge. Proposed Discharge Date: 09/04/19
--- NOTE | 2019-09-04 14:50 | PCM.DC.SUM ---
Discharge Date and Diagnosis Date of Admission: 08/29/19 Date of Discharge: 09/04/19 - Primary Discharge Diagnosis Acute Problems: Active Problems 1. Severe sepsis secondary to pneumonia 2. Acute severe anemia 3. Acute GI bleed 4. DIPTI, prerenal 5. Hyperkalemia 6. Newly diagnosed hypothyroidism 7. Bilateral lower extremities cellulitis/chronic venous stasis ulcers 8. Hypoxia 9. Acute on chronic diastolic CHF - Secondary Discharge Diagnosis Chronic Problems: Chronic Problems Bilateral lower extremity edema (Chronic) Leg pain, left (Chronic) Leg pain, right (Chronic) Chronic venous insufficiency of lower extremity (Chronic) Chronic ulcer of right leg with fat layer exposed (Chronic) Chronic ulcer of left leg with fat layer exposed (Chronic) Hospital Course and Treatment Imaging Results: Clinical Impression(s) from Imaging Studies Chest X-Ray 08/29/19 14:43 IMPRESSION: Obscuration of the right cardiophrenic angle may be secondary to pleural effusion and/or pleural thickening. Electronically Signed: Fernanda Good MD at 15:49 EDT Tel , Service support , Renal Ultrasound 08/29/19 16:58 IMPRESSION: Within normal limits ultrasound of the kidneys and urinary bladder. Electronically Signed: Fernanda Good MD at 18:40 EDT Tel , Service support , Chest X-Ray 09/02/19 23:47 IMPRESSION: Heart is enlarged. There are bilateral perihilar and lower lobe infiltrates which have increased since prior study. There are increased bilateral pleural effusions. There is NO pneumothorax. Electronically Signed: Lucas Zamora MD at 0:21 EDT , Service support , Tibia/Fibula X-Ray 09/03/19 11:06 IMPRESSION: Deformity of the proximal fibula and tibia in keeping with old fracture. No acute abnormality is seen. Diffuse soft tissue swelling Electronically Signed: Kj Padilla at 14:07 EDT , Service support , Ankle X-Ray 09/03/19 12:05 IMPRESSION: Degenerative changes of the distal tibial talar joint with diffuse soft tissue swelling. Electronically Signed: Kj Padilla, at 14:06 EDT , Service support , Consultations 08/29/19 16:58 Consult: Onc/Wound/department manager Routine Comment: Reason for Consult:: LE wounds ID Nephrology General surgery Critical care Operations: None Procedures: 2-D Echocardiogram, EGD Summary of Care Provided: The patient is a 69 year old M multiple comorbidities including chronic diastolic CHF who presented on 08/29/19 with bilateral lower extremity wounds. Patient was recently admitted and discharged on May. He was found in this admission to have hemoglobin of 4.7. He received 7 units of packed RBCs. He also had an elevated creatinine of 5.0. Nephrology was consulted. Patient was started on IV fluids. Creatinine did not improve much. General surgery was consulted, he underwent EGD that showed nonbleeding gastric ulcer. Biopsies were negative for H. pylori. Patient was to undergo for colonoscopy but could not complete preparation. He was followed by wound RN and was started on IV meropenem for his bilateral leg wounds. 09/03/19, patient suddenly became hypothermic with temperature of 92F, hypotensive and was transferred to ICU. Critical care and ID were consulted. IV Levaquin and vancomycin were added to his medications. Patient creatinine remained stable elevated. His urine output was poor. Managed with a bear hugger. Family meeting was held on 09/04/19, patient's CODE STATUS was DNR CCA. He elected to have dialysis. However on the day of discharge, patient's did not want to go through dialysis. Hospice was consulted and he was accepted into the inpatient hospice unit. Subjective: See progress note of the day Objective: See progress note on today - Physical Exam Vitals/I&O's: Vital Signs Temp Pulse Resp BP Pulse Ox 92.0 F L 93 18 89/57 L 96 09/04/19 12:00 09/04/19 14:00 09/04/19 14:00 09/04/19 14:00 09/04/19 14:00 Oxygen Flow Rate (L/min) 4 Oxygen Delivery Method Nasal Cannula Weight: 153.1 kg Body Mass Index (BMI) 43.4 Intake and Output for Last 24 Hours 09/02/19 09/03/19 09/04/19 23:59 23:59 23:59 Intake Total 2257.50 / 2257.50 3935.5 / 3935.5 2413.0 / 2413.0 Output Total 200 / 250 305 / 305 165 / 165 Balance 205.50 / 2006.50 3630.5 / 3630.5 2248.0 / 2248.0 Microbiology Past 72 Hours 08/29/19 13:10 Blood Culture (Wb) - Anticubital Right Blood Culture - Final No growth in 5 days. 08/29/19 13:25 Blood Culture (Wb) - Left Forearm Blood Culture - Final No growth in 5 days. 08/29/19 13:58 Wound - Leg Gram Stain - Final 08/29/19 13:58 Wound - Leg Wound Culture - Final Raoultella planticola Stenotrophomonas maltophilia Enterococcus faecalis Corynebact. pseudodiphtheritic Laboratory Results 08/29/19 14:20: Crossmatch See Detail 09/03/19 16:00: POC Glucose 159 H 09/03/19 21:58: POC Glucose 146 H 09/04/19 05:20: Random Vancomycin 17.9 H 09/04/19 05:40: Sodium 134 L, Potassium 4.2, Chloride 99, Carbon Dioxide 23.0, BUN 102 H*, Creatinine 4.15 H, Estim Creat Clear Calc 17.83, Est GFR (MDRD) Af Amer 19 L, Est GFR (MDRD) Non-Af 15 L, BUN/Creatinine Ratio 24.6 H, Glucose 138 H, Calcium 7.5 L, Phosphorus 8.7 H, Albumin 2.4 L, TSH 4.32 H, Free T4 0.54 L, FSH 0.6, Luteinizing Hormone 0.2 09/04/19 08:02: POC Glucose 146 H 09/04/19 11:02: POC Glucose 149 H Current Medications Acetaminophen (Tylenol) 650 mg PO Q6H PRN PRN PRN Reason: Pain Score 1-10/Temp > 100.7 F Albuterol/Ipratropium (Duoneb) 3 ml INHALATION Q6H.RT [facility] Last Admin: 09/04/19 13:52 Dose: Not Given Documented by: Calamine/Phenol (Calmoseptine Ointment) 1 applic TOPICAL TID [facility]; Protocol Last Admin: 09/04/19 12:56 Dose: 1 applicatio Documented by: Dextrose (D50w Syringe) 0 gm IV X1 PRN; Protocol PRN Reason: Hypoglycemia Glucagon () 1 mg IM .X1 PRN PRN Reason: Hypoglycemia Pantoprazole Sodium 40 mg/ (Sodium Chloride) 110 mls @ 330 mls/hr IV Q12 [facility] Last Infusion: 09/04/19 10:58 Dose: Infused Documented by: Meropenem 250 mg/ Sodium (Chloride) 55 mls @ 100 mls/hr IV Q12 [facility]ANDY Last Infusion: 09/04/19 10:58 Dose: Infused Documented by: Sodium Chloride () 250 mls @ 15 mls/hr IV .[id number] PRN PRN Reason: Saline Flush Last Infusion: 09/04/19 03:31 Dose: Infused Documented by: Sodium Chloride () 250 mls @ 15 mls/hr IV .[id number] PRN PRN Reason: Additional IVPB Infusion Vancomycin IV Pharmacy to Dose (1 ea/ Sodium Chloride) 500 mls @ 250 mls/hr IV X1 PRN; Protocol PRN Reason: Rx to Dose Sodium Chloride () 1,000 mls @ 150 mls/hr IV .[id number] [facility] Last Admin: 09/04/19 12:54 Dose: 150 mls/hr Documented by: Furosemide 500 mg/ N/A 50 mls @ 1 mls/hr CONT INF .Q50H [facility] Last Admin: 09/04/19 13:55 Dose: 10 mg/hr, 1 mls/hr Documented by: Insulin Human Lispro (Humalog Kwikpen (Bkc)) 0 unit SC TIDAC [facility]; Protocol Last Admin: 09/04/19 11:19 Dose: Not Given Documented by: Levofloxacin (Levaquin Tablet) 500 mg PO Q48@0600 [facility] Levothyroxine Sodium (Synthroid) 100 mcg PO DAILY@0600 [facility] Nicotine (Nicoderm Cq (Pbkc)) 21 mg TRANSDERM. DAILY [facility] Last Admin: 09/04/19 10:16 Dose: 21 mg Documented by: Nutritional Formula ([facility]em[facility] - [place] Flavor) [facility] Admin: 09/04/19 09:28 Dose: Not Given Documented by: Nystatin (Mycostatin Powder) 1 applic TOPICAL BID [facility]; Protocol Last Admin: 09/04/19 10:16 Dose: 1 applicatio Documented by: Ondansetron HCl (Zofran) 4 mg IV Q8H PRN PRN PRN Reason: NAUSEA/VOMITING Oxycodone HCl (Oxyir) 5 mg PO Q6H PRN PRN PRN Reason: Pain Score 1-5/10 Last Admin: 08/31/19 10:41 Dose: 5 mg Documented by: Senna/Docusate Sodium (Senokot-S, Vanessa-Colace) 2 tablet PO DAILY PRN PRN PRN Reason: CONSTIPATION Last Admin: 08/30/19 14:01 Dose: 2 tablet Documented by: Sevelamer Carbonate (Renvela) 2,400 mg PO TIDCM [facility] Last Admin: 09/04/19 11:19 Dose: Not Given Documented by: Sodium Chloride () 10 - 40 ml IV UD PRN PRN Reason: SALINE FLUSH Last Admin: 09/01/19 11:12 Dose: 10 ml Documented by: Discharge Diet: Low fat/ Low Cholesterol, 2000 mg Sodium Diet Discharge Activity: Return to Normal Activity Weight Bearing Status: Weight bearing as tolerated Keep extremity elevated above heart level: Left Leg, Right Leg Call your doctor if your incision/area has: Continuous Slow Oozing, Sudden Increased Bleeding, Increased Pain/ Swelling, Increased Redness, Foul Smelling Discharge Call your doctor if you observe: Fever of 101 or Higher, Calf discomfort, Uncontrolled pain Cleanse incision/area with: Soap & Water, - - Do not soak Additional Dressing/Incision Instructions:: Change the dressing daily with Aquacel Ag and Adaptic if needed to avoid dressing adherence. Cover with 4x4 gauze, abdominal pads, Kerlix roll, and Harish wrap to bilateral lower extremities. Home Medications: Medications to take at Discharge Apixaban [Eliquis] 5 mg PO BID #60 tab 06/05/19 Potassium Chloride [K-Dur] 20 meq PO BID #60 tab 06/05/19 Torsemide 20 mg PO BID #60 tab 06/05/19 carvedilol 6.25 mg tablet 6.25 mg PO BID #60 tab 06/17/19 Primary Care Physician: Care Physician,No Primary [NON-STAFF] - Please Follow Up With: Clinic,Wound When: with any wound care provider w/in 1 week of discharge. Disposition: Hospice Medical Facility Minutes spent on discharge:: 55 Patient Condition:: Stable Medical Necessity - Tobacco Use Smoking Status: Current every day smoker Tobacco Use: Cigarettes Meaningful Use Info Meaningful Use Diagnoses (Choose all that apply): CHF - CHF HARISH/ARB ordered at discharge?: No Reason HARISH/ARB not ordered?: Worsening renal disease Documented LVEF (%): 65 Inpatient E&M: [id number] Disch Hosp
== END 2019-09-04 16:20 | disposition hospice, inpatient (51) | DRG 811 ==
LOC: ED 15:34 → ICU 16:32 → PCU 08-31 08:52 → ICU 09-03 14:43
PROVIDERS: Hospitalist; Internal Medicine Critical Care Medicine; Internal Medicine Infectious Disease; Internal Medicine Nephrology; Nurse Practitioner Family; Student in an Organized Health Care Education/Training Program; Surgery; Admitting Provider Internal Medicine; Emergency Provider Physician Assistant Medical; PCP Internal Medicine; Visit Provider Internal Medicine
PROC: 0DJ08ZZ Inspection of Upper Intestinal Tract, Via Natural or Artificial Opening Endoscopic (ICD-10-PCS; CPT 43235; principal; 2019-09-01 12:25)
DX: D62 Acute posthemorrhagic anemia (principal); A41.9 Sepsis, unspecified organism; J18.9 Pneumonia, unspecified organism; I50.33 Acute on chronic diastolic (congestive) heart failure; R65.20 Severe sepsis without septic shock; N17.9 Acute kidney failure, unspecified; L03.115 Cellulitis of right lower limb; J44.0 Chronic obstructive pulmonary disease with (acute) lower respiratory infection; Z68.41 Body mass index [BMI] 40.0-44.9, adult; L03.116 Cellulitis of left lower limb; L97.812 Non-pressure chronic ulcer of other part of right lower leg with fat layer exposed; L97.822 Non-pressure chronic ulcer of other part of left lower leg with fat layer exposed; E87.2 Acidosis; R09.02 Hypoxemia; K29.00 Acute gastritis without bleeding; I11.0 Hypertensive heart disease with heart failure; E03.9 Hypothyroidism, unspecified; F17.210 Nicotine dependence, cigarettes, uncomplicated; I48.0 Paroxysmal atrial fibrillation; E87.5 Hyperkalemia; K44.9 Diaphragmatic hernia without obstruction or gangrene; K25.7 Chronic gastric ulcer without hemorrhage or perforation; E66.01 Morbid (severe) obesity due to excess calories; G47.33 Obstructive sleep apnea (adult) (pediatric); T68.XXXA Hypothermia, initial encounter; D53.9 Nutritional anemia, unspecified; Z91.14 Patient's other noncompliance with medication regimen; F10.21 Alcohol dependence, in remission; I83.018 Varicose veins of right lower extremity with ulcer other part of lower leg; I83.028 Varicose veins of left lower extremity with ulcer other part of lower leg; I73.9 Peripheral vascular disease, unspecified; M79.674 Pain in right toe(s); M79.675 Pain in left toe(s); B35.1 Tinea unguium; L84 Corns and callosities; I95.9 Hypotension, unspecified; Z66 Do not resuscitate; D69.6 Thrombocytopenia, unspecified; W93.8XXA Exposure to other excessive cold of man-made origin, initial encounter
CPT/HCPCS: 36415; 71045; 73590; 73600; 76770; 80048; 80053; 80069; 80202; 81001; 82140; 82274; 82570; 82728; 82962; 83001; 83002; 83036; 83540; 83550; 83605; 84145; 84156; 84300; 84439; 84443; 84484; 84540; 85014; 85018; 85025; 85610; 85730; 86850; 86900; 86901; 86920; 86922; 87040; 87070; 87077; 87186; 87205; 87635; 88305; 88342; 93005; 93308; 93923; 93971; 94640; 94660; 97110; 97163; 97167; 97535; 99285; 99406; G2023; J2185; J7030; J7040; J7050; J7120; P9016; Q9957; A4216; C8924; J0610; J1940; J2405; J3490; U0003